=== PATIENT | female | born 1945 | race Caucasian/White ===

== ENCOUNTER 2017-01-07 06:12 | Inpatient (IN) | payer BC, MEDICARE ==
[2017-01-07] MEDS ORDERED: methylPREDNISolone SOD SUCC* 125 MG 2 ML VIAL ONE (06:29)
[2017-01-07] MEDS ORDERED: Levalbuterol 1.25MG/0.5ML NEB ONE (06:31)
[2017-01-07] MEDS ORDERED: methylPREDNISolone SOD SUCC* 125 MG 2 ML VIAL IV ONE ×2 (06:33→18:00)
[2017-01-07] MEDS ORDERED: Adenosine* 3 MG/ML VIAL IV PUSH ONE ×2 (06:33→06:35)
[2017-01-07] MEDS ORDERED: Albuterol/Ipratropium NEB.SOL* Albuterol 2.5 MG/Ipratropium 0.5 MG 3 ML INH ONE (06:33)
[2017-01-07] MEDS ORDERED: Diltiazem IV VIAL* 125 MG in D5W 100 ML BAG* 100 ML IV ONE (06:34)
[2017-01-07] MEDS ORDERED: Diltiazem IV* 5 MG/ML 5 ML VIAL (for loading dose/IV Push) (25 MG) IV SLOW PU ONE (06:34)
[2017-01-07] MEDS ORDERED: Diltiazem IV VIAL* 125 MG/25 ML VIAL ONE (06:36)
--- NOTE | 2017-01-07 06:56 | ED ---
Inessa Whitt Erika, scribed for Salvador Cox MD on 01/07/17 at 0643 . Palpitations / Dysrhythmia - HPI Summary HPI Summary: Patient is a 71-year-old female BIBA with intermittent tachycardia. Patient reports that tachycardia is associated with chest tightness and SOB. She reports that she has been experiencing symptoms intermittently for the past 3-4 days, but symptoms worsened [employer]. Medical records show that patient was previously admitted for COPD exacerbation with SVT, and was given adenosine and diltiazem. Patient is a former smoker. EMS reports that rhythm broke with valsalva maneuver. - History of Current Complaint Chief Complaint: EDRespiratoryDistress Time Seen by Provider: 01/07/17 06:15 Hx Obtained From: Patient, EMS, Medical Records Onset/Duration: Gradual Onset, Lasting Days, Worse Since - this morning Timing: Intermittent Episodes Lasting: - minutes Severity Initially: Severe Character: Fast Associated Signs & Symptoms: Chest Pain - tightness, Shortness of Breath - Allergy/Home Medications Allergies/Adverse Reactions: Allergies Allergy/AdvReac Type Severity Reaction Status Date / Time Adhesive Tape Allergy Severe RASH, Verified 06/02/16 19:23 ITCHING Fluconazole Allergy Severe GI REACTION Verified 06/02/16 19:45 Doxycycline Allergy Itching Verified 06/02/16 19:23 Ipratropium Allergy Difficulty Verified 06/02/16 19:23 Breathing Meperidine [From Demerol HCl] Allergy Palpitation Verified 06/02/16 19:23 s Fluticasone AdvReac Vomiting Verified 06/02/16 19:23 Vilanterol AdvReac Vomiting Verified 06/02/16 19:23 metals Allergy Mild Itching Uncoded 08/19/15 09:44 Yellow Dye Allergy Itching Uncoded 02/18/16 18:42 PMH/Surg Hx/FS Hx/Imm Hx Endocrine/Hematology History: Denies: Hx Diabetes, Hx Thyroid Disease Cardiovascular History: Reports: Hx Hypercholesterolemia, Hx Hypertension Denies: Hx Congestive Heart Failure, Hx Deep Vein Thrombosis, Hx Myocardial Infarction, Hx Pacemaker/ICD Respiratory History: Reports: Hx Chronic Obstructive Pulmonary Disease (COPD) Denies: Hx Asthma, Hx Lung Cancer GI History: Denies: Hx Gall Bladder Disease, Hx Gastrointestinal Bleed, Hx Ulcer, Hx Urosepsis History: Denies: Hx Kidney Stones, Hx Renal Disease Musculoskeletal History: Reports: Hx Arthritis Neurological History: Denies: Hx Dementia, Hx Migraine, Hx Seizures, Hx Transient Ischemic Attacks (TIA) Psychiatric History: Denies: Hx Anxiety, Hx Depression, Hx Schizophrenia, Hx Bipolar Disorder - Surgical History Surgery Procedure, Year, and Place: left knee reconstruction 1977; bilat carpal tunnel; TUBAL LIAGATION 1981 Infectious Disease History: Denies: Hx Hepatitis, Hx Human Immunodeficiency Virus (HIV), History Other Infectious Disease, Traveled Outside the [place] in Last 30 Days - Family History Known Family History: Positive: Cardiac Disease Negative: Hypertension, Diabetes - Social History Alcohol Use: None Hx Substance Use: No Substance Use Type: Reports: None Hx Tobacco Use: Yes Smoking Status (MU): Former Smoker Length of Time of Smoking/Using Tobacco: 50 years Review of Systems Cardiovascular: Other - chest tightness Positive: Palpitations - rapid heart rate Positive: Shortness Of Breath All Other Systems Reviewed And Are Negative: Yes Physical Exam Triage Information Reviewed: Yes Vital Signs On Initial Exam: Temp Pulse Resp BP Pulse Ox 97.8 F 125 25 164/101 99 01/07/17 06:12 01/07/17 06:31 01/07/17 06:31 01/07/17 06:12 01/07/17 06:31 Vital Signs Reviewed: Yes Appearance: Positive: Ill-Appearing, Cachectic - mod resp distress Skin: Positive: Warm Head/Face: Positive: Normal Head/Face Inspection Eyes: Positive: ROD ENT: Positive: Hearing grossly normal Neck: Positive: Supple Respiratory/Lung Sounds: Positive: Decreased Breath Sounds, Wheezes - diffuse bilat with prolonged exp, Unable to speak in full sentences Cardiovascular: Positive: IRR, Tachycardia Abdomen Description: Positive: Nontender, Soft Bowel Sounds: Positive: Present Musculoskeletal: Positive: Strength/ROM Intact Neurological: Positive: Sensory/Motor Intact, Alert, Oriented to Person Place, Time Psychiatric: Positive: Affect/Mood Appropriate Diagnostics - Vital Signs Vital Signs Temp Pulse Resp BP Pulse Ox 01/07/17 06:31 125 25 99 01/07/17 06:12 97.8 F 123 24 164/101 93 - Laboratory Lab Statement: Any lab studies that have been ordered have been reviewed, and results considered in the medical decision making process. - EKG 06:13 Cardiac Rate: Tachycardia - at 124 bpm EKG Rhythm: Sinus Tachycardia Re-Evaluation - Re-Evaluation First Eval Re-Evaluation Time: 06:55 - pt with svt, given adenosine x 2 with transient slowing, given cardizem with conversion Course/Dx - Course Assessment/Plan: A 71 y/o F presents to the ED with a CC of SOB and tachycardia. Patient is given duoneb and solumedrol. Pt's HR increases and she is then given adenosine and diltiazem. Patient has been admitted for similar episodes in the past. Patient admitted to the ICU by Dr. Patel. - Diagnoses Provider Diagnoses: COPD (chronic obstructive pulmonary disease), SVT (supraventricular tachycardia ) - Physician Notifications Discussed Care Of Patient With: Dr. Patel (hospitalist) at 06:44 - agrees to admit to ICU Instructed by Provider To: Admit As Inpatient - Critical Care Time Critical Care Time: 30-74 min Discharge - Discharge Plan Condition: Guarded Disposition: ADMITTED TO [facility] Referrals: Hai Nettles DO [Primary Care Provider] - The documentation as recorded by the Inessa hernández Erika accurately reflects the service I personally performed and the decisions made by Brooke webster David, MD.
[2017-01-07] MEDS ORDERED: NS 0.9% 1000 ML* 1,000 ML IV ONE (07:24)
--- NOTE | 2017-01-07 07:34 | RAD ---
INDICATION: Respiratory distress. COMPARISON: Comparison is made with a prior study from June 02, 2016. TECHNIQUE: A portable view of the chest was obtained. FINDINGS: Cardiac and mediastinal contours appear to be within normal limits. The lungs are markedly hyperinflated. There is mild prominence of interstitial markings which appear unchanged. No focal infiltrate or pleural effusion is seen. IMPRESSION: COPD, NO EVIDENCE FOR ACUTE FINDING.
[2017-01-07 08:08] LABS: Hematocrit 46 % (35-47); Hemoglobin 15.1 g/dl (12.0-16.0); Mean Corpuscular HGB Conc 33 g/dl (31-36); Mean Corpuscular Hemoglobin 31 pg (27-31); Mean Corpuscular Volume 94 fL (80-97); Mean Platelet Volume 7 um3 (7.4-10.4); Red Blood Count 4.91 10^6/ul (4.0-5.4); Red Cell Distribution Width 15 % (10.5-15); White Blood Count 14.9 10^3/ul (3.5-10.8)
[2017-01-07 08:14] LABS: Albumin 3.8 g/dL (3.2-5.2); BUN/Creatinine Ratio 18.9 (8-20); Calcium 8.5 mg/dL (8.6-10.3); EGFR African American 79.6 (>60); EGFR Non-African American 61.9 (>60); Globulin 2.4 g/dL (2-4); Potassium 3.4 mmol/L (3.5-5.0); Total Bilirubin 0.6 mg/dL (0.2-1.0); Total Protein 6.2 g/dL (6.4-8.9)
--- NOTE | 2017-01-07 08:24 | ADMNOTE ---
Subjective Date of Service: 01/07/17 Interval History: ADMISSION HISTORY AND PHYSICAL EXAM: Allergies Allergy/AdvReac Type Severity Reaction Status Date / Time Adhesive Tape Allergy Severe RASH, Verified 01/07/17 07:28 ITCHING Fluconazole Allergy Severe GI REACTION Verified 01/07/17 07:28 Doxycycline Allergy Itching Verified 01/07/17 07:28 Ipratropium Allergy Difficulty Verified 01/07/17 07:28 Breathing Meperidine [From Demerol HCl] Allergy Palpitation Verified 01/07/17 07:28 s Fluticasone AdvReac Vomiting Verified 01/07/17 07:28 Vilanterol AdvReac Vomiting Verified 01/07/17 07:28 metals Allergy Mild Itching Uncoded 01/07/17 07:28 Yellow Dye Allergy Itching Uncoded 01/07/17 07:28 Home Medications Medication Instructions Recorded Confirmed Type Albuterol HFA INHALER* [Ventolin 2 puff INH Q4H PRN 03/13/15 01/07/17 History HFA Inhaler*] Aspirin Low Dose CHEW TAB* 81 mg PO DAILY 03/13/15 01/07/17 History [Aspirin Low Dose TAB*] Atorvastatin* [Lipitor 20 MG*] 40 mg PO DAILY 07/09/15 01/07/17 History Albuterol 2.5MG/3ML (0.083%)* 3 ml INH Q4H PRN 02/18/16 01/07/17 History [Ventolin 2.5 MG/3 ML NEB.KJ*] Diltiazem HCl Coated Beads [Cartia 240 mg PO DAILY 06/02/16 01/07/17 History Xt] Docusate Sodium [Stool Softener] 100 mg PO DAILY 06/02/16 01/07/17 History predniSONE TAB* [Deltasone TAB*] 30 mg PO DAILY 01/07/17 01/07/17 History HPI: The patient had increased cough and SOB for several days. Her PCP prescribed ampicillin about 2 days ago but it didn't help. She hasn't slept for 2 nights. She used her albuterol/ipratropium many times last night, finally called 911. She is never aware of her SVT--no palpitations or chest pain. Family History: Findings - CAD, kidney cancer, leukemia Social History: Findings - Last smoked about a month ago. No recent alcohol abuse. Lives with her who is her SDM. Past Medical History: Findings - COPD, GERD, HTN, IBS, L knee surgery, BL CTR Review of Systems - Review of Systems Constitutional Symptoms: Negative: Weight Gain, Weight Loss, Weakness, Fatigue, Fever, Night Sweats, Unexplained Falls, Other Dermatology: Positive: Normal Eyes: Positive: Normal Thyroid: Positive: Normal Pulmonary: Positive: Cough, Sputum, Shortness of Breath, COPD Cardiology: Positive: Normal Gastroenterology: Positive: Normal Genital - Urinary: Positive: Normal Musculoskeletal: Negative: Joint Pain, Joint Stiffness, Arthritis, Osteoporosis, Low Back Pain , Sciatica, Joint Deformities, Kyphoscoliosis, Other Endocrinology: Positive: Normal Hematologic/Lymphatic: Negative: Anemia, Easy Brusing, Hx Leukemia, Hx Lymphoma, Use of Anticoagulant, Use of Antiplatelet Drugs, Other Neurology: Positive: Normal Psychiatry: Positive: Normal Allergic/Immunologic: Negative: Hx Anaphylaxis, Hx Angioedema, Hx Environmental, Hx Seasonal, Athsma, Hx HIV, Immunocompromise, Swollen Glands LymphNodes, Other Objective Active Medications: Aspirin (Aspirin Low Dose Tab*) 81 mg PO DAILY [facility] Atorvastatin Calcium (Lipitor*) 40 mg PO DAILY [facility] Diltiazem HCl (Cardizem Cd Cap*) 240 mg PO DAILY [facility] Docusate Sodium (Colace Cap*) 100 mg PO DAILY [facility] Enoxaparin Sodium (Lovenox(*)) 40 mg SUBCUT Q24H [facility] Diltiazem HCl 125 mg/ Dextrose 125 mls @ 10 mls/hr IV ED ONCE ONE PRN Reason: 10 MG/HR Stop: 01/07/17 19:03 Last Admin: 01/07/17 06:57 Dose: 10 mls/hr Sodium Chloride (Ns 0.9% 1000 Ml*) 1,000 mls @ 1,000 mls/hr IV ED ONCE ONE Stop: 01/07/17 08:23 Last Admin: 01/07/17 06:39 Dose: 1,000 mls/hr Levofloxacin/Dextrose (Levaquin 500 Mg Ivpremix(*)) 500 mg in 100 mls @ 100 mls /hr IVPB Q24H [facility] Levalbuterol HCl (Xopenex 1.25 Mg/0.5 Ml Neb.Kj*) 1.25 mg INH Q2H PRN PRN Reason: WHEEZING Vital Signs 01/07/17 01/07/17 07:30 08:01 Temperature 98.2 F Pulse Rate 100 100 Respiratory 19 24 Rate Blood Pressure 111/59 111/59 (mmHg) O2 Sat by Pulse 98 Oximetry Oxygen Devices in Use Now: CPAP/BiPAP Appearance: Alert, at 90 degrees on ED stretcher. Tachypneic. Otherwise looks comfortable. Eyes: No Scleral Icterus Neck: NL Appearance and Movements; NL JVP, No Thyroid Enlargement, Masses Respiratory: Symmetrical Chest Expansion and Respiratory Effort, Clear to Percussion, - - mild rhonchi and wheezing BL. Prolonged expiration. Cardiovascular: NL Sounds; No Murmurs; No JVD, RRR, No Edema, - Extremities: No Edema, No Clubbing, Cyanosis, - Skin: No Rash or Ulcers, No Nodules or Sclerosis, - Neurological: Alert and Oriented x 3, NL Sensation Result Diagrams: 01/07/17 07:45 Assess/Plan/Problems-Billing Assessment: - Patient Problems (1) COPD exacerbation Current Visit: Yes Status: Acute Code(s): J44.1 - CHRONIC OBSTRUCTIVE PULMONARY DISEASE W (ACUTE) EXACERBATION SNOMED Code(s): 508923004 Comment: IV levofloxacin. One more dose IV methylprednisolone, then oral prednisone. (2) SVT (supraventricular tachycardia) Current Visit: No Status: Acute Priority: Medium Code(s): I47.1 - SUPRAVENTRICULAR TACHYCARDIA SNOMED Code(s): 6711122 Comment: Likely due to combination of acute illness plus many doses inhaled albuterol. I don't think any change in her diltiazem dose is indicated, rather would substitue levalbuterol for use at home. (3) Tobacco abuse counseling Current Visit: No Status: Acute Priority: Medium Code(s): Z71.6 - TOBACCO ABUSE COUNSELING SNOMED Code(s): 672553457 Comment: Pt advised to quit smoking and avoid second hand smoke, also that a single cigarette would be harmful to her.
[2017-01-07] MEDS: Diltiazem CD CAP* 240 MG PO SCH (09:16)
[2017-01-07] MEDS: Aspirin Low Dose CHEW TAB* 81 MG PO SCH (09:16)
[2017-01-07] MEDS: Enoxaparin(*) 40 MG/0.4 ML SYR SUBCUT SCH (09:16)
[2017-01-07] MEDS: Docusate CAP* 100 MG PO SCH (09:17)
[2017-01-07] MEDS: Levofloxacin 500 MG IVPREMIX(* 500 MG/100 ML BAG IVPB SCH (09:18)
[2017-01-07] MEDS: Atorvastatin* 40 MG TAB PO SCH ×2 (09:20→11:48)
[2017-01-07] MEDS ORDERED: guaiFENesin LIQ* 100 MG/5 ML UDC PO ONE (10:10)
[2017-01-07 10:36] LABS: Troponin I 0.06 ng/mL (<0.04)
[2017-01-07] MEDS: guaiFENesin LIQ* 100 MG/5 ML UDC PO SCH ×3 (11:48→23:30)
[2017-01-07] MEDS: Levalbuterol 1.25MG/0.5ML NEB INH PRN (20:17)
[2017-01-07] MEDS ORDERED: ALPRAZolam TAB* 0.5 MG ONE (20:30)
[2017-01-08] MEDS: Levalbuterol 1.25MG/0.5ML NEB INH PRN ×2 (02:51→05:38)
[2017-01-08] MEDS: ALPRAZolam TAB* 0.5 MG PO PRN (05:23)
[2017-01-08] MEDS: guaiFENesin LIQ* 100 MG/5 ML UDC PO SCH ×4 (05:24→22:52)
--- NOTE | 2017-01-08 07:22 | PN ---
Subjective Date of Service: 01/08/17 Interval History: Patient sedated from alprazolam and/or exhausted and did not wake up during my exam. Family History: Findings - CAD, kidney cancer, leukemia Social History: Findings - Last smoked about a month ago. No recent alcohol abuse. Lives with her who is her SDM. Past Medical History: Findings - COPD, GERD, HTN, IBS, L knee surgery, BL CTR Objective Active Medications: Alprazolam (Xanax Tab*) 0.5 mg PO TID PRN PRN Reason: ANXIETY Last Admin: 01/08/17 05:23 Dose: 0.5 mg Aspirin (Aspirin Low Dose Tab*) 81 mg PO DAILY [facility] Last Admin: 01/07/17 09:16 Dose: 81 mg Atorvastatin Calcium (Lipitor*) 40 mg PO DAILY [facility] Last Admin: 01/07/17 11:48 Dose: 40 mg Diltiazem HCl (Cardizem Cd Cap*) 240 mg PO DAILY [facility] Last Admin: 01/07/17 09:16 Dose: 240 mg Docusate Sodium (Colace Cap*) 100 mg PO DAILY [facility] Last Admin: 01/07/17 09:17 Dose: Not Given Enoxaparin Sodium (Lovenox(*)) 40 mg SUBCUT Q24H [facility] Last Admin: 01/07/17 09:16 Dose: 40 mg Guaifenesin (Robitussin*) 10 ml PO Q6H [facility] Last Admin: 01/08/17 05:24 Dose: 10 ml Levofloxacin/Dextrose (Levaquin 500 Mg Ivpremix(*)) 500 mg in 100 mls @ 100 mls /hr IVPB Q24H [facility] Last Admin: 01/07/17 09:18 Dose: 100 mls/hr Levalbuterol HCl (Xopenex 1.25 Mg/0.5 Ml Neb.Tiesha*) 1.25 mg INH Q2H PRN PRN Reason: WHEEZING Last Admin: 01/08/17 05:38 Dose: 1.25 mg Methylprednisolone Sodium Succinate (Solu-Medrol*) 40 mg IV Q12H [facility] Vital Signs 01/07/17 01/07/17 01/07/17 07:30 08:00 08:01 Temperature 98.2 F Pulse Rate 100 90 100 Respiratory 19 26 24 Rate Blood Pressure 111/59 128/92 111/59 (mmHg) O2 Sat by Pulse 98 98 Oximetry 01/07/17 01/07/17 01/07/17 08:10 08:15 08:30 Temperature 99.2 F 99.2 F Pulse Rate 96 94 Respiratory 22 22 Rate Blood Pressure 138/53 98/54 (mmHg) O2 Sat by Pulse 96 97 Oximetry 01/07/17 01/07/17 01/07/17 09:00 09:25 09:30 Temperature Pulse Rate 81 87 86 Respiratory 22 23 23 Rate Blood Pressure 98/50 108/59 (mmHg) O2 Sat by Pulse 97 95 96 Oximetry 01/07/17 01/07/17 01/07/17 10:00 10:30 11:00 Temperature Pulse Rate 90 91 85 Respiratory 27 21 25 Rate Blood Pressure 109/54 103/52 111/56 (mmHg) O2 Sat by Pulse 97 97 97 Oximetry 01/07/17 01/07/17 01/07/17 11:30 12:00 12:01 Temperature 99.4 F Pulse Rate 83 93 Respiratory 23 28 28 Rate Blood Pressure 97/58 156/66 (mmHg) O2 Sat by Pulse 98 97 Oximetry 01/07/17 01/07/17 01/07/17 12:30 13:00 13:59 Temperature Pulse Rate 83 75 Respiratory 20 24 18 Rate Blood Pressure 81/48 109/56 (mmHg) O2 Sat by Pulse 97 98 Oximetry 01/07/17 01/07/17 01/07/17 14:00 15:00 15:06 Temperature 97.9 F Pulse Rate 74 73 Respiratory 23 20 Rate Blood Pressure 103/46 94/71 (mmHg) O2 Sat by Pulse 97 97 Oximetry 01/07/17 01/07/17 01/07/17 16:00 16:24 17:00 Temperature Pulse Rate 76 78 73 Respiratory 21 25 19 Rate Blood Pressure 121/55 111/55 (mmHg) O2 Sat by Pulse 98 97 97 Oximetry 01/07/17 01/07/17 01/07/17 18:00 19:00 20:00 Temperature 98.8 F Pulse Rate 73 76 74 Respiratory 21 20 19 Rate Blood Pressure 128/56 129/69 131/68 (mmHg) O2 Sat by Pulse 98 97 97 Oximetry 01/07/17 01/07/17 01/07/17 21:00 22:00 22:05 Temperature Pulse Rate 69 70 71 Respiratory 22 21 20 Rate Blood Pressure 104/52 93/44 (mmHg) O2 Sat by Pulse 97 97 97 Oximetry 01/07/17 01/08/17 01/08/17 23:00 00:00 00:01 Temperature 98.4 F Pulse Rate 69 68 68 Respiratory 21 24 24 Rate Blood Pressure 121/56 113/63 (mmHg) O2 Sat by Pulse 97 97 97 Oximetry 01/08/17 01/08/17 01/08/17 01:00 02:00 02:52 Temperature Pulse Rate 71 76 69 Respiratory 23 29 25 Rate Blood Pressure 120/58 135/62 (mmHg) O2 Sat by Pulse 97 96 96 Oximetry 01/08/17 01/08/17 01/08/17 03:00 04:00 05:00 Temperature 97.9 F Pulse Rate 75 65 65 Respiratory 27 25 22 Rate Blood Pressure 111/53 99/82 118/56 (mmHg) O2 Sat by Pulse 96 97 97 Oximetry 01/08/17 01/08/17 01/08/17 05:23 05:40 05:44 Temperature Pulse Rate 73 Respiratory 27 24 30 Rate Blood Pressure (mmHg) O2 Sat by Pulse 96 Oximetry 01/08/17 07:10 Temperature 99.4 F Pulse Rate Respiratory Rate Blood Pressure (mmHg) O2 Sat by Pulse Oximetry Oxygen Devices in Use Now: CPAP/BiPAP Appearance: At 45 degrees in ICU bed. Tachypneic, eyes closed, appears to be sleeping. Respiratory: Symmetrical Chest Expansion and Respiratory Effort, Clear to Percussion - Decreased BS BL Cardiovascular: NL Sounds; No Murmurs; No JVD, RRR, No Edema, - Extremities: No Edema, No Clubbing, Cyanosis, - Skin: No Rash or Ulcers, No Nodules or Sclerosis, - Neurological: Alert and Oriented x 3, NL Sensation Result Diagrams: 01/07/17 07:45 01/07/17 07:45 Microbiology and Other Data: Microbiology 01/07/17 08:17 Nasal Screen MRSA (PCR)(AMINATA) - Final Nasal Mrsa Negative Assess/Plan/Problems-Billing Assessment: - Patient Problems (1) COPD exacerbation Current Visit: Yes Status: Acute Code(s): J44.1 - CHRONIC OBSTRUCTIVE PULMONARY DISEASE W (ACUTE) EXACERBATION SNOMED Code(s): 997690640 Comment: Continue IV levofloxacin, IV methylprednisolone. I will discuss the patient with Dr. Miller. (2) SVT (supraventricular tachycardia) Current Visit: No Status: Acute Priority: Medium Code(s): I47.1 - SUPRAVENTRICULAR TACHYCARDIA SNOMED Code(s): 7954734 Comment: Likely due to combination of acute illness plus many doses inhaled albuterol. I don't think any change in her diltiazem dose is indicated, rather would substitue levalbuterol for use at home. (3) Tobacco abuse counseling Current Visit: No Status: Acute Priority: Medium Code(s): Z71.6 - TOBACCO ABUSE COUNSELING SNOMED Code(s): 700973224 Comment: 01/07: Pt advised to quit smoking and avoid second hand smoke, also that a single cigarette would be harmful to her.
[2017-01-08] MEDS: methylPREDNISolone SOD SUCC* 40 MG/ML VIAL IV SCH ×2 (08:25→20:11)
[2017-01-08] MEDS: Levofloxacin 500 MG IVPREMIX(* 500 MG/100 ML BAG IVPB SCH (08:25)
[2017-01-08] MEDS: Enoxaparin(*) 40 MG/0.4 ML SYR SUBCUT SCH (08:25)
[2017-01-08] MEDS: Atorvastatin* 40 MG TAB PO SCH (08:25)
[2017-01-08] MEDS: Docusate CAP* 100 MG PO SCH (08:26)
[2017-01-08] MEDS: Aspirin Low Dose CHEW TAB* 81 MG PO SCH (08:26)
[2017-01-08] MEDS: Diltiazem CD CAP* 240 MG PO SCH (08:26)
[2017-01-08] MEDS ORDERED: predniSONE TAB* 20 MG PO SCH (09:00)
[2017-01-08] MEDS ORDERED: Albuterol 2.5 MG/3 ML NEB.SOL* (0.083%) INH SCH (10:00)
[2017-01-08] MEDS: Morphine INJ* 2 MG/ML 1 ML SYRINGE IV PRN ×4 (10:02→23:18)
--- NOTE | 2017-01-08 11:33 | PN ---
Progress Note - Progress Note Note: CRITICAL CARE MEDICINE Date: 01/08/17 Time: 1000 SUBJECTIVE: Patient seen and examined. Asked to assume care from hospitalist service. Pt off bipap this am. Still feels sob. Has an understanding of her ailments. PHYSICAL EXAM: thin, frail, greatly expanded lungs Vital Signs: Reviewed. Neurologic: communicating, holds capacitance HEENT: pupils equal. Sclera anicteric. Trachea midline. Cardiovascular: S1 S2 Respiratory: distant, with poor movement and quite expanded with muscle wasting Abdomen: Soft, nt. Extremities: Warm. LABS: Reviewed. IMAGING: Reviewed. hyperinflation. MEDICATIONS: Reviewed. ASSESSMENT: 71 F Acute hypercarbic resp failure Severe copd exac PLAN: Neurologic: utilize morphine and xanax for comfort Cardiovascular: perfusing. vol ok. had afib rvr, now sinus. previous admission with svt with copd exac as well Respiratory: we discussed her intolerances of other copd rx. she will expect albuterol. on iv steroids. try HFO2 today and keep comfortable on such. bipap intermittently. As d/w her, would greatly prefer not to intubate as this will just increase resistance and hyperinflate. She expressed unbderstanding but also need to see if we can support and give her some relief otherwise today. Gastrointestinal: po diet. Renal/Metabolic: stable. hco3 actually not too high. Infectious Disease: on levaquin. may help exacerbation and given her severity. has been chronically on steroids. can have a 5 day course. Hematology: stable. Endocrine: iv steroids. f/u bg Musculoskeletal: rest today Psych/Social: in ok spirits. we will re-discuss dni later. Supportive and preventative care as ordered. SUP: ppi VTE prophylaxis: heparin Disposition: ICU Code Status: DNR Critical Care Time: 30min Fiordaliza Miller DO
[2017-01-08] MEDS: Albuterol 2.5 MG/3 ML NEB.SOL* (0.083%) INH SCH ×3 (14:58→23:20)
[2017-01-09] MEDS: Albuterol 2.5 MG/3 ML NEB.SOL* (0.083%) INH SCH ×6 (02:54→22:53)
[2017-01-09] MEDS: guaiFENesin LIQ* 100 MG/5 ML UDC PO SCH ×4 (04:58→22:05)
[2017-01-09] MEDS: Morphine INJ* 2 MG/ML 1 ML SYRINGE IV PRN ×6 (05:07→22:06)
[2017-01-09 05:11] LABS: Hematocrit 43 % (35-47); Hemoglobin 14.4 g/dl (12.0-16.0); Mean Corpuscular HGB Conc 33 g/dl (31-36); Mean Corpuscular Hemoglobin 31 pg (27-31); Mean Corpuscular Volume 93 fL (80-97); Mean Platelet Volume 7 um3 (7.4-10.4); Red Blood Count 4.64 10^6/ul (4.0-5.4); Red Cell Distribution Width 15 % (10.5-15)
[2017-01-09 05:27] LABS: BUN/Creatinine Ratio 50.6 (8-20); Calcium 9.1 mg/dL (8.6-10.3); EGFR African American 82.8 (>60); EGFR Non-African American 64.4 (>60); Magnesium 2.4 mg/dL (1.9-2.7); Phosphorus 3.2 mg/dL (2.5-5.0); Potassium 4.8 mmol/L (3.5-5.0)
[2017-01-09] MEDS: Enoxaparin(*) 40 MG/0.4 ML SYR SUBCUT SCH (08:26)
[2017-01-09] MEDS: Atorvastatin* 40 MG TAB PO SCH (08:27)
[2017-01-09] MEDS: Diltiazem CD CAP* 240 MG PO SCH (08:27)
[2017-01-09] MEDS: Levofloxacin 500 MG IVPREMIX(* 500 MG/100 ML BAG IVPB SCH (08:27)
[2017-01-09] MEDS: Docusate CAP* 100 MG PO SCH (08:27)
[2017-01-09] MEDS: methylPREDNISolone SOD SUCC* 40 MG/ML VIAL IV SCH (08:27)
[2017-01-09] MEDS: Aspirin Low Dose CHEW TAB* 81 MG PO SCH (08:27)
--- NOTE | 2017-01-09 10:41 | PN ---
Progress Note - Progress Note Note: CRITICAL CARE MEDICINE Date: 01/09/17 Time: 835 SUBJECTIVE: Patient seen and examined. Slept. PHYSICAL EXAM: Vital Signs: Reviewed. Neurologic: communicating, holds capacitance HEENT: pupils equal. Sclera anicteric. Trachea midline. Cardiovascular: S1 S2 Respiratory: distant, with poor movement. HFO2 now post bipap overnight. Abdomen: Soft, nt. Extremities: Warm. LABS: Reviewed. IMAGING: Reviewed. MEDICATIONS: Reviewed. ASSESSMENT: 71 F Acute hypercarbic resp failure Severe copd exac Bronchitis PLAN: Neurologic: utilize morphine and xanax Cardiovascular: perfusing. vol ok. on cardizem, asa. Respiratory: wob still present. slow wean on HFO2. tremendous deadspace still. albuterol. po steroids. bipap tonight and try to avoid daytime rescue. Needs more time. Gastrointestinal: po diet. Renal/Metabolic: stable. Infectious Disease: on levaquin x 5days for bronchitis benefit Hematology: stable. Endocrine: steroids. bg ok Musculoskeletal: oob today Psych/Social: in ok spirits. Supportive and preventative care as ordered. SUP: po VTE prophylaxis: lovenox Disposition: ICU Code Status: DNR Critical Care Time: 25min Fiordaliza Miller DO
[2017-01-09] MEDS: predniSONE TAB* 20 MG PO SCH (11:34)
[2017-01-10] MEDS: Albuterol 2.5 MG/3 ML NEB.SOL* (0.083%) INH SCH ×6 (03:55→23:51)
[2017-01-10] MEDS: Morphine INJ* 2 MG/ML 1 ML SYRINGE IV PRN ×5 (04:07→20:03)
[2017-01-10] MEDS: guaiFENesin LIQ* 100 MG/5 ML UDC PO SCH ×4 (04:07→22:56)
[2017-01-10] MEDS: Levofloxacin 500 MG IVPREMIX(* 500 MG/100 ML BAG IVPB SCH (09:11)
[2017-01-10] MEDS: Aspirin Low Dose CHEW TAB* 81 MG PO SCH (09:22)
[2017-01-10] MEDS: Atorvastatin* 40 MG TAB PO SCH (09:22)
[2017-01-10] MEDS: predniSONE TAB* 20 MG PO SCH (09:22)
[2017-01-10] MEDS: Enoxaparin(*) 40 MG/0.4 ML SYR SUBCUT SCH (09:22)
[2017-01-10] MEDS: Docusate CAP* 100 MG PO SCH (09:22)
[2017-01-10] MEDS: Diltiazem CD CAP* 240 MG PO SCH (09:22)
--- NOTE | 2017-01-10 09:42 | PN ---
Progress Note - Progress Note Note: CRITICAL CARE MEDICINE Date: 01/10/17 Time: 905 SUBJECTIVE: Patient seen and examined. Slept. PHYSICAL EXAM: looks better Vital Signs: Reviewed. Neurologic: communicating, holds capacitance HEENT: pupils equal. Sclera anicteric. Trachea midline. Cardiovascular: S1 S2 Respiratory: distant, with poor movement but little better. HFO2 now and overnight but can transition to salter. Abdomen: thin, soft, nt. Extremities: Warm. LABS: Reviewed. IMAGING: Reviewed. MEDICATIONS: Reviewed. ASSESSMENT: 71 F Acute hypercarbic and hypoxic resp failure Severe copd exac Malnutrition moderate degree Bronchitis PLAN: Neurologic: morphine and xanax prn Cardiovascular: perfusing. vol stable. cardizem, asa, statin. Respiratory: wob much better. feels better. keep po steroids and nebs. off to salter today and can utilize HFO2 tonight as needed. Progress but needs more time. Gastrointestinal: po diet. Renal/Metabolic: stable. Infectious Disease: on levaquin x 5days Hematology: stable. Endocrine: steroids as is. Musculoskeletal: oob today and ambulate. Psych/Social: good spirits. Supportive and preventative care as ordered. SUP: po VTE prophylaxis: lovenox Disposition: ICU today and potential floor tomorrow. Would need to qualify for home O2 and sort out pulm f/u and outpt needs Code Status: DNR Critical Care Time: 25min FPasha Miller DO
[2017-01-11] MEDS: Morphine INJ* 2 MG/ML 1 ML SYRINGE IV PRN ×7 (01:07→23:55)
[2017-01-11] MEDS: Albuterol 2.5 MG/3 ML NEB.SOL* (0.083%) INH SCH ×6 (03:51→23:40)
[2017-01-11] MEDS: guaiFENesin LIQ* 100 MG/5 ML UDC PO SCH ×5 (04:58→23:42)
[2017-01-11 05:38] LABS: BUN/Creatinine Ratio 44.4 (8-20); Calcium 9.1 mg/dL (8.6-10.3); EGFR Non-African American 80.1 (>60); Magnesium 2.3 mg/dL (1.9-2.7); Phosphorus 1.7 mg/dL (2.5-5.0); Potassium 3.9 mmol/L (3.5-5.0)
[2017-01-11] MEDS: Levofloxacin 500 MG IVPREMIX(* 500 MG/100 ML BAG IVPB SCH (07:35)
[2017-01-11] MEDS: Enoxaparin(*) 40 MG/0.4 ML SYR SUBCUT SCH (08:51)
[2017-01-11] MEDS: predniSONE TAB* 20 MG PO SCH (08:52)
[2017-01-11] MEDS: Docusate CAP* 100 MG PO SCH (08:52)
[2017-01-11] MEDS: Atorvastatin* 40 MG TAB PO SCH (08:52)
[2017-01-11] MEDS: Diltiazem CD CAP* 240 MG PO SCH (08:52)
[2017-01-11] MEDS: Aspirin Low Dose CHEW TAB* 81 MG PO SCH (08:52)
--- NOTE | 2017-01-11 09:40 | PN ---
Progress Note - Progress Note Note: CRITICAL CARE MEDICINE Date: 01/11/17 Time: 810 SUBJECTIVE: Patient seen and examined. Slept but episode of coughing in night with rapid hr. PHYSICAL EXAM: improved Vital Signs: Reviewed. 6L O2 Neurologic: communicating, holds capacitance HEENT: pupils equal. Sclera anicteric. Trachea midline. Cardiovascular: S1 S2 Respiratory: distant, stable. no wheeze Abdomen: thin, soft, nt. Extremities: Warm. LABS: Reviewed. IMAGING: Reviewed. MEDICATIONS: Reviewed. ASSESSMENT: 71 F Acute hypercarbic and hypoxic resp failure Severe copd exac Malnutrition moderate degree Bronchitis PLAN: Neurologic: morphine and xanax prn Cardiovascular: perfusing. vol stable. cardizem, asa, statin. Respiratory: wob much better. feels better. keep po steroids and nebs. off to salter today and can utilize HFO2 tonight if needed. Gastrointestinal: po diet. Renal/Metabolic: stable. Infectious Disease: levaquin completed Hematology: stable. Endocrine: steroids as is today and drop to 20mg tomorrow and maintain Musculoskeletal: oob today and ambulate. Psych/Social: good spirits. we discussed hospice oupt potentials and she is receptive. Supportive and preventative care as ordered. SUP: po VTE prophylaxis: lovenox Disposition: ICU today and HFO2 tonight and then floor tomorrow. O2 determination this weekend and potential dispo early next week with outpt hospice eval and pulm eval Code Status: DNR Critical Care Time: 25min Fiordaliza Miller DO
[2017-01-11] MEDS: Potassium & Sodium Phos 250MG* = 1 PACKET PO SCH ×3 (10:27→21:38)
[2017-01-11] MEDS: Famotidine TAB* 20 MG PO SCH (21:37)
[2017-01-12] MEDS: Albuterol 2.5 MG/3 ML NEB.SOL* (0.083%) INH SCH ×6 (04:00→23:32)
[2017-01-12] MEDS: Morphine INJ* 2 MG/ML 1 ML SYRINGE IV PRN ×8 (04:29→23:50)
[2017-01-12] MEDS: guaiFENesin LIQ* 100 MG/5 ML UDC PO SCH ×4 (04:54→22:47)
[2017-01-12] MEDS ORDERED: Saline NASAL SPRAY 0.65%* BTL BOTH NARES PRN (04:59)
[2017-01-12] MEDS: Aspirin Low Dose CHEW TAB* 81 MG PO SCH (07:49)
[2017-01-12] MEDS: Atorvastatin* 40 MG TAB PO SCH (07:49)
[2017-01-12] MEDS: Diltiazem CD CAP* 240 MG PO SCH (07:49)
[2017-01-12] MEDS: Enoxaparin(*) 40 MG/0.4 ML SYR SUBCUT SCH (07:49)
[2017-01-12] MEDS: Potassium & Sodium Phos 250MG* = 1 PACKET PO SCH ×3 (07:49→20:52)
[2017-01-12] MEDS: predniSONE TAB* 20 MG PO SCH ×2 (07:49→09:51)
[2017-01-12] MEDS: Docusate CAP* 100 MG PO SCH (07:49)
[2017-01-12] MEDS ORDERED: Senna TAB PO PRN (09:49)
--- NOTE | 2017-01-12 10:35 | PN ---
Progress Note - Progress Note Note: CRITICAL CARE MEDICINE Date: 01/12/17 Time: 805 SUBJECTIVE: Patient seen and examined. Slept ok but episode of coughing in night and using mask for recovery. PHYSICAL EXAM: improved Vital Signs: Reviewed. 6L O2 NC vs less with mask. Neurologic: communicating, holds capacitance HEENT: pupils equal. Sclera anicteric. Trachea midline. Cardiovascular: S1 S2 Respiratory: distant, stable. no wheeze Abdomen: thin, soft, nt. Extremities: Warm. LABS: Reviewed. IMAGING: Reviewed. MEDICATIONS: Reviewed. ASSESSMENT: 71 F Acute hypercarbic and hypoxic resp failure Afib rvr on admission, resolved with resp recovery. Severe copd exac Malnutrition moderate degree Bronchitis - completed levaquin tx PLAN: Neurologic: morphine and xanax prn Cardiovascular: perfusing. vol stable. cardizem, asa, statin. Respiratory: stable. no HFO2 needs. NC. test for home O2 soon. steroids long slow taper. nebs. declines other rx Gastrointestinal: po diet. Renal/Metabolic: stable. Infectious Disease: levaquin completed Hematology: stable. Endocrine: steroids 20mg daily Musculoskeletal: oob, ambulate. Psych/Social: good spirits. palliative healthcare or medical consult Supportive and preventative care as ordered. SUP: po VTE prophylaxis: lovenox Disposition: floor today Code Status: DNR Critical Care Time: 25min FPasha Miller DO
[2017-01-12] MEDS: Famotidine TAB* 20 MG PO SCH (20:52)
[2017-01-13] MEDS: Albuterol 2.5 MG/3 ML NEB.SOL* (0.083%) INH SCH ×2 (03:29→08:13)
[2017-01-13] MEDS: Morphine INJ* 2 MG/ML 1 ML SYRINGE IV PRN ×3 (04:20→15:07)
[2017-01-13] MEDS: guaiFENesin LIQ* 100 MG/5 ML UDC PO SCH ×4 (04:21→23:12)
[2017-01-13 06:19] LABS: Hematocrit 45 % (35-47); Hemoglobin 14.7 g/dl (12.0-16.0); Mean Corpuscular HGB Conc 33 g/dl (31-36); Mean Corpuscular Hemoglobin 31 pg (27-31); Mean Corpuscular Volume 94 fL (80-97); Mean Platelet Volume 7 um3 (7.4-10.4); Red Blood Count 4.76 10^6/ul (4.0-5.4); Red Cell Distribution Width 15 % (10.5-15); White Blood Count 10.1 10^3/ul (3.5-10.8)
[2017-01-13 06:34] LABS: Calcium 9.3 mg/dL (8.6-10.3); EGFR African American 104.7 (>60); EGFR Non-African American 81.4 (>60); Potassium 3.6 mmol/L (3.5-5.0)
[2017-01-13] MEDS ORDERED: Spiriva Inhaler DEVICE* 1 EACH DEVICE INH ONE (08:00)
[2017-01-13] MEDS: predniSONE TAB* 20 MG PO SCH ×2 (08:41→08:43)
[2017-01-13] MEDS: Docusate CAP* 100 MG PO SCH ×2 (08:41→08:43)
[2017-01-13] MEDS: Atorvastatin* 40 MG TAB PO SCH (08:42)
[2017-01-13] MEDS: Enoxaparin(*) 40 MG/0.4 ML SYR SUBCUT SCH (08:42)
[2017-01-13] MEDS: Aspirin Low Dose CHEW TAB* 81 MG PO SCH (08:42)
[2017-01-13] MEDS: Diltiazem CD CAP* 240 MG PO SCH (08:42)
[2017-01-13] MEDS: Albuterol 2.5 MG/3 ML NEB.SOL* (0.083%) INH PRN ×2 (08:51→15:32)
[2017-01-13] MEDS ORDERED: Albuterol HFA INHALER* 8 gm MDI INH PRN (08:56)
[2017-01-13] MEDS ORDERED: Mometasone/Formoter 200/5 MDI INH SCH (09:00)
[2017-01-13] MEDS ORDERED: Tiotropium CAP.INH* CAP.INH/18 MCG INH SCH (09:00)
--- NOTE | 2017-01-13 13:41 | PN ---
Subjective Date of Service: 01/13/17 Interval History: HOSPITALIST PROGRESS NOTE Patient seen and examined at bedside. She feels well today. States her breathing is improved, but gets visibly dyspneic with conversation. Sporadic cough with huerta sputum. Tolerating diet well, denies N/V. Family History: Unchanged from Admission Social History: Unchanged from Admission Past Medical History: Unchanged from Admission Objective Active Medications: Albuterol (Ventolin 2.5 Mg/3 Ml Neb.Tiesha*) 2.5 mg INH Q4H PRN PRN Reason: SOB/WHEEZING Last Admin: 01/13/17 08:51 Dose: 2.5 mg Albuterol (Ventolin Hfa Inhaler*) 1 puff INH Q4H PRN PRN Reason: SOB/WHEEZING Alprazolam (Xanax Tab*) 0.5 mg PO TID PRN PRN Reason: ANXIETY Last Admin: 01/08/17 05:23 Dose: 0.5 mg Aspirin (Aspirin Low Dose Tab*) 81 mg PO DAILY [facility] Last Admin: 01/13/17 08:42 Dose: 81 mg Atorvastatin Calcium (Lipitor*) 40 mg PO DAILY [facility] Last Admin: 01/13/17 08:42 Dose: 40 mg Diltiazem HCl (Cardizem Cd Cap*) 240 mg PO DAILY [facility] Last Admin: 01/13/17 08:42 Dose: 240 mg Docusate Sodium (Colace Cap*) 100 mg PO DAILY [facility] Last Admin: 01/13/17 08:43 Dose: Not Given Enoxaparin Sodium (Lovenox(*)) 40 mg SUBCUT Q24H [facility] Last Admin: 01/13/17 08:42 Dose: 40 mg Famotidine (Pepcid Tab*) 20 mg PO BEDTIME [facility] Last Admin: 01/12/17 20:52 Dose: 20 mg Guaifenesin (Robitussin*) 10 ml PO Q6H [facility] Last Admin: 01/13/17 12:27 Dose: 10 ml Morphine Sulfate (Morphine Inj (Syringe)*) 2 mg IV Q2H PRN PRN Reason: SOB/WHEEZING Last Admin: 01/13/17 09:43 Dose: 2 mg Prednisone (Deltasone Tab*) 20 mg PO DAILY [facility] Last Admin: 01/13/17 08:43 Dose: 20 mg Senna (Senokot Tab*) 1 tab PO DAILY PRN PRN Reason: CONSTIPATION Sodium Chloride (Sodium Chloride 0.65% Nasal [place]*) 2 spray BOTH NARES Q1H PRN PRN Reason: CONGESTION Vital Signs 01/13/17 01/13/17 01/13/17 00:50 03:30 04:07 Temperature 97.3 F Pulse Rate 59 66 Respiratory 17 18 18 Rate Blood Pressure 155/75 (mmHg) O2 Sat by Pulse 99 97 Oximetry Oxygen Devices in Use Now: Simple Face Mask Appearance: Elderly lady, appears older than stated age, sitting up in bed in NAD, but becomes dyspneic during conversation. Eyes: No Scleral Icterus Ears/Nose/Mouth/Throat: Mucous Membranes Moist Neck: Trachea Midline Respiratory: Symmetrical Chest Expansion and Respiratory Effort, - - BS+ bilaterally decreased with no added sounds Cardiovascular: RRR - Normal S1 and S2, distant sounds Abdominal: NL Sounds; No Tenderness; No Distention Extremities: No Edema Neurological: Alert and Oriented x 3, NL Muscle Strength and Tone Lines/Tubes/Other Access: Clean, Dry and Intact Peripheral IV Nutrition: Taking PO's Result Diagrams: 01/13/17 05:53 01/13/17 05:53 Assess/Plan/Problems-Billing Assessment: Mrs. Willard is a 71yo F with PMH of COPD, GERD, HTN, IBS, tobacco abuse, who presented to ED with c/o dyspnea, found to have COPD exacerbation secondary to bronchitis. - Patient Problems (1) COPD exacerbation Comment: - Secondary to bronchitis. - Completed Levofloxacin course. - Continue prednisone, Spiriva, and Albuterol. (2) Acute and chronic respiratory failure Comment: - Will probably require home O2. (3) Paroxysmal a-fib Comment: - In the acute setting of disease, now back to sinus. - Continue Aspirin and Cardizem. - [id number] score is 3 (age, sex, HTN) - patient not interested in AC for now, wants to continue Aspirin. (4) Moderate protein-calorie malnutrition Comment: - Follow RD recommendations. (5) DVT prophylaxis Comment: - Lovenox. (6) DNR (do not resuscitate) Status and Disposition: Inpatient.
[2017-01-13] MEDS: ALPRAZolam TAB* 0.5 MG PO PRN (15:30)
[2017-01-13] MEDS: Famotidine TAB* 20 MG PO SCH (20:46)
[2017-01-14] MEDS: guaiFENesin LIQ* 100 MG/5 ML UDC PO SCH ×3 (05:03→17:08)
[2017-01-14] MEDS: Docusate CAP* 100 MG PO SCH (08:03)
[2017-01-14] MEDS: Aspirin Low Dose CHEW TAB* 81 MG PO SCH (08:04)
[2017-01-14] MEDS: Atorvastatin* 40 MG TAB PO SCH (08:04)
[2017-01-14] MEDS: predniSONE TAB* 20 MG PO SCH (08:05)
[2017-01-14] MEDS: Enoxaparin(*) 40 MG/0.4 ML SYR SUBCUT SCH (08:05)
[2017-01-14] MEDS: Diltiazem CD CAP* 240 MG PO SCH (08:05)
[2017-01-14] MEDS: Albuterol 2.5 MG/3 ML NEB.SOL* (0.083%) INH PRN (08:53)
[2017-01-14] MEDS: Morphine INJ* 2 MG/ML 1 ML SYRINGE IV PRN ×2 (10:01→12:04)
--- NOTE | 2017-01-14 10:04 | PN ---
Subjective Date of Service: 01/14/17 Interval History: HOSPITALIST PROGRESS NOTE Patient seen and examined at bedside. In very good spirits, states she had a good night. Family History: Unchanged from Admission Social History: Unchanged from Admission Past Medical History: Unchanged from Admission Objective Active Medications: Albuterol (Ventolin 2.5 Mg/3 Ml Neb.Tiesha*) 2.5 mg INH Q4H PRN PRN Reason: SOB/WHEEZING Last Admin: 01/14/17 08:53 Dose: 2.5 mg Albuterol (Ventolin Hfa Inhaler*) 1 puff INH Q4H PRN PRN Reason: SOB/WHEEZING Alprazolam (Xanax Tab*) 0.5 mg PO TID PRN PRN Reason: ANXIETY Last Admin: 01/13/17 15:30 Dose: 0.5 mg Aspirin (Aspirin Low Dose Tab*) 81 mg PO DAILY [facility] Last Admin: 01/14/17 08:04 Dose: 81 mg Atorvastatin Calcium (Lipitor*) 40 mg PO DAILY [facility] Last Admin: 01/14/17 08:04 Dose: 40 mg Diltiazem HCl (Cardizem Cd Cap*) 240 mg PO DAILY [facility] Last Admin: 01/14/17 08:05 Dose: 240 mg Docusate Sodium (Colace Cap*) 100 mg PO DAILY [facility] Last Admin: 01/14/17 08:03 Dose: Not Given Enoxaparin Sodium (Lovenox(*)) 40 mg SUBCUT Q24H [facility] Last Admin: 01/14/17 08:05 Dose: 40 mg Famotidine (Pepcid Tab*) 20 mg PO BEDTIME [facility] Last Admin: 01/13/17 20:46 Dose: 20 mg Guaifenesin (Robitussin*) 10 ml PO Q6H [facility] Last Admin: 01/14/17 05:03 Dose: 10 ml Morphine Sulfate (Morphine Inj (Syringe)*) 2 mg IV Q2H PRN PRN Reason: SOB/WHEEZING Last Admin: 01/13/17 15:07 Dose: 2 mg Prednisone (Deltasone Tab*) 20 mg PO DAILY [facility] Last Admin: 01/14/17 08:05 Dose: 20 mg Senna (Senokot Tab*) 1 tab PO DAILY PRN PRN Reason: CONSTIPATION Sodium Chloride (Sodium Chloride 0.65% Nasal [place]*) 2 spray BOTH NARES Q1H PRN PRN Reason: CONGESTION Vital Signs 01/14/17 01/14/17 01/14/17 00:00 07:21 07:43 Temperature 98.4 F Pulse Rate 58 88 Respiratory 20 14 Rate Blood Pressure 140/60 (mmHg) O2 Sat by Pulse 96 100 94 Oximetry Oxygen Devices in Use Now: Simple Face Mask Appearance: Elderly cachectic lady sitting up in bed in NAD. Eyes: No Scleral Icterus Ears/Nose/Mouth/Throat: Mucous Membranes Moist Neck: Trachea Midline Respiratory: Symmetrical Chest Expansion and Respiratory Effort, - - BS+ bilaterally with scattered wheeze Cardiovascular: RRR - Normal S1 and S2 Abdominal: NL Sounds; No Tenderness; No Distention Extremities: No Edema Neurological: Alert and Oriented x 3, NL Muscle Strength and Tone Lines/Tubes/Other Access: Clean, Dry and Intact Peripheral IV Nutrition: Taking PO's Result Diagrams: 01/13/17 05:53 01/13/17 05:53 Assess/Plan/Problems-Billing Assessment: Mrs. Willard is a 71yo F with PMH of COPD, GERD, HTN, IBS, tobacco abuse, who presented to ED with c/o dyspnea, found to have COPD exacerbation secondary to bronchitis. - Patient Problems (1) COPD exacerbation Comment: - Secondary to bronchitis. - Completed Levofloxacin course. - Continue prednisone, Spiriva, and Albuterol. (2) Acute and chronic respiratory failure Comment: - Will require home O2. (3) Paroxysmal a-fib Comment: - In the acute setting of disease, now back to sinus. - Continue Aspirin and Cardizem. - [id number] score is 3 (age, sex, HTN) - patient not interested in AC for now, wants to continue Aspirin. (4) Moderate protein-calorie malnutrition Comment: - Follow RD recommendations. (5) Physical deconditioning Comment: - Patient was very shaky when ambulating yesterday and respiratory capacity is minimal. - Will request PT/OT evaluation to assist with deconditioning and also to teach her energy conserving strategies. (6) DVT prophylaxis Comment: - Lovenox. (7) DNR (do not resuscitate) Status and Disposition: Inpatient.
[2017-01-14] MEDS: ALPRAZolam TAB* 0.5 MG PO PRN (11:45)
[2017-01-14] MEDS: Famotidine TAB* 20 MG PO SCH (20:45)
[2017-01-15] MEDS: guaiFENesin LIQ* 100 MG/5 ML UDC PO SCH ×2 (00:04→06:15)
[2017-01-15] MEDS: ALPRAZolam TAB* 0.5 MG PO PRN (06:21)
[2017-01-15] MEDS: Morphine INJ* 2 MG/ML 1 ML SYRINGE IV PRN (06:22)
[2017-01-15 07:58] VITALS: BP 119/56
[2017-01-15] MEDS: Albuterol 2.5 MG/3 ML NEB.SOL* (0.083%) INH PRN (08:19)
[2017-01-15] MEDS: Atorvastatin* 40 MG TAB PO SCH (08:44)
[2017-01-15] MEDS: predniSONE TAB* 20 MG PO SCH (08:44)
[2017-01-15] MEDS: Docusate CAP* 100 MG PO SCH (08:44)
[2017-01-15] MEDS: Diltiazem CD CAP* 240 MG PO SCH (08:44)
[2017-01-15] MEDS: Aspirin Low Dose CHEW TAB* 81 MG PO SCH (08:45)
[2017-01-15] MEDS: Enoxaparin(*) 40 MG/0.4 ML SYR SUBCUT SCH (08:45)
--- NOTE | 2017-01-15 22:20 | CONS ---
PALLIATIVE CARE CONSULTATION: DATE OF CONSULTATION: 01/15/17 PRIMARY CARE PHYSICIAN: Farhan Walsh MD REQUESTING PHYSICIAN FOR CONSULTATION: Cheng Miller DO HOSPITAL COURSE: This is a 71-year-old female with a past medical history of COPD and significant tobacco use who presented to the emergency room on with shortness of breath, respiratory distress, was admitted for COPD exacerbation. She was also noted to be in SVT which was thought secondary to her COPD. On 01/08/17, the patient became more critically ill with respiratory failure and was transferred to the ICU and the president & ceo took over care with Dr. Miller. The patient was placed on BiPAP at that time and also switched over to high flow due to her intolerance to the BiPAP. The patient was transferred out of the ICU on 01/13/17 to the floor with improvement of her respiratory symptoms. On my encounter, the patient states that her breathing is nearly close to her baseline. She states she has a significant amount of dyspnea with exertion and she was not on oxygen prior to admission, but is now going home with oxygen. She understands that she has significant pulmonary disease. I talked with her about her goals of care and she does not want to be intubated if that were to come. She realizes that she is going to need more assistance and is looking into moving to have it more handicapped accessible as her also is declining in his health as well. The patient as mentioned does not have any anxiety. She feels that her breathing is at his baseline. No other symptoms reported. Otherwise, remaining of review of systems is negative. PAST MEDICAL HISTORY: 1. COPD. 2. GERD. 3. Hypertension. 4. IBS. 5. History of a left knee surgery. 6. History of SVT. INPATIENT MEDICATIONS: 1. Alprazolam 0.5 mg p.o. t.i.d. as needed. 2. Albuterol neb q.4 hours as needed. 3. Albuterol inhaler every 4 hours as needed. 4. Aspirin 81 mg daily. 5. Atorvastatin 40 mg daily. 6. Diltiazem 240 mg daily. 7. Colace 100 mg daily. 8. Lovenox 40 mg subcu daily. 9. Famotidine 20 mg daily. 10. Morphine 2 every 2 hours as needed. 11. Nasal spray both nares daily. 12. Senna 1 tab daily as needed. 13. Guaifenesin 10 mL every 6 hours. 14. Prednisone 20 mg daily. ALLERGIES: ADHESIVE TAPE, FLUCONAZOLE, DOXYCYCLINE, IPRATROPIUM, MEPERIDINE, YELLOW DYE, FLUTICASONE, VILANTEROL, METALS. FAMILY HISTORY: Reviewed and noncontributory. SOCIAL HISTORY: As mentioned, the patient resides at home with her , Medardo, who is her healthcare proxy. She was a significant heavy smoker for 50 years, 2 packs per day. She states over the past year, she smoked few cigarettes on and off, could be as often as 1 time per month. She states this last time that it triggered her admission was she did smoke a cigarette and had significant amount of respiratory distress following that episode. Currently, her MOLST is a DNR trial intubation. We discussed this more at length and she does not want to be trial intubation. She wants to be a DNI. She lives in apartment. She is ambulating independently, but is looking to move to a more [facility] facility that is more handicapped accessible as she agrees that her and her 's health are both declining. She has 3 grown children as well. REVIEW OF SYSTEMS: As mentioned in the HPI. PHYSICAL EXAM: Vitals: Temp 97.5, pulse rate 79, respiratory rate 18, oxygen saturation 92% on room air, blood pressure 119/56. General: Frail elderly female, initially after she just ambulated she was more tachypneic although after sitting with her for a while, her respiratory rate was no longer as rapid. HEENT: Neck supple. No lymphadenopathy. Oropharynx: Mucous membranes moist. Pupils are equal and reactive. Anicteric. Head is normocephalic. Cardiac: Regular rate and rhythm. No murmurs, rubs, or gallops. Respiratory: Prolonged expiratory phase. Coarse rhonchorous breath sounds and fine expiratory wheezing bilaterally. Abdomen: Soft, nontender, nondistended. Extremities: No clubbing, cyanosis, or edema. +1 DPs. Neurologic: Alert and oriented x3. No focal neurological deficits. RADIOGRAPHIC DATA ON ADMISSION: On 01/07/17, her chest x-ray showed COPD, no acute findings. ASSESSMENT: This is a 71-year-old female with a past medical history of chronic obstructive pulmonary disease with a significant tobacco history who was admitted for chronic obstructive pulmonary disease exacerbation, is being discharged to home on oxygen. At this time, the patient is not an eligible candidate for hospice. She does have chronic obstructive pulmonary disease that has progressed and is now going home with oxygen. We discussed her MOLST form again and she wants to be a do not resuscitate and a do not intubate and I will modify her MOLST to express this. She is a good candidate for the PATH referral program and is interested in this and should be followed closely as she agrees that her health had been declining. She states that she is going to go home with morphine which we discussed will be helpful for her for air hunger and shortness of breath if her inhalers are not working and that she should follow up with a PATH referral program. Thank you for this consultation. PATIENT TIME: Greater than 90 minutes spent during the consultation; more than half of the time spent in direct patient contact. CC: Farhan Walsh MD* [id number]/CPS #: [id number]
--- NOTE | 2017-01-16 11:20 | DS ---
DISCHARGE SUMMARY: DATE OF ADMISSION: 01/07/17 DATE OF DISCHARGE AGAINST MEDICAL ADVICE: 01/15/17 DISCHARGE DIAGNOSES: 1. [id number] hypercapnic hypoxemic respiratory failure. 2. Acute chronic obstructive pulmonary disease exacerbation. 3. Bronchitis. 4. Paroxysmal atrial fibrillation. 5. Moderate protein-calorie malnutrition. 6. Physical deconditioning. SECONDARY DIAGNOSES: 1. Chronic obstructive pulmonary disease. 2. Gastroesophageal reflux disease. 3. Hypertension. 4. Irritable bowel syndrome. 5. Tobacco abuse. MEDICATION LIST: 1. Albuterol HFA 2 puffs inhaled q.4 hours p.r.n. shortness of breath. 2. Albuterol nebulized 3 mL inhaled q.4 hours p.r.n. shortness of breath. 3. Colace 100 mg p.o. daily. 4. Cardizem XT 240 mg p.o. daily. 5. Atorvastatin 40 mg p.o. daily. 6. Aspirin 81 mg p.o. daily. 7. Prednisone 20 mg p.o. daily to be tapered slowly as outpatient when she sees her primary care provider. 8. Robitussin 10 mL p.o. q.6 hours p.r.n. cough. 9. Famotidine 20 mg p.o. at bedtime. HOSPITAL COURSE: Ms. Willard is a 71-year-old lady with a past medical history as stated above that presented to the emergency room with complaints of increased cough and shortness of breath for several days. She was found to have COPD exacerbation and she was also found to be in SVT. For more details about her presentation, I refer you to her history and physical. The patient had further deterioration of her respiratory status and needed to be transferred to the intensive care unit. Although she did not require intubation, she did require high-flow oxygen and BiPAP. She was treated with bronchodilators, steroids, and levofloxacin with progressive improvement of her symptoms. She was found to be in atrial fibrillation, but as her respiratory status improved, she converted to normal sinus rhythm. Blood cultures were negative. Influenza test was negative. Dr. Miller did refer her to outpatient hospice as the patient is willing to be evaluated as outpatient. On January 12, she was transferred to the medical floor and although she has had significant improvement when compared to her symptoms in ICU, she is still very frail. When ambulating from her bed to the door of her room, she became very tachypneic, was tremulous, and needed assistance returning to her bed. She had also qualified for supplemental oxygen, 3 L at rest, 4 L with exertion. Although the patient has made significant improvement in her symptoms, I believe she is still not ready for discharge due to her significant dyspnea with exertion and the fact that she would not have any help at home since her has his own medical issues. She refused to work with physical therapy yesterday and yesterday, she was able to ambulate only 5 feet with physical therapy. I discussed all these facts with the patient that I am concerned with her safety at home especially because I do not think she is well enough to be discharged at this time. She verbalized understanding, but she is adamant that she will go home today as she will not spend another night in the hospital. We discussed the risks including but not limited to progression of disease, another episode of respiratory failure, and . The patient acknowledges all those risks, but states that she will be going home today anyway. It is my understanding that the patient has the mental capacity to make this decision, although I do not agree with her, so she will be discharged home today against medical advice. We also talked about her atrial fibrillation. She is back in sinus rhythm, but she does have a CHADS score of 3 (age, sex, hypertension). We discussed the risks and benefits of anticoagulation and the patient is not interested at this time. She elects to continue only aspirin. This can be further explored as outpatient. The patient will be discharged against medical advice today. PHYSICAL EXAMINATION: Vital Signs: Temperature 97.5, heart rate is 79, respiratory rate is 18, oxygen saturation is 92% on room air at rest, blood pressure 119/56. General: The patient is an elderly cachectic lady, sitting up in bed, in no acute distress. CVS: Normal S1 and S2. Regular rate and rhythm. Chest: Breath sounds bilaterally decreased with scattered rhonchi. Abdomen: Soft. Bowel sounds are present. Extremities: No edema. Neuro: Alert and oriented x3. Able to move all 4 extremities. DIET: Regular diet. ACTIVITIES: As tolerated. DISPOSITION: To home. STATUS IN THE HOSPITAL: Inpatient. Please keep in mind, this is a summarized version of this patient's hospital stay. If you need more information, please feel free to call me at [phone] or please obtain the full medical records. TIME SPENT: Approximately 45 minutes was spent to complete this discharge. [id number]/CPS #: [id number] LM
== END 2017-01-15 14:00 | disposition left against medical advice (07) | DRG 133 ==
LOC: ED 06:12 → ICU 07:27 → MED 01-12 11:18
PROVIDERS: ADMIT Internal Medicine; ATTEND Internal Medicine
PROC: 5A09357 Assistance with Respiratory Ventilation, Less than 24 Consecutive Hours, Continuous Positive Airway Pressure (ICD-10-PCS; principal; 2017-01-07)
DX: J96.22 Acute and chronic respiratory failure with hypercapnia (principal); E44.0 Moderate protein-calorie malnutrition; J44.1 Chronic obstructive pulmonary disease with (acute) exacerbation; I48.0 Paroxysmal atrial fibrillation; Z99.81 Dependence on supplemental oxygen; I47.1 Supraventricular tachycardia; I10 Essential (primary) hypertension; Z68.1 Body mass index [BMI] 19.9 or less, adult; F17.210 Nicotine dependence, cigarettes, uncomplicated; J96.21 Acute and chronic respiratory failure with hypoxia; J40 Bronchitis, not specified as acute or chronic; K21.9 Gastro-esophageal reflux disease without esophagitis; K58.9 Irritable bowel syndrome, unspecified; Z79.82 Long term (current) use of aspirin; Z79.52 Long term (current) use of systemic steroids; Z88.8 Allergy status to other drugs, medicaments and biological substances; Z88.1 Allergy status to other antibiotic agents; E78.00 Pure hypercholesterolemia, unspecified; M19.90 Unspecified osteoarthritis, unspecified site; Z82.49 Family history of ischemic heart disease and other diseases of the circulatory system; Z66 Do not resuscitate
CPT/HCPCS: 36415; 71010; 80048; 80053; 83605; 83735; 83880; 84100; 84484; 85025; 85027; 86140; 87040; 87502; 87641; 93005; 94640; 94660; 94760; A9270-GY; J1650; J1956; J2270; J2920; J2930; J7512

== ENCOUNTER 2017-02-06 18:34 | Emergency (ER) | payer BC, MEDICARE ==
--- NOTE | 2017-02-06 19:59 | UC ---
Dizzy HPI HPI Summary: The patient comes in today for: 1. Dizziness: Onset: 10 hours ago (9:30 AM). She got up from a chair and went into the kitchen for something to eat. After 4-5 steps she started to have a racing heart. She felt like she was going to faint. This lasted 30-45 minutes. She went back to her chair and sat there. No chest pain, and shortness of breath, but not any different from her usual COPD shortness of breath. While she was sitting in the chair, she measured her heart beat and it was "up to 130 beats/ minute." About 1-2 hours later, the pulse was 100-110. Palliative/provocative: Exertion Quality: Palpitations. Region: Chest-heart. Severity: No pain at this time. Time: Comes and goes. Associated symptoms: She is not having any symptoms at this time. She has COPD. She has had this sort of thing before--5 weeks ago, her heart rate was "over 200." She was taken by ambulance to [facility]. She went to the ICU for several days. She did not see a textile dyer at that time. She has her last heart studies a year ago. She had "an echocardiogram and all that jazz and said that my heart was fine." * - History Of Current Complaint Chief Complaint: UCGeneralIllness Stated Complaint: SOB HEART BEATING FAST COPD Time Seen by Provider: 02/06/17 19:49 Hx Obtained From: Patient Hx Last Menstrual Period: Years ago. ?: No - Allergies/Home Medications Allergies/Adverse Reactions: Allergies Allergy/AdvReac Type Severity Reaction Status Date / Time Adhesive Tape Allergy Severe RASH, Verified 02/06/17 18:41 ITCHING Fluconazole Allergy Severe GI REACTION Verified 02/06/17 18:41 Doxycycline Allergy Itching Verified 02/06/17 18:41 Ipratropium Allergy Difficulty Verified 02/06/17 18:41 Breathing Meperidine [From Demerol HCl] Allergy Palpitation Verified 02/06/17 18:41 s Yellow Dye Allergy See Comment Verified 02/06/17 18:41 Yellow Dyes (Non-tartrazine) Allergy See Comment Verified 02/06/17 18:41 Fluticasone AdvReac Vomiting Verified 02/06/17 18:41 Vilanterol AdvReac Vomiting Verified 02/06/17 18:41 metals Allergy Mild Itching Uncoded 02/06/17 18:41 Home Medications: Home Medications Albuterol HFA INHALER* [Ventolin HFA Inhaler*] 2 puff INH Q4H 02/06/17 [History Confirmed 02/06/17] Benzonatate CAP* [Tessalon 100 MG CAP*] 100 mg PO TID 02/06/17 [History Confirmed 02/06/17] Ipratropium HFA INHALER(NF) [Atrovent Hfa Inhaler(NF)] 2 puff INH Q6H 02/06/17 [ History Confirmed 02/06/17] PMH/Surg Hx/FS Hx/Imm Hx Previously Healthy: No Endocrine History Of: Reports: Dyslipidemia Denies: Diabetes, Thyroid Disease, Hyperthyroidism, Hypothyroidism Cardiovascular History Of: Reports: Cardiac Disorders - She states that she has had "palpitations all my life.", Hypertension Denies: Pacemaker/ICD, Myocardial Infarction, Congestive Heart Failure, Atrial Fibrillation, Deep Vein Thrombosis, Bleeding Disorders Respiratory History Of: Reports: COPD Denies: Asthma, Pneumonia, Pulmonary Embolism GI/ History Of: Reports: Gastroesophageal Reflux Denies: Ulcer, Gastrointestinal Bleed, Gall Bladder Disease, Kidney Stones, Diverticulitis, Renal Disease, Urosepsis Neurological History Of: Denies: TIA, CVA, Dementia, Seizures, Migraine Psychological History Of: Denies: Anxiety, Depression, Bipolar Disorder, Schizophrenia, Post Traumatic Stress Disorder Cancer History Of: Denies: Lung Cancer, Colorectal Cancer, Breast Cancer, Prostate Cancer, Cervical Cancer Other History Of: Negative For: HIV, Hepatitis B, Hepatitis C - Surgical History Surgical History: Yes Surgery Procedure, Year, and Place: left knee reconstruction 1977; bilat carpal tunnel; TUBAL LIAGATION 1981 - Family History Known Family History: Positive: Cardiac Disease Negative: Hypertension, Diabetes - Social History Occupation: Retired Alcohol Use: None Substance Use Type: None Smoking Status (MU): Former Smoker Type: Cigarettes Amount Used/How Often: 2-5 CIG/DAY Length of Time of Smoking/Using Tobacco: 50 years Have You Smoked in the Last Year: Yes When Did the Patient Quit Smoking/Using Tobacco: 2 weeks ago Household Exposure Type: Cigarettes - Immunization History Most Recent Influenza Vaccination: 2014 Most Recent Tetanus Shot: unk Most Recent Pneumonia Vaccination: 2014 Review of Systems Constitutional: Negative Skin: Negative Eyes: Negative ENT: Negative Respiratory: Negative Cardiovascular: Palpitations Gastrointestinal: Negative All Other Systems Reviewed And Are Negative: Yes Physical Exam Triage Information Reviewed: Yes Appearance: Well-Appearing, No Pain Distress, Thin Vital Signs: Initial Vital Signs Temp 98.6 F 02/06/17 18:52 Pulse 99 02/06/17 18:52 Resp 24 02/06/17 18:52 BP 129/68 02/06/17 18:52 Pulse Ox 98 02/06/17 18:52 Vital Signs Reviewed: Yes Eyes: Positive: Conjunctiva Clear. Negative: Discharge ENT: Positive: Hearing grossly normal, Other: - Ear canals: no erythema or edema. Cerumen impactions bilaterally.. Negative: Pharyngeal erythema, Nasal congestion, Nasal drainage Dental: Negative: Gross Decay/Caries @, Dental Fracture @ Neck: Positive: Supple, Nontender, No Lymphadenopathy. Negative: Nuchal Rigidity Respiratory: Positive: Lungs clear, No respiratory distress, No accessory muscle use, Other: - Slight intercostal retractions, but patient states that this is normal. Cardiovascular: Positive: RRR, No Murmur Abdomen Description: Positive: Nontender, No Organomegaly, Soft. Negative: Distended, Guarding Musculoskeletal: Positive: Strength Intact, ROM Intact, No Edema Neurological: Positive: Alert, Muscle Tone Normal Psychological: Positive: Age Appropriate Behavior, Consolable Skin: Negative: rashes, breakdown Diagnostics - Laboratory Diagnostic Studies Completed/Ordered: EKG: Rate: 94. Rhythm: Sinus. Ectopy: None. Acute changes: None. Dizzy Course/Dx - Course Course Of Treatment: Patient was told that she has a history of palpitations and a near-syncopal episode. Based on this, I am recommending that she go to the ER via ambulance, but she declined. - Differential Dx/Diagnosis Provider Diagnoses: Palpitations. Tachycardia. Near syncope Discharge - Discharge Plan Condition: Stable Disposition: HOME Additional Instructions: Patient declined going to the ER.
[2017-02-06 23:06] VITALS: BP 114/64
== END 2017-02-06 21:21 | disposition left against medical advice (07) ==
LOC: UCEAST 18:34
DX: R00.2 Palpitations (principal); R00.0 Tachycardia, unspecified; R55 Syncope and collapse; E78.5 Hyperlipidemia, unspecified; J44.9 Chronic obstructive pulmonary disease, unspecified; K21.9 Gastro-esophageal reflux disease without esophagitis; Z88.1 Allergy status to other antibiotic agents; Z88.5 Allergy status to narcotic agent; Z87.891 Personal history of nicotine dependence
CPT/HCPCS: 93005; 99212; G0463

== ENCOUNTER 2018-04-23 15:26 | Emergency (ER) | payer BC, MEDICARE ==
--- NOTE | 2018-04-23 15:42 | ED ---
Shortness of Breath - HPI Summary HPI Summary: 72 y/o female presents to the ED c/o worsening SOB for the past two days. Dyspnea at rest, aggravated with exertion. Pt states she feels like "something in her stomach is pushed up against her ribcage" and states the SOB has started since then. PMHx hiatal hernia. Pt has been taking 2 10mg tablets of prednisone. Not on O2 at home. This is scribe Yuval Murcia documenting for attending physician Cisco Hinojosa M.D. - History of Current Complaint Chief Complaint: EDShortnessOfBreath Time Seen by Provider: 04/23/18 15:35 Hx Obtained From: Patient Onset/Duration: Lasting Days Dyspnea At: Rest Aggrevating Factors: Movement - Allergy/Home Medications Allergies/Adverse Reactions: Allergies Allergy/AdvReac Type Severity Reaction Status Date / Time Adhesive Tape Allergy Severe RASH, Verified 02/06/17 18:41 ITCHING fluconazole Allergy Severe GI Upset Verified 04/23/18 15:49 doxycycline Allergy Itching Verified 04/23/18 15:49 ipratropium Allergy Difficulty Verified 04/23/18 15:49 Breathing meperidine Allergy Palpitation Verified 04/23/18 15:49 s yellow dye Allergy Hives Verified 04/23/18 15:49 vilanterol AdvReac Vomiting Verified 04/23/18 15:49 metals Allergy Mild Itching Uncoded 02/06/17 18:41 Home Medications: Home Medications Albuterol 2.5MG/3ML (0.083%)* [Ventolin 2.5 MG/3 ML NEB.KJ*] 2.5 mg INH Q4H PRN 04/23/18 [History Confirmed 04/23/18] Albuterol HFA INHALER* [Ventolin HFA Inhaler*] 2 puff INH Q4H PRN 04/23/18 [ History Confirmed 04/23/18] Aspirin EC TAB* [Ecotrin EC Low Dose 81 MG*] 81 mg PO DAILY 04/23/18 [History Confirmed 04/23/18] Calcium Carbonate CHEW TAB* [Tums*] 1,000 mg PO BID PRN 04/23/18 [History Confirmed 04/23/18] Cholecalciferol TAB* [Vitamin D TAB*] 1,000 unit PO DAILY 04/23/18 [History Confirmed 04/23/18] Docusate Sodium [Stool Softener] 100 mg PO .BID-QID PRN 04/23/18 [History Confirmed 04/23/18] Ipratropium 0.5MG/2.5ML NEB* [Atrovent 0.5 MG NEB.KJ*] 2 puff INH Q6H PRN 04/23 [History Confirmed 04/23/18] Ipratropium HFA INHALER(NF) [Atrovent Hfa Inhaler(NF)] 2 puff INH Q6H PRN [History Confirmed 04/23/18] dilTIAZem HCl [Cartia Xt] 240 mg PO DAILY 04/23/18 [History Confirmed 04/23/18] predniSONE TAB* [Deltasone 10 MG TAB*] 10 mg PO DAILY 04/23/18 [History Confirmed 04/23/18] PMH/Surg Hx/FS Hx/Imm Hx Previously Healthy: No Endocrine/Hematology History: Denies: Hx Diabetes, Hx Thyroid Disease, Hx Anemia, Hx Unexplained Bleeding Cardiovascular History: Reports: Hx Hypercholesterolemia, Hx Hypertension, Other Cardiovascular Problems/Disorders - SVT THIS AM Denies: Hx Aneurysm, Hx Angina, Hx Angioplasty, Hx Auto Implanted Cardiovert Defib, Hx Cardiac Arrest, Hx Cardiomegaly, Hx Congenital Heart Disease, Hx Congestive Heart Failure, Hx Coronary Artery Disease, Hx Deep Vein Thrombosis, Hx Embolism, Hx Hypotension, Hx Myocardial Infarction, Hx Pacemaker/ICD, Hx Peripheral Vascular Disease, Hx Rheumatic Fever, Hx Syncope, Hx Valvular Heart Disease Respiratory History: Reports: Hx Chronic Obstructive Pulmonary Disease (COPD) Denies: Hx Asthma, Hx Chronic Bronchitis, Hx Cystic Fibrosis, Hx Lung Cancer , Hx Pleural Effusion, Hx Pneumonia, Hx Pulmonary Edema, Hx Pulmonary Embolism, Hx Seasonal Allergies, Hx Sleep Apnea, Other Respiratory Problems/Disorders GI History: Reports: Hx Gastroesophageal Reflux Disease, Hx Irritable Bowel Denies: Hx Cirrhosis, Hx Crohn's Disease, Hx Diverticulosis, Hx Gall Bladder Disease, Hx Gastrointestinal Bleed, Hx Hiatal Hernia, Hx Jaundice, Hx Obstructive Bowel, Hx Ileostomy, Hx Pyloric Stenosis, Hx Ulcer, Hx Urosepsis, Other GI Disorders History: Denies: Hx Kidney Stones, Hx Renal Disease Musculoskeletal History: Denies: Hx Arthritis, Hx Osteoporosis Sensory History: Denies: Hx Contacts or Glasses, Hx Hearing Aid Opthamlomology History: Denies: Hx Contacts or Glasses Neurological History: Denies: Hx Dementia, Hx Migraine, Hx Seizures, Hx Transient Ischemic Attacks (TIA) Psychiatric History: Denies: Hx Anxiety, Hx Depression, Hx Schizophrenia, Hx Bipolar Disorder - Surgical History Surgery Procedure, Year, and Place: left knee reconstruction 1977; bilat carpal tunnel; TUBAL LIAGATION 1981 Infectious Disease History: No Infectious Disease History: Denies: Hx Hepatitis, Hx Human Immunodeficiency Virus (HIV), Hx Tuberculosis , History Other Infectious Disease, Traveled Outside the [place] in Last 30 Days - Family History Known Family History: Positive: None - Sh, Unknown, Cardiac Disease Negative: Hypertension, Diabetes - Social History Alcohol Use: None Hx Substance Use: No Substance Use Type: Reports: None Hx Tobacco Use: Yes Smoking Status (MU): Former Smoker Type: Cigarettes Amount Used/How Often: 2-5 CIG/DAY Length of Time of Smoking/Using Tobacco: 50 years Have You Smoked in the Last Year: Yes Review of Systems Constitutional: Negative Eyes: Negative ENT: Negative Cardiovascular: Negative Positive: Shortness Of Breath, Other - "feels like something pushed up against her ribcage" Gastrointestinal: Negative Genitourinary: Negative Musculoskeletal: Negative Skin: Negative Neurological: Negative Psychological: Normal All Other Systems Reviewed And Are Negative: Yes Physical Exam - Summary Physical Exam Summary: Appearance: The patient is well-nourished in no acute distress and in no acute pain. Skin: The skin is warm and dry and skin color reflects adequate perfusion. HEENT: The head is normocephalic and atraumatic. The pupils are equal and reactive. The conjunctivae are clear and without drainage. Nares are patent and without drainage. Mouth reveals moist mucous membranes and the throat is without erythema and exudate. The external ears are intact. The ear canals are patent and without drainage. The tympanic membranes are intact. Neck: The neck is supple with full range of motion and non-tender. There are no carotid bruits. There is no neck vein distension. Increased E/I. Respiratory: Chest is non-tender. Decreased breath sounds. The patient is tachypnic. Cardiovascular: Heart is regular rate and rhythm. There is no murmur or rub auscultated. There is no peripheral edema and pulses are symmetrical and equal. Abdomen: The abdomen is soft and non-tender. There are normal bowel sounds heard in all four quadrants and there is no organomegaly palpated. Musculoskeletal: There is no back tenderness noted. Extremities are non-tender with full range of motion. There is good capillary refill. There is no peripheral edema or calf tenderness elicited. The patient has an increased AP diameter. Neurological: Patient is alert and oriented to person, place and time. The patient has symmetrical motor strength in all four extremities. Cranial nerves are grossly intact. Deep tendon reflexes are symmetrical and equal in all four extremities. Psychiatric: The patient has an appropriate affect and does not exhibit any anxiety or depression. Triage Information Reviewed: Yes Vital Signs On Initial Exam: Initial Vitals Temp Pulse Resp BP Pulse Ox 96.7 F 85 20 137/99 95 04/23/18 15:29 04/23/18 15:29 04/23/18 15:29 04/23/18 15:29 04/23/18 15:29 Vital Signs Reviewed: Yes Diagnostics - Vital Signs Vital Signs Temp Pulse Resp BP Pulse Ox 04/23/18 15:29 96.7 F 85 20 137/99 95 - Laboratory Result Diagrams: 04/23/18 15:55 04/23/18 15:55 Lab Statement: Any lab studies that have been ordered have been reviewed, and results considered in the medical decision making process. - Radiology CXR Xray Interpretation: Positive (See Comments) - SUGGESTION OF A NODULAR DENSITY IN THE RIGHT BASE. HYPERINFLATED LUNG CARBAJAL. Radiology Interpretation Completed By: Radiologist - EKG 1 EKG Interpretation: 15:50 - NSR @ 76 BPM. LAD. EKG Comparison: No Significant Change - 02/06/17 Re-Evaluation - Re-Evaluation 1 Re-Evaluation Time: 18:36 Comment: Discussed test results and findings, plan of care Course/Dx - Course Course Of Treatment: Ms. Willard presented to the emergency department with an exacerbation of COPD. It has been coming on gradually for several days, she has been using her nebulizer at home and taking extra doses of prednisone. She was in respiratory distress when she arrived. She improved significantly with Xopenex and Solu-Medrol. X-ray showed only COPD. She was ambulated about the department didn't drop her pulse ox and I will treat her with Biaxin as well has her prednisone and rescue nebs. - Diagnoses Provider Diagnoses: COPD exacerbation Discharge - Sign-Out/Discharge Documenting (check all that apply): Patient Departure - Discharge Plan Condition: Stable Disposition: HOME Prescriptions: Clarithromycin TAB* [Biaxin TAB*] 500 mg PO BID #20 tab Patient Education Materials: COPD (Chronic Obstructive Pulmonary Disease) (ED) Referrals: Farhan Walsh MD [Primary Care Provider] - 4 Days (PLEASE F/U IN 3-5 DAYS) Additional Instructions: RETURN TO THE ED FOR RETURNING/WORSENING SYMPTOMS - Billing Disposition and Condition Condition: STABLE Disposition: Home
[2018-04-23 16:10] LABS: ABS Basophils 0 10^3/ul (0-0.2); ABS Eosinophils 0 10^3/ul (0-0.6); ABS Lymphocytes 0.4 10^3/ul (1.0-4.8); ABS Monocytes 0.4 10^3/ul (0-0.8); ABS Neutrophils 8.5 10^3/ul (1.5-7.7); ABS Nucleated RBC 0 10^3/ul; Eosinophil % 0.1 % (0-6); Hematocrit 46 % (35-47); Hemoglobin 15.8 g/dl (12.0-16.0); Mean Corpuscular HGB Conc 34 g/dl (31-36); Mean Corpuscular Hemoglobin 32 pg (27-31); Mean Corpuscular Volume 94 fL (80-97); Mean Platelet Volume 6.1 um3 (7.4-10.4); Nucleated Red Blood Cells % 0; Platelet Count 257 10^3/ul (150-450); Red Blood Count 4.94 10^6/ul (4.00-5.40); Red Cell Distribution Width 15 % (10.5-15); White Blood Count 9.3 10^3/ul (3.5-10.8)
[2018-04-23 16:27] LABS: EGFR Non-African American 53.4 (>60)
[2018-04-23] MEDS ORDERED: methylPREDNISolone 125 MG* 2 ML VIAL IV ONE (16:38)
[2018-04-23] MEDS ORDERED: Levalbuterol 1.25MG/0.5ML NEB INH ONE (16:39)
--- NOTE | 2018-04-23 16:56 | RAD ---
Indication: Shortness of breath. Single frontal view of the chest performed at 1620 hours was reviewed. Comparison is made with previous exam dated January 07, 2017. No mediastinal shift is noted. Heart is of normal size and configuration. Lung carbajal appear clear. Lung carbajal appear hyperinflated. There is suggestion of a nodular density in the right base. PA and lateral view of the chest should BE performed when able to do so. IMPRESSION: SUGGESTION OF A NODULAR DENSITY IN THE RIGHT BASE. HYPERINFLATED LUNG CARBAJAL.
[2018-04-23] MEDS ORDERED: Clarithromycin TAB* 500 MG PO ONE (20:12)
[2018-04-23 20:31] VITALS: BP 128/81
== END 2018-04-23 20:30 | disposition home or self-care (01) ==
LOC: ED 15:26
DX: J44.1 Chronic obstructive pulmonary disease with (acute) exacerbation (principal); Z87.891 Personal history of nicotine dependence; Z88.3 Allergy status to other anti-infective agents; Z88.8 Allergy status to other drugs, medicaments and biological substances
CPT/HCPCS: 36415; 71045; 80053; 83605; 83880; 84484; 85025; 86140; 87040; 93005; 96374; 99284; A9270-GY; J2930

== ENCOUNTER 2018-05-08 11:38 | Observation (INO) | payer BC, MEDICARE ==
[2018-05-08] MEDS ORDERED: methylPREDNISolone 125 MG* 2 ML VIAL IV ONE (11:52)
[2018-05-08] MEDS ORDERED: Albuterol/Ipratropium NEB.SOL* Albuterol 2.5 MG/Ipratropium 0.5 MG 3 ML ONE (11:57)
[2018-05-08] MEDS: Albuterol/Ipratropium NEB.SOL* Albuterol 2.5 MG/Ipratropium 0.5 MG 3 ML INH SCH ×7 (11:59→17:34)
[2018-05-08] MEDS ORDERED: Azithromycin IV(*) 500 MG in NS 0.9% 250 ML* 250 ML IVPB SCH (12:00)
[2018-05-08] MEDS ORDERED: Magnesium Sulfate IV* 2 GM in NS 0.9% 100 ML* 100 ML IV ONE (12:07)
--- NOTE | 2018-05-08 12:15 | ED ---
Respiratory - HPI Summary HPI Summary: This is [facility] documenting for attending Bartolo Collier MD. Pt is a 72 y/o F c/o CP and SOB onset earlier this AM. Assoc. Sx: SOB, abd pain/ bloating, fever, diaphoresis, CP, cough, abd pain, bloated. Denies: N/V/D, Hx of blood clots. She states that she was awoken out of her sleep ~0400 this AM with CP located in the mid-sternal area and SOB. She says episode feels similar to COPD but it does not because stomach feels like it is lodged up under rib cage. This abdominal pain onset ~6 weeks ago and is described as feeling like bloating and is very painful. - History of Current Complaint Chief Complaint: EDShortnessOfBreath Stated Complaint: SOB Time Seen by Provider: 05/08/18 11:42 Hx Obtained From: Patient Onset/Duration: Sudden Onset Timing: Constant Pain Intensity: 0 Character: Dyspnea at Rest Sputum Amount: None Alleviating Factor(s): Oxygen Associated Signs and Symptoms: Fever, SOB, Chest Pain, Chest Pain Unrelated to Cough, Diaphoresis, Dyspnea - Allergy/Home Medications Allergies/Adverse Reactions: Allergies Allergy/AdvReac Type Severity Reaction Status Date / Time Adhesive Tape Allergy Severe RASH, Verified 05/08/18 11:48 ITCHING fluconazole Allergy Severe GI Upset Verified 05/08/18 11:48 doxycycline Allergy Itching Verified 05/08/18 11:48 meperidine Allergy Palpitation Verified 05/08/18 11:48 s yellow dye Allergy Hives Verified 05/08/18 11:48 vilanterol AdvReac Vomiting Verified 05/08/18 11:48 metals Allergy Mild Itching Uncoded 05/08/18 11:48 PMH/Surg Hx/FS Hx/Imm Hx Endocrine/Hematology History: Denies: Hx Diabetes, Hx Thyroid Disease, Hx Anemia, Hx Unexplained Bleeding Cardiovascular History: Reports: Hx Hypercholesterolemia, Hx Hypertension, Other Cardiovascular Problems/Disorders - SVT THIS AM Denies: Hx Aneurysm, Hx Angina, Hx Angioplasty, Hx Auto Implanted Cardiovert Defib, Hx Cardiac Arrest, Hx Cardiomegaly, Hx Congenital Heart Disease, Hx Congestive Heart Failure, Hx Coronary Artery Disease, Hx Deep Vein Thrombosis, Hx Embolism, Hx Hypotension, Hx Myocardial Infarction, Hx Pacemaker/ICD, Hx Peripheral Vascular Disease, Hx Rheumatic Fever, Hx Syncope, Hx Valvular Heart Disease Respiratory History: Reports: Hx Chronic Obstructive Pulmonary Disease (COPD) Denies: Hx Asthma, Hx Chronic Bronchitis, Hx Cystic Fibrosis, Hx Lung Cancer , Hx Pleural Effusion, Hx Pneumonia, Hx Pulmonary Edema, Hx Pulmonary Embolism, Hx Seasonal Allergies, Hx Sleep Apnea, Other Respiratory Problems/Disorders GI History: Reports: Hx Gastroesophageal Reflux Disease, Hx Irritable Bowel Denies: Hx Cirrhosis, Hx Crohn's Disease, Hx Diverticulosis, Hx Gall Bladder Disease, Hx Gastrointestinal Bleed, Hx Hiatal Hernia, Hx Jaundice, Hx Obstructive Bowel, Hx Ileostomy, Hx Pyloric Stenosis, Hx Ulcer, Hx Urosepsis, Other GI Disorders History: Denies: Hx Kidney Stones, Hx Renal Disease Musculoskeletal History: Denies: Hx Arthritis, Hx Osteoporosis Sensory History: Denies: Hx Contacts or Glasses, Hx Hearing Aid Opthamlomology History: Denies: Hx Contacts or Glasses Neurological History: Denies: Hx Dementia, Hx Migraine, Hx Seizures, Hx Transient Ischemic Attacks (TIA) Psychiatric History: Denies: Hx Anxiety, Hx Depression, Hx Schizophrenia, Hx Bipolar Disorder - Surgical History Surgery Procedure, Year, and Place: left knee reconstruction 1977; bilat carpal tunnel; TUBAL LIAGATION 1981 - Immunization History Immunizations Up to Date: Yes Infectious Disease History: Denies: Hx Hepatitis, Hx Human Immunodeficiency Virus (HIV), Hx Tuberculosis , History Other Infectious Disease - Family History Known Family History: Positive: None - Sh, Unknown, Cardiac Disease Negative: Hypertension, Diabetes - Social History Occupation: Employed Full-time Lives: With Family Alcohol Use: None Hx Substance Use: No Substance Use Type: Reports: None Hx Tobacco Use: Yes Smoking Status (MU): Light Every Day Tobacco Smoker Type: Cigarettes Amount Used/How Often: 2-5 CIG/DAY Length of Time of Smoking/Using Tobacco: 50 years Have You Smoked in the Last Year: Yes Review of Systems Positive: Fever Positive: Chest Pain Positive: Shortness Of Breath, Cough Positive: Abdominal Pain. Negative: Vomiting, Diarrhea, Nausea All Other Systems Reviewed And Are Negative: Yes Physical Exam - Summary Physical Exam Summary: GENERAL: Patient is a well developed and nourished __(M/F)__ who is lying comfortable in the stretcher. Patient is not in any acute respiratory distress. HEAD AND FACE: Normocephalic EYES: PERRLA, EOMI x 2. EARS: Hearing grossly intact. MOUTH: Oropharynx within normal limits. NECK: Supple, trachea is midline, no adenopathy, no JVD, no carotid bruit. CHEST: Symmetric, no tenderness at palpation LUNGS: Clear to auscultation bilaterally. No wheezing or crackles. CVS: Regular rate and rhythm, S1 and S2 present, no murmurs or gallops appreciated. ABDOMEN: TTP epigastric RLQ area. Bowel sounds are normal. No abdominal abnormal pulsations. EXTREMITIES: Full ROM in all major joints, no edema, no cyanosis or clubbing. NEURO: Alert and oriented x 3. No acute neurological deficits. Speech is normal and follows commands. SKIN: Dry and warm Resp: Not moving any air whatsoever; Struggling to breath, tachycardic, poor air entry bilat Triage Information Reviewed: Yes Vital Signs On Initial Exam: Initial Vitals Temp Pulse Resp BP Pulse Ox 98.5 F 116 36 169/97 97 05/08/18 11:39 05/08/18 11:39 05/08/18 11:39 05/08/18 11:39 05/08/18 11:39 Vital Signs Reviewed: Yes Diagnostics - Vital Signs Vital Signs Temp Pulse Resp BP Pulse Ox 05/08/18 12:01 106 24 95 05/08/18 11:39 98.5 F 116 36 169/97 97 - Laboratory Result Diagrams: 05/08/18 12:16 05/08/18 12:16 Lab Statement: Any lab studies that have been ordered have been reviewed, and results considered in the medical decision making process. - Radiology CXR Xray Interpretation: Positive (See Comments) - IMPRESSION: Question of early right basilar pneumonia. Radiology Interpretation Completed By: Radiologist - Report has been reviewed by provider. - CT C/A/P CTA CT Interpretation: Positive (See Comments) - IMPRESSION: 1. No centrilobular filling defect to indicate an acute pulmonary embolism. 2. In the left hemiabdomen there are dilated air-filled loops of small bowel measuring up to 3.2 cm in diameter. Correlate to clinical signs or symptoms of partial small bowel obstruction. 3. There is advanced calcified atherosclerosis of the aorta and iliac arteries including the origins of the mesenteric arteries. If the patient is specifically experiencing postprandial pain mesenteric arterial insufficiency could be considered as an etiology of her pain. 4. Coarse calcification extends into the right worse than left common iliac arteries. Please correlate to clinical signs or symptoms of pelvic or lower extremity arterial deficiency. 5. Diverticulosis without focal inflammatory change characteristic of diverticulitis. 6. The IVC appears decompressed. Please correlate to the clinical signs of dehydration. CT Interpretation Completed By: Radiologist - report has been reviewed by provider. - EKG 1147 Cardiac Rate: Tachycardia - 109 bpm EKG Rhythm: SVT - premature EKG Interpretation: L ant Fasicular block Re-Evaluation - Re-Evaluation First Eval Re-Evaluation Time: 14:46 Change: Improved Comment: Pt is feeling much better, upon re-eval. Provider discussed findings with pt. Disposition - Course Course Of Treatment: 72-year-old female with a history of COPD who presents to the emergency room with difficulty breathing and upper abdominal pain. Patient was given breathing treatments, steroids, IV antibiotics, magnesium sulfate for COPD exacerbation. Her workup is remarkable for a white count of 13 and chest x -ray is concerning for possible pneumonia on the right, CT scan of the abdomen and pelvis shows findings concerning for possibly early partial bowel obstruction as well as mesenteric artery insufficiency. I did discussed the possibiliy of partial bowel obstruction with Dr. St of general surgery. Patient was subsequently admitted to the hospitalist with instruction to call Dr. St if needed. Patient stable upon admission - Diagnoses Provider Diagnoses: Abdominal pain - Physician Notifications Discussed Care Of Patient With: Negrito St Time Discussed With Above Provider: 12:42 Instructed by Provider To: Other - Hospitalist to call with concerns Discharge - Sign-Out/Discharge Documenting (check all that apply): Patient Departure - Discharge Plan Condition: Stable Disposition: ADMITTED TO [facility] Referrals: Farhan Walsh MD [Primary Care Provider] - 3 Days - Billing Disposition and Condition Condition: STABLE Disposition: Admitted to [facility]
[2018-05-08 12:29] LABS: ABS Basophils 0 10^3/ul (0-0.2); ABS Eosinophils 0.1 10^3/ul (0-0.6); ABS Monocytes 1.3 10^3/ul (0-0.8); ABS Neutrophils 9.6 10^3/ul (1.5-7.7); ABS Nucleated RBC 0 10^3/ul; Eosinophil % 0.7 % (0-6); Hematocrit 47 % (35-47); Hemoglobin 16.1 g/dl (12.0-16.0); Lymphocyte % 15.7 % (25-47); Mean Corpuscular HGB Conc 34 g/dl (31-36); Mean Corpuscular Hemoglobin 32 pg (27-31); Mean Corpuscular Volume 94 fL (80-97); Mean Platelet Volume 5.9 um3 (7.4-10.4); Nucleated Red Blood Cells % 0.1; Platelet Count 282 10^3/ul (150-450); Red Blood Count 5.04 10^6/ul (4.00-5.40); Red Cell Distribution Width 15 % (10.5-15); White Blood Count 13.1 10^3/ul (3.5-10.8)
[2018-05-08 12:47] LABS: EGFR Non-African American 60.2 (>60)
--- NOTE | 2018-05-08 13:10 | RAD ---
Indication: Shortness of breath. Comparison is made with previous exam dated April 23, 2018. 2 views of the chest appears hyperinflated lung crane. No alveolar consolidation is noted. There is suggestion of right basilar airspace disease. This may represent right basilar pneumonia. IMPRESSION: Question of early right basilar pneumonia.
[2018-05-08] MEDS ORDERED: cefTRIAXone(*) 1 GM in NS 0.9% 50 ML* 50 ML IVPB ONE (13:31)
[2018-05-08] MEDS ORDERED: Iohexol 350* (CONTRAST) 500 ML MDV IV ONE (13:39)
--- NOTE | 2018-05-08 14:32 | RAD ---
INDICATION: Shortness of breath and epigastric pain. COMPARISON: CTA of the chest dated February 19, 2016 TECHNIQUE: Multidetector CT angiography images of the chest, abdomen and pelvis were obtained from the lung apices to the ischial tuberosities following the injection of 60 mL of Omnipaque 350 intravenous contrast. . ANGIOGRAPHIC FINDINGS: There are no filling defects of the centrilobular pulmonary arteries to indicate acute pulmonary embolism. There is calcified atherosclerosis at the aortic ring and arch of the aorta.. The abdomen and pelvis was not imaged during arterial phase limiting evaluation of the arteries. There is coarse calcification of the abdominal aorta with coarse calcification at the origins of the celiac trunk and superior mesenteric artery. The coarse calcification extends into the bilateral common iliac arteries, more severely affecting the right than the left. The IVC appears decompressed which could be seen in the setting of dehydration. NON-ANGIOGRAPHIC FINDINGS: CHEST: The lungs exhibit diffuse centrilobular emphysematous changes and appearance of hyper aeration. There are no suspicious focal masses. There is no mediastinal or hilar lymphadenopathy. The heart and major vascular structures are grossly normal in appearance. ABDOMEN & PELVIS: The liver, spleen, pancreas and adrenal glands are grossly normal in appearance. The gallbladder is normal. There are large fluid attenuation cyst in the bilateral kidneys. Subcentimeter hypoattenuating foci are too small to characterize further with Hounsfield unit measurements. Otherwise the kidneys are normal in appearance without focal mass, calcification or signs of hydronephrosis. The urinary bladder measures 10.2 x 10.3 x 6.9 cm yielding an approximate volume of 587 mL. Evaluation of the gastrointestinal tract is limited in the absence of oral contrast. Air-filled loops of small bowel measure up to 3.3 cm in diameter (coronal image 22). There is a mostly gas-filled normal-appearing appendix identified the right abdomen. There is no definite pathologic bowel wall thickening or luminal gas. There are numerable rectosigmoid diverticula but none exhibit focal inflammatory change. There is no gross retroperitoneal or mesenteric lymphadenopathy. The pelvic viscera is normal in appearance. Multilevel degenerative changes of the thoracic and lumbar spine includes loss of intervertebral disc height and marginal osteophyte formation. There is vacuum disc phenomenon at L4/L5 and L5/S1.. There are no sinister bone lesions. IMPRESSION: 1. No centrilobular filling defect to indicate an acute pulmonary embolism. 2. In the left hemiabdomen there are dilated air-filled loops of small bowel measuring up to 3.2 cm in diameter. Correlate to clinical signs or symptoms of partial small bowel obstruction. 3. There is advanced calcified atherosclerosis of the aorta and iliac arteries including the origins of the mesenteric arteries. If the patient is specifically experiencing postprandial pain mesenteric arterial insufficiency could be considered as an etiology of her pain. 4. Coarse calcification extends into the right worse than left common iliac arteries. Please correlate to clinical signs or symptoms of pelvic or lower extremity arterial deficiency. 5. Diverticulosis without focal inflammatory change characteristic of diverticulitis. 6. The IVC appears decompressed. Please correlate to the clinical signs of dehydration.
[2018-05-08] MEDS ORDERED: Docusate CAP* 100 MG PO PRN (16:48)
[2018-05-08] MEDS ORDERED: NS 0.9% 1000 ML* 1,000 ML IV SCH (18:00)
[2018-05-08] MEDS: Ipratropium 0.5MG/2.5ML NEB* 0.5 MG/2.5 ML NEB.SOLN INH SCH (20:01)
[2018-05-08] MEDS: Omeprazole CAP* 20 MG PO SCH (20:43)
[2018-05-08] MEDS: Heparin VIAL(*) 5000 UNITS/ML VIAL (FIVE THOUSAND) SUBCUT SCH (20:43)
--- NOTE | 2018-05-08 22:45 | HP ---
CC: Dr. Farhan Walsh * HISTORY AND PHYSICAL: DATE OF ADMISSION: 05/08/18 PRIMARY CARE PROVIDER: Dr. Farhan Walsh. ATTENDING PHYSICIAN: Dr. Aga Ribeiro * (dictated by Beth Sharp NP). CHIEF COMPLAINT: Shortness of breath. HISTORY OF PRESENT ILLNESS: Ms. Willard is a 72-year-old female with past medical history significant for COPD, vitamin D deficiency, hypertension, GERD, hyperlipidemia, and IBS, who initially presented to the emergency room approximately 2 weeks ago with complaints of increased shortness of breath. While in the emergency room, her breathing had improved and she was discharged home with antibiotics. The patient states that upon ambulating to her car, her shortness of breath was worse, but she did not come back. She states that over the last 2 weeks, her shortness of breath has continued to be worse than her baseline. She does not feel as though she has had any improvement. She took the antibiotics that she was prescribed. The patient states that her shortness of breath is worse with ambulation. She noticed over the years that in general her shortness of breath is worse with exertion, but she has found if she slows down, this helps with the shortness of breath. She reports an occasional cough with some phlegm production. She denies fevers, chills. The patient reports some "sweats" this morning. She also reports feeling palpitations this morning and noting that her heart rate was in the 140s. She denies any urinary symptoms , but does report a yeast infection after being on antibiotics 2 weeks ago. She states that she took Monistat at home. She reports a known hiatal hernia and increase in reflux over the last few months. She states that she also did start out with what feels like some reflux and then has more food that comes up. She denies any constipation. She reports passing flatus. She states at her baseline, she moves her bowels every few days, but not daily. She states this has improved over the years when she used to go as long as 10 days between bowel movements; this is controlled with Colace at home two to four times daily . The patient reports feeling abdominal bloating over the past few months, sometimes this is improved with belching. She also takes gas relief over-the- counter medication once daily. The patient reports taking prednisone 10 mg oral daily for approximately the last 2 years with the exception of when she has had COPD exacerbations then she has been given increased dosing. The patient states that she has a known left inguinal hernia that she has had for approximately 6 to 8 years. The patient states that her stomach pain does not change with eating. She denies any chronic use of Aleve or ibuprofen. She does take a baby aspirin daily and as previously mentioned takes prednisone daily. Due to her symptoms of increased shortness of breath, she presented to the emergency room for further evaluation. While in the emergency room, the patient was given azithromycin, magnesium, IV Solu- Medrol, and DuoNeb and ceftriaxone. The patient was noted to have an episode of SVT in the emergency room and this corrected itself. She had an EKG showing a sinus tachycardia. Chest x-ray showing a possible right early basilar pneumonia. She had a chest, abdomen, and pelvis CTA showing no PE, a dilated air filled loop of small bowel, diverticulosis without signs of diverticulitis. Due to the patient's persistent shortness of breath, the hospitalists were asked to evaluate the patient for admission. PAST MEDICAL HISTORY: 1. COPD. 2. Vitamin D deficiency. 3. Hypertension. 4. GERD. 5. Hyperlipidemia. 6. Irritable bowel syndrome. 7. Hiatal hernia. 8. Left inguinal hernia. PAST SURGICAL HISTORY: 1. Status post left knee reconstruction. 2. Status post bilateral carpal tunnel repair. HOME MEDICATIONS: Include: 1. Prednisone 10 mg oral daily. 2. Diltiazem 240 mg oral daily. 3. Atrovent 2 puffs inhalation every 6 hours as needed for shortness of breath. 4. Atrovent 0.5 mg nebulizer every 6 hours as needed for shortness of breath. 5. Colace 100 mg oral 2 to 4 times daily as needed for constipation. 6. Vitamin D 1000 units oral daily. 7. Tums 1000 mg oral twice daily as needed for indigestion. 8. Aspirin 81 mg oral daily. 9. Albuterol inhaler 2 puffs inhalation every 4 hours as needed for shortness of breath or wheeze. 10. Albuterol nebulizer 2.5 mg inhalation every 4 hours as needed for shortness of breath or wheeze. ALLERGIES: ADHESIVE TAPE, FLUCONAZOLE, DOXYCYCLINE, MEPERIDINE, YELLOW DYE, VILANTEROL, METALS. FAMILY HISTORY: The patient denies any family history of coronary artery disease or diabetes mellitus. The patient's brother had a history of kidney and possible stomach cancer, brother with a history of leukemia; both brothers passed in their 60s or 70s. The patient's mother had a history of angina and passed in her 80s. SOCIAL HISTORY: The patient is a current smoker, smoking no cigarettes to 1 cigarette daily. She has smoked since age 16 with over a [id number] history. She denies alcohol use. She has been sober since 2004. She denies recreational drug use. She is retired and lives with her . Her , Medardo Willard, will be her surrogate decision maker in the event she is unable to make decisions for herself. REVIEW OF SYSTEMS: I performed an 11-point review of systems. All the pertinent positives and negatives are mentioned in the history of present illness. The remaining review of systems is negative. PHYSICAL EXAMINATION GENERAL APPEARANCE: The patient is alert, pleasant, and appears to be in no acute distress. VITAL SIGNS: Temperature 98.3, heart rate 98, respiratory rate 17, O2 sat 96% on 2 L, blood pressure 169/97. HEENT: Normocephalic, atraumatic. Pupils are equal and reactive to light. Extraocular movements are intact. RESPIRATORY: There is no accessory muscle use. The lungs are clear to auscultation bilateral, but diminished. CARDIOVASCULAR: Regular rate and rhythm. S1, S2 present. There are no murmurs , rubs, or gallops heard. ABDOMEN: Soft, nondistended. She has tenderness in her left upper quadrant. There are present bowel sounds. EXTREMITIES: There is no lower extremity edema. DP and PT pulses are 2+ and symmetric. MUSCULOSKELETAL: There is no clubbing or cyanosis noted. The patient exhibits good strength in all extremities. NEUROLOGICAL: The patient is alert and oriented x4. Cranial nerves II through XII are grossly intact. PSYCHOLOGICAL: The patient is calm and cooperative. SKIN: There are no rashes or abnormalities seen. DIAGNOSTIC STUDIES/LAB DATA: Sodium 136, potassium 3.9, chloride 101, CO2 28, BUN 16, creatinine 0.92, glucose 103. D-dimer 393. Troponin 0.03. Lactic acid 0.8. White blood cell count 13.1, hemoglobin 16.1, hematocrit 47, and platelet count 283. Venous blood gas reveals a pH of 7.38, PCO2 59, PO2 32, HCO3 29.3, O2 saturation 64.5, base excess 7.2. EKG shows a sinus tachycardia, rate of 109. This EKG is similar to previous EKG from 04/23/18. Chest x-ray from today. Radiologist's impression: Possible early right basilar pneumonia. Chest, abdomen, and pelvis CTA from today. Radiologist's impression: No centrilobular filling defect to indicate an acute pulmonary embolus. In the left ayo abdomen, there are dilated air-filled loops of small bowel measuring up to 3.2 cm in diameter. Correlate to clinical signs or symptoms of partial small bowel obstruction. There is advanced calcified atherosclerosis of the aorta and iliac arteries including the origins of the mesenteric arteries. If the patient is specifically experiencing postprandial pain, mesenteric artery insufficiency could be considered as an etiology of her pain. Coarse calcification extends into the right worse than left common iliac arteries. Please correlate to clinical signs and symptoms of pelvic or lower extremity arterial deficiency. Diverticulosis without focal inflammatory change characteristic of diverticulitis. The IVC appears decompressed. Please correlate with clinical signs of dehydration. IMPRESSION: Ms. Willard is a 72-year-old female with past medical history significant for chronic obstructive pulmonary disease, vitamin D deficiency, hypertension, gastroesophageal reflux disease, hyperlipidemia, irritable bowel syndrome, and a known hiatal hernia, who presents to the emergency room with complaints of shortness of breath and abdominal discomfort. She will be admitted as an observation for chronic obstructive pulmonary disease exacerbation. ASSESSMENT/PLAN: 1. Chronic obstructive pulmonary disease exacerbation. The patient will be continued on Solu-Medrol IV tomorrow. She will likely be able to be switched to prednisone taper after that to her baseline prednisone of 10 mg daily. She will be continued on Atrovent nebs. I am going to avoid albuterol nebs in the setting of tachycardia. We could consider Xopenex if needed. We will continue the patient on azithromycin for now. I am going to hold off on ceftriaxone. The chest x-ray shows possible early pneumonia, but she has no fever or other symptoms of pneumonia. 2. Left upper abdominal pain. The patient reports indigestion, some vomiting, abdominal bloating, and feeling distended in addition to discomfort in her left upper abdomen for the last 4 to 6 weeks. This could represent gastric ulcers in the setting of a patient on aspirin and prednisone manager terminal. We will start the patient on omeprazole twice daily and see if this helps. Her discomfort could also be secondary to constipation and IBS. If she continues to have discomfort, she will be referred to GI for possible EGD outpatient. She has no signs of bleeding to suggest an upper gastrointestinal bleed. 3. Hypertension. The patient will be continued on her home diltiazem. 4. Paroxysmal supraventricular tachycardia. At this time, I do not feel the patient needs her diltiazem adjusted. We will monitor her on telemetry and continue her current diltiazem dosing. 5. Irritable bowel syndrome with constipation. The patient will be continued on her home as-needed Colace. 6. Fluids, electrolytes, and nutrition. The patient will be on a regular diet. We will give her some gentle hydration overnight. 7. Code status. Do not resuscitate. The patient has a MOLST on file. 8. DVT prophylaxis. She is a highest risk and will have subcu heparin. 9. Disposition. Observation. TIME SPENT: Time for this admission was approximately 60 minutes, greater than half of that was spent with the patient discussing medications, past medical history, the events leading to her arrival today, and performing a physical examination. The case has been reviewed with the attending, Dr. Ribeiro, who agrees with the plan of care. Reviewed by KAMLA CALLEJAS 05/10/18 1606 [id number]/[facility] #: [id number] LM
[2018-05-09] MEDS: Calcium Carbonate CHEW TAB* 500 MG (TUMS) PO PRN ×2 (00:13→11:49)
[2018-05-09] MEDS: Ipratropium 0.5MG/2.5ML NEB* 0.5 MG/2.5 ML NEB.SOLN INH SCH ×2 (00:56→07:33)
[2018-05-09] MEDS: Heparin VIAL(*) 5000 UNITS/ML VIAL (FIVE THOUSAND) SUBCUT SCH (06:18)
[2018-05-09 07:31] LABS: ABS Basophils 0 10^3/ul (0-0.2); ABS Eosinophils 0 10^3/ul (0-0.6); ABS Lymphocytes 0.6 10^3/ul (1.0-4.8); ABS Monocytes 0.3 10^3/ul (0-0.8); ABS Neutrophils 7.8 10^3/ul (1.5-7.7); ABS Nucleated RBC 0 10^3/ul; Eosinophil % 0 % (0-6); Hematocrit 42 % (35-47); Hemoglobin 14.4 g/dl (12.0-16.0); Lymphocyte % 6.8 % (25-47); Mean Corpuscular HGB Conc 35 g/dl (31-36); Mean Corpuscular Hemoglobin 32 pg (27-31); Mean Corpuscular Volume 94 fL (80-97); Mean Platelet Volume 6.2 um3 (7.4-10.4); Nucleated Red Blood Cells % 0; Platelet Count 234 10^3/ul (150-450); Red Blood Count 4.47 10^6/ul (4.00-5.40); Red Cell Distribution Width 15 % (10.5-15); White Blood Count 8.7 10^3/ul (3.5-10.8)
[2018-05-09] MEDS ORDERED: methylPREDNISolone SOD 40 MG* 1 ML VIAL IV SCH (09:00)
[2018-05-09] MEDS ORDERED: Aspirin EC TAB* 81 MG TAB.EC PO SCH (09:00)
[2018-05-09] MEDS ORDERED: Cholecalciferol TAB* 1000 UNITS PO SCH (09:00)
[2018-05-09] MEDS ORDERED: Diltiazem CD CAP* 240 MG PO SCH (09:00)
[2018-05-09] MEDS: Omeprazole CAP* 20 MG PO SCH (09:11)
[2018-05-09 11:36] VITALS: BP 147/91
--- NOTE | 2018-05-09 12:55 | PN ---
Subjective Date of Service: 05/09/18 Interval History: Ms. Willard reports that she is feeling much better. Her shortness of breath is greatly improved and she is no longer requiring oxygen. She also reports that her abdominal pain resolved after having a large bowel movement today. She is tolerating oral intake well. Objective Active Medications: Aspirin (Aspirin Ec Tab*) 81 mg PO DAILY RHEA Atorvastatin Calcium (Lipitor*) 40 mg PO QPM RHEA Calcium Carbonate (Tums*) 1,000 mg PO BID PRN Cholecalciferol (Vitamin D Tab*) 1,000 units PO DAILY RHEA Clotrimazole (Mycelex Allyson*) 10 mg PO TID RHEA Diltiazem HCl (Cardizem Cd Cap*) 240 mg PO DAILY RHEA Docusate Sodium (Colace Cap*) 100 mg PO QID PRN Heparin Sodium (Porcine) (Heparin Vial(*)) 5,000 units SUBCUT Q8HR RHEA Azithromycin 500 mg/ Sodium (Chloride) 250 mls @ 250 mls/hr IVPB Q24H [facility] Sodium Chloride (Ns 0.9% 1000 Ml*) 1,000 mls @ 75 mls/hr IV PER RATE RHEA Ipratropium [place] (Atrovent 0.5 Mg Neb.Tiesha*) 0.5 mg INH [id number] AWAKE RHEA Methylprednisolone Sodium Succinate (Solu-Medrol 40 Mg) 40 mg IV Q12H RHEA Omeprazole (Prilosec Cap*) 20 mg PO BID [facility] Vital Signs: Temp Pulse Resp BP Pulse Ox 97.5 F 89 18 147/91 96 05/09/18 10:59 05/09/18 10:59 05/09/18 10:59 05/09/18 10:59 05/09/18 10:59 Oxygen Devices in Use Now: None Appearance: Female sitting up in bed in NAD Eyes: No Scleral Icterus Ears/Nose/Mouth/Throat: Mucous Membranes Moist Neck: Trachea Midline Respiratory: Symmetrical Chest Expansion and Respiratory Effort, Clear to Auscultation Cardiovascular: NL Sounds; No Murmurs; No JVD, No Edema Abdominal: NL Sounds; No Tenderness; No Distention Lymphatic: No Cervical Adenopathy Extremities: No Edema Skin: No Rash or Ulcers Neurological: Alert and Oriented x 3, NL Muscle Strength and Tone Nutrition: Taking PO's Result Diagrams: 05/09/18 07:17 05/08/18 12:16 Assess/Plan/Problems-Billing Assessment: Ms. Willard is a 72 yo F with a PMH of COPD and IBS who was admitted on 05/08/18 with COPD exacerbation and left upper quadrant pain with concern for possible partial SBO. - Patient Problems (1) COPD exacerbation Comment: - Resolving. - Continue prednisone taper, azithromycin with albuterol prn. (2) Abdominal pain Comment: - Resolved. Has had BM and is tolerating oral intake well. - Suspect reflective of patient's chronic constipation and IBS. (3) Oropharyngeal candidiasis Comment: - Minimal signs of exam but patient reports similiar symptoms in the past with thrush and is on increased dose prednisone. - Plan for clotrimazole troches, follow up PCP. (4) Paroxysmal a-fib Comment: - In NSR. - Continue Aspirin and Cardizem. - [id number] score is 3 (age, sex, HTN) - patient not interested in AC for now, wants to continue Aspirin. (5) Tobacco abuse counseling Comment: - Continued smoking cessation encouraged. (6) DVT prophylaxis Comment: - Lovenox. (7) DNR (do not resuscitate) Comment: Status and Disposition: OBV. Discharge to home.
[2018-05-09] MEDS ORDERED: Clotrimazole TROCHE* 10 MG TROCHE PO SCH (14:00)
[2018-05-09] MEDS ORDERED: Azithromycin IV(*) 500 MG in NS 0.9% 250 ML* 250 ML IVPB SCH (15:00)
[2018-05-09] MEDS ORDERED: Atorvastatin* 40 MG TAB PO SCH (18:00)
--- NOTE | 2018-05-10 01:05 | DS ---
CC: Dr. Walsh * [facility] MEDICINE DISCHARGE SUMMARY: DATE OF ADMISSION: 05/08/18 DATE OF DISCHARGE: 05/09/18 PRIMARY CARE PHYSICIAN: Dr. Walsh. ATTENDING PHYSICIAN: Dr. Cuong Patel * (dictation provided by Lore Mascorro NP). PRIMARY DIAGNOSES: 1. Chronic obstructive pulmonary disease exacerbation. 2. Left upper quadrant pain secondary to constipation and irritable bowel syndrome. SECONDARY DIAGNOSES: 1. Irritable bowel syndrome. 2. Chronic obstructive pulmonary disease. 3. Vitamin D deficiency. 4. Hypertension. 5. Gastroesophageal reflux disease. 6. Hyperlipidemia. 7. Hiatal hernia. 8. Left inguinal hernia. PAST SURGICAL HISTORY: 1. Status post left knee reconstruction. 2. Status post bilateral carpal tunnel repair. MEDICATIONS AT THE TIME OF DISCHARGE: 1. Vitamin D 1000 units p.o. daily. 2. Ibuprofen 600 mg p.o. q.6 hours p.r.n. 3. Atorvastatin 40 mg p.o. q.p.m. 4. Ipratropium inhaler 2 puffs inhaled q.6 hours p.r.n. 5. Ipratropium via nebulizer 2 puffs inhaled q.6 hours p.r.n. 6. Docusate 100 mg p.o. b.i.d. to q.i.d. p.r.n. 7. Cholecalciferol 1000 units p.o. daily. 8. Calcium carbonate 1000 mg p.o. b.i.d. p.r.n. 9. Aspirin 81 mg p.o. daily. 10. Albuterol inhaler 2 puffs inhaled q.4 hours p.r.n. 11. Albuterol via nebulizer 2.5 mg inhaled q.4 hours p.r.n. 12. Diltiazem XR 240 mg p.o. daily. 13. Prednisone 40 mg via taper down to her home 10 mg dose. 14. Clotrimazole xuan 10 mg p.o. t.i.d. 15. Azithromycin 250 mg p.o. daily x4 days. HOSPITAL COURSE: Ms. Willard is a 72-year-old female with past medical history of COPD and irritable bowel syndrome, who presented to the hospital on 05/08/18 with concern for shortness of breath. Please see the dictated H and P from Beth Granados for complete details. In brief, the patient stated that she had been in the emergency room about 2 weeks prior to this admission with the shortness of breath. She was discharged at that time after her breathing improved. She completed a course of antibiotics as prescribed. However, despite this she noted that the shortness of breath became quite significant with ambulation and therefore came to the hospital for evaluation. She also noted that she was having some left upper quadrant pain with bloating and abdominal distention. She has a chronic history of irritable bowel syndrome , that was primarily constipation, but she can sometimes go as long as 10 days between bowel movements. She reports taking Colace multiple times a day to facilitate GI motility. In the emergency room, Ms. Willard had labs, which showed a mild leukocytosis with a white blood cell count of 13.1. Her D-dimer was 393. Her venous blood gas showed a pH of 7.38, pCO2 of 59, pO2 of 32, bicarbonate 29.3. Her basic metabolic panel was unremarkable. She had a chest x-ray, which showed " question of early right basilar pneumonia." She had a chest, abdomen and pelvis CTA, which showed the following: "No central lobular filling defect to indicate an acute pulmonary embolism. In the left ayo-abdomen, there are dilated air-filled loops of small bowel measuring up to 3.2 cm in diameter, correlate to clinical signs or symptoms of partial small bowel obstruction. There is advanced calcified atherosclerosis of the aorta and iliac arteries including the origins of the mesenteric arteries, coarse calcification extends into the right worse than left common iliac arteries, diverticulosis without inflammatory change characteristic of diverticulitis. Ms. Willard was admitted to the hospital. She was treated for what was suspected to be a COPD exacerbation with azithromycin, Solu-Medrol, oxygen and nebulizers as needed. Today, she is feeling much better. She is off oxygen. She is ambulating short distances in the hallway without significant dyspnea. In terms of her left upper quadrant pain, the patient states that after she had a large bowel movement this pain has resolved. She is tolerating oral intake well. Her abdominal exam is benign. I think that the air-filled loops of bowel on the CT scan were likely reflective of her chronic IBS, which is constipation predominant and she is certainly asymptomatic at this point. Ms. Willard is medically stable for discharge to home after complete treatment of COPD exacerbation. I have also recommended that she consider followup with [facility] for continued help with management of her IBS. DISPOSITION: Home. DIET: Regular. ACTIVITY: As tolerated. FOLLOWUP PLANS: 1. Please follow up with Dr. Walsh regarding this observation stay in the hospital. 2. Please follow up with [facility] as needed regarding ongoing problems with IBS. TIME SPENT: Approximately 60 minutes were spent on the discharge of this patient, more than half the time was spent with the patient at the bedside reviewing the events leading up to and during this hospitalization, performing the physical examination, and reviewing my plan of care. LORE MASCORRO, ALAYNA [id number]/CPS #: [id number] LM
== END 2018-05-09 13:50 | disposition home or self-care (01) ==
LOC: ED 11:38 → MED 17:00
PROVIDERS: ADMIT Hospitalist; ATTEND Internal Medicine
DX: J44.1 Chronic obstructive pulmonary disease with (acute) exacerbation (principal); R10.12 Left upper quadrant pain; K58.9 Irritable bowel syndrome, unspecified; E55.9 Vitamin D deficiency, unspecified; I10 Essential (primary) hypertension; K21.9 Gastro-esophageal reflux disease without esophagitis; E78.5 Hyperlipidemia, unspecified; K44.9 Diaphragmatic hernia without obstruction or gangrene; K40.90 Unilateral inguinal hernia, without obstruction or gangrene, not specified as recurrent; Z79.82 Long term (current) use of aspirin; F17.210 Nicotine dependence, cigarettes, uncomplicated
CPT/HCPCS: 36415; 71046; 71275; 74177; 80053; 82803; 83605; 83880; 84484; 85025; 85379; 87040; 93005; 94640; 99284; A9270-GY; G0378; J0456; J0696; J1644; J2920; J2930; J3475; Q9967

== ENCOUNTER 2018-06-20 10:10 | Emergency (ER) | payer MEDICARE ==
--- NOTE | 2018-06-20 10:16 | ED ---
Palpitations / Dysrhythmia - HPI Summary HPI Summary: A 72 y/o F BIBA, with pert PMHx: SVT, HTN, COPD, presents to ED with accelerated HR onset [employer]. Sx began while pt was seated at rest. Per EMS, this episode was more sustained than previously, so pt called the ambulance. They performed a Valsalva maneuver, but EMS felt resolution was spontaneous and coincidental to the treatment. EMS saw a HR of 205 bpm, and pt reports seeing a HR of 230 bpm while at home. Associated sx: SOB, dizziness onset three days ago , which she believes are due to her medications. Denies CP. She is feeling well at bedside (0/10 pain) and denies any recent respiratory illness. Pt was last seen at [facility] in May for COPD exacerbation. Pt does not use home O2, and denies taking blood thinner medications. She takes Prednisone 10mg daily. Dr. Walsh is her PCP, and also sees Leeann Roquehrie tmh teacher. Pt is a smoker. Reviewed MOLST form at bedside: DNR, no helicopters, no ventilator, keep her out of pain. Vital signs while in room: HR 109 bpm and BP 145/100 and O2 sat at 97%. Home Medications Medication Instructions Recorded Confirmed Type Albuterol 2.5MG/3ML (0.083%)* 2.5 mg INH Q4H PRN 04/23/18 06/20/18 History [Ventolin 2.5 MG/3 ML NEB.KJ*] Albuterol HFA INHALER* [Ventolin 2 puff INH Q4H PRN 04/23/18 06/20/18 History HFA Inhaler*] Aspirin EC TAB* [Ecotrin EC Low 81 mg PO DAILY 04/23/18 06/20/18 History Dose 81 MG*] Calcium Carbonate CHEW TAB* [Tums*] 1,000 mg PO BID PRN 04/23/18 06/20/18 History Ipratropium 0.5MG/2.5ML NEB* 2 puff INH Q6H PRN 04/23/18 06/20/18 History [Atrovent 0.5 MG NEB.KJ*] Ipratropium HFA INHALER(NF) 2 puff INH Q6H PRN 04/23/18 06/20/18 History [Atrovent Hfa Inhaler(NF)] Atorvastatin* [Lipitor 40 MG*] 40 mg PO QPM 05/08/18 06/20/18 History Cholecalciferol TAB* [Vitamin D 1,000 unit PO DAILY #0 05/08/18 06/20/18 History TAB*] predniSONE TAB* [Deltasone 10 MG 10 mg PO DAILY #30 tab 05/09/18 06/20/18 Rx TAB*] Docusate CAP* [Colace Cap*] 100 mg PO DAILY 06/20/18 06/20/18 History Ibuprofen TAB* [Motrin TAB* 600 MG] 600 mg PO Q6H PRN 06/20/18 06/20/18 History dilTIAZem HCl [Cartia Xt] 240 mg PO DAILY 06/20/18 06/20/18 History predniSONE TAB* [Deltasone 10 MG 10 mg PO DAILY #30 tab 06/20/18 Rx TAB*] - History of Current Complaint Time Seen by Provider: 06/20/18 10:12 Hx Obtained From: Patient, EMS Onset/Duration: Sudden Onset, Lasting Minutes, Resolved Timing: Constant Severity Initially: Severe Severity Currently: Mild Character: Fast Aggravating: Nothing Alleviating: Other - Valsalva maneuver, possibly, see HPI Associated Signs & Symptoms: Dizzy, Shortness of Breath Related History: Similar Episode/Dx as - SVT - Allergy/Home Medications Allergies/Adverse Reactions: Allergies Allergy/AdvReac Type Severity Reaction Status Date / Time Adhesive Tape Allergy Severe RASH, Verified 05/08/18 11:48 ITCHING fluconazole Allergy Severe GI Upset Verified 05/08/18 11:48 doxycycline Allergy Itching Verified 05/08/18 11:48 meperidine Allergy Palpitation Verified 05/08/18 11:48 s yellow dye Allergy Hives Verified 05/08/18 11:48 vilanterol AdvReac Vomiting Verified 05/08/18 11:48 metals Allergy Mild Itching Uncoded 05/08/18 11:48 Home Medications: Home Medications Docusate CAP* [Colace Cap*] 100 mg PO DAILY 06/20/18 [History Confirmed 06/20/18 ] Ibuprofen TAB* [Motrin TAB* 600 MG] 600 mg PO Q6H PRN 06/20/18 [History Confirmed 06/20/18] dilTIAZem HCl [Cartia Xt] 240 mg PO DAILY 06/20/18 [History Confirmed 06/20/18] PMH/Surg Hx/FS Hx/Imm Hx Previously Healthy: No Endocrine/Hematology History: Denies: Hx Diabetes, Hx Thyroid Disease, Hx Anemia, Hx Unexplained Bleeding Cardiovascular History: Reports: Hx Hypercholesterolemia, Hx Hypotension, Hx Hypertension, Hx Supraventricular Ventricular Tachycardia - 05/08/18 in [facility] Denies: Hx Aneurysm, Hx Angina, Hx Angioplasty, Hx Auto Implanted Cardiovert Defib, Hx Cardiac Arrest, Hx Cardiomegaly, Hx Congenital Heart Disease, Hx Congestive Heart Failure, Hx Coronary Artery Disease, Hx Deep Vein Thrombosis, Hx Embolism, Hx Myocardial Infarction, Hx Pacemaker/ICD, Hx Peripheral Vascular Disease, Hx Rheumatic Fever, Hx Syncope, Hx Valvular Heart Disease Respiratory History: Reports: Hx Chronic Obstructive Pulmonary Disease (COPD), Hx Pneumonia - 05/08/18 Denies: Hx Asthma, Hx Chronic Bronchitis, Hx Cystic Fibrosis, Hx Lung Cancer , Hx Pleural Effusion, Hx Pulmonary Edema, Hx Pulmonary Embolism, Hx Seasonal Allergies, Hx Sleep Apnea, Other Respiratory Problems/Disorders GI History: Reports: Hx Diverticulosis - 05/08/18, Hx Gastroesophageal Reflux Disease, Hx Hiatal Hernia, Hx Irritable Bowel, Other GI Disorders - Inguinal Hernia Denies: Hx Cirrhosis, Hx Crohn's Disease, Hx Gall Bladder Disease, Hx Gastrointestinal Bleed, Hx Jaundice, Hx Obstructive Bowel, Hx Ileostomy, Hx Pyloric Stenosis, Hx Ulcer, Hx Urosepsis History: Denies: Hx Kidney Stones, Hx Renal Disease Musculoskeletal History: Reports: Hx Arthritis - Left knee replacement, Other Musculoskeletal History - Carpal tunnel, Vitamin D deficiency Denies: Hx Osteoporosis Sensory History: Reports: Hx Contacts or Glasses Denies: Hx Deafness, Hx Hearing Aid, Other Sensory Impairments Opthamlomology History: Reports: Hx Contacts or Glasses Denies: Other Sensory Impairments Neurological History: Denies: Hx Dementia, Hx Migraine, Hx Seizures, Hx Transient Ischemic Attacks (TIA) Psychiatric History: Reports: Hx Anxiety Denies: Hx Depression, Hx Schizophrenia, Hx Bipolar Disorder - Surgical History Surgery Procedure, Year, and Place: left knee reconstruction 1977; bilat carpal tunnel; TUBAL LIGATION 1981 Hx Anesthesia Reactions: No Infectious Disease History: No Infectious Disease History: Denies: Hx Hepatitis, Hx Human Immunodeficiency Virus (HIV), Hx of Known/ Suspected MRSA - Negative nasal swab 01/17/17, Hx Tuberculosis, History Other Infectious Disease - Family History Known Family History: Positive: Cardiac Disease - mother Negative: Hypertension, Diabetes - Social History 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 Negative: Chest Pain Positive: Shortness Of Breath Gastrointestinal: Negative Skin: Negative Neurological: Other - pos: dizziness Psychological: Normal All Other Systems Reviewed And Are Negative: Yes Physical Exam - Summary Physical Exam Summary: Appearance: chronically ill-appearing, moderate resp distress, thin Skin: Warm, color reflects adequate perfusion, dry, multiple ecchymoses of different ages Head: Normal Head/Face inspection, atraumatic Eyes: Conjunctiva clear ENT: Normal inspection Neck: Supple, no nodes, no JVD; using accessory muscles of respiration Respiratory: diminished breast sounds, COPD habitus Cardio: tachy, No murmur, pulses normal, brisk capillary refill Abdomen: Soft, nontender Bowel sounds: Present Musculoskeletal: Strength Intact/ROM intact, no calf tenderness, no edema. Psychological: Normal Neuro: Alert, muscle tone normal, no focal deficit Triage Information Reviewed: Yes Vital Signs Reviewed: Yes Diagnostics - Laboratory Result Diagrams: 06/20/18 10:57 06/20/18 10:57 Lab Statement: Any lab studies that have been ordered have been reviewed, and results considered in the medical decision making process. - Radiology CXR Xray Interpretation: Positive (See Comments) - IMPRESSION: COPD. No active cardiopulmonary dz. ED provider has reviewed this report. Radiology Interpretation Completed By: Radiologist - CT Chest/Thorax CTA CT Interpretation: Positive (See Comments) - IMPRESSION: 1. NO EVIDENCE FOR PULMONARY EMBOLISM. 2. MODERATE TO SEVERE CENTRILOBULAR EMPHYSEMATOUS CHANGE. ED provider has reviewed this report. CT Interpretation Completed By: Radiologist - EKG 1015 Cardiac Rate: Tachycardia - 110 bpm EKG Rhythm: Sinus Tachycardia ST Segment: Non-Specific Ectopy: PACs EKG Interpretation: Left axis -78 EKG Comparison: No Significant Change - from 05/08/18 Re-Evaluation - Re-Evaluation 1 Re-Evaluation Time: 11:02 Change: Improved Comment: HR is 102 bpm. O2 is discontinued, 97% room air. BP: 126/71. 2 Re-Evaluation Time: 11:48 Change: Unchanged Comment: Patient feels well. is at her side. Heart rate is 95. O2 sat is 94% on room air. Blood pressure is 117/71. states patient is short of breath as she always is. D-dimer is minimally elevated, but with shortness of breath and SVT will do CTA chest to eval for possible pulmonary embolus. Patient is agreeable. Third Eval Re-Evaluation Time: 12:40 Change: Worse Comment: Pt got up to use the commode and became very dyspneic. VANNESSA Franco notified me and I came to pt's room immediately. Pt has no chest pain. Can speak full sentences, but is SOB and using all accessory muscles, and tripoding. Ordered duoneb. Pt's HR remains 92, O2 sat prior to duoneb was 95% RA and with duoneb is 99%. BP 150/88. Respiratory present. Lungs with diminished BS, no wheezes. 4 Re-Evaluation Time: 14:47 Change: Improved Comment: BP: 125/68. HR: 102 bpm. No SOB, and is aggreable to discharge. Course/Dx - Course Course Of Treatment: Pt is a 72 y/o F with PMHx: SVT and COPD was BIBA with accelerated HR of 205 bpm, SOB, and dizziness. Ordering CTA to rule out PE due to pts elevated Ddimer (233) and PMHx: SVT, COPD exacerbation. CTA shows no evidence for PE. EKG taken at 10:15 shows sinus tachy at 110 bpm, non-specific ST changes, PACs, Left axis -78. There was no significant change from the EKG on 05/08/18. troponin x 2 within normal limits. Allergies noted and pt medications reviewed this visit. High blood pressure noted. Will discharge pt home with 12-day taper of Prednisone and directions to follow up with Dr. Walsh , PCP for SVT and with Dr. Terrazas, pulmonology, for the COPD. - Diagnoses Differential Diagnosis/HQI/PQRI: Positive: Chronic Obstructive Pulmonary Disease , Congestive Heart Failure, Coronary Artery Disease, Hypokalemia, Paroxymal SVT , Pulmonary Embolism Provider Diagnoses: Tobacco abuse disorder, Poorly-controlled hypertension, SVT (supraventricular tachycardia), COPD exacerbation Discharge - Sign-Out/Discharge Documenting (check all that apply): Patient Departure - DC - Discharge Plan Condition: Stable Disposition: HOME Prescriptions: predniSONE TAB* [Deltasone 10 MG TAB*] 10 mg PO DAILY #30 tab Patient Education Materials: Supraventricular Tachycardia (ED), COPD (Chronic Obstructive Pulmonary Disease) (ED) Referrals: Dania Terrazas MD [Medical Doctor] - As Soon As Possible Farhan Walsh MD [Primary Care Provider] - 2 Days Additional Instructions: You had two duonebs and IV steroids solumedrol 125mg while you were in the ER. We did not see any SVT or rapid heart rhythms in the ER. RETURN TO THE EMERGENCY DEPARTMENT FOR CHANGING OR WORSENING SYMPTOMS. Follow-up with Dr. Walsh in 2 days. Your blood pressure reading today was 145/100, which is HYPERTENSIVE. Follow-up with your primary care provider within 4 weeks for blood pressure readings and further evaluation. - Billing Disposition and Condition Condition: STABLE Disposition: Home - Attestation Statements Document Initiated by Cristianaibmao: Yes Documenting Scribe: Lucina Granda Provider For Whom Gustabo is Documenting (Include Credential): Dr. Dolores Carbajal MD Scribe Attestation: Lucina Whitt, scribed for Dr. Dolores Carbajal MD on 06/21/18 at 0252. Scribe Documentation Reviewed: Yes Provider Attestation: The documentation as recorded by the Lucina hernández accurately reflects the service I personally performed and the decisions made by me, Dr. Dolores Carbajal MD
[2018-06-20] MEDS ORDERED: predniSONE TAB* 10 MG PO ONE (10:21)
--- NOTE | 2018-06-20 11:13 | RAD ---
HISTORY: SOB, SVT COMPARISONS: May 08, 2018 VIEWS: 1: frontal portable view of the chest at 11:05 AM FINDINGS: LINES AND TUBES: None. CARDIOMEDIASTINAL SILHOUETTE: The cardiomediastinal silhouette is normal for portable technique. PLEURA: The costophrenic angles are sharp. No pleural abnormalities are noted. LUNG PARENCHYMA: There is hyperinflation. ABDOMEN: The upper abdomen is clear. There is no subphrenic gas. BONES AND SOFT TISSUES: No bone or soft tissue abnormalities are noted. IMPRESSION: COPD. NO ACTIVE CARDIOPULMONARY DISEASE.
[2018-06-20 11:18] LABS: ABS Basophils 0.1 10^3/ul (0-0.2); ABS Eosinophils 0.1 10^3/ul (0-0.6); ABS Lymphocytes 1.8 10^3/ul (1.0-4.8); ABS Nucleated RBC 0 10^3/ul; Eosinophil % 1.1 % (0-6); Hematocrit 43 % (35-47); Hemoglobin 14.5 g/dl (12.0-16.0); Lymphocyte % 20.5 % (25-47); Mean Corpuscular HGB Conc 34 g/dl (31-36); Mean Corpuscular Hemoglobin 32 pg (27-31); Mean Corpuscular Volume 94 fL (80-97); Mean Platelet Volume 6.4 um3 (7.4-10.4); Nucleated Red Blood Cells % 0.1; Platelet Count 294 10^3/ul (150-450); Red Blood Count 4.57 10^6/ul (4.00-5.40); Red Cell Distribution Width 15 % (10.5-15)
[2018-06-20 11:31] LABS: INR 0.86 (0.77-1.02)
[2018-06-20 11:35] LABS: EGFR Non-African American 58.7 (>60)
[2018-06-20] MEDS ORDERED: Iodixanol* (CONTRAST) 320 MG/ML 100 ML SDV IV ONE (11:57)
[2018-06-20] MEDS ORDERED: Albuterol/Ipratropium NEB.SOL* Albuterol 2.5 MG/Ipratropium 0.5 MG 3 ML INH ONE ×2 (12:45→12:54)
[2018-06-20] MEDS ORDERED: Albuterol/Ipratropium NEB.SOL* Albuterol 2.5 MG/Ipratropium 0.5 MG 3 ML ONE ×2 (12:45→12:48)
--- NOTE | 2018-06-20 12:46 | RAD ---
INDICATION: Shortness of breath, elevated d-dimer. COMPARISON: Comparison is made with a prior CT angiogram of the chest from May 08, 2018. TECHNIQUE: A CT angiogram of the chest was performed with intravenous following intravenous injection of 61 ml of Visipaque 320 nonionic contrast. Contiguous axial sections were obtained from the lung apices through the lung bases. Images were reconstructed in the coronal and sagittal planes. FINDINGS: PULMONARY ARTERIES: There is relatively homogeneous opacification of the pulmonary arteries. No intraluminal filling defect or pulmonary embolism is seen. LUNGS: There is moderate to severe centrilobular emphysematous change. No significant infiltrate is seen. No pleural effusion is present. MEDIASTINUM: No significant enlarged mediastinal or hilar lymph nodes are seen. HEART: The heart is within normal limits in size. No pericardial effusion is present. There are coronary calcifications present. THORACIC AORTA: The thoracic aorta is normal in caliber. There is mild calcific plaque present. ABDOMEN: No acute findings are seen on the visualized portion of the upper abdomen. BONES: No significant focal osseous abnormality is seen. IMPRESSION: 1. NO EVIDENCE FOR PULMONARY EMBOLISM. 2. MODERATE TO SEVERE CENTRILOBULAR EMPHYSEMATOUS CHANGE.
[2018-06-20] MEDS ORDERED: methylPREDNISolone 125 MG* 2 ML VIAL IV ONE (12:53)
[2018-06-20 15:06] VITALS: BP 125/68
== END 2018-06-20 15:15 | disposition home or self-care (01) ==
LOC: ED 10:10
DX: F17.210 Nicotine dependence, cigarettes, uncomplicated (principal); I10 Essential (primary) hypertension; J44.9 Chronic obstructive pulmonary disease, unspecified; R00.2 Palpitations; R42 Dizziness and giddiness; I47.1 Supraventricular tachycardia; R06.02 Shortness of breath
CPT/HCPCS: 36415; 71045; 71275; 80053; 82550; 82553; 83605; 83735; 83880; 84436; 84443; 84484; 85025; 85379; 85610; 85730; 93005; 96374; 99283; A9270-GY; J2930; J7512; Q9967

== ENCOUNTER 2018-08-09 15:05 | Inpatient (IN) | payer MEDICARE ==
[2018-08-09] MEDS ORDERED: Adenosine* 3 MG/ML VIAL ONE (15:34)
[2018-08-09] MEDS ORDERED: methylPREDNISolone 125 MG* 2 ML VIAL IV ONE (15:36)
[2018-08-09] MEDS ORDERED: Magnesium Sulfate 2 GM IV* 2 GM/50 ML BAG IVPB ONE (15:37)
[2018-08-09] MEDS ORDERED: Albuterol/Ipratropium NEB.SOL* Albuterol 2.5 MG/Ipratropium 0.5 MG 3 ML INH ONE ×2 (15:38→15:56)
[2018-08-09] MEDS ORDERED: KETAMINE HCL* 50 MG/ML 10 ML VIAL IV ONE (15:42)
[2018-08-09 15:46] LABS: ABS Basophils 0.1 10^3/ul (0-0.2); ABS Eosinophils 0.3 10^3/ul (0-0.6); ABS Lymphocytes 1.6 10^3/ul (1.0-4.8); ABS Monocytes 1.1 10^3/ul (0-0.8); ABS Neutrophils 5.5 10^3/ul (1.5-7.7); ABS Nucleated RBC 0 10^3/ul; Eosinophil % 2.9 % (0-6); Hematocrit 46 % (35-47); Hemoglobin 15.2 g/dl (12.0-16.0); Lymphocyte % 18.5 % (25-47); Mean Corpuscular HGB Conc 34 g/dl (31-36); Mean Corpuscular Hemoglobin 31 pg (27-31); Mean Corpuscular Volume 91 fL (80-97); Mean Platelet Volume 6.8 fL (7.4-10.4); Nucleated Red Blood Cells % 0; Platelet Count 281 10^3/ul (150-450); Red Blood Count 4.98 10^6/ul (4.00-5.40); Red Cell Distribution Width 16 % (10.5-15); White Blood Count 8.5 10^3/ul (3.5-10.8)
[2018-08-09] MEDS ORDERED: Adenosine* 3 MG/ML VIAL IV PUSH ONE ×2 (15:50→16:14)
[2018-08-09 16:00] LABS: EGFR Non-African American 61.5 (>60)
[2018-08-09] MEDS ORDERED: Diltiazem IV* 5 MG/ML 5 ML VIAL (for loading dose/IV Push) (25 MG) ONE (16:01)
[2018-08-09] MEDS ORDERED: Amiodarone 360 MG IVPREMIX* 360 MG/200 ML BAG IV ONE (16:15)
[2018-08-09] MEDS ORDERED: Amiodarone 150 MG IVPREMIX* 150 MG/100 ML BAG IV ONE (16:15)
[2018-08-09] MEDS ORDERED: Diltiazem IV* 5 MG/ML 5 ML VIAL (for loading dose/IV Push) (25 MG) IV SLOW PU ONE (16:43)
[2018-08-09] MEDS ORDERED: Piperacillin/Tazobac ADVAN(*) 3.375 GM in NS 0.9% 100 ML* 100 ML IVPB ONE (16:56)
--- NOTE | 2018-08-09 17:15 | RAD ---
Indication: Dyspnea. COPD. Cough. Chest pain. Comparison: June 20, 2018 CT. May 08, 2018 chest radiograph. Technique: Upright AP 1652 hours Report: Elevated lung volumes and both diffuse mild prominence of the interstitial markings and patchy rarefaction of the mid to upper lung zone interstitial markings. Accounting for superimposed breast tissue with asymmetric appearance the lungs are clear without evidence for a pulmonary inflammatory infiltrate. Negative for pleural effusion or pneumothorax. The heart, pulmonary vasculature, and mediastinal contours are unremarkable. IMPRESSION: #. Stigmata of obstructive lung disease. No acute pulmonary or cardiac process evident.
[2018-08-09] MEDS ORDERED: Albuterol/Ipratropium NEB.SOL* Albuterol 2.5 MG/Ipratropium 0.5 MG 3 ML INH PRN (17:43)
[2018-08-09] MEDS ORDERED: Metoprolol Tartrate IV* 1 MG/ML 5 ML VIAL IV PRN (17:48)
--- NOTE | 2018-08-09 18:08 | HP ---
H&P (Free Text) History and Physical: History and Physical -- Critical Care Limitations in history/physical: none HPI: 73y F w/pmhx of HLD, HTN, SVT, COPD on chronic prednisone, GERD; patient comes from home for increasing shortness of breath x2 weeks. SOB has been getting worse for months now, no associated CP. For 2 weeks, she had rhinorrhea , cough+, mild sputum+. For 2 weeks SOB has worsened more, even with minimal exertion in past 4-5 days. No fever/chills/sick contacts. Dec PO intake for a few days, loss of appetite+. Mild diarrhea+. No abd pain. No chest pain. Muscle aches+ for a few days now. Intermittent leg swellings for months, fluctuating. She missed her home Cardizem dosing for 2-3 days now. In ER, she was found to be tachycardic 208, appeared to be SVT, BP 120s. given adenosine x3 without improvement, then Cardizem IV push which caused BP to drop , given IVF bolus. Then started on IV amiodarone and HR improved. Currently in NSR. Started on NIV for respiratory support. Received IV steroids, nebulizers. at bedside who confirms history. ROS: negative except for pertinent positives mentioned above. 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 Allergies: Allergies Allergy/AdvReac Type Severity Reaction Status Date / Time Adhesive Tape Allergy Severe RASH, Verified 05/08/18 11:48 ITCHING fluconazole Allergy Severe GI Upset Verified 05/08/18 11:48 doxycycline Allergy Itching Verified 05/08/18 11:48 meperidine Allergy Palpitation Verified 05/08/18 11:48 s yellow dye Allergy Hives Verified 05/08/18 11:48 vilanterol AdvReac Vomiting Verified 05/08/18 11:48 metals Allergy Mild Itching Uncoded 05/08/18 11:48 Home Medications: Albuterol 2.5MG/3ML (0.083%)* [Ventolin 2.5 MG/3 ML NEB.KJ*] 2.5 mg INH Q4H PRN 04/23/18 [History Confirmed 08/09/18] Aspirin EC TAB* [Ecotrin EC Low Dose 81 MG*] 81 mg PO DAILY 04/23/18 [History Confirmed 08/09/18] Ipratropium HFA INHALER(NF) [Atrovent Hfa Inhaler(NF)] 2 puff INH Q6H PRN [History Confirmed 08/09/18] Cholecalciferol TAB* [Vitamin D TAB*] 1,000 unit PO DAILY #0 05/08/18 [History Confirmed 08/09/18] Docusate CAP* [Colace Cap*] 100 mg PO DAILY 06/20/18 [History Confirmed 08/09/18 ] Ibuprofen TAB* [Motrin TAB* 600 MG] 600 mg PO Q6H PRN 06/20/18 [History Confirmed 08/09/18] dilTIAZem HCl [Cartia Xt] 240 mg PO DAILY 06/20/18 [History Confirmed 08/09/18] predniSONE TAB* [Deltasone 10 MG TAB*] 10 mg PO DAILY #30 tab 06/20/18 [Rx Confirmed 08/09/18] Albuterol HFA INHALER* [Ventolin HFA Inhaler*] 2 puff INH Q4H PRN 08/09/18 [ History Confirmed 08/09/18] Atorvastatin* [Lipitor*] 40 mg PO DAILY 08/09/18 [History Confirmed 08/09/18] Ipratropium 0.5MG/2.5ML NEB* [Atrovent 0.5 MG NEB.KJ*] 0.5 mg INH Q4H PRN 08/09 [History Confirmed 08/09/18] Ranitidine TAB (NF) [Zantac TAB (NF)] 150 mg PO BID 08/09/18 [History Confirmed 08/09/18] Tele: sinus tachycardia; previous SVT Vitals: Vital Signs Temp 98.8 F 08/09/18 15:08 Pulse 101 08/09/18 17:30 Resp 31 08/09/18 17:30 BP 127/80 08/09/18 17:30 Pulse Ox 99 08/09/18 17:30 Intake & Output 08/08/18 08/09/18 08/09/18 18:59 06:59 18:59 Intake Total 150 Balance 150 Weight 49.895 kg Intake: IV Fluids 150 O2/Vent: NIV 50%; tv 300-400, RR 20s Infusions: amiodarone 1mg/min Current Medications: Albuterol/Ipratropium (Duoneb (Albuterol 2.5 Mg/Ipratropium 0.5 Mg)) 1 neb INH Q4H PRN PRN Reason: SOB/WHEEZING Aspirin (Aspirin Ec Tab*) 81 mg PO DAILY [facility] Atorvastatin Calcium (Lipitor*) 40 mg PO DAILY [facility] Diltiazem HCl (Cardizem Cd Cap*) 240 mg PO DAILY [facility] Enoxaparin Sodium (Lovenox(*)) 30 mg SUBCUT Q24H [facility] Famotidine (Pepcid Tab*) 20 mg PO DAILY [facility] Amiodarone HCl (Nexterone 360 Mg/200 Ml Ivpremix*) 360 mg in 200 mls @ 33.333 mls/hr IV ED ONCE ONE Stop: 08/09/18 22:14 Last Admin: 08/09/18 16:50 Dose: 33.333 mls/hr Amiodarone HCl (Nexterone 360 Mg/200 Ml Ivpremix*) 360 mg in 200 mls @ 16.667 mls/hr IV PER RATE RHEA Stop: 08/10/18 17:00 Lactated Ringer's (Lactated Ringers 1000 Ml Bag*) 1,000 mls @ 50 mls/hr IV PER RATE RHEA Methylprednisolone Sodium Succinate (Solu-Medrol 40 Mg) 40 mg IV Q8H R[facility] Metoprolol Tartrate (Lopressor Iv*) 5 mg IV Q6H PRN PRN Reason: for HR >150 Physical Exam: General: awake, alert, mild tachypnea, no diaphoresis Head: normocephalic, atraumatic HEENT: no pallor, no icterus, moist mucous membranes Neck: soft, supple, no jvd, no stridor CVS: tachy, regular, no murmur Resp: distant breath sounds, good exp air movement, no rhales, no wheeze, no rhonchi, no acc muscle use Abdomen: soft, nontender, nondistended, bowel sounds present Ext: pulses+, warm, no edema Skin: intact Neuro: awake, alert, orientedx3, moving all extremities, no gross focal deficit Labs: Laboratory Results - last 24 hr 08/09/18 08/09/18 08/09/18 15:25 15:25 15:25 WBC 8.5 RBC 4.98 Hgb 15.2 Hct 46 MCV 91 MCH 31 MCHC 34 RDW 16 H Plt Count 281 MPV 6.8 L Neut % (Auto) 64.8 Lymph % (Auto) 18.5 L [place] % (Auto) 12.8 H Eos % (Auto) 2.9 Baso % (Auto) 1.0 Absolute Neuts (auto) 5.5 Absolute Lymphs (auto) 1.6 Absolute Monos (auto) 1.1 H Absolute Eos (auto) 0.3 Absolute Basos (auto) 0.1 Absolute Nucleated RBC 0 Nucleated RBC % 0 Patient Temperature ABG pH ABG pCO2 ABG pO2 ABG HCO3 ABG O2 Saturation ABG Base Excess Respiration Rate O2 Delivery Device Ventilator Type Vent Mode FiO2 Inspiratory Time PEEP Pressure Support Pressure Control EPAP IPAP BiPAP Sodium 137 Potassium 4.2 Chloride 102 Carbon Dioxide 27 Anion Gap 8 BUN 8 Creatinine 0.90 Est GFR ( Amer) 74.5 Est GFR (Non-Af Amer) 61.5 BUN/Creatinine Ratio 8.9 Glucose 176 H Lactic Acid Calcium 10.0 Magnesium 1.7 L Total Bilirubin 0.60 AST 17 ALT 9 Alkaline Phosphatase 83 Troponin I 0.04 H* B-Natriuretic Peptide 43 Total Protein 5.8 L Albumin 3.4 Globulin 2.4 Albumin/Globulin Ratio 1.4 TSH 2.55 08/09/18 08/09/18 15:48 16:46 WBC RBC Hgb Hct MCV MCH MCHC RDW Plt Count MPV Neut % (Auto) Lymph % (Auto) [place] % (Auto) Eos % (Auto) Baso % (Auto) Absolute Neuts (auto) Absolute Lymphs (auto) Absolute Monos (auto) Absolute Eos (auto) Absolute Basos (auto) Absolute Nucleated RBC Nucleated RBC % Patient Temperature Not Reportable ABG pH 7.36 ABG pCO2 42 ABG pO2 420 H ABG HCO3 23.5 ABG O2 Saturation 100.0 H ABG Base Excess -1.8 Respiration Rate Not Reportable O2 Delivery Device bipap Ventilator Type Not Reportable Vent Mode Not Reportable FiO2 100 Inspiratory Time Not Reportable PEEP Not Reportable Pressure Support Not Reportable Pressure Control Not Reportable EPAP 6 IPAP 12 BiPAP Not Reportable Sodium Potassium Chloride Carbon Dioxide Anion Gap BUN Creatinine Est GFR ( Amer) Est GFR (Non-Af Amer) BUN/Creatinine Ratio Glucose Lactic Acid 1.6 Calcium Magnesium Total Bilirubin AST ALT Alkaline Phosphatase Troponin I B-Natriuretic Peptide Total Protein Albumin Globulin Albumin/Globulin Ratio TSH Imaging: cxr 08/09 - hyperinflated lungs, no ptx/infiltrate/congestion Assessment: 73y F w/pmhx of HLD, HTN, SVT, COPD on chronic prednisone, GERD; patient comes from home for increasing shortness of breath x2 weeks. SOB has been getting worse for months now, no associated CP. For 2 weeks, she had rhinorrhea, cough+, mild sputum+. Dec PO intake, mild diarrhea on/off, muscle aches+. In ER, SVT to 220s, improved with amiodarone, started on NIV for resp distress. Missed doses of Cardizem at home. 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 Delirium prec. CVS- SVT on admission; appears AVNRT type as prior, but required antiarrythmic to improve now. Likely ppted due to worsening resp distress from COPD as well as missing home doses of CCB. Agree to cont amio infusion for 24 hours. Restart Cardizem XT 240mg daily. Will obtain TTE results she had outpatient 2 weeks prior at [facility] (her outpatient followup). Trend troponin q6h. cont asa/ statin. Resp- was in resp distress, now on NIV. Distant breath sounds but audible exp air movement, no wheezing. Chronic prednisone 10mg daily, will have to continue after pulse dose tapered. Start solumedrol 40mg IV q8h. Duoneb q4h prn. Send influenza swab. CXR without new infiltrate/congestion. Sputum culture. Wean NIV as tolerated overnight. ?viral process that started before. ID- afebrile, wbc normal. CXR without infiltrate. ?viral process 2 weeks back. Nontoxic appearing. Will hold off iv abx, no clear process occurring. Check sputum culture. Send influenza swab. GI- NPO on NIV. Cont H2b for GERD. Renal- Cr stable. K okay, no acidosis. 1 Liter NS given. Start LR 50cc/hr for now. No edema noted. No wright for now. Heme- hg stable. Plt stable. Cont asa. DVT proph with enoxaparin/SCDs. Endo- check hba1c Musculsk- pressure ulcer prophylaxis. Bedrest. Wounds- none Nutrition- NPO on NIV; otherwise if weaned can start cardiac diet. DVT prophylaxis: enoxaparin/SCD GI prophylaxis: h2b Central Line: no Arterial Line: no Wright Cathetor: no Disposition: admit to ICU, expected LOS >2 midnights Code Status: DNR; with trial of intubation; patient will decide intubation status at the time of possibly needing it. Total Critical Care time is 35 minutes, excluding procedures/teaching Braden Cross MD Senior Publications Specialist (Electronically Signed)
--- NOTE | 2018-08-09 18:47 | ED ---
Shortness of Breath - HPI Summary HPI Summary: Pt arrived 08/09/2018 in severe respiratory distress. She was unable to give Hx and a limited Hx was obtained from her . Her says she became acutely ill today. She is a DNR and a DNI. She was brought in for evaluation. Pt is a level 5 caveat due to the circumstance. - History of Current Complaint Chief Complaint: EDShortnessOfBreath Hx Obtained From: Patient Onset/Duration: Sudden Onset Current Severity: Severe - Allergy/Home Medications Allergies/Adverse Reactions: Allergies Allergy/AdvReac Type Severity Reaction Status Date / Time Adhesive Tape Allergy Severe RASH, Verified 05/08/18 11:48 ITCHING fluconazole Allergy Severe GI Upset Verified 05/08/18 11:48 doxycycline Allergy Itching Verified 05/08/18 11:48 meperidine Allergy Palpitation Verified 05/08/18 11:48 s yellow dye Allergy Hives Verified 05/08/18 11:48 vilanterol AdvReac Vomiting Verified 05/08/18 11:48 metals Allergy Mild Itching Uncoded 05/08/18 11:48 Home Medications: Home Medications Albuterol HFA INHALER* [Ventolin HFA Inhaler*] 2 puff INH Q4H PRN 08/09/18 [ History Confirmed 08/09/18] Atorvastatin* [Lipitor*] 40 mg PO DAILY 08/09/18 [History Confirmed 08/09/18] Ipratropium 0.5MG/2.5ML NEB* [Atrovent 0.5 MG NEB.KJ*] 0.5 mg INH Q4H PRN 08/09 [History Confirmed 08/09/18] Ranitidine TAB (NF) [Zantac TAB (NF)] 150 mg PO BID 08/09/18 [History Confirmed 08/09/18] PMH/Surg Hx/FS Hx/Imm Hx Endocrine/Hematology History: Denies: Hx Diabetes, Hx Thyroid Disease, Hx Anemia, Hx Unexplained Bleeding Cardiovascular History: Reports: Hx Hypercholesterolemia, Hx Hypotension, Hx Hypertension, Other Cardiovascular Problems/Disorders - SVT in ED 05/08/18 Denies: Hx Aneurysm, Hx Angina, Hx Angioplasty, Hx Auto Implanted Cardiovert Defib, Hx Cardiac Arrest, Hx Cardiomegaly, Hx Congenital Heart Disease, Hx Congestive Heart Failure, Hx Coronary Artery Disease, Hx Deep Vein Thrombosis, Hx Embolism, Hx Myocardial Infarction, Hx Pacemaker/ICD, Hx Peripheral Vascular Disease, Hx Rheumatic Fever, Hx Syncope, Hx Valvular Heart Disease Respiratory History: Reports: Hx Chronic Obstructive Pulmonary Disease (COPD), Hx Pneumonia - 05/08/18 Denies: Hx Asthma, Hx Chronic Bronchitis, Hx Cystic Fibrosis, Hx Lung Cancer , Hx Pleural Effusion, Hx Pulmonary Edema, Hx Pulmonary Embolism, Hx Seasonal Allergies, Hx Sleep Apnea, Other Respiratory Problems/Disorders GI History: Reports: Hx Diverticulosis - 05/08/18, Hx Gastroesophageal Reflux Disease, Hx Hiatal Hernia, Hx Irritable Bowel, Other GI Disorders - Inguinal Hernia Denies: Hx Cirrhosis, Hx Crohn's Disease, Hx Gall Bladder Disease, Hx Gastrointestinal Bleed, Hx Jaundice, Hx Obstructive Bowel, Hx Ileostomy, Hx Pyloric Stenosis, Hx Ulcer, Hx Urosepsis History: Denies: Hx Kidney Stones, Hx Renal Disease Musculoskeletal History: Reports: Hx Arthritis - Left knee replacement, Other Musculoskeletal History - Carpal tunnel, Vitamin D deficiency Denies: Hx Osteoporosis Sensory History: Reports: Hx Contacts or Glasses Denies: Hx Deafness, Hx Hearing Aid, Other Sensory Impairments Opthamlomology History: Reports: Hx Contacts or Glasses Denies: Other Sensory Impairments Neurological History: Denies: Hx Dementia, Hx Migraine, Hx Seizures, Hx Transient Ischemic Attacks (TIA) Psychiatric History: Reports: Hx Anxiety Denies: Hx Depression, Hx Schizophrenia, Hx Bipolar Disorder - Surgical History Surgery Procedure, Year, and Place: left knee reconstruction 1977; bilat carpal tunnel; TUBAL LIGATION 1981 Hx Anesthesia Reactions: No - Immunization History Immunizations Up to Date: Yes Infectious Disease History: No Infectious Disease History: Denies: Hx Hepatitis, Hx Human Immunodeficiency Virus (HIV), Hx of Known/ Suspected MRSA - Negative nasal swab 01/17/17, Hx Tuberculosis, History Other Infectious Disease, Traveled Outside the [place] in Last 30 Days - Family History Known Family History: Positive: Cardiac Disease - mother Negative: Hypertension, Diabetes - Social History Alcohol Use: None Hx Substance Use: No Substance Use Type: Reports: None Hx Tobacco Use: Yes Smoking Status (MU): Light Every Day Tobacco Smoker Type: Cigarettes Amount Used/How Often: 2-5 CIG/DAY Length of Time of Smoking/Using Tobacco: 50 years Have You Smoked in the Last Year: Yes Review of Systems - ROS Summary Review of Systems Summary: Level 5 caveat. All Other Systems Reviewed And Are Negative: No Physical Exam - Summary Physical Exam Summary: Severe respiratory distress thin tachypnic unable to speak in phrases accessory muscle use to breath supraclavicular retraction. Vital Signs On Initial Exam: Initial Vitals Temp Pulse Resp BP Pulse Ox 98.8 F 144 36 111/86 93 08/09/18 15:08 08/09/18 15:08 08/09/18 15:08 08/09/18 15:08 08/09/18 15:08 Diagnostics - Vital Signs Vital Signs Temp Pulse Resp BP Pulse Ox 08/09/18 17:35 105 26 135/81 100 08/09/18 17:30 101 31 127/80 99 08/09/18 17:25 100 19 113/64 100 08/09/18 17:20 104 25 112/66 100 08/09/18 17:15 105 27 113/66 100 08/09/18 17:10 104 29 99/68 100 08/09/18 17:04 107 23 112/68 100 08/09/18 17:01 106 21 100 08/09/18 17:00 106 24 106/67 100 08/09/18 16:55 109 16 114/73 100 08/09/18 16:50 108 19 105/63 100 08/09/18 16:44 106 19 108/66 100 08/09/18 16:40 110 20 100 08/09/18 16:39 104 30 113/79 100 08/09/18 16:35 108 17 103/67 100 08/09/18 16:29 113 30 107/74 100 08/09/18 16:24 117 19 115/67 100 08/09/18 16:22 127 25 114/60 100 08/09/18 16:20 183 23 80/62 100 08/09/18 16:15 189 13 93/62 100 08/09/18 16:09 182 30 95/56 99 08/09/18 16:06 184 21 83/53 99 08/09/18 16:02 198 23 98/45 99 08/09/18 16:01 196 22 99 08/09/18 16:00 197 22 69/55 98 08/09/18 15:54 124 16 124/89 100 08/09/18 15:53 121 27 99 08/09/18 15:41 134 35 119/66 100 08/09/18 15:33 211 36 89 08/09/18 15:30 209 33 152/92 99 08/09/18 15:08 98.8 F 144 36 111/86 93 - Laboratory Lab Results: Lab Results 08/09/18 08/09/18 08/09/18 Range/Units 15:25 15:25 15:25 WBC 8.5 (3.5-10.8) 10^3/ul RBC 4.98 (4.00-5.40) 10^6/ul Hgb 15.2 (12.0-16.0) g/dl Hct 46 (35-47) % MCV 91 (80-97) fL MCH 31 (27-31) pg MCHC 34 (31-36) g/dl RDW 16 H (10.5-15) % Plt Count 281 (150-450) 10^3/ul MPV 6.8 L (7.4-10.4) fL Neut % (Auto) 64.8 (38-83) % Lymph % (Auto) 18.5 L (25-47) % [place] % (Auto) 12.8 H (0-7) % Eos % (Auto) 2.9 (0-6) % Baso % (Auto) 1.0 (0-2) % Absolute Neuts (auto) 5.5 (1.5-7.7) 10^3/ul Absolute Lymphs (auto) 1.6 (1.0-4.8) 10^3/ul Absolute Monos (auto) 1.1 H (0-0.8) 10^3/ul Absolute Eos (auto) 0.3 (0-0.6) 10^3/ul Absolute Basos (auto) 0.1 (0-0.2) 10^3/ul Absolute Nucleated RBC 0 10^3/ul Nucleated RBC % 0 Patient Temperature ABG pH (7.35-7.45) ABG pCO2 (35-45) mmHg ABG pO2 (80-100) mmHg ABG HCO3 (19-31) mmol/L ABG O2 Saturation (95-98) % ABG Base Excess (-2.0-2.0) Respiration Rate O2 Delivery Device Ventilator Type Vent Mode FiO2 Inspiratory Time PEEP Pressure Support Pressure Control EPAP IPAP BiPAP Sodium 137 (135-145) mmol/L Potassium 4.2 (3.5-5.0) mmol/L Chloride 102 (101-111) mmol/L Carbon Dioxide 27 (22-32) mmol/L Anion Gap 8 (2-11) mmol/L BUN 8 (6-24) mg/dL Creatinine 0.90 (0.51-0.95) mg/dL Est GFR ( Amer) 74.5 (>60) Est GFR (Non-Af Amer) 61.5 (>60) BUN/Creatinine Ratio 8.9 (8-20) Glucose 176 H (70-100) mg/dL Lactic Acid (0.5-2.0) mmol/L Calcium 10.0 (8.6-10.3) mg/dL Magnesium 1.7 L (1.9-2.7) mg/dL Total Bilirubin 0.60 (0.2-1.0) mg/dL AST 17 (13-39) U/L ALT 9 (7-52) U/L Alkaline Phosphatase 83 (34-104) U/L Troponin I 0.04 H* (<0.04) ng/mL B-Natriuretic Peptide 43 (<=100) pg/mL Total Protein 5.8 L (6.4-8.9) g/dL Albumin 3.4 (3.2-5.2) g/dL Globulin 2.4 (2-4) g/dL Albumin/Globulin Ratio 1.4 (1-3) TSH 2.55 (0.34-5.60) mcIU/mL 08/09/18 08/09/18 Range/Units 15:48 16:46 WBC (3.5-10.8) 10^3/ul RBC (4.00-5.40) 10^6/ul Hgb (12.0-16.0) g/dl Hct (35-47) % MCV (80-97) fL MCH (27-31) pg MCHC (31-36) g/dl RDW (10.5-15) % Plt Count (150-450) 10^3/ul MPV (7.4-10.4) fL Neut % (Auto) (38-83) % Lymph % (Auto) (25-47) % O'Brien % (Auto) (0-7) % Eos % (Auto) (0-6) % Baso % (Auto) (0-2) % Absolute Neuts (auto) (1.5-7.7) 10^3/ul Absolute Lymphs (auto) (1.0-4.8) 10^3/ul Absolute Monos (auto) (0-0.8) 10^3/ul Absolute Eos (auto) (0-0.6) 10^3/ul Absolute Basos (auto) (0-0.2) 10^3/ul Absolute Nucleated RBC 10^3/ul Nucleated RBC % Patient Temperature Not Reportable ABG pH 7.36 (7.35-7.45) ABG pCO2 42 (35-45) mmHg ABG pO2 420 H (80-100) mmHg ABG HCO3 23.5 (19-31) mmol/L ABG O2 Saturation 100.0 H (95-98) % ABG Base Excess -1.8 (-2.0-2.0) Respiration Rate Not Reportable O2 Delivery Device bipap Ventilator Type Not Reportable Vent Mode Not Reportable FiO2 100 Inspiratory Time Not Reportable PEEP Not Reportable Pressure Support Not Reportable Pressure Control Not Reportable EPAP 6 IPAP 12 BiPAP Not Reportable Sodium (135-145) mmol/L Potassium (3.5-5.0) mmol/L Chloride (101-111) mmol/L Carbon Dioxide (22-32) mmol/L Anion Gap (2-11) mmol/L BUN (6-24) mg/dL Creatinine (0.51-0.95) mg/dL Est GFR ( Amer) (>60) Est GFR (Non-Af Amer) (>60) BUN/Creatinine Ratio (8-20) Glucose (70-100) mg/dL Lactic Acid 1.6 (0.5-2.0) mmol/L Calcium (8.6-10.3) mg/dL Magnesium (1.9-2.7) mg/dL Total Bilirubin (0.2-1.0) mg/dL AST (13-39) U/L ALT (7-52) U/L Alkaline Phosphatase (34-104) U/L Troponin I (<0.04) ng/mL B-Natriuretic Peptide (<=100) pg/mL Total Protein (6.4-8.9) g/dL Albumin (3.2-5.2) g/dL Globulin (2-4) g/dL Albumin/Globulin Ratio (1-3) TSH (0.34-5.60) mcIU/mL Result Diagrams: 08/09/18 15:25 08/09/18 15:25 Lab Statement: Any lab studies that have been ordered have been reviewed, and results considered in the medical decision making process. - Radiology CXR Radiology Interpretation Completed By: Radiologist - Stigmata of obstructive lung disease. No active cardiopulmonary disease. - EKG 15:13 Cardiac Rate: Tachycardia - 137 bpm EKG Rhythm: Sinus Tachycardia Summary of EKG Findings: no STEMI, normal QRS, normal QTc, LAFB 15:40 Cardiac Rate: Tachycardia - 135 bpm EKG Rhythm: Sinus Tachycardia Summary of EKG Findings: normal QRS, normal QTc, left axis deviation 15:32 Cardiac Rate: Tachycardia - 206 bpm EKG Rhythm: SVT Summary of EKG Findings: nml QRS and QTc, ST depressionin II, III, aVF, V4, V5, V6 Course/Dx - Course Course Of Treatment: A rhythm strip from 15:34- 15:36 showed SVT convert to sinus tachycardia when given adenosine. Pt was in severe respiratory distress. Placed on BIPAP and given 20mg of Ketamine for sedation without further respiratory depression. She went into SVT. She was given adenosine. Pt briefly went into sinus tachycardia. She was given a bolus of fluids. She was also given Cartizem 5m IV. Pt became hypotensive. She became extremely tachycardic in the 180s again. She was given amnioterone in bolus followed by a drip. Pt converted into sinus tachycardia. Ketamine wore off. Pt markedly improved. BP improved. She was laughing, making jokes, empirically treted with abx for a presumed lung infection. Dx: COPD exacerbation. I spoke to the bag making machine operator, Dr. Cross, he will admit for further care - Diagnoses Provider Diagnoses: COPD exacerbation - Critical Care Time Critical Care Time: 75-104 min - 75 mins Discharge - Sign-Out/Discharge Documenting (check all that apply): Patient Departure - Admit - Discharge Plan Condition: Fair Disposition: ADMITTED TO [facility] - Billing Disposition and Condition Condition: FAIR Disposition: Admitted to [facility] - Attestation Statements Document Initiated by Scribe: Yes Documenting Scribe: Rafiq Molina Provider For Whom Scribe is Documenting (Include Credential): Rosita Arnold MD Scribe Attestation: I, Rafiq Molina, scribed for Rosita Arnold MD on 08/09/18 at 2137. Scribe Documentation Reviewed: Yes Provider Attestation: The documentation as recorded by the [email or web address] accurately reflects the service I personally performed and the decisions made by me, Rosita Arnold MD
[2018-08-09] MEDS: Diltiazem CD CAP* 240 MG PO SCH (19:50)
[2018-08-09] MEDS: Famotidine TAB* 20 MG PO SCH (19:50)
[2018-08-09] MEDS: methylPREDNISolone SOD 40 MG* 1 ML VIAL IV SCH (22:01)
[2018-08-09] MEDS ORDERED: Amiodarone 360 MG IVPREMIX* 360 MG/200 ML BAG IV SCH (23:00)
[2018-08-10] MEDS ORDERED: Codeine TAB* 15 MG PO ONE (01:56)
[2018-08-10] MEDS ORDERED: Codeine TAB* 15 MG ONE (02:18)
[2018-08-10] MEDS: Benzocaine/Menthol LOZ* 1 LOZENGE MT PRN (02:54)
[2018-08-10] MEDS: methylPREDNISolone SOD 40 MG* 1 ML VIAL IV SCH ×3 (05:28→22:27)
[2018-08-10 06:08] LABS: Hematocrit 39 % (35-47); Hemoglobin 12.8 g/dl (12.0-16.0); Mean Corpuscular HGB Conc 33 g/dl (31-36); Mean Corpuscular Hemoglobin 30 pg (27-31); Mean Corpuscular Volume 91 fL (80-97); Mean Platelet Volume 6.8 fL (7.4-10.4); Platelet Count 243 10^3/ul (150-450); Red Blood Count 4.25 10^6/ul (4.00-5.40); Red Cell Distribution Width 16 % (10.5-15); White Blood Count 3.6 10^3/ul (3.5-10.8)
[2018-08-10 06:22] LABS: EGFR Non-African American 86.5 (>60)
[2018-08-10] MEDS: Aspirin EC TAB* 81 MG TAB.EC PO SCH (09:38)
[2018-08-10] MEDS: Enoxaparin(*) 30 MG/0.3 ML SYR SUBCUT SCH (09:38)
[2018-08-10] MEDS: Atorvastatin* 40 MG TAB PO SCH (09:38)
[2018-08-10] MEDS: Diltiazem CD CAP* 240 MG PO SCH (09:38)
[2018-08-10] MEDS: Famotidine TAB* 20 MG PO SCH (09:38)
--- NOTE | 2018-08-10 09:55 | PN ---
Progress Note - Progress Note Date of Service: 08/10/18 Note: Progress Note -- Critical Care 24 hour events: -admitted yesterday; overnight on NIV, taken off sometime during the night -on oximask now; very mild tachypnea; sats upper 90s, RR 20s -no acc muscle use -speaks clearly; states she feels better, no cp/sob/n/v/fever/chills; cough+, mild/no sputum -afebrile Tele: NSR, no further SVT episodes noted Vitals: Vital Signs Temp 98.0 F 08/10/18 08:00 Pulse 68 08/10/18 08:01 Resp 29 08/10/18 08:01 BP 119/62 08/10/18 08:00 Pulse Ox 97 08/10/18 08:01 Intake & Output 08/09/18 08/10/18 08/10/18 18:59 06:59 18:59 Intake Total 307 1132 Output Total 1175 0 Balance 307 -43 0 Weight 49.895 kg 49.7 kg Intake: IV Fluids 250 200 IVPB 240 LR 240 Medicated IV 57 492 CC - Amiodarone 57 492 Oral 200 Output: Urine 1175 0 Other: Estimated Void Medium O2/Vent: oximask 2-3L Infusions: amiodarone 0.5 mg/min, LR 50cc/hr Current Medications: Albuterol/Ipratropium (Duoneb (Albuterol 2.5 Mg/Ipratropium 0.5 Mg)) 1 neb INH Q4H PRN PRN Reason: SOB/WHEEZING Aspirin (Aspirin Ec Tab*) 81 mg PO DAILY [facility] Last Admin: 08/10/18 09:38 Dose: 81 mg Atorvastatin Calcium (Lipitor*) 40 mg PO DAILY [facility] Last Admin: 08/10/18 09:38 Dose: 40 mg Diltiazem HCl (Cardizem Cd Cap*) 240 mg PO DAILY [facility] Last Admin: 08/10/18 09:38 Dose: 240 mg Enoxaparin Sodium (Lovenox(*)) 30 mg SUBCUT Q24H [facility] Last Admin: 08/10/18 09:38 Dose: 30 mg Famotidine (Pepcid Tab*) 20 mg PO DAILY [facility] Last Admin: 08/10/18 09:38 Dose: 20 mg Amiodarone HCl (Nexterone 360 Mg/200 Ml Ivpremix*) 360 mg in 200 mls @ 16.667 mls/hr IV PER RATE [facility] Stop: 08/10/18 17:00 Last Admin: 08/09/18 22:01 Dose: 16.667 mls/hr Lactated Ringer's (Lactated Ringers 1000 Ml Bag*) 1,000 mls @ 50 mls/hr IV PER RATE [facility] Last Admin: 08/09/18 19:50 Dose: 50 mls/hr Methylprednisolone Sodium Succinate (Solu-Medrol 40 Mg) 40 mg IV Q8H [facility] Last Admin: 08/10/18 05:28 Dose: 40 mg Metoprolol Tartrate (Lopressor Iv*) 5 mg IV Q6H PRN PRN Reason: for HR >150 Throat Lozenges (Chloraseptic July*) 1 july MT Q6H PRN PRN Reason: SORE THROAT Last Admin: 08/10/18 02:54 Dose: 1 july Physical Exam: General: awake, alert, mild tachypnea, no diaphoresis Head: normocephalic, atraumatic HEENT: no pallor, no icterus, moist mucous membranes Neck: soft, supple, no jvd, no stridor CVS: normal rate, regular, no murmur Resp: distant breath sounds, expiratory air movement heard, no rhales, no wheeze , no rhonchi, no acc muscle use Abdomen: soft, nontender, nondistended, bowel sounds present Ext: pulses+, warm, no edema Skin: intact Neuro: awake, alert, orientedx3, moving all extremities, no gross focal deficit Labs: Laboratory Results - last 24 hr 08/09/18 08/09/18 08/09/18 15:25 15:25 15:25 WBC 8.5 RBC 4.98 Hgb 15.2 Hct 46 MCV 91 MCH 31 MCHC 34 RDW 16 H Plt Count 281 MPV 6.8 L Neut % (Auto) 64.8 Lymph % (Auto) 18.5 L [place] % (Auto) 12.8 H Eos % (Auto) 2.9 Baso % (Auto) 1.0 Absolute Neuts (auto) 5.5 Absolute Lymphs (auto) 1.6 Absolute Monos (auto) 1.1 H Absolute Eos (auto) 0.3 Absolute Basos (auto) 0.1 Absolute Nucleated RBC 0 Nucleated RBC % 0 Patient Temperature ABG pH ABG pCO2 ABG pO2 ABG HCO3 ABG O2 Saturation ABG Base Excess Respiration Rate O2 Delivery Device Ventilator Type Vent Mode FiO2 Inspiratory Time PEEP Pressure Support Pressure Control EPAP IPAP BiPAP Sodium 137 Potassium 4.2 Chloride 102 Carbon Dioxide 27 Anion Gap 8 BUN 8 Creatinine 0.90 Est GFR ( Amer) 74.5 Est GFR (Non-Af Amer) 61.5 BUN/Creatinine Ratio 8.9 Glucose 176 H Hemoglobin A1c Lactic Acid Calcium 10.0 Magnesium 1.7 L Total Bilirubin 0.60 AST 17 ALT 9 Alkaline Phosphatase 83 Total Creatine Kinase CK-MB (CK-2) Troponin I 0.04 H* B-Natriuretic Peptide 43 Total Protein 5.8 L Albumin 3.4 Globulin 2.4 Albumin/Globulin Ratio 1.4 TSH 2.55 Influenza A (Rapid) Influenza B (Rapid) 08/09/18 08/09/18 08/09/18 15:48 16:46 18:11 WBC RBC Hgb Hct MCV MCH MCHC RDW Plt Count MPV Neut % (Auto) Lymph % (Auto) [place] % (Auto) Eos % (Auto) Baso % (Auto) Absolute Neuts (auto) Absolute Lymphs (auto) Absolute Monos (auto) Absolute Eos (auto) Absolute Basos (auto) Absolute Nucleated RBC Nucleated RBC % Patient Temperature Not Reportable ABG pH 7.36 ABG pCO2 42 ABG pO2 420 H ABG HCO3 23.5 ABG O2 Saturation 100.0 H ABG Base Excess -1.8 Respiration Rate Not Reportable O2 Delivery Device bipap Ventilator Type Not Reportable Vent Mode Not Reportable FiO2 100 Inspiratory Time Not Reportable PEEP Not Reportable Pressure Support Not Reportable Pressure Control Not Reportable EPAP 6 IPAP 12 BiPAP Not Reportable Sodium Potassium Chloride Carbon Dioxide Anion Gap BUN Creatinine Est GFR ( Amer) Est GFR (Non-Af Amer) BUN/Creatinine Ratio Glucose Hemoglobin A1c Lactic Acid 1.6 Calcium Magnesium Total Bilirubin AST ALT Alkaline Phosphatase Total Creatine Kinase CK-MB (CK-2) Troponin I B-Natriuretic Peptide Total Protein Albumin Globulin Albumin/Globulin Ratio TSH Influenza A (Rapid) Negative Influenza B (Rapid) Negative 08/09/18 08/10/18 08/10/18 21:00 05:30 05:30 WBC RBC Hgb Hct MCV MCH MCHC RDW Plt Count MPV Neut % (Auto) Lymph % (Auto) [place] % (Auto) Eos % (Auto) Baso % (Auto) Absolute Neuts (auto) Absolute Lymphs (auto) Absolute Monos (auto) Absolute Eos (auto) Absolute Basos (auto) Absolute Nucleated RBC Nucleated RBC % Patient Temperature ABG pH ABG pCO2 ABG pO2 ABG HCO3 ABG O2 Saturation ABG Base Excess Respiration Rate O2 Delivery Device Ventilator Type Vent Mode FiO2 Inspiratory Time PEEP Pressure Support Pressure Control EPAP IPAP BiPAP Sodium 137 Potassium 4.5 Chloride 106 Carbon Dioxide 26 Anion Gap 5 BUN 7 Creatinine 0.67 Est GFR ( Amer) 104.7 Est GFR (Non-Af Amer) 86.5 BUN/Creatinine Ratio 10.4 Glucose 167 H Hemoglobin A1c 6.0 H Lactic Acid Calcium 9.0 Magnesium 2.0 Total Bilirubin AST ALT Alkaline Phosphatase Total Creatine Kinase 33 35 CK-MB (CK-2) 4.2 4.9 Troponin I 0.19 H* 0.09 H* B-Natriuretic Peptide Total Protein Albumin Globulin Albumin/Globulin Ratio TSH Influenza A (Rapid) Influenza B (Rapid) 08/10/18 05:30 WBC 3.6 RBC 4.25 Hgb 12.8 Hct 39 MCV 91 MCH 30 MCHC 33 RDW 16 H Plt Count 243 MPV 6.8 L Neut % (Auto) Lymph % (Auto) [place] % (Auto) Eos % (Auto) Baso % (Auto) Absolute Neuts (auto) Absolute Lymphs (auto) Absolute Monos (auto) Absolute Eos (auto) Absolute Basos (auto) Absolute Nucleated RBC Nucleated RBC % Patient Temperature ABG pH ABG pCO2 ABG pO2 ABG HCO3 ABG O2 Saturation ABG Base Excess Respiration Rate O2 Delivery Device Ventilator Type Vent Mode FiO2 Inspiratory Time PEEP Pressure Support Pressure Control EPAP IPAP BiPAP Sodium Potassium Chloride Carbon Dioxide Anion Gap BUN Creatinine Est GFR ( Amer) Est GFR (Non-Af Amer) BUN/Creatinine Ratio Glucose Hemoglobin A1c Lactic Acid Calcium Magnesium Total Bilirubin AST ALT Alkaline Phosphatase Total Creatine Kinase CK-MB (CK-2) Troponin I B-Natriuretic Peptide Total Protein Albumin Globulin Albumin/Globulin Ratio TSH Influenza A (Rapid) Influenza B (Rapid) Imaging: cxr 08/09 - hyperinflated lungs, no ptx/infiltrate/congestion Assessment: 73y F w/pmhx of HLD, HTN, SVT, COPD on chronic prednisone, GERD; patient comes from home for increasing shortness of breath x2 weeks. SOB has been getting worse for months now, no associated CP. For 2 weeks, she had rhinorrhea, cough+, mild sputum+. Dec PO intake, mild diarrhea on/off, muscle aches+. In ER, SVT to 220s, improved with amiodarone, started on NIV for resp distress. Missed doses of Cardizem at home. 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 Delirium prec. CVS- no further SVT noted since being admitted. Amio 0.5mg/min infusing, to be complted this morning. started on cardizem 240mg XT yesterday. BP stable. Need to obtain TTE results she had outpatient 2 weeks prior at [facility] (her outpatient followup). Trend troponin q6h. cont asa/statin. Resp- currently on oximask; mild tachypnea, not requiring NIV. not wheezing or absent air movment. Cont solumedrol 40mg IV q8h and start taper in 24 hours if improved; plan to place back on baseline prednisone 10mg daily at end of taper. Duoneb q4h. CXR without new infiltrate/congestion. Sputum gram stain with neutrophils, pending culture. ID- afebrile, wbc normal. CXR without infiltrate. ?viral process 2 weeks back. Nontoxic appearing. Hold abx for now. Influenza negative. Pending sputum culture. GI- start full liquid diet. Cont H2b for GERD. Renal- Cr stable. K okay, no acidosis. cont LR 50cc/hr. Heme- hg stable. Plt stable. Cont asa. DVT proph with enoxaparin/SCDs. Endo- hba1c 6.0; borderline DM, taper steroids when possible, keep carb consistent diet for now. Musculsk- pressure ulcer prophylaxis. oob to chair as tolerated Wounds- none Nutrition- full liquid, carb consistent diet DVT prophylaxis: enoxaparin/SCD GI prophylaxis: h2b Central Line: no Arterial Line: no Mora Cathetor: no Disposition: ICU Code Status: DNR; with trial of intubation; patient will decide intubation status at the time of possibly needing it. Total Critical Care time is 30 minutes, excluding procedures/teaching Braden Cross MD Manager Cardiac (Electronically Signed)
[2018-08-10] MEDS ORDERED: Albuterol/Ipratropium NEB.SOL* Albuterol 2.5 MG/Ipratropium 0.5 MG 3 ML INH SCH ×2 (11:00→17:00)
[2018-08-10] MEDS ORDERED: Calcium Carbonate CHEW TAB* 500 MG (TUMS) ONE (17:02)
[2018-08-10] MEDS ORDERED: Calcium Carbonate CHEW TAB* 500 MG (TUMS) PO PRN (17:13)
[2018-08-10] MEDS ORDERED: Albuterol/Ipratropium NEB.SOL* Albuterol 2.5 MG/Ipratropium 0.5 MG 3 ML INH PRN (19:27)
[2018-08-10] MEDS: Albuterol/Ipratropium NEB.SOL* Albuterol 2.5 MG/Ipratropium 0.5 MG 3 ML INH SCH (22:58)
[2018-08-11] MEDS: Albuterol/Ipratropium NEB.SOL* Albuterol 2.5 MG/Ipratropium 0.5 MG 3 ML INH SCH ×2 (03:14→07:11)
[2018-08-11] MEDS: methylPREDNISolone SOD 40 MG* 1 ML VIAL IV SCH ×2 (05:50→17:14)
[2018-08-11 06:32] LABS: Hematocrit 39 % (35-47); Mean Corpuscular HGB Conc 34 g/dl (31-36); Mean Corpuscular Hemoglobin 31 pg (27-31); Mean Corpuscular Volume 91 fL (80-97); Mean Platelet Volume 6.8 fL (7.4-10.4); Platelet Count 282 10^3/ul (150-450); Red Blood Count 4.28 10^6/ul (4.00-5.40); Red Cell Distribution Width 16 % (10.5-15); White Blood Count 14.9 10^3/ul (3.5-10.8)
[2018-08-11 06:51] LABS: EGFR Non-African American 83.6 (>60)
--- NOTE | 2018-08-11 08:33 | RAD ---
INDICATION: Exacerbation of chronic obstructive pulmonary disease COMPARISON: Most recent comparison chest x-rays dated August 09, 2018 TECHNIQUE: Single AP portable view of the chest was obtained. FINDINGS: Image quality is compromised due to the relative inferiority of a portable chest x-ray. The heart and mediastinum exhibit normal size and contour. Again seen is coarse atherosclerotic calcification overlying the arch of the aorta. Similar to prior chest x-rays, the lungs appear hyperaerated on the AP view. Otherwise the lungs are grossly clear. There is no evidence of a large pleural effusion. Visualized bones are normal for the patient's age. IMPRESSION: AP only view chest x-ray is consistent with the patient's history of COPD not changed significantly from prior chest x-rays.
--- NOTE | 2018-08-11 09:27 | PN ---
Progress Note - Progress Note Date of Service: 08/11/18 Note: Progress Note -- Critical Care 24 hour events: -no events overngiht; in chair this morning; on RA, sats 90-92% -cough+, no sputum; no further increased SOB -noted some wheeze overnight only -clear lungs this morning -feels better, eating okay. Tele: NSR, no further SVT episodes noted Vitals: Vital Signs Temp 98.8 F 08/11/18 07:23 Pulse 70 08/11/18 07:11 Resp 16 08/11/18 07:11 BP 122/62 08/11/18 06:00 Pulse Ox 97 08/11/18 07:11 Intake & Output 08/10/18 08/11/18 08/11/18 19:59 06:59 18:59 Intake Total Output Total Balance Weight Intake: IVPB LR Medicated IV CC - Amiodarone Oral Output: Urine Other: Estimated Void # Bowel Movements # Voids O2/Vent: RA Infusions: LR 50cc/hr Current Medications: Albuterol/Ipratropium (Duoneb (Albuterol 2.5 Mg/Ipratropium 0.5 Mg)) 1 neb INH Q4H PRN PRN Reason: SOB/WHEEZING Albuterol/Ipratropium (Duoneb (Albuterol 2.5 Mg/Ipratropium 0.5 Mg)) 1 neb INH [id number] AWAKE [facility] Last Admin: 08/11/18 07:11 Dose: 1 neb Aspirin (Aspirin Ec Tab*) 81 mg PO DAILY [facility] Last Admin: 08/11/18 09:41 Dose: 81 mg Atorvastatin Calcium (Lipitor*) 40 mg PO DAILY [facility] Last Admin: 08/11/18 09:40 Dose: 40 mg Calcium Carbonate (Tums*) 1,000 mg PO Q6H PRN PRN Reason: HEARTBURN Diltiazem HCl (Cardizem Cd Cap*) 240 mg PO DAILY [facility] Last Admin: 08/11/18 09:40 Dose: 240 mg Enoxaparin Sodium (Lovenox(*)) 30 mg SUBCUT Q24H [facility] Last Admin: 08/11/18 09:41 Dose: 30 mg Famotidine (Pepcid Tab*) 20 mg PO DAILY [facility] Last Admin: 08/11/18 09:41 Dose: 20 mg Methylprednisolone Sodium Succinate (Solu-Medrol 40 Mg) 40 mg IV Q12H [facility] Metoprolol Tartrate (Lopressor Iv*) 5 mg IV Q6H PRN PRN Reason: for HR >150 Throat Lozenges (Chloraseptic July*) 1 july MT Q6H PRN PRN Reason: SORE THROAT Last Admin: 08/10/18 02:54 Dose: 1 july Physical Exam: General: awake, alert, no resp distress, no diaphoresis Head: normocephalic, atraumatic HEENT: no pallor, no icterus, moist mucous membranes Neck: soft, supple, no jvd, no stridor CVS: normal rate, regular, no murmur Resp: distant breath sounds, expiratory air movement heard, no rhales, no wheeze , no rhonchi, no acc muscle use Abdomen: soft, nontender, nondistended, bowel sounds present Ext: pulses+, warm, no edema Skin: intact Neuro: awake, alert, orientedx3, moving all extremities, no gross focal deficit Labs: Laboratory Results - last 24 hr 08/11/18 08/11/18 06:10 06:10 WBC 14.9 H RBC 4.28 Hgb 13.0 Hct 39 MCV 91 MCH 31 MCHC 34 RDW 16 H Plt Count 282 MPV 6.8 L Sodium 137 Potassium 4.6 Chloride 104 Carbon Dioxide 29 Anion Gap 4 BUN 14 Creatinine 0.69 Est GFR ( Amer) 101.2 Est GFR (Non-Af Amer) 83.6 BUN/Creatinine Ratio 20.3 H Glucose 152 H Calcium 9.6 Magnesium 2.2 Imaging: cxr 08/09 - hyperinflated lungs, no ptx/infiltrate/congestion cxr 08/11 - no new infiltrates/congestion Assessment: 73y F w/pmhx of HLD, HTN, SVT, COPD on chronic prednisone, GERD; patient comes from home for increasing shortness of breath x2 weeks. SOB has been getting worse for months now, no associated CP. For 2 weeks, she had rhinorrhea, cough+, mild sputum+. Dec PO intake, mild diarrhea on/off, muscle aches+. In ER, SVT to 220s, improved with amiodarone, started on NIV for resp distress. Missed doses of Cardizem at home. 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 Delirium prec. CVS- remains in NSR; no further SVT noted; off amio; cont Cardizem XT 240mg daily; metoprolol IV PRN. Troponin downtrended, no chest pain. Resp- off NC now; on RA, sats 90-92%. no SOB/cp, mild cough+. no fevers. dec solumedrol to 40mg bid, cont duoneb q4h. taper steroids over 1-2 weeks to baseline prednisone 10mg daily. no abx indicated, pending gram stain culture. No NIV needed overnight. Plan to ambulate prior to discharge to see if any desaturation and if requiring home O2. ID- afebrile, wbc 14. Sputum culture pending. nontoxic appearing. CXR 08/11 without infiltrate. ?viral process 2 weeks back. Holding abx. Influenza negative. GI- carb consistent/heart healthy diet. Cont H2b for GERD. Renal- Cr stable. K okay, no acidosis. cont LR 50cc/hr. Heme- hg stable. Plt stable. Cont asa. DVT proph with enoxaparin/SCDs. Endo- hba1c 6.0; borderline DM, taper steroids when possible, keep carb consistent diet Musculsk- pressure ulcer prophylaxis. oob to chair as tolerated Wounds- none Nutrition- heart healthy/carb consistent diet DVT prophylaxis: enoxaparin/SCD GI prophylaxis: h2b Central Line: no Arterial Line: no Mora Cathetor: no Disposition: stable for transfer to medical floor with tele Code Status: DNR; with trial of intubation; patient will decide intubation status at the time of possibly needing it. Braden Cross MD Tool Repairer Bench (Electronically Signed)
[2018-08-11] MEDS: Atorvastatin* 40 MG TAB PO SCH (09:40)
[2018-08-11] MEDS: Diltiazem CD CAP* 240 MG PO SCH (09:40)
[2018-08-11] MEDS: Famotidine TAB* 20 MG PO SCH (09:41)
[2018-08-11] MEDS: Enoxaparin(*) 30 MG/0.3 ML SYR SUBCUT SCH (09:41)
[2018-08-11] MEDS: Aspirin EC TAB* 81 MG TAB.EC PO SCH (09:41)
[2018-08-12] MEDS: Albuterol/Ipratropium NEB.SOL* Albuterol 2.5 MG/Ipratropium 0.5 MG 3 ML INH PRN ×2 (01:07→14:45)
[2018-08-12] MEDS: methylPREDNISolone SOD 40 MG* 1 ML VIAL IV SCH ×2 (05:18→16:20)
[2018-08-12 07:04] LABS: Hematocrit 36 % (35-47); Hemoglobin 11.9 g/dl (12.0-16.0); Mean Corpuscular HGB Conc 33 g/dl (31-36); Mean Corpuscular Hemoglobin 30 pg (27-31); Mean Corpuscular Volume 91 fL (80-97); Mean Platelet Volume 6.9 fL (7.4-10.4); Platelet Count 296 10^3/ul (150-450); Red Blood Count 3.96 10^6/ul (4.00-5.40); Red Cell Distribution Width 16 % (10.5-15); White Blood Count 11.5 10^3/ul (3.5-10.8)
[2018-08-12 07:47] LABS: EGFR Non-African American 77.1 (>60)
[2018-08-12] MEDS: Atorvastatin* 40 MG TAB PO SCH (08:10)
[2018-08-12] MEDS: Aspirin EC TAB* 81 MG TAB.EC PO SCH (08:10)
[2018-08-12] MEDS: Docusate CAP* 100 MG PO SCH (08:10)
[2018-08-12] MEDS: Enoxaparin(*) 30 MG/0.3 ML SYR SUBCUT SCH (08:10)
[2018-08-12] MEDS: Famotidine TAB* 20 MG PO SCH (08:10)
[2018-08-12] MEDS: Diltiazem CD CAP* 240 MG PO SCH (08:10)
[2018-08-12] MEDS ORDERED: Albuterol 2.5 MG/3 ML NEB.SOL* (0.083%) INH PRN (16:12)
--- NOTE | 2018-08-12 16:19 | PN ---
Subjective Date of Service: 08/12/18 Interval History: Pt seen and examined. Meds and labs reviewed. CC: SOB has improved ROS: Denied JEAN/dizziness, F/C, N/V, CP, increased cough, sputum production, abd pain, diarrhea, constipation, dysuria, myalgias, arthralgias, throat pain, and new skin lesions. The rest of the 14 point ROS are unremarkable. PHYSICAL EXAM: GEN APPEARANCE: Awake, not in acute distress HEENT: NC/AT, PERRLA, moist oral mucosa, (-) throat erythema NECK: Soft, supple, (-) cervical LAD, (-)JVD HEART: S1S2 WNL, RRR, No MRG CHEST: CTA, BL, poor air entry at bases to the midline, No W/R/R ABD: Soft, ND/NT, NABS 4x Q EXT: No C/C/BLLE +1 edema, on SCDs SKIN: Warm to touch PSYCH: No active psychosis, hallucinations, depression, SI/HI Objective Active Medications: Albuterol (Ventolin 2.5 Mg/3 Ml Neb.Tiesha*) 2.5 mg INH Q2H PRN PRN Reason: SOB/WHEEZING Albuterol/Ipratropium (Duoneb (Albuterol 2.5 Mg/Ipratropium 0.5 Mg)) 1 neb INH [id number] AWAKE PRN PRN Reason: SOB/WHEEZING Last Admin: 08/12/18 14:45 Dose: 1 neb Aspirin (Aspirin Ec Tab*) 81 mg PO DAILY [facility] Last Admin: 08/12/18 08:10 Dose: 81 mg Atorvastatin Calcium (Lipitor*) 40 mg PO DAILY [facility] Last Admin: 08/12/18 08:10 Dose: 40 mg Calcium Carbonate (Tums*) 1,000 mg PO Q6H PRN PRN Reason: HEARTBURN Diltiazem HCl (Cardizem Cd Cap*) 240 mg PO DAILY [facility] Last Admin: 08/12/18 08:10 Dose: 240 mg Docusate Sodium (Colace Cap*) 100 mg PO DAILY [facility] Last Admin: 08/12/18 08:10 Dose: 100 mg Enoxaparin Sodium (Lovenox(*)) 30 mg SUBCUT Q24H [facility] Last Admin: 08/12/18 08:10 Dose: 30 mg Famotidine (Pepcid Tab*) 20 mg PO DAILY [facility] Last Admin: 08/12/18 08:10 Dose: 20 mg Methylprednisolone Sodium Succinate (Solu-Medrol 40 Mg) 40 mg IV Q8H [facility] Metoprolol Tartrate (Lopressor Iv*) 5 mg IV Q6H PRN PRN Reason: for HR >150 Mometasone Furoate/Formoterol Fumar (Dulera 200/5 Mdi*) 2 puff INH BID [facility] Throat Lozenges (Chloraseptic July*) 1 july MT Q6H PRN PRN Reason: SORE THROAT Last Admin: 08/10/18 02:54 Dose: 1 july Vital Signs - 8 hr 08/12/18 08/12/18 12:25 14:46 Temperature 97.8 F Pulse Rate 71 71 Respiratory 16 18 Rate Blood Pressure 116/53 (mmHg) O2 Sat by Pulse 98 94 Oximetry Oxygen Devices in Use Now: OxyMask Result Diagrams: 08/12/18 06:11 08/12/18 06:10 Additional Lab and Data: Lab Results 08/09/18 08/09/18 08/09/18 Range/Units 15:25 15:25 15:25 WBC 8.5 (3.5-10.8) 10^3/ul RBC 4.98 (4.00-5.40) 10^6/ul Hgb 15.2 (12.0-16.0) g/dl Hct 46 (35-47) % MCV 91 (80-97) fL MCH 31 (27-31) pg MCHC 34 (31-36) g/dl RDW 16 H (10.5-15) % Plt Count 281 (150-450) 10^3/ul MPV 6.8 L (7.4-10.4) fL Neut % (Auto) 64.8 (38-83) % Lymph % (Auto) 18.5 L (25-47) % [place] % (Auto) 12.8 H (0-7) % Eos % (Auto) 2.9 (0-6) % Baso % (Auto) 1.0 (0-2) % Absolute Neuts (auto) 5.5 (1.5-7.7) 10^3/ul Absolute Lymphs (auto) 1.6 (1.0-4.8) 10^3/ul Absolute Monos (auto) 1.1 H (0-0.8) 10^3/ul Absolute Eos (auto) 0.3 (0-0.6) 10^3/ul Absolute Basos (auto) 0.1 (0-0.2) 10^3/ul Absolute Nucleated RBC 0 10^3/ul Nucleated RBC % 0 Patient Temperature ABG pH (7.35-7.45) ABG pCO2 (35-45) mmHg ABG pO2 (80-100) mmHg ABG HCO3 (19-31) mmol/L ABG O2 Saturation (95-98) % ABG Base Excess (-2.0-2.0) Respiration Rate O2 Delivery Device Ventilator Type Vent Mode FiO2 Inspiratory Time PEEP Pressure Support Pressure Control EPAP IPAP BiPAP Sodium 137 (135-145) mmol/L Potassium 4.2 (3.5-5.0) mmol/L Chloride 102 (101-111) mmol/L Carbon Dioxide 27 (22-32) mmol/L Anion Gap 8 (2-11) mmol/L BUN 8 (6-24) mg/dL Creatinine 0.90 (0.51-0.95) mg/dL Est GFR ( Amer) 74.5 (>60) Est GFR (Non-Af Amer) 61.5 (>60) BUN/Creatinine Ratio 8.9 (8-20) Glucose 176 H (70-100) mg/dL Lactic Acid (0.5-2.0) mmol/L Calcium 10.0 (8.6-10.3) mg/dL Magnesium 1.7 L (1.9-2.7) mg/dL Total Bilirubin 0.60 (0.2-1.0) mg/dL AST 17 (13-39) U/L ALT 9 (7-52) U/L Alkaline Phosphatase 83 (34-104) U/L Troponin I 0.04 H* (<0.04) ng/mL B-Natriuretic Peptide 43 (<=100) pg/mL Total Protein 5.8 L (6.4-8.9) g/dL Albumin 3.4 (3.2-5.2) g/dL Globulin 2.4 (2-4) g/dL Albumin/Globulin Ratio 1.4 (1-3) TSH 2.55 (0.34-5.60) mcIU/mL 11/02/18 11/02/18 Range/Units 15:48 16:46 WBC (3.5-10.8) 10^3/ul RBC (4.00-5.40) 10^6/ul Hgb (12.0-16.0) g/dl Hct (35-47) % MCV (80-97) fL MCH (27-31) pg MCHC (31-36) g/dl RDW (10.5-15) % Plt Count (150-450) 10^3/ul MPV (7.4-10.4) fL Neut % (Auto) (38-83) % Lymph % (Auto) (25-47) % [place] % (Auto) (0-7) % Eos % (Auto) (0-6) % Baso % (Auto) (0-2) % Absolute Neuts (auto) (1.5-7.7) 10^3/ul Absolute Lymphs (auto) (1.0-4.8) 10^3/ul Absolute Monos (auto) (0-0.8) 10^3/ul Absolute Eos (auto) (0-0.6) 10^3/ul Absolute Basos (auto) (0-0.2) 10^3/ul Absolute Nucleated RBC 10^3/ul Nucleated RBC % Patient Temperature Not Reportable ABG pH 7.36 (7.35-7.45) ABG pCO2 42 (35-45) mmHg ABG pO2 420 H (80-100) mmHg ABG HCO3 23.5 (19-31) mmol/L ABG O2 Saturation 100.0 H (95-98) % ABG Base Excess -1.8 (-2.0-2.0) Respiration Rate Not Reportable O2 Delivery Device bipap Ventilator Type Not Reportable Vent Mode Not Reportable FiO2 100 Inspiratory Time Not Reportable PEEP Not Reportable Pressure Support Not Reportable Pressure Control Not Reportable EPAP 6 IPAP 12 BiPAP Not Reportable Sodium (135-145) mmol/L Potassium (3.5-5.0) mmol/L Chloride (101-111) mmol/L Carbon Dioxide (22-32) mmol/L Anion Gap (2-11) mmol/L BUN (6-24) mg/dL Creatinine (0.51-0.95) mg/dL Est GFR ( Amer) (>60) Est GFR (Non-Af Amer) (>60) BUN/Creatinine Ratio (8-20) Glucose (70-100) mg/dL Lactic Acid 1.6 (0.5-2.0) mmol/L Calcium (8.6-10.3) mg/dL Magnesium (1.9-2.7) mg/dL Total Bilirubin (0.2-1.0) mg/dL AST (13-39) U/L ALT (7-52) U/L Alkaline Phosphatase (34-104) U/L Troponin I (<0.04) ng/mL B-Natriuretic Peptide (<=100) pg/mL Total Protein (6.4-8.9) g/dL Albumin (3.2-5.2) g/dL Globulin (2-4) g/dL Albumin/Globulin Ratio (1-3) TSH (0.34-5.60) mcIU/mL Microbiology and Other Data: Microbiology 08/09/18 16:03 Aerobic Blood Culture - Preliminary Blood Line No Growth Day 3 Anaerobic Blood Culture - Preliminary No Growth Day 3 08/09/18 16:39 Aerobic Blood Culture - Preliminary Blood Line No Growth Day 2 Anaerobic Blood Culture - Preliminary No Growth Day 2 08/09/18 23:51 Gram Stain - Final Sputum Sputum Culture - Final Normal Kendra 08/09/18 19:00 Nasal Screen MRSA (PCR) - Final Nasal Mrsa Not Detected 08/09/18 17:47 Influenza Types A,B Antigen - Final Nasal Specimen received for Influenza A/B Molecular testing Assess/Plan/Problems-Billing Assessment: ICU Course: 08/09: COPD exacerbation due to viral cause; pt w/paroxysmal SVT ?AVNRT, thus pt was placed on amiodarone infusion x24 hrs; CXR showed no infiltrate; pt placed on NIV 08/10: [place] better; SVT and question of AVNRT resolved 08/11: Feels better; no SVT nor any arrhythmia identified in ICU; pt transferred to the floors - Patient Problems (1) COPD exacerbation Current Visit: No Status: Acute Code(s): J44.1 - CHRONIC OBSTRUCTIVE PULMONARY DISEASE W (ACUTE) EXACERBATION SNOMED Code(s): 216482714375650 Comment: -Given poor air entry observed on todays exam, will decrease frequency of Solumedrol to q8H from q12H -Will place pt on Advair -Continue Duonebs as ordered -Will add Aluberol PRN for breakthroughs -Continue watchful waiting (2) SVT (supraventricular tachycardia) Current Visit: No Status: Acute Priority: Medium Code(s): I47.1 - SUPRAVENTRICULAR TACHYCARDIA SNOMED Code(s): 7707423 Comment: -Continue Diltiazem (3) GERD (gastroesophageal reflux disease) Current Visit: Yes Status: Acute Code(s): K21.9 - GASTRO-ESOPHAGEAL REFLUX DISEASE WITHOUT ESOPHAGITIS SNOMED Code(s): 139552436 Comment: -Continue Famotidine (4) DVT prophylaxis Current Visit: No Status: Acute Code(s): HND3801 - SNOMED Code(s): 908184046 Comment: -Continue Lovenox SQ Status and Disposition: -For PT eval -Possible D/C in 1-2 days
[2018-08-12] MEDS: Mometasone/Formoter 200/5 MDI INH SCH (19:26)
[2018-08-13] MEDS: methylPREDNISolone SOD 40 MG* 1 ML VIAL IV SCH ×3 (01:46→17:03)
[2018-08-13] MEDS: Mometasone/Formoter 200/5 MDI INH SCH ×2 (08:30→20:05)
[2018-08-13] MEDS: Albuterol/Ipratropium NEB.SOL* Albuterol 2.5 MG/Ipratropium 0.5 MG 3 ML INH PRN ×3 (08:30→21:34)
[2018-08-13 08:54] LABS: Hematocrit 38 % (35-47); Hemoglobin 12.7 g/dl (12.0-16.0); Mean Corpuscular HGB Conc 33 g/dl (31-36); Mean Corpuscular Hemoglobin 30 pg (27-31); Mean Corpuscular Volume 91 fL (80-97); Mean Platelet Volume 6.6 fL (7.4-10.4); Platelet Count 350 10^3/ul (150-450); Red Blood Count 4.19 10^6/ul (4.00-5.40); Red Cell Distribution Width 16 % (10.5-15); White Blood Count 9.1 10^3/ul (3.5-10.8)
[2018-08-13 09:05] LABS: EGFR Non-African American 85.1 (>60)
[2018-08-13] MEDS: Enoxaparin(*) 30 MG/0.3 ML SYR SUBCUT SCH (09:13)
[2018-08-13] MEDS: Famotidine TAB* 20 MG PO SCH (09:14)
[2018-08-13] MEDS: Diltiazem CD CAP* 240 MG PO SCH (09:14)
[2018-08-13] MEDS: Aspirin EC TAB* 81 MG TAB.EC PO SCH (09:14)
[2018-08-13] MEDS: Docusate CAP* 100 MG PO SCH (09:14)
[2018-08-13] MEDS: Atorvastatin* 40 MG TAB PO SCH (09:14)
--- NOTE | 2018-08-13 15:46 | PN ---
Subjective Date of Service: 08/13/18 Interval History: At home was coughing up a lot of phlegm. Was taking Nyquil and Dayquil of ~3 days prior to admission (and focused so much on it that she had forgotten to take her home meds including her cardizem. Attests to 2 pillow orthopnea Patient was interested in getting on home oxygen but was sat'ing 89% walking on room air. Attests to pain with swallowing (occasional) improved with PPI since May 08 when had EGD. Missed her appointment with Dr. Terrazas (transitioning all care from the [place] system). Smokes about 9 cigarettes a year still. TTE with Joseph. Dx with hiatal hernia in 2001 but ?not really seen on it. Lost 35lbs in 2 years - attests to IBS and difficulty gaining back weight when strikes. has been on 20mg prednisone since May 08. prior 10mg for 3 years. Objective Active Medications: Albuterol (Ventolin 2.5 Mg/3 Ml Neb.Tiesha*) 2.5 mg INH Q2H PRN PRN Reason: SOB/WHEEZING Albuterol/Ipratropium (Duoneb (Albuterol 2.5 Mg/Ipratropium 0.5 Mg)) 1 neb INH [id number] AWAKE PRN PRN Reason: SOB/WHEEZING Last Admin: 08/13/18 15:08 Dose: 1 neb Aspirin (Aspirin Ec Tab*) 81 mg PO DAILY ON LICENSE OF [facility] Last Admin: 08/13/18 09:14 Dose: 81 mg Atorvastatin Calcium (Lipitor*) 40 mg PO DAILY ON LICENSE OF [facility] Last Admin: 08/13/18 09:14 Dose: 40 mg Calcium Carbonate (Tums*) 1,000 mg PO Q6H PRN PRN Reason: HEARTBURN Diltiazem HCl (Cardizem Cd Cap*) 240 mg PO DAILY ON LICENSE OF [facility] Last Admin: 08/13/18 09:14 Dose: 240 mg Docusate Sodium (Colace Cap*) 100 mg PO DAILY ON LICENSE OF [facility] Last Admin: 08/13/18 09:14 Dose: 100 mg Enoxaparin Sodium (Lovenox(*)) 30 mg SUBCUT Q24H ON LICENSE OF [facility] Last Admin: 08/13/18 09:13 Dose: 30 mg Famotidine (Pepcid Tab*) 20 mg PO DAILY ON LICENSE OF [facility] Last Admin: 08/13/18 09:14 Dose: 20 mg Methylprednisolone Sodium Succinate (Solu-Medrol 40 Mg) 40 mg IV Q8H RHEA Last Admin: 08/13/18 09:13 Dose: 40 mg Metoprolol Tartrate (Lopressor Iv*) 5 mg IV Q6H PRN PRN Reason: for HR >150 Mometasone Furoate/Formoterol Fumar (Dulera 200/5 Mdi*) 2 puff INH BID RHEA Last Admin: 08/13/18 08:30 Dose: 2 puff Throat Lozenges (Chloraseptic July*) 1 july MT Q6H PRN PRN Reason: SORE THROAT Last Admin: 08/10/18 02:54 Dose: 1 july Vital Signs - 8 hr 08/13/18 08/13/18 08/13/18 08:00 08:08 08:31 Temperature 98.1 F Pulse Rate 66 79 Respiratory 20 20 20 Rate Blood Pressure 138/69 (mmHg) O2 Sat by Pulse 93 97 Oximetry 08/13/18 08/13/18 11:14 15:06 Temperature 98.3 F Pulse Rate 77 77 Respiratory 20 Rate Blood Pressure 125/54 (mmHg) O2 Sat by Pulse 95 95 Oximetry Oxygen Devices in Use Now: OxyMask Appearance: NAD, sitting on side of bed. Eyes: No Scleral Icterus, PERRLA Ears/Nose/Mouth/Throat: NL Teeth, Lips, Gums Neck: NL Appearance and Movements; NL JVP, Trachea Midline Respiratory: - - no wheezing, rales or rhonchi but poor air exchange diffusely. Cardiovascular: NL Sounds; No Murmurs; No JVD, RRR Abdominal: NL Sounds; No Tenderness; No Distention, No Hepatosplenomegaly Extremities: - - 1-2+ edema Neurological: Alert and Oriented x 3, NL Sensation, NL Muscle Strength and Tone Nutrition: Taking PO's Result Diagrams: 08/13/18 08:12 08/13/18 08:12 Additional Lab and Data: Laboratory Results - last 24 hr 08/13/18 08/13/18 08:12 08:12 WBC 9.1 RBC 4.19 Hgb 12.7 Hct 38 MCV 91 MCH 30 MCHC 33 RDW 16 H Plt Count 350 MPV 6.6 L Sodium 138 Potassium 3.9 Chloride 100 L Carbon Dioxide 32 Anion Gap 6 BUN 23 Creatinine 0.68 Est GFR ( Amer) 102.9 Est GFR (Non-Af Amer) 85.1 BUN/Creatinine Ratio 33.8 H Glucose 132 H Calcium 9.4 Phosphorus 3.2 Magnesium 2.2 Total Bilirubin 0.40 AST 24 ALT 19 Alkaline Phosphatase 56 Total Protein 5.7 L Albumin 3.6 Globulin 2.1 Albumin/Globulin Ratio 1.7 Microbiology and Other Data: Microbiology 08/09/18 16:39 Blood Line Aerobic Blood Culture - Preliminary No Growth Day 4 08/09/18 16:39 Blood Line Anaerobic Blood Culture - Preliminary No Growth Day 4 08/09/18 16:03 Blood Line Aerobic Blood Culture - Preliminary No Growth Day 4 08/09/18 16:03 Blood Line Anaerobic Blood Culture - Preliminary No Growth Day 4 08/09/18 23:51 Sputum Gram Stain - Final 08/09/18 23:51 Sputum Sputum Culture - Final Normal Kendra 08/09/18 19:00 Nasal Nasal Screen MRSA (PCR) - Final Mrsa Not Detected 08/09/18 17:47 Nasal Influenza Types A,B Antigen - Final Specimen received for Influenza A/B Molecular testing Assess/Plan/Problems-Billing Assessment: 73 yo female PMH COPD, SVT, HTN, GERD, HLD p/w SVT/AVNRT in setting of stopping her cardizem for few days. Acute COPD exaccerbation. s/p amio load. on solumedrol 40mg q8. ICU Course: 08/09: COPD exacerbation due to viral cause; pt w/paroxysmal SVT ?AVNRT, thus pt was placed on amiodarone infusion x24 hrs; CXR showed no infiltrate; pt placed on NIV 08/10: [place] better; SVT and question of AVNRT resolved 08/11: Feels better; no SVT nor any arrhythmia identified in ICU; pt transferred to the floors - Patient Problems (1) COPD exacerbation Current Visit: No Status: Acute Code(s): J44.1 - CHRONIC OBSTRUCTIVE PULMONARY DISEASE W (ACUTE) EXACERBATION SNOMED Code(s): 937408017977889 Comment: -continue poor air entry, continue Solumedrol q8H -continue Dulera, albuerol prn - start azithromycin and spiriva. Dr. Terrazas consulted. does have orthopnea and edema. BNP was 43 on admission. f/u on TTE outpatient results. (2) SVT (supraventricular tachycardia) Current Visit: No Status: Acute Priority: Medium Code(s): I47.1 - SUPRAVENTRICULAR TACHYCARDIA SNOMED Code(s): 4152064 Comment: -Continue Diltiazem (3) GERD (gastroesophageal reflux disease) Current Visit: Yes Status: Acute Code(s): K21.9 - GASTRO-ESOPHAGEAL REFLUX DISEASE WITHOUT ESOPHAGITIS SNOMED Code(s): 691278190 Comment: -Continue Famotidine (4) Acute and chronic respiratory failure Current Visit: No Status: Acute Code(s): J96.20 - ACUTE AND CHR RESP FAILURE , UNSP W HYPOXIA OR HYPERCAPNIA SNOMED Code(s): 58776795 Comment: - resolved (5) DVT prophylaxis Current Visit: No Status: Acute Code(s): ZEQ0217 - SNOMED Code(s): 945481432 Comment: -Continue Lovenox SQ (6) IBS (irritable bowel syndrome) Current Visit: Yes Status: Acute Status and Disposition: -Possible D/C in 1-2 days
[2018-08-13] MEDS: Azithromycin TAB* 250 MG PO SCH (17:03)
[2018-08-13] MEDS: Tiotropium Respimt 2.5 mcg(NF) 1 PUFF MDI INH SCH (20:05)
[2018-08-13] MEDS: Benzocaine/Menthol LOZ* 1 LOZENGE MT PRN (22:13)
[2018-08-14] MEDS: methylPREDNISolone SOD 40 MG* 1 ML VIAL IV SCH ×3 (01:16→17:45)
[2018-08-14] MEDS: Albuterol/Ipratropium NEB.SOL* Albuterol 2.5 MG/Ipratropium 0.5 MG 3 ML INH PRN (03:58)
[2018-08-14 06:09] LABS: Hematocrit 35 % (35-47); Hemoglobin 11.7 g/dl (12.0-16.0); Mean Corpuscular HGB Conc 34 g/dl (31-36); Mean Corpuscular Hemoglobin 30 pg (27-31); Mean Corpuscular Volume 90 fL (80-97); Mean Platelet Volume 6.2 fL (7.4-10.4); Platelet Count 308 10^3/ul (150-450); Red Blood Count 3.87 10^6/ul (4.00-5.40); Red Cell Distribution Width 16 % (10.5-15); White Blood Count 5.9 10^3/ul (3.5-10.8)
[2018-08-14 06:51] LABS: EGFR Non-African American 89.6 (>60)
[2018-08-14] MEDS: Mometasone/Formoter 200/5 MDI INH SCH ×2 (07:36→19:59)
[2018-08-14] MEDS: Tiotropium Respimt 2.5 mcg(NF) 1 PUFF MDI INH SCH (07:38)
[2018-08-14] MEDS ORDERED: Spiriva Inhaler DEVICE* 1 EACH DEVICE INH ONE (09:00)
[2018-08-14] MEDS: Enoxaparin(*) 30 MG/0.3 ML SYR SUBCUT SCH (09:52)
[2018-08-14] MEDS: Docusate CAP* 100 MG PO SCH (09:53)
[2018-08-14] MEDS: Aspirin EC TAB* 81 MG TAB.EC PO SCH (09:53)
[2018-08-14] MEDS: Atorvastatin* 40 MG TAB PO SCH (09:53)
[2018-08-14] MEDS: Diltiazem CD CAP* 240 MG PO SCH (09:54)
[2018-08-14] MEDS: Famotidine TAB* 20 MG PO SCH (09:54)
[2018-08-14] MEDS ORDERED: Tiotropium CAP.INH* CAP.INH/18 MCG (USE ORDER SET !) INH SCH (10:26)
[2018-08-14] MEDS: Azithromycin TAB* 250 MG PO SCH (17:08)
--- NOTE | 2018-08-14 17:34 | PN ---
Subjective Date of Service: 08/14/18 Interval History: feels better, has not asked for any breathing treatments today. seen by Dr. Terrazas states has intolerance to any powder based breathing formulation (including spiriva) noticable edema in legs, has been sitting most of day. brought ECHO study: grade 1 diastolic disfunction. preserved EF. Objective Active Medications: Albuterol (Ventolin 2.5 Mg/3 Ml Neb.Tiesha*) 2.5 mg INH Q2H PRN PRN Reason: SOB/WHEEZING Albuterol/Ipratropium (Duoneb (Albuterol 2.5 Mg/Ipratropium 0.5 Mg)) 1 neb INH [id number] AWAKE PRN PRN Reason: SOB/WHEEZING Last Admin: 08/14/18 03:58 Dose: 1 neb Aspirin (Aspirin Ec Tab*) 81 mg PO DAILY [facility] Last Admin: 08/14/18 09:53 Dose: 81 mg Atorvastatin Calcium (Lipitor*) 40 mg PO DAILY [facility] Last Admin: 08/14/18 09:53 Dose: 40 mg Azithromycin (Zithromax Tab*) 500 mg PO 1700 [facility] Stop: 08/15/18 17:01 Last Admin: 08/14/18 17:08 Dose: 500 mg Calcium Carbonate (Tums*) 1,000 mg PO Q6H PRN PRN Reason: HEARTBURN Diltiazem HCl (Cardizem Cd Cap*) 240 mg PO DAILY [facility] Last Admin: 08/14/18 09:54 Dose: 240 mg Docusate Sodium (Colace Cap*) 100 mg PO DAILY [facility] Last Admin: 08/14/18 09:53 Dose: 100 mg Enoxaparin Sodium (Lovenox(*)) 30 mg SUBCUT Q24H [facility] Last Admin: 08/14/18 09:52 Dose: 30 mg Famotidine (Pepcid Tab*) 20 mg PO DAILY [facility] Last Admin: 08/14/18 09:54 Dose: 20 mg Methylprednisolone Sodium Succinate (Solu-Medrol 40 Mg) 40 mg IV Q8H [facility] Last Admin: 08/14/18 09:53 Dose: 40 mg Metoprolol Tartrate (Lopressor Iv*) 5 mg IV Q6H PRN PRN Reason: for HR >150 Mometasone Furoate/Formoterol Fumar (Dulera 200/5 Mdi*) 2 puff INH BID RHEA Last Admin: 08/14/18 07:36 Dose: 2 puff Throat Lozenges (Chloraseptic July*) 1 july MT Q6H PRN PRN Reason: SORE THROAT Last Admin: 08/13/18 22:13 Dose: 1 july Vital Signs - 8 hr 08/14/18 08/14/18 08/14/18 10:20 11:03 15:43 Temperature 98.0 F 97.7 F Pulse Rate 84 76 Respiratory 20 26 Rate Blood Pressure 146/74 152/70 (mmHg) O2 Sat by Pulse 91 96 96 Oximetry Oxygen Devices in Use Now: None Appearance: NAD Eyes: No Scleral Icterus, PERRLA Ears/Nose/Mouth/Throat: NL Teeth, Lips, Gums, Mucous Membranes Moist Neck: NL Appearance and Movements; NL JVP, Trachea Midline Respiratory: Symmetrical Chest Expansion and Respiratory Effort, - - no wheezing - moderate air exchange. Cardiovascular: NL Sounds; No Murmurs; No JVD Abdominal: NL Sounds; No Tenderness; No Distention Extremities: - - 2+ edema Skin: No Rash or Ulcers, No Nodules or Sclerosis Neurological: Alert and Oriented x 3 Nutrition: Taking PO's Result Diagrams: 08/14/18 05:49 08/14/18 05:49 Additional Lab and Data: Laboratory Results - last 24 hr 08/14/18 08/14/18 05:49 05:49 WBC 5.9 RBC 3.87 L Hgb 11.7 L Hct 35 MCV 90 MCH 30 MCHC 34 RDW 16 H Plt Count 308 MPV 6.2 L Sodium 138 Potassium 3.7 Chloride 101 Carbon Dioxide 31 Anion Gap 6 BUN 25 H Creatinine 0.65 Est GFR ( Amer) 108.4 Est GFR (Non-Af Amer) 89.6 BUN/Creatinine Ratio 38.5 H Glucose 165 H Calcium 8.9 Microbiology and Other Data: Microbiology 08/09/18 16:39 Blood Line Aerobic Blood Culture - Final No Growth Day 5 08/09/18 16:39 Blood Line Anaerobic Blood Culture - Final No Growth Day 5 08/09/18 16:03 Blood Line Aerobic Blood Culture - Final No Growth Day 5 08/09/18 16:03 Blood Line Anaerobic Blood Culture - Final No Growth Day 5 08/09/18 23:51 Sputum Gram Stain - Final 08/09/18 23:51 Sputum Sputum Culture - Final Normal Kendra 08/09/18 19:00 Nasal Nasal Screen MRSA (PCR) - Final Mrsa Not Detected 08/09/18 17:47 Nasal Influenza Types A,B Antigen - Final Specimen received for Influenza A/B Molecular testing Assess/Plan/Problems-Billing Assessment: 73 yo female PMH COPD, SVT, HTN, GERD, HLD p/w SVT/AVNRT in setting of stopping her cardizem for few days. Acute COPD exaccerbation. s/p amio load. on solumedrol 40mg q8. ICU Course: 08/09: COPD exacerbation due to viral cause; pt w/paroxysmal SVT ?AVNRT, thus pt was placed on amiodarone infusion x24 hrs; CXR showed no infiltrate; pt placed on NIV 08/10: [place] better; SVT and question of AVNRT resolved 08/11: Feels better; no SVT nor any arrhythmia identified in ICU; pt transferred to the floors - Patient Problems (1) COPD exacerbation Current Visit: No Status: Acute Code(s): J44.1 - CHRONIC OBSTRUCTIVE PULMONARY DISEASE W (ACUTE) EXACERBATION SNOMED Code(s): 953805368396530 Comment: -better air entry, Solumedrol 40mg q8H -> 60mg po prednisone daily -continue Dulera, albuerol prn -continue azithromycin -intolerant of spiriva or any other powder based formulations. - Dr. Terrazas consulted. does have orthopnea and edema. BNP was 43 on admission. TTE outpatient results showed diastolic dysfunction. (2) SVT (supraventricular tachycardia) Current Visit: No Status: Acute Priority: Medium Code(s): I47.1 - SUPRAVENTRICULAR TACHYCARDIA SNOMED Code(s): 5595689 Comment: -Continue Diltiazem (3) GERD (gastroesophageal reflux disease) Current Visit: Yes Status: Acute Code(s): K21.9 - GASTRO-ESOPHAGEAL REFLUX DISEASE WITHOUT ESOPHAGITIS SNOMED Code(s): 631710235 Comment: -Continue Famotidine (4) Acute and chronic respiratory failure Current Visit: No Status: Acute Code(s): J96.20 - ACUTE AND CHR RESP FAILURE , UNSP W HYPOXIA OR HYPERCAPNIA SNOMED Code(s): 28203191 Comment: - resolved (5) DVT prophylaxis Current Visit: No Status: Acute Code(s): OPC0589 - SNOMED Code(s): 776561281 Comment: -Continue Lovenox SQ (6) IBS (irritable bowel syndrome) Current Visit: Yes Status: Acute Status and Disposition: -Possible D/C in 1-2 days
--- NOTE | 2018-08-14 21:14 | CONS ---
PULMONARY CONSULTATION REPORT: DATE OF CONSULT: 08/14/18. CONSULTATION REQUESTED: Dr. Shayne Ferguson. REASON FOR CONSULT: Evaluation of COPD. HISTORY OF PRESENT ILLNESS: The patient is a 73-year-old female former with history of COPD, on chronic prednisone therapy, hypertension, SVT, GERD, who presented to the emergency room for evaluation of worsening shortness of breath over the past 2 weeks. She has contacted her primary care physician regarding her symptoms. She was not initiated on antibiotics or steroids. She has been having trouble with thick phlegm and has been having difficulty expectorating the phlegm. The patient reports having difficulty breathing secondary to the thick phlegm. She denies a history of recurrent bronchitis. The patient denies fever, chills, sick contacts. Has been having decreased p.o. intake and decreased appetite; however, denies significant change in weight. She also reported mild diarrhea on presentation. Denied abdominal pain, chest pain. She had complaint of muscle aches prior to this illness. Also, has been having intermittent leg swelling for months. She is on Cardizem for SVT, ran out of the medications and has not been taking for two to three days. She was fond to be significantly tachycardiac in the emergency room with heart rate of 208 beats per minute. She was given adenosine x3 with no improvement, received Cardizem IV push with drop in blood pressure, responded to fluid resuscitation. She was started on IV amiodarone with improvement in heart rate and reverted back to normal sinus rhythm. She was also given non-invasive ventilation for significant respiratory distress that was noted on admission. She received IV steroids nebulizers and reports improvement in symptoms. The patient was seen and examined at bed site. The patient reports improvement in shortness of breath. She still has thick phlegm that is difficult to be expectorated. She has seen Pulmonology with [facility] in the past for management of her COPD. She has tried multiple inhalers in the past, had side effects. The patient reports significant side effects to powder based inhalers which make her gag and vomit. She is currently on albuterol and ipratropium rescue inhalers which are beneficial. PAST MEDICAL HISTORY: COPD, hypertension, dyslipidemia, GERD. PAST SURGICAL HISTORY: Left knee reconstruction, bilateral carpal tunnel, tubal ligation. MEDICATIONS AT HOME: 1. Albuterol. 2. Aspirin. 3. Ipratropium. 4. Cholecalciferol. 5. Docusate. 6. Diltiazem. 7. Prednisone 10 mg daily. 8. Atorvastatin. 9. Atrovent nebulizer. 10. Ranitidine. ALLERGIES: ADHESIVE TAPE, FLUCONAZOLE, DOXYCYCLINE, MEPERIDINE, YELLOW DYE, VILANTEROL, METALS. FAMILY HISTORY: Cardiac disease. SOCIAL HISTORY: The patient smoked 2 to 5 cigarettes per day for 50 years. No alcohol or drug abuse. REVIEW OF SYSTEMS: All 14 systems reviewed and as per HPI. PHYSICAL EXAM: The patient is in bed, in no apparent distress. Temperature 98.1, pulse 77 beats per minute, respiratory rate 18 per minute, O2 sat 94% on room air. Blood pressure 130/68. HEENT: Pupils equal, reactive to light. Mucous membranes moist. Lungs: Diminished air entry bilaterally. Expiratory wheeze present. Cardiovascular: S1, S2 present, regular. No murmurs, gallops. Abdomen: Obese, bowel sounds present, nontender and nondistended. Extremities: Normal range of motion. Right lower extremity slightly edematous. Skin: No rash or bruise. Neuro: No focal deficits. DIAGNOSTIC STUDIES/LAB DATA: EKG on admission showed sinus tachycardia. WBC count 5.9, hemoglobin 11.7, hematocrit 35, platelet count 308. Sodium 138, potassium 3.7, chloride 101, bicarb 31. BUN 25, creatinine 0.65. Troponin elevated on admission 0.09. Blood gas analysis did not reveal significant hypercapnia. Repeat CO2 of 42, pH of 7.36, pO2 of 420 and bicarb of 23 on 100% FiO2 and on BiPAP. Chest x-ray on admission was personally reviewed by me - evidence of hyperinflation with no acute airspace opacities. IMPRESSION AND RECOMMENDATION: 73-year-old female with significant smoking history with a history of chronic obstructive pulmonary disease on prednisone, admitted with SVT, probably secondary to acute COPD exacerbation. The patient required non-invasive ventilation briefly. The patient improved with bronchodilators, IV steroids. Her heart rate is better controlled and reverted back to normal sinus at this time. She is on Cardizem and metoprolol. She is on rescue inhalers and reports benefits. She has tried powder based inhalers in the past with side effects. Will continue with current inhalers and nebulizers. Will try to get her on long- acting inhalers as outpatient. Thank you for allowing me to participate in the care of the patient. Will follow her in the outpatient clinic in 2 weeks. [id number]/[facility] #: [id number] LM
[2018-08-15] MEDS: Mometasone/Formoter 200/5 MDI INH SCH (07:31)
[2018-08-15] MEDS ORDERED: predniSONE TAB* 20 MG PO SCH (09:00)
[2018-08-15] MEDS: Atorvastatin* 40 MG TAB PO SCH (09:11)
[2018-08-15] MEDS: Enoxaparin(*) 30 MG/0.3 ML SYR SUBCUT SCH (09:11)
[2018-08-15] MEDS: Diltiazem CD CAP* 240 MG PO SCH (09:11)
[2018-08-15] MEDS: Docusate CAP* 100 MG PO SCH (09:12)
[2018-08-15] MEDS: Famotidine TAB* 20 MG PO SCH (09:12)
[2018-08-15] MEDS: Aspirin EC TAB* 81 MG TAB.EC PO SCH (09:13)
[2018-08-15] MEDS: Albuterol/Ipratropium NEB.SOL* Albuterol 2.5 MG/Ipratropium 0.5 MG 3 ML INH PRN (11:11)
[2018-08-15] MEDS ORDERED: Potassium Chlor TAB* 20 MEQ TAB.ER PO ONE (11:12)
[2018-08-15 11:41] VITALS: BP 139/73
[2018-08-15] MEDS: Azithromycin TAB* 250 MG PO SCH (12:09)
--- NOTE | 2018-08-16 11:50 | DS ---
DISCHARGE SUMMARY: DATE OF ADMISSION: 08/09/18 DATE OF DISCHARGE: 08/15/18 ADMITTING PROVIDER: Lace Pinner, Dr. Braden Cross. ATTENDING PHYSICIAN ON DAY OF DISCHARGE: Dr. Shayne Ferguson. CONSULTING PILING CUTTER: Dr. Dania Terrazas. CHIEF COMPLAINT: Progressive shortness of breath x2 weeks with near syncope. PRINCIPAL DIAGNOSES: 1. Supraventricular tachycardia. 2. Chronic obstructive pulmonary disease exacerbation. HISTORY OF PRESENT ILLNESS AND HOSPITAL COURSE: Sabi Willard is a 73-year-old female with past medical history of COPD, on chronic prednisone; SVT, on calcium channel jane, hypertension; hyperlipidemia; GERD who complained of increased shortness of breath x2 weeks with productive cough with phlegm, for which she was taking both NyQuil and DayQuil for approximately three days and in fact was so focussed on these medications that she states that she forgot to take her other medications including her diltiazem. Please see H and P of Dr. Braden Cross for full details. She states that she almost was syncopized and was brought to the [facility] and was found to be tachycardiac at 208, what appeared to be SVT. She was given adenosine 12 mg x2 and then with reportedly further no response, then Cardizem IV 5 mg caused blood pressure to drop being on fluid bolus. She was started on amiodarone drip and the heart rates improved and transported to the intensive care unit where she was then in normal sinus rhythm. She required 4 L of oxygen support for hypoxic respiratory failure. Her calcium channel was restarted. The amiodarone infusion was continued for 24 hours and then noted she got amiodarone 150 mg load prior to the 24-hour drip. The rest of her stay was focussed on treating her acute COPD exacerbation. She required IV Solu-Medrol as frequently as 40 mg every 8 hours, azithromycin 500 mg p.o. was started on 08/13/18. She completed 3-day course of that. She was not actually hypoxic throughout the rest of the stay and in fact did not qualify for home going oxygen. She was evaluated by Dr. Terrazas given the flutter valve by her. Spiriva was added, but she then attested to intolerance to all powder-based aerosol sprays including Spiriva and possibly Anoro in the past, but did tolerate Dulera, which is a new medication for her. Some outpatient records were obtained including report that she had some grade 1 diastolic dysfunction on transthoracic echocardiogram , but preserved ejection fraction. She did complain of some lower extremity edema and orthopnea and she is being discharged on a few days of Lasix. Her BNP on admission was notably 43 on 08/09/18. She tested to some GERD that has been in general improved since starting on her H2 jane after an EGD on . She was feeling much better and eager for discharge and she was discharged with followup plan with Dr. Walsh and in [address] Terrazas. Additional tests included negative blood cultures x5 days, negative MRSA, nares swab, sputum culture showing normal suzanne, influenza swabs that were negative. She had some transient leukocytosis throughout the stay. She was afebrile. DISCHARGE MEDICATIONS: Include: 1. Ventolin inhaler 2.5 mg inhaled q.4 hours p.r.n. 2. Aspirin 81 mg daily. 3. Albuterol 2 puffs inhaled q.4 hours p.r.n. 4. Atorvastatin 40 mg p.o. daily. 5. Chloraseptic q.6 hours p.r.n. (new). 6. Calcium carbonate 1000 mg p.o. q.6 hours p.r.n. (new). 7. Cholecalciferol 1000 units p.o. daily. 8. Diltiazem 240 mg p.o. daily. 9. Docusate 100 mg p.o. daily. 10. Furosemide 20 mg p.o. daily for 4 days (new). 11. Ibuprofen 600 mg p.o. q.6 hours p.r.n. (though would recommend lower doses of this). 12. Ipratropium 0.5 mg inhaled q.4 hours p.r.n., thus both for nebulized and Atrovent formulations. 13. Dulera 2 puffs inhale b.i.d. (new). 14. Prednisone 20 mg tablets to be taken 3 tabs for 2 days, then 2 tabs for 3 days, then 1 tab for 3 days, then resume her chronic 10 mg daily of a former prescription. 15. Zantac 150 mg p.o. b.i.d. DISCHARGE DIET: Heart-healthy unchanged. FOLLOWUP: Please follow up with Dr. Dania Terrazas in 2 weeks and Farhan Walsh within 1 week. [id number]/[facility] #: [id number] [facility]
== END 2018-08-15 15:00 | disposition home or self-care (01) | DRG 190 ==
LOC: ED 15:05 → ICU 17:39 → MEDTELE 08-11 10:49
PROVIDERS: ADMIT Internal Medicine Critical Care Medicine; ATTEND Internal Medicine
PROC: 5A09357 Assistance with Respiratory Ventilation, Less than 24 Consecutive Hours, Continuous Positive Airway Pressure (ICD-10-PCS; principal; 2018-08-09)
DX: J44.1 Chronic obstructive pulmonary disease with (acute) exacerbation (principal); J96.21 Acute and chronic respiratory failure with hypoxia; I47.1 Supraventricular tachycardia; Z66 Do not resuscitate; I10 Essential (primary) hypertension; K21.9 Gastro-esophageal reflux disease without esophagitis; K57.90 Diverticulosis of intestine, part unspecified, without perforation or abscess without bleeding; K44.9 Diaphragmatic hernia without obstruction or gangrene; I95.9 Hypotension, unspecified; K40.90 Unilateral inguinal hernia, without obstruction or gangrene, not specified as recurrent; F17.210 Nicotine dependence, cigarettes, uncomplicated; D72.829 Elevated white blood cell count, unspecified; E78.5 Hyperlipidemia, unspecified; K58.0 Irritable bowel syndrome with diarrhea; Z96.652 Presence of left artificial knee joint; F41.9 Anxiety disorder, unspecified; Z88.8 Allergy status to other drugs, medicaments and biological substances; Z87.01 Personal history of pneumonia (recurrent); Z88.1 Allergy status to other antibiotic agents; Z91.041 Radiographic dye allergy status; Z98.51 Tubal ligation status; Z82.49 Family history of ischemic heart disease and other diseases of the circulatory system; Z91.14 Patient's other noncompliance with medication regimen; Z79.82 Long term (current) use of aspirin; Z79.52 Long term (current) use of systemic steroids
CPT/HCPCS: 36415; 71045; 80048; 80053; 82550; 82553; 82803; 83036; 83605; 83735; 83880; 84100; 84443; 84484; 85025; 85027; 87040; 87070; 87205; 87641; 93005; 94640; 94660; 99285; A9270-GY; G8978-GP-CI; G8979-GP-CI; G8980-GP-CI; J0153; J0282; J1650; J2543; J2920; J2930; J3475; J7512

== ENCOUNTER 2019-02-01 07:34 | Inpatient (IN) | payer MEDICARE ==
[2019-02-01] MEDS ORDERED: NS 0.9% 1000 ML** 1,000 ML IV ONE (07:48)
[2019-02-01] MEDS ORDERED: Morphine 4 MG/ML VIAL (1 ml) 4 MG/ML VIAL IV ONE (07:49)
[2019-02-01] MEDS ORDERED: Albuterol/Ipratropium NEB.SOL* Albuterol 2.5 MG/Ipratropium 0.5 MG 3 ML INH ONE ×2 (07:49→09:43)
--- NOTE | 2019-02-01 07:59 | ED ---
Abdominal Pain/Female - HPI Summary HPI Summary: This patient is a 73 year old female presenting to [facility] with a chief complaint of abd pain since yesterday morning. Patient states that pain is located on the right side and has been gradually worsening since. The pain is rated 8/10 in severity. Symptoms aggravated by eating food. Symptoms alleviated by nothing. Patient additionally reports bilateral flank pain. - History of Current Complaint Chief Complaint: EDAbdPain Stated Complaint: ABD PAIN PER PT Time Seen by Provider: 02/01/19 07:43 Hx Obtained From: Patient Hx Last Menstrual Period: Years ago. Onset/Duration: Lasting Days, Still Present Timing: Constant Severity Initially: Mild Severity Currently: Moderate Pain Intensity: 8 Pain Scale Used: 0-10 Numeric Location: Discrete At: RLQ Radiates: Yes Radiates to: Flank - bilateral Aggravating Factor(s): Food Alleviating Factor(s): Nothing Associated Signs and Symptoms: Positive: Other: - bilateral flank pain Allergies/Adverse Reactions: Allergies Allergy/AdvReac Type Severity Reaction Status Date / Time Adhesive Tape Allergy Severe RASH, Verified 02/01/19 07:37 ITCHING fluconazole Allergy Severe GI Upset Verified 02/01/19 07:37 doxycycline Allergy Itching Verified 02/01/19 07:37 meperidine Allergy Palpitation Verified 02/01/19 07:37 s yellow dye Allergy Hives Verified 02/01/19 07:37 vilanterol AdvReac Vomiting Verified 02/01/19 07:37 metals Allergy Mild Itching Uncoded 02/01/19 07:37 Home Medications: Home Medications Morphine ORAL CONCENTRATE* 1 ml PO Q4H PRN 02/01/19 [History Confirmed 02/01/19] PMH/Surg Hx/FS Hx/Imm Hx Previously Healthy: No Endocrine/Hematology History: Denies: Hx Diabetes, Hx Thyroid Disease, Hx Anemia, Hx Unexplained Bleeding Cardiovascular History: Reports: Hx Hypercholesterolemia, Hx Hypotension, Hx Hypertension, Other Cardiovascular Problems/Disorders - SVT in ED 05/08/18 Denies: Hx Aneurysm, Hx Angina, Hx Angioplasty, Hx Auto Implanted Cardiovert Defib, Hx Cardiac Arrest, Hx Cardiomegaly, Hx Congenital Heart Disease, Hx Congestive Heart Failure, Hx Coronary Artery Disease, Hx Deep Vein Thrombosis, Hx Embolism, Hx Myocardial Infarction, Hx Pacemaker/ICD, Hx Peripheral Vascular Disease, Hx Rheumatic Fever, Hx Syncope, Hx Valvular Heart Disease Respiratory History: Reports: Hx Asthma, Hx Chronic Obstructive Pulmonary Disease (COPD), Hx Pneumonia - 05/08/18 Denies: Hx Chronic Bronchitis, Hx Cystic Fibrosis, Hx Lung Cancer, Hx Pleural Effusion, Hx Pulmonary Edema, Hx Pulmonary Embolism, Hx Seasonal Allergies, Hx Sleep Apnea, Other Respiratory Problems/Disorders GI History: Reports: Hx Diverticulosis - 05/08/18, Hx Gastroesophageal Reflux Disease, Hx Hiatal Hernia, Hx Irritable Bowel, Other GI Disorders - Inguinal Hernia Denies: Hx Cirrhosis, Hx Crohn's Disease, Hx Gall Bladder Disease, Hx Gastrointestinal Bleed, Hx Jaundice, Hx Obstructive Bowel, Hx Ileostomy, Hx Pyloric Stenosis, Hx Ulcer, Hx Urosepsis History: Denies: Hx Kidney Stones, Hx Renal Disease Musculoskeletal History: Reports: Hx Arthritis - Left knee replacement, Other Musculoskeletal History - Carpal tunnel, Vitamin D deficiency Denies: Hx Osteoporosis Sensory History: Reports: Hx Contacts or Glasses Denies: Hx Deafness, Hx Hearing Aid, Other Sensory Impairments Opthamlomology History: Reports: Hx Contacts or Glasses Denies: Other Sensory Impairments Neurological History: Reports: Other Neuro Impairments/Disorders - intermittent numbness BLE Denies: Hx Dementia, Hx Migraine, Hx Seizures, Hx Transient Ischemic Attacks (TIA) Psychiatric History: Reports: Hx Anxiety Denies: Hx Depression, Hx Schizophrenia, Hx Bipolar Disorder - Surgical History Surgery Procedure, Year, and Place: left knee reconstruction 1977; bilat carpal tunnel; TUBAL LIGATION 1981; right hand bone surgery Hx Anesthesia Reactions: No Infectious Disease History: No Infectious Disease History: Denies: Hx Hepatitis, Hx Human Immunodeficiency Virus (HIV), Hx of Known/ Suspected MRSA - Negative nasal swab 01/17/17, Hx Tuberculosis, History Other Infectious Disease, Traveled Outside the [place] in Last 30 Days - Family History Known Family History: Positive: Cardiac Disease - mother Negative: Hypertension, Diabetes - Social History Alcohol Use: None Hx Substance Use: No Substance Use Type: Reports: None Hx Tobacco Use: Yes Smoking Status (MU): Former Smoker Type: Cigarettes Amount Used/How Often: 3 cigarettes a month Length of Time of Smoking/Using Tobacco: 50 years Have You Smoked in the Last Year: Yes Review of Systems Negative: Fever Positive: Abdominal Pain Positive: flank pain All Other Systems Reviewed And Are Negative: Yes Physical Exam - Summary Physical Exam Summary: Appearance: well appearing, no pain distress Skin: warm, dry, reflects adequate perfusion Head/face: normal Eyes: EOMI, ROD ENT: mucous membranes moist Neck: supple, non-tender Respiratory: Pursed lip breathing, diminished breath sounds, tachypnic. Cardiovascular: RRR, pulses symmetrical Abdomen: No hall's sign, no RUQ tenderness. Left sided inguinal hernia. RLQ point tenderness. Nodule that is tender at Macburney's point. No rebound or guarding Bowel Sounds: present Musculoskeletal: normal, strength/ROM intact Neuro: normal, sensory motor intact, A&Ox3 Triage Information Reviewed: Yes Vital Signs On Initial Exam: Initial Vitals Temp Pulse Resp BP Pulse Ox 96.9 F 86 20 145/90 94 02/01/19 07:38 02/01/19 07:38 02/01/19 07:38 02/01/19 07:38 02/01/19 07:38 Vital Signs Reviewed: Yes Diagnostics - Vital Signs Vital Signs Temp Pulse Resp BP Pulse Ox 02/01/19 07:38 96.9 F 86 20 145/90 94 - Laboratory Result Diagrams: 02/01/19 07:55 02/01/19 07:55 Lab Statement: Any lab studies that have been ordered have been reviewed, and results considered in the medical decision making process. - Additional Comments Diagnostic Additional Comments: US Appendix reveals, per radiologist, IMPRESSION: THE APPENDIX IS NOT VISUALIZED. THERE IS NO FREE OR LOCULATED FLUID WITHIN THE RIGHT LOWER QUADRANT. ED physician has reviewed this radiology report. Re-Evaluation - Re-Evaluation First Eval Re-Evaluation Time: 09:43 Change: Improved Comment: Patient states pain has resolved subjectively. On repeat exam, nodule still exists, but exhibits no real tenderness. Patient states her breathing is better, but she still gets winded when she gets up to go to the bathroom. Will administer steroidal medication and magnesium Abdominal Pain Fem Course/Dx - Course Course Of Treatment: Nurse's notes reviewed. Patient with right lower quadrant abdominal tenderness without fever or nausea/vomiting/diarrhea. She has history of significant COPD and was to Neck with pursed lip breathing as well. She was given breathing treatments which did help subjectively. She was then treated with steroids and magnesium. She felt back to baseline in terms of her breathing and her right lower quadrant pain totally went away. There was a nodule felt very superficial in that area, possibly representing a lymphnode. Ultrasound of the appendix failed to demonstrate the appendix but showed no inflammatory findings in that area. CRP, WBC nonelevated. Treated with antibiotics as well for her COPD. - Diagnoses Differential Diagnosis: Positive: Appendicitis, Bowel Obstruction, Irritable Bowel Syndrome - COPD exacerbation, lymphadenopathy, Ovarian Cyst, Other - Lymphadenopathy Provider Diagnoses: COPD with acute exacerbation, RLQ abdominal pain - Critical Care Time Critical Care Time: 30-74 min - Critical care time is exclusive of separately billed procedures Discharge - Sign-Out/Discharge Documenting (check all that apply): Patient Departure Patient Received Moderate/Deep Sedation with Procedure: No - Discharge Plan Condition: Improved Disposition: HOME Prescriptions: Azithromycin TAB* [Zithromax TAB (Z-KATHY) 250 mg #6 tabs] 2 tab PO .TODAY, THEN 1 DAILY #1 kathy Dexamethasone TAB* [Decadron TAB*] 8 mg PO DAILY #8 tab Patient Education Materials: COPD (Chronic Obstructive Pulmonary Disease) (ED) , Acute Abdominal Pain (ED) Referrals: Farhan Walsh MD [Primary Care Provider] - Additional Instructions: Call first thing Sunday to schedule prompt follow-up with your primary care physician. Do breathing treatments every 4 hours until your breathing is back to baseline. Return with fever, increased pain in the right lower abdomen, vomiting, worse, new symptoms or other concerns. - Billing Disposition and Condition Condition: IMPROVED Disposition: Home - Attestation Statements Document Initiated by Gustabo: Yes Documenting Cristianaibe: Nguyễn Elizabeth Provider For Whom Gustabo is Documenting (Include Credential): Santana Herron MD Scribe Attestation: Nguyễn Whitt scribed for Santana Herron MD on 02/01/19 at 1027. Scribe Documentation Reviewed: Yes Provider Attestation: The documentation as recorded by the Nguyễn hernández accurately reflects the service I personally performed and the decisions made by me, Santana Herron MD Status of Gustabo Document: Viewed
[2019-02-01 08:05] LABS: ABS Basophils 0.1 10^3/ul (0-0.2); ABS Eosinophils 0.2 10^3/ul (0-0.6); ABS Lymphocytes 1.5 10^3/ul (1.0-4.8); ABS Monocytes 0.9 10^3/ul (0-0.8); ABS Neutrophils 4.3 10^3/ul (1.5-7.7); ABS Nucleated RBC 0 10^3/ul; Eosinophil % 2.2 %; Hematocrit 38 % (33-41); Hemoglobin 12.5 g/dL (12.0-16.0); Lymphocyte % 21.3 %; Mean Corpuscular HGB Conc 33 g/dL (31-36); Mean Corpuscular Hemoglobin 28 pg (27-31); Mean Corpuscular Volume 85 fL (80-97); Nucleated Red Blood Cells % 0.1; Platelet Count 386 10^3/uL (150-450); Red Blood Count 4.49 10^6 /uL (3.70-4.87); Red Cell Distribution Width 17 % (10.5-15); White Blood Count 6.9 10^3/uL (3.5-10.8)
[2019-02-01 08:11] LABS: INR 0.96 (0.82-1.09)
[2019-02-01 08:29] LABS: ALT 9 U/L (7-52); AST 16 U/L (13-39); Albumin 3.7 g/dL (3.2-5.2); Alkaline Phosphatase 78 U/L (34-104); Anion Gap 9 mmol/L (2-11); BUN/Creatinine Ratio 15.6 (8-20); Blood Urea Nitrogen 12 mg/dL (6-24); C Reactive Protein < 1.00 mg/L (<8.01); CO2 Carbon Dioxide 28 mmol/L (22-32); Calcium 9.4 mg/dL (8.6-10.3); Chloride 103 mmol/L (101-111); EGFR African American 89.2 (>60); EGFR Non-African American 73.7 (>60); Glucose 90 mg/dL (70-100); Potassium 3.5 mmol/L (3.5-5.0); Sodium 140 mmol/L (135-145)
[2019-02-01 09:00] LABS: Urine Appearance Clear; Urine Bilirubin Negative (Negative); Urine Blood Negative (Negative); Urine Color Colorless; Urine Glucose Negative (Negative); Urine Ketones Negative (Negative); Urine Nitrite Negative (Negative); Urine Protein Negative (Negative); Urine Specific Gravity 1.002 (1.010-1.030); Urine Urobilinogen Negative (Negative)
[2019-02-01 09:27] LABS: Albumin/Globulin Ratio 1.8 (1-3); Globulin 2.1 g/dL (2-4); Total Protein 5.8 g/dL (6.4-8.9)
[2019-02-01] MEDS ORDERED: Dexamethasone IV* 4 MG/ML 1 ML (4 MG) IV SLOW PU ONE (09:42)
[2019-02-01] MEDS ORDERED: Magnesium Sulfate 1 GM IV* 1 GM/100 ML BAG IV ONE (09:42)
[2019-02-01] MEDS ORDERED: Azithromycin 500 mg/250 ml NS 500 MG/250 ML BAG IVPB ONE (10:50)
[2019-02-01] MEDS ORDERED: Albuterol HFA INHALER* 8 gm MDI INH PRN (12:20)
[2019-02-01] MEDS ORDERED: Albuterol 2.5 MG/3 ML NEB.SOL* (0.083%) INH PRN (12:20)
--- NOTE | 2019-02-01 14:44 | HP ---
CC: Dr. Walsh; Dr. Terrazas* HISTORY AND PHYSICAL: DATE OF ADMISSION: 02/01/19 PROVIDER: Melanie Jameson NP. PRIMARY CARE PROVIDER: Dr. Walsh. ATTENDING PHYSICIAN WHILE IN THE HOSPITAL: Dr. Shayne Ferguson* (dictated by Melanie Jameson NP). CHIEF COMPLAINT: Abdominal pain, shortness of breath. HISTORY OF PRESENT ILLNESS: Ms. Willard is a 73-year-old female with a past medical history significant for COPD and SVT, who presented to the emergency room with the complaint of progressively worsening shortness of breath x2 weeks with increased cough and congestion x2 weeks, increased shortness of breath with exertion x2 weeks, and chills x2 to 3 days. She also reports increased sputum production as well as a dry cough. She reports increased work of breathing. The patient initially reported to the emergency room today with right lower quadrant abdominal pain. She reports that this has completely resolved since presentation to the emergency room and she no longer has any pain. She did have an ultrasound of her right lower quadrant that did not show any acute process. While in the emergency room, the patient ambulated to the bathroom, became extremely short of breath and hypoxic on room air. O2 saturations dropped to 84 %. Due to extreme shortness of breath and hypoxia we were asked to see and evaluate her for admission. PAST MEDICAL HISTORY: Significant for: 1. SVT. 2. GERD. 3. Hypertension. 4. COPD. PAST SURGICAL HISTORY: 1. Left knee reconstruction. 2. Bilateral carpal tunnel. 3. Tubal ligation. MEDICATIONS: Home Medications: 1. Aspirin 81 mg p.o. daily. 2. Prednisone 20 mg p.o. daily. She increased her dose approximately 30 days ago, prior to that she was on 10 mg p.o. daily. 3. Lipitor 40 mg p.o. daily. 4. Albuterol HFA inhaler 2 puffs q.4 hours as needed for wheezing. 5. Albuterol nebulizer q.4 hours p.r.n. wheezing. 6. Vitamin D 1000 units p.o. daily. 7. Cardizem 240 mg p.o. daily. 8. Colace 100 mg p.o. daily. 9. Lasix 20 mg p.o. daily. 10. Ibuprofen q.6 hours as needed for pain. 11. Atrovent q.4 hours as needed for wheezing. 12. Dulera 200/5 at 2 puffs inhaled b.i.d. 13. Zantac 150 mg b.i.d., the patient reports she has not been taking this. 14. Lorazepam 1 tablet every 4 to 6 hours as needed for anxiety, shortness of breath. SOCIAL HISTORY: The patient currently lives with her Arturo. She is a former smoker, she quit smoking approximately 3 months ago. Prior to that she smoked 1 to 2 packs a day since the age of 16, but recently in the last year was only smoking approximately 2 cigarettes a day and quit in October 2018. She denies any alcohol use or illicit drug use. Surrogate decision maker in the event she is unable to make her own decision is her Arturo. She is a DNR/DNI. REVIEW OF SYSTEMS: The patient does report chills. Denies any fevers. Denies unintended weight loss or weight gain. Denies chest pain or edema. She does report cough, increased sputum production, and progressively worsening shortness of breath x2 weeks. Denies any nausea, vomiting, or diarrhea. She did have right lower quadrant abdominal pain that has completely resolved. Denies any gross hematuria, dysuria, focal weakness, or sensory loss. She denies any visual complaints. She was having difficulty swallowing solid foods as she felt like it gets caught in her upper epigastric area. She does have a bruise to the top of her right foot that is healing. No rashes. Denies any psychosis or anxiety. PHYSICAL EXAMINATION GENERAL: Ms. Willard is alert and oriented, sitting on the stretcher in the emergency room. She is a thin female, appears her stated age. She does appear to have some mild respiratory distress with exertion. She is able to speak full sentences. VITAL SIGNS: Blood pressure 108/66, heart rate is 86, respirations are 33, O2 saturation 98% on 2 L face mask, temperature was 96.9 HEENT: Head is atraumatic and normocephalic. Eyes: EOMs are intact. Sclerae anicteric and not pale. Oral mucosa appear to be moist. NECK: Supple. There is no JVD. LUNGS: Clear to auscultation. Lungs are very diminished throughout bilaterally with diffuse scattered expiratory wheezes. CARDIAC: S1 and S2. Regular rate and rhythm. No murmurs, rubs, or gallops. ABDOMEN: Flat, soft. No tenderness with palpation. She does have a hernia to her left lower quadrant that is soft. She has no CVA tenderness. She is able to move all 4 extremities. There is no edema, rashes, or cyanosis. NEUROLOGIC: She is awake, alert, and oriented x3. Speech is clear. Thought process is intact. There is no gross focal deficits. LABORATORY DATA AND DIAGNOSTIC STUDIES: WBC are 6.9, RBC is 4.49, hemoglobin 12.5, hematocrit was 38, platelet count was 386. INR of 0.96. Sodium 140, potassium 3.5, chloride 103, carbon-dioxide is 28, anion gap was 9, BUN was 12, creatinine 0.77, glucose was 90, lactic acid 1.1, calcium 9.48. ASTs were 16, ALTs were 9, alkaline phosphatase was 78, C-reactive protein was less than 1. Lipase was 24. Urine was within normal limits; pH was 7.0 and specific gravity was 1.002 which was mildly low. She had a chest x-ray that showed no acute cardiopulmonary disease, COPD. She had an appendix ultrasound. The appendix was not visualized. There is no free or loculated fluid within the right lower quadrant. ASSESSMENT AND PLAN: Ms. Willard is a 73-year-old female with a history of chronic obstructive pulmonary disease, hypertension, supraventricular tachycardia; who presented to the emergency room initially with a complaint of abdominal pain. Her abdominal pain completely resolved. She ambulated to the bathroom, became profoundly short of breath and was found to be hypoxic with O2 saturation of 84%. Due to her hypoxia, we were asked to see and evaluate her for admission. 1. Chronic obstructive pulmonary disease with hypoxic respiratory failure. The patient was given dexamethasone 8 mg in the emergency room and nebulizers. She does continue to be mildly short of breath. She is able to maintain O2 saturations on 2 L face mask at 94% to 96%. I will increase her prednisone to 40 mg p.o. daily. She will have azithromycin antibiotic. We will continue with Karolina or Mary as the patient reports that she has had progressively worsening shortness of breath for 2 weeks with increased sputum production and cough. 2. Abdominal pain. Her abdominal pain is completely resolved at this time. Should the abdominal pain return or become worse, we can reevaluate the patient and make further recommendations on treatment of her abdominal pain. 3. History of supraventricular tachycardia. The patient currently takes Cardizem at home. We will continue Cardizem as previously prescribed. 4. DVT prophylaxis. I will place her on Lovenox subcu. 5. Code status. She is a DNR/DNI. 6. FEN. She can have a regular diet. TIME SPENT: Time spent on this admission was 60 minutes, greater than half that time was spent at the bedside reviewing the events leading thus far to her hospitalization, performing my physical exam, and reviewing my plan of care. I have discussed with my attending Dr. Shayne Ferguson, he is in agreement with my plan. MELANIE JAMESON, ALAYNA [id number]/[facility] #: [id number] LM
[2019-02-01] MEDS: Enoxaparin(*) 30 MG/0.3 ML SYR SUBCUT SCH (15:03)
[2019-02-01] MEDS: Mometasone/Formoter 200/5 MDI INH SCH (19:22)
[2019-02-01] MEDS: Acetaminophen TAB* 325 MG PO PRN (21:48)
[2019-02-01] MEDS: Atorvastatin* 40 MG TAB PO SCH (21:48)
[2019-02-02] MEDS: predniSONE TAB* 20 MG PO SCH (08:12)
[2019-02-02] MEDS: Cholecalciferol TAB* 1000 UNITS PO SCH (08:13)
[2019-02-02] MEDS: Aspirin EC TAB* 81 MG TAB.EC PO SCH (08:13)
[2019-02-02] MEDS: Docusate CAP* 100 MG PO SCH (08:13)
[2019-02-02] MEDS: Diltiazem CD CAP* 240 MG PO SCH (08:13)
[2019-02-02] MEDS: Acetaminophen TAB* 325 MG PO PRN (08:18)
[2019-02-02] MEDS: Mometasone/Formoter 200/5 MDI INH SCH ×2 (09:30→19:36)
[2019-02-02] MEDS: Albuterol/Ipratropium NEB.SOL* Albuterol 2.5 MG/Ipratropium 0.5 MG 3 ML INH PRN ×2 (09:30→19:35)
[2019-02-02] MEDS: Pantoprazole TAB * 40 MG TAB PO SCH (10:13)
[2019-02-02] MEDS: Azithromycin 500 mg/250 ml NS 500 MG/250 ML BAG IVPB SCH (12:23)
[2019-02-02] MEDS: Enoxaparin(*) 30 MG/0.3 ML SYR SUBCUT SCH (12:23)
--- NOTE | 2019-02-02 15:58 | PN ---
Subjective Date of Service: 02/02/19 Interval History: Patient had significant dyspnea walking to the bathroom yesterday. Has known COPD. Admitted w/ abdo pain yesterday, RUQ pain has resolved. Family History: Unchanged from Admission Social History: Unchanged from Admission Past Medical History: Unchanged from Admission Objective Active Medications: Acetaminophen (Tylenol Tab*) 650 mg PO Q4H PRN PRN Reason: FEVER/PAIN Last Admin: 02/02/19 08:18 Dose: 650 mg Albuterol (Ventolin 2.5 Mg/3 Ml Neb.Tiesha*) 2.5 mg INH Q4H PRN PRN Reason: SHORTNESS OF BREATH Last Admin: 02/01/19 17:43 Dose: 2.5 mg Albuterol (Ventolin Hfa Inhaler*) 2 puff INH Q4H PRN PRN Reason: SHORTNESS OF BREATH Albuterol/Ipratropium (Duoneb (Albuterol 2.5 Mg/Ipratropium 0.5 Mg)) 1 neb INH [id number] AWAKE PRN PRN Reason: sob/wheexing Last Admin: 02/02/19 09:30 Dose: 1 neb Aspirin (Aspirin Ec Tab*) 81 mg PO DAILY [facility] Last Admin: 02/02/19 08:13 Dose: 81 mg Atorvastatin Calcium (Lipitor*) 40 mg PO 2100 [facility] Last Admin: 02/01/19 21:48 Dose: 40 mg Cholecalciferol (Vitamin D Tab*) 1,000 units PO DAILY [facility] Last Admin: 02/02/19 08:13 Dose: 1,000 units Diltiazem HCl (Cardizem Cd Cap*) 240 mg PO DAILY [facility] Last Admin: 02/02/19 08:13 Dose: 240 mg Docusate Sodium (Colace Cap*) 100 mg PO DAILY [facility] Last Admin: 02/02/19 08:13 Dose: 100 mg Enoxaparin Sodium (Lovenox(*)) 30 mg SUBCUT Q24H [facility] Last Admin: 02/02/19 12:23 Dose: 30 mg Azithromycin (Zithromax 500 Mg/250 Ml) 500 mg in 250 mls @ 250 mls/hr IVPB Q24H [facility] Last Admin: 02/02/19 12:23 Dose: 250 mls/hr Mometasone Furoate/Formoterol Fumar (Dulera 200/5 Mdi*) 2 puff INH BID [facility] Last Admin: 02/02/19 09:30 Dose: 2 puff Pantoprazole Sodium (Protonix Tab*) 40 mg PO DAILY [facility] Last Admin: 02/02/19 10:13 Dose: 40 mg Prednisone (Deltasone Tab*) 40 mg PO DAILY [facility] Last Admin: 02/02/19 08:12 Dose: 40 mg Vital Signs - 8 hr 02/02/19 02/02/19 02/02/19 08:00 09:31 10:50 Temperature 36.9 C Pulse Rate 85 104 Respiratory 20 20 24 Rate Blood Pressure 115/87 (mmHg) O2 Sat by Pulse 99 98 Oximetry Oxygen Devices in Use Now: Simple Face Mask, OxyMask Appearance: alert, no distress Eyes: No Scleral Icterus Ears/Nose/Mouth/Throat: Clear Oropharnyx Neck: No Thyroid Enlargement, Masses Respiratory: Symmetrical Chest Expansion and Respiratory Effort, - - diminished Cardiovascular: NL Sounds; No Murmurs; No JVD, RRR Abdominal: NL Sounds; No Tenderness; No Distention, No Hepatosplenomegaly Lymphatic: No Cervical Adenopathy Neurological: Alert and Oriented x 3 Lines/Tubes/Other Access: Clean, Dry and Intact Peripheral IV Nutrition: Taking PO's Result Diagrams: 02/01/19 07:55 02/01/19 07:55 Microbiology and Other Data: Microbiology 02/01/19 23:15 Gram Stain - Final Sputum Expectorated Assess/Plan/Problems-Billing Assessment: 73 year old woman with COPD, admitted with abdominal pain, hypoxia, COPD exacerbation - Patient Problems (1) COPD exacerbation Current Visit: No Status: Acute Priority: Medium Code(s): J44.1 - CHRONIC OBSTRUCTIVE PULMONARY DISEASE W (ACUTE) EXACERBATION SNOMED Code(s): 785294594 Comment: -reasonable air entry, on 40 po prednisone daily -continue Dulera, Duoneb, and albuterol prn -continue azithromycin (2) Abdominal pain Current Visit: No Status: Acute Priority: Medium Code(s): R10.9 - UNSPECIFIED ABDOMINAL PAIN SNOMED Code(s): 00805952 Comment: - Resolved. Has had BM and is tolerating oral intake well. - Suspect reflective of patient's chronic constipation and IBS. (3) DVT prophylaxis Current Visit: No Status: Acute Priority: Low Code(s): KTK9512 - SNOMED Code(s): 694590781 Comment: -Continue Lovenox SQ Status and Disposition: inpatient, will consider discharge tomorrow on O2
[2019-02-02] MEDS ORDERED: Morphine ORAL CONCENTRATE* 5 MG/0.25 ML ORAL.SYRIN PO PRN (20:21)
[2019-02-02] MEDS: Atorvastatin* 40 MG TAB PO SCH (20:37)
[2019-02-03] MEDS: Mometasone/Formoter 200/5 MDI INH SCH (07:55)
[2019-02-03] MEDS: Diltiazem CD CAP* 240 MG PO SCH (08:22)
[2019-02-03] MEDS: Pantoprazole TAB * 40 MG TAB PO SCH (08:22)
[2019-02-03] MEDS: Docusate CAP* 100 MG PO SCH (08:22)
[2019-02-03] MEDS: Aspirin EC TAB* 81 MG TAB.EC PO SCH (08:22)
[2019-02-03] MEDS: Cholecalciferol TAB* 1000 UNITS PO SCH (08:22)
[2019-02-03] MEDS: predniSONE TAB* 20 MG PO SCH (08:23)
[2019-02-03] MEDS: Azithromycin 500 mg/250 ml NS 500 MG/250 ML BAG IVPB SCH (10:25)
[2019-02-03 11:32] VITALS: BP 128/69
[2019-02-03] MEDS: Albuterol/Ipratropium NEB.SOL* Albuterol 2.5 MG/Ipratropium 0.5 MG 3 ML INH PRN (12:53)
--- NOTE | 2019-02-04 16:08 | DS ---
CC: Dr. Walsh; Dr. Sabine Sandoval, [facility], [facility] DISCHARGE SUMMARY: DATE OF ADMISSION: 02/01/19 DATE OF DISCHARGE: 02/03/19 PRIMARY DIAGNOSIS: Chronic obstructive pulmonary disease exacerbation. SECONDARY DIAGNOSES: 1. Abdominal pain, right lower quadrant. 2. History of supraventricular tachycardia. 3. Gastroesophageal reflux disease. 4. Hypertension. 5. Chronic obstructive pulmonary disease without home oxygen dependence. 6. Hyperlipidemia. MEDICATIONS ON DISCHARGE: 1. Albuterol inhaler 2 puffs q.4 hours p.r.n. wheezing. 2. Albuterol nebulizer as an alternative q.4 hours p.r.n. wheezing. 3. Aspirin 81 mg p.o. q. day. 4. Atorvastatin 40 mg p.o. q.h.s. 5. Vitamin D 1000 units p.o. q. day. 6. Diltiazem ER 240 mg p.o. q. day. 7. Colace 100 mg p.o. q. day. 8. Ibuprofen 600 mg p.o. q.6 hours p.r.n. pain. 9. Ipratropium HFA 2 puffs inhaled t.i.d. 10. Lorazepam 0.5 mg four times a day p.r.n. 11. Morphine sulfate oral concentrate 5 mg/0.25 mL, take 1 mL p.o. sublingual q.4 hours p.r.n. for s hortness of breath. 12. Ranitidine 150 mg p.o. b.i.d. 13. Acetaminophen 650 mg p.o. q.4 hours p.r.n. fever. 14. Azithromycin 250 mg p.o. q. day for 4 days. 15. Furosemide 20 mg p.o. q. day. 16. Mometasone/formoterol 200/5 two puffs inhaled b.i.d. 17. Prednisone 40 mg p.o. q. day for 4 days, then 30 mg p.o. q. day for 2 days, then 20 mg p.o. q. d ay for 2 days, then 10 mg q. day ongoing. PROCEDURES: None. CONSULTATIONS: None. HOSPITAL COURSE: A 73-year-old woman with a history of COPD, who presents to the emergency [facility] with abdominal pain. The patient's abdominal pain was worked up with the ultrasound of her appendi x, which was negative. The patient's abdominal pain resolved spontaneously overnight and did not rec ur soon after the workup was planned. She had normal white count, no anemia. Normal liver function tests. Normal lipase. Normal CRP. The patient was admitted because of COPD exacerbation with hypoxia down to 84% and severe exercise in tolerance. The patient was treated with IV and then oral glucocorticoids, antibiotics empirically fo r pneumonia, and her nebulizers. We also continued her inhaled steroids. Chest x-ray on 02/01/19 sh owed only COPD, no infiltrates. The patient improved over the next 2 days, was able to walk to the b athroom with some dyspnea, was able to maintain her sats above 90% on room air and with ambulation. At home, she has had overnight oxygen testing and stayed in the upper 90s overnight as well, so she d id not qualify for oxygen. Tests pending upon discharge: She did provide a sputum sample on 02/02/19 that showed neutrophils, e pithelial cells, and 3+ gram positive cocci. The sputum culture is pending at the hour of discharge. ACTIVITY: Should be as tolerated. She is expected to have exercise limitations due to her chronic C OPD. FOLLOWUP: Followup should be with her primary care office within a week and with the [facility] on a monthly basis. DIET: Should be regular diet. CONDITION: Stable at discharge. STATUS: Inpatient. TIME SPENT: I spent greater than 35 minutes coordinating care with the patient's discharge and compl eting necessary paper work and arranging followup for the patient. [id number]/[place] #: [id number]
== END 2019-02-03 15:00 | disposition home or self-care (01) | DRG 191 ==
LOC: ED 07:34 → MED 12:14 → OBSVTOIN 02-02 12:53
PROVIDERS: ADMIT Internal Medicine; ATTEND Internal Medicine
DX: J44.1 Chronic obstructive pulmonary disease with (acute) exacerbation (principal); I47.1 Supraventricular tachycardia; Z99.81 Dependence on supplemental oxygen; R10.31 Right lower quadrant pain; K21.9 Gastro-esophageal reflux disease without esophagitis; I10 Essential (primary) hypertension; E78.5 Hyperlipidemia, unspecified; Z79.1 Long term (current) use of non-steroidal anti-inflammatories (NSAID); Z79.82 Long term (current) use of aspirin; Z79.51 Long term (current) use of inhaled steroids; Z79.52 Long term (current) use of systemic steroids; Z79.899 Other long term (current) drug therapy; Z87.891 Personal history of nicotine dependence
CPT/HCPCS: 36415; 71045; 76705; 80053; 81003; 83605; 83690; 83880; 85025; 85610; 86140; 87070; 87077; 87186; 87205; 94640; 99284; A9270-GY; G0378; J0456; J1100; J1650; J2270; J3475; J7512

== ENCOUNTER 2019-02-06 19:38 | Observation (INO) | payer MEDICARE ==
[2019-02-06] MEDS ORDERED: Diltiazem DRIP* 100 MG/100 ML ADDV.BAG IVPB ONE (20:06)
[2019-02-06] MEDS ORDERED: Diltiazem IV push/loading dose 5 MG/ML 5 ML vial (25 mg) IV SLOW PU ONE (20:06)
[2019-02-06] MEDS ORDERED: Diltiazem IV push/loading dose 5 MG/ML 5 ML vial (25 mg) ONE (20:06)
--- NOTE | 2019-02-06 20:16 | ED ---
Palpitations / Dysrhythmia - HPI Summary HPI Summary: Pt is a 73 y/o F presenting to the ED with a chief complaint of tachycardia. She was d/leeanne from here on 02/03/19 for abdominal pain. On 02/04/19, she experienced a bout of tachycardia, which she also experienced all day today. She reports chest pain and shortness of breath when she has these episodes, as well as dizziness and anxiety. Nothing makes it worse or alleviates it; it simply comes on out of the blue, regardless of activity, and it spontaneously resolves. She notes she has not taken any of her daily medications today. - History of Current Complaint Chief Complaint: EDShortnessOfBreath Time Seen by Provider: 02/06/19 19:58 Hx Obtained From: Patient Onset/Duration: Sudden Onset, Lasting Minutes, Still Present Timing: Intermittent Episodes Lasting: - minutes at a time Severity Initially: Moderate Severity Currently: Severe Character: Fast, Irregular Aggravating: Nothing Alleviating: Nothing Associated Signs & Symptoms: Dizzy, Chest Pain, Shortness of Breath - Allergy/Home Medications Allergies/Adverse Reactions: Allergies Allergy/AdvReac Type Severity Reaction Status Date / Time Adhesive Tape Allergy Severe RASH, Verified 02/01/19 07:37 ITCHING fluconazole Allergy Severe GI Upset Verified 02/01/19 07:37 doxycycline Allergy Itching Verified 02/01/19 07:37 meperidine Allergy Palpitation Verified 02/01/19 07:37 s yellow dye Allergy Hives Verified 02/01/19 07:37 vilanterol AdvReac Vomiting Verified 02/01/19 07:37 metals Allergy Mild Itching Uncoded 02/01/19 07:37 PMH/Surg Hx/FS Hx/Imm Hx Previously Healthy: No Endocrine/Hematology History: Denies: Hx Diabetes, Hx Thyroid Disease, Hx Anemia, Hx Unexplained Bleeding Cardiovascular History: Reports: Hx Hypercholesterolemia, Hx Hypotension, Hx Hypertension, Other Cardiovascular Problems/Disorders - SVT in ED 05/08/18 Denies: Hx Aneurysm, Hx Angina, Hx Angioplasty, Hx Auto Implanted Cardiovert Defib, Hx Cardiac Arrest, Hx Cardiomegaly, Hx Congenital Heart Disease, Hx Congestive Heart Failure, Hx Coronary Artery Disease, Hx Deep Vein Thrombosis, Hx Embolism, Hx Myocardial Infarction, Hx Pacemaker/ICD, Hx Peripheral Vascular Disease, Hx Rheumatic Fever, Hx Syncope, Hx Valvular Heart Disease Respiratory History: Reports: Hx Asthma, Hx Chronic Obstructive Pulmonary Disease (COPD), Hx Pneumonia - 05/08/18 Denies: Hx Chronic Bronchitis, Hx Cystic Fibrosis, Hx Lung Cancer, Hx Pleural Effusion, Hx Pulmonary Edema, Hx Pulmonary Embolism, Hx Seasonal Allergies, Hx Sleep Apnea, Other Respiratory Problems/Disorders GI History: Reports: Hx Diverticulosis - 05/08/18, Hx Gastroesophageal Reflux Disease, Hx Hiatal Hernia, Hx Irritable Bowel, Other GI Disorders - Inguinal Hernia Denies: Hx Cirrhosis, Hx Crohn's Disease, Hx Gall Bladder Disease, Hx Gastrointestinal Bleed, Hx Jaundice, Hx Obstructive Bowel, Hx Ileostomy, Hx Pyloric Stenosis, Hx Ulcer, Hx Urosepsis History: Denies: Hx Kidney Stones, Hx Renal Disease Musculoskeletal History: Reports: Hx Arthritis - Left knee replacement, Other Musculoskeletal History - Carpal tunnel, Vitamin D deficiency Denies: Hx Osteoporosis Sensory History: Reports: Hx Contacts or Glasses Denies: Hx Deafness, Hx Hearing Aid, Other Sensory Impairments Opthamlomology History: Reports: Hx Contacts or Glasses Denies: Other Sensory Impairments Neurological History: Reports: Other Neuro Impairments/Disorders - intermittent numbness BLE Denies: Hx Dementia, Hx Migraine, Hx Seizures, Hx Transient Ischemic Attacks (TIA) Psychiatric History: Reports: Hx Anxiety Denies: Hx Depression, Hx Schizophrenia, Hx Bipolar Disorder - Surgical History Surgery Procedure, Year, and Place: left knee reconstruction 1977; bilat carpal tunnel; TUBAL LIGATION 1981; right hand bone surgery Hx Anesthesia Reactions: No Infectious Disease History: No Infectious Disease History: Denies: Hx Hepatitis, Hx Human Immunodeficiency Virus (HIV), Hx of Known/ Suspected MRSA - Negative nasal swab 01/17/17, Hx Tuberculosis, History Other Infectious Disease, Traveled Outside the [place] in Last 30 Days - Family History Known Family History: Positive: Cardiac Disease - mother Negative: Hypertension, Diabetes - Social History Alcohol Use: None Hx Substance Use: No Substance Use Type: Reports: None Hx Tobacco Use: Yes Smoking Status (MU): Former Smoker Type: Cigarettes Amount Used/How Often: 3 cigarettes a month Length of Time of Smoking/Using Tobacco: 50 years Have You Smoked in the Last Year: Yes Review of Systems Positive: Palpitations, Chest Pain Positive: Shortness Of Breath Neurological: Other - dizziness Positive: Anxious All Other Systems Reviewed And Are Negative: Yes Physical Exam - Summary Physical Exam Summary: Appearance: The patient is a slight woman who is in no acute distress and in no acute pain. Skin: The skin is warm and dry and skin color reflects adequate perfusion. HEENT: The head is normocephalic and atraumatic. The pupils are equal and reactive. The conjunctivae are clear and without drainage. Nares are patent and without drainage. Mouth reveals moist mucous membranes and the throat is without erythema and exudate. The external ears are intact. The ear canals are patent and without drainage. The tympanic membranes are intact. Neck: The neck is supple with full range of motion and non-tender. There are no carotid bruits. There is no neck vein distension. Respiratory: Chest is non-tender. Lungs are clear to auscultation and breath sounds are somewhat decreased, but symmetrical and equal. Cardiovascular: Heart is irregular. There is no murmur or rub auscultated. There is no peripheral edema and pulses are symmetrical and equal. There is an increased AP diameter in chest. Abdomen: The abdomen is soft and non-tender. There are normal bowel sounds heard in all four quadrants and there is no organomegaly palpated. Musculoskeletal: There is no back tenderness noted. Extremities are non-tender with full range of motion. There is good capillary refill. There is no peripheral edema or calf tenderness elicited. Neurological: Patient is alert and oriented to person, place and time. The patient has symmetrical motor strength in all four extremities. Cranial nerves are grossly intact. Deep tendon reflexes are symmetrical and equal in all four extremities. Psychiatric: The patient has an appropriate affect and does not exhibit any anxiety or depression. Triage Information Reviewed: Yes Vital Signs On Initial Exam: Initial Vitals Temp Pulse Resp BP Pulse Ox 98.2 F 120 24 123/90 96 02/06/19 19:39 02/06/19 19:39 02/06/19 19:39 02/06/19 19:39 02/06/19 19:39 Vital Signs Reviewed: Yes Diagnostics - Vital Signs Vital Signs Temp Pulse Resp BP Pulse Ox 02/06/19 19:39 98.2 F 120 24 123/90 96 - Laboratory Result Diagrams: 02/06/19 20:10 02/06/19 20:10 Lab Statement: Any lab studies that have been ordered have been reviewed, and results considered in the medical decision making process. - EKG 1950 Cardiac Rate: Tachycardia - 108bpm EKG Rhythm: Sinus Tachycardia ST Segment: Normal Ectopy: None Summary of EKG Findings: EKG at 1950 shows sinus tachycardia at 108bpm. Course/Dx - Course Course Of Treatment: Ms. Willard presented to the emergency department complaining she has been having episodes of rapid heart rate accompanied by shortness of breath and dizziness on and off all day. She is very symptomatic with them but they have not lasted very long. She was put on the monitor and had time to see that her heart rate was regular prior to her going into a narrow complex tachycardia of about 200. She was feeling very faint and short of breath with it but did not have chest pain and remained conscious. An IV had been established and she was given a Cardizem bolus which slowed her down and revealed the underlying rhythm was likely SVT. She converted to a sinus rhythm with frequent PACs and her workup revealed an indeterminant troponin of 0.09 as well as a lactic acidosis. She was given fluids and the hospitalist service was contacted for admission. - Diagnoses Provider Diagnoses: SVT (supraventricular tachycardia) - Critical Care Time Critical Care Time: 30-74 min Discharge - Sign-Out/Discharge Documenting (check all that apply): Patient Departure - Discharge Plan Condition: Stable Disposition: ADMITTED TO [facility] Referrals: Farhan Walsh MD [Primary Care Provider] - - Billing Disposition and Condition Condition: STABLE Disposition: Admitted to [facility] - Attestation Statements Document Initiated by Gustabo: Yes Documenting Scribe: Ammy Brown Provider For Whom Gustabo is Documenting (Include Credential): Cisco Hinojosa MD. Scribe Attestation: IAmmy, scribed for Cisco Hinojosa MD. on 02/06/19 at 2136. Scribe Documentation Reviewed: Yes Provider Attestation: The documentation as recorded by the Ammy hernández accurately reflects the service I personally performed and the decisions made by me, Cisco Hinojosa MD. Status of Scribe Document: Viewed Consult Consult: 2115 - I spoke with Dr. Tovar who will be accepting the pt to [facility] [place] with a dx of SVT.
[2019-02-06 20:21] LABS: ABS Lymphocytes 2.6 10^3/ul (1.0-4.8); ABS Monocytes 1.4 10^3/ul (0-0.8); ABS Neutrophils 6.4 10^3/ul (1.5-7.7); Eosinophil % 0.5 %; Hematocrit 43 % (35-47); Hemoglobin 13.9 g/dL (12.0-16.0); Mean Corpuscular HGB Conc 33 g/dL (31-36); Mean Corpuscular Hemoglobin 28 pg (27-31); Mean Corpuscular Volume 85 fL (80-97); Mean Platelet Volume 6.3 fL (7.4-10.4); Nucleated Red Blood Cells % 0.1; Platelet Count 481 10^3/uL (150-450); Red Blood Count 5.02 10^6 /uL (3.70-4.87); Red Cell Distribution Width 17 % (10.5-15); White Blood Count 10.5 10^3/uL (3.5-10.8)
[2019-02-06 20:28] LABS: INR 0.94 (0.82-1.09)
[2019-02-06 20:40] LABS: ALT 89 U/L (7-52); AST 50 U/L (13-39); Albumin 4.2 g/dL (3.2-5.2); Albumin/Globulin Ratio 1.8 (1-3); Alkaline Phosphatase 105 U/L (34-104); Anion Gap 12 mmol/L (2-11); BUN/Creatinine Ratio 19.6 (8-20); Blood Urea Nitrogen 20 mg/dL (6-24); CO2 Carbon Dioxide 28 mmol/L (22-32); Calcium 9.8 mg/dL (8.6-10.3); Chloride 101 mmol/L (101-111); EGFR African American 64.5 (>60); EGFR Non-African American 53.3 (>60); Globulin 2.3 g/dL (2-4); Glucose 150 mg/dL (70-100); Potassium 3.2 mmol/L (3.5-5.0); Sodium 141 mmol/L (135-145); Total Protein 6.5 g/dL (6.4-8.9)
[2019-02-06 20:44] LABS: Troponin I 0.09 ng/mL (<0.04)
[2019-02-06 21:06] LABS: TSH (Thyroid Stimulating Horm) 20.51 mcIU/mL (0.34-5.60)
--- NOTE | 2019-02-06 21:36 | ADMNOTE ---
Subjective Date of Service: 02/06/19 Interval History: HISTORY AND PHYSICAL PCP: Jillian CC: palpitations HPI: Patient is a 73 year old woman with history of COPD and SVT who had an episode of chest tightness the day prior to admission. This was associated with palpitations and shortness of breath, and resolved with as-needed morphine that she has at home. The same tightness returned this morning and lasted all day. She has moderate chest pain, waxing and waning all day, with palpitations, dyspnea. Denies nausea/vomiting or diaphoresis. She also has severe COPD at baseline, with intractable dyspnea on exertion. She was just in the hospital, discharged 02/03, with a COPD exacerbation. She was discharged on azithromycin and prednisone. In ER today had episode of SVT on monitor. This resolved after diltiazem bolus, never required a diltiazem drip. 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, quit smoking 3 months ago, no alcohol or drug use Past Medical History: Findings - SVT, paroxysmal atrial fibrillation, GERD, hiatal hernia, hypertension, VitD deficiency, LT inguinal hernia; PSH: LT knee replacement, bilateral carpal tunnel repair, tubal ligation Review of Systems - Measurements Intake and Output: Intake and Output Last 24 Hours 02/04/19 02/05/19 02/06/19 02/07/19 06:59 06:59 06:59 06:59 Weight 46.72 kg - Review of Systems Constitutional Symptoms: Negative: Weight Gain, Weight Loss Dermatology: Positive: Normal HEENT: Positive: Normal Eyes: Positive: Normal Thyroid: Positive: Normal Pulmonary: Positive: Shortness of Breath, COPD, Exercise Intolerance Negative: Sputum, Home Oxygen Cardiology: Positive: Chest Pain, Shortness of Breath, Palpitations Negative: Swelling of Ankles, Syncope, Orthopnoea Gastroenterology: Positive: Normal Genital - Urinary: Positive: Normal Genitourinay - Female: Positive: Menopause Musculoskeletal: Negative: Joint Pain Endocrinology: Positive: Normal Hematologic/Lymphatic: Negative: Anemia Neurology: Positive: Normal Psychiatry: Positive: Normal Objective Active Medications: Home Medications: Albuterol 2.5MG/3ML (0.083%)* [Ventolin 2.5 MG/3 ML NEB.KJ*] 2.5 mg INH Q4H PRN 04/23/18 Aspirin EC TAB* [Ecotrin EC Low Dose 81 MG*] 81 mg PO DAILY 04/23/18 Ipratropium HFA INHALER(NF) [Atrovent Hfa Inhaler(NF)] 2 puff INH TID Cholecalciferol TAB* [Vitamin D TAB*] 1,000 unit PO DAILY #0 05/08/18 Docusate CAP* [Colace Cap*] 100 mg PO DAILY 06/20/18 Ibuprofen TAB* [Motrin TAB* 600 MG] 600 mg PO Q6H PRN 06/20/18 dilTIAZem HCl [Cartia Xt] 240 mg PO DAILY 06/20/18 Albuterol HFA INHALER* [Ventolin HFA Inhaler*] 2 puff INH Q4H PRN 08/09/18 Atorvastatin* [Lipitor 40 MG*] 40 mg PO DAILY 08/09/18 Ranitidine TAB (NF) [Zantac TAB (NF)] 150 mg PO BID 08/09/18 Furosemide TAB* [Lasix TAB*] 20 mg PO DAILY #4 tab 08/15/18 Mometasone/Formoter 200/5 MDI* [Dulera 200/5 MDI*] 2 puff INH BID #1 mdi 08/15 LORazepam [Lorazepam] 1 tab PO SEE INSTRUCTIONS 02/01/19 Morphine ORAL CONCENTRATE* 5 mg PO Q4H PRN oral.syrin 02/03/19 Azithromycin 250 mg po qd Prednisone 40 mg po qd (taper) Vital Signs - 8 hr 02/06/19 19:39 Temperature 36.8 C Pulse Rate 120 Respiratory 24 Rate Blood Pressure 123/90 (mmHg) O2 Sat by Pulse 96 Oximetry Oxygen Devices in Use Now: Nasal Cannula Appearance: alert, no distress Eyes: No Scleral Icterus Ears/Nose/Mouth/Throat: Clear Oropharnyx Neck: NL Appearance and Movements; NL JVP, Trachea Midline Respiratory: Clear to Auscultation, - - very diminished throughout Cardiovascular: NL Sounds; No Murmurs; No JVD, RRR, No Edema Abdominal: NL Sounds; No Tenderness; No Distention, No Hepatosplenomegaly Lymphatic: No Cervical Adenopathy Extremities: No Edema Skin: No Rash or Ulcers Neurological: Alert and Oriented x 3 Lines/Tubes/Other Access: Clean, Dry and Intact Peripheral IV Result Diagrams: 02/06/19 20:10 02/06/19 20:10 Additional Lab and Data: Laboratory Tests 02/06/19 02/06/19 02/06/19 20:10 20:10 20:10 INR (Anticoag Therapy) 0.94 Glucose 150 H Lactic Acid 2.9 H* AST 50 H ALT 89 H Alkaline Phosphatase 105 H Troponin I 0.09 H* TSH 20.51 H Diagnostic Imaging: CXR: hyperinflation EKG Data: Telemetry strips; narrow complex SVT at 150 EKG: sinus tachycardia 110 bpm Assess/Plan/Problems-Billing Assessment: 73 year old woman with severe COPD, here with episodes of SVT, chest pain - Patient Problems (1) Chest pain Current Visit: Yes Status: Acute Priority: High Code(s): R07.9 - CHEST PAIN, UNSPECIFIED SNOMED Code(s): 51615495 Comment: -Patient has chest discomfort and elevated troponin -Will observe on telemetry, plan stress test later in day if troponin not significantly elevated (2) COPD (chronic obstructive pulmonary disease) Current Visit: Yes Status: Acute Priority: Medium Code(s): J44.9 - CHRONIC OBSTRUCTIVE PULMONARY DISEASE, UNSPECIFIED SNOMED Code(s): 39204052 Comment: -Continue prednisone taper and azithromycin -Continue outpatient nebulizers, inhalers -patient feels better with 02 supplementation (3) DNR (do not resuscitate) Current Visit: Yes Status: Acute Priority: Medium Comment: -Discussed code status with patient, she elects to have DNR -MOLST updated (4) DVT prophylaxis Current Visit: Yes Status: Acute Priority: Low Code(s): KSP2976 - SNOMED Code(s): 253754254 Comment: -heparin SQ (5) SVT (supraventricular tachycardia) Current Visit: Yes Status: Acute Priority: Medium Code(s): I47.1 - SUPRAVENTRICULAR TACHYCARDIA SNOMED Code(s): 3320986 Comment: -Brief strips captued on telemetry show narrow complex, quite regular -Continue Diltiazem PO -Monitor on telemetry -Adding low-dose beta-jane, will need to observe for wheezing Status and Disposition: observation
[2019-02-06] MEDS ORDERED: Albuterol 2.5 MG/3 ML NEB.SOL* (0.083%) INH PRN (21:53)
[2019-02-06] MEDS ORDERED: Morphine ORAL CONCENTRATE* 5 MG/0.25 ML ORAL.SYRIN PO PRN (21:53)
[2019-02-06] MEDS ORDERED: Ibuprofen TAB* 600 MG PO PRN (21:53)
[2019-02-06] MEDS ORDERED: Albuterol HFA INHALER* 8 gm MDI INH PRN (21:53)
[2019-02-06] MEDS ORDERED: Acetaminophen TAB* 325 MG PO PRN (21:53)
[2019-02-06] MEDS ORDERED: LORazepam TAB(*) 0.5 MG PO PRN (22:00)
[2019-02-06] MEDS ORDERED: Potassium Chlor TAB* 20 MEQ TAB.ER PO ONE (22:35)
[2019-02-06 23:28] LABS: Troponin I 0.08 ng/mL (<0.04)
[2019-02-06] MEDS: Metoprolol Tartrate TAB* 25 MG PO SCH (23:44)
[2019-02-06] MEDS: Heparin VIAL(*) 5000 UNITS/ML VIAL (FIVE THOUSAND) SUBCUT SCH (23:44)
[2019-02-07 02:42] LABS: Troponin I 0.08 ng/mL (<0.04)
[2019-02-07] MEDS: Heparin VIAL(*) 5000 UNITS/ML VIAL (FIVE THOUSAND) SUBCUT SCH ×2 (05:22→12:34)
[2019-02-07] MEDS ORDERED: Levothyroxine TAB* 50 MCG TAB PO SCH (06:00)
[2019-02-07 06:33] LABS: BUN/Creatinine Ratio 23.9 (8-20); EGFR African American 72.6 (>60); Potassium 3.5 mmol/L (3.5-5.0)
[2019-02-07] MEDS ORDERED: Spiriva Inhaler DEVICE* 1 EACH DEVICE INH ONE (09:00)
[2019-02-07] MEDS ORDERED: Furosemide TAB* 20 MG PO SCH (09:00)
[2019-02-07] MEDS ORDERED: Diltiazem CD CAP* 240 MG PO SCH (09:00)
[2019-02-07] MEDS ORDERED: Aspirin EC TAB* 81 MG TAB.EC PO SCH (09:00)
[2019-02-07] MEDS ORDERED: Cholecalciferol TAB* 1000 UNITS PO SCH (09:00)
[2019-02-07] MEDS ORDERED: Mometasone/Formoter 200/5 MDI INH SCH (09:00)
[2019-02-07] MEDS ORDERED: Famotidine TAB* 20 MG PO SCH (09:00)
[2019-02-07] MEDS ORDERED: Docusate CAP* 100 MG PO SCH (09:00)
[2019-02-07] MEDS ORDERED: Tiotropium CAP.INH* CAP.INH/18 MCG (USE ORDER SET !) INH SCH (09:00)
[2019-02-07] MEDS ORDERED: Azithromycin TAB* 250 MG PO SCH (09:00)
[2019-02-07] MEDS ORDERED: Ipratropium HFA INHALER(NF) (ALTERNATIVE = NEBS) INH SCH (09:00)
[2019-02-07] MEDS ORDERED: predniSONE TAB* 20 MG PO SCH (09:00)
[2019-02-07] MEDS ORDERED: Potassium Chlor TAB* 10 MEQ TAB.ER PO SCH (09:00)
[2019-02-07] MEDS ORDERED: Regadenoson* 0.4 MG/5 ML SYRINGE ONE (11:07)
[2019-02-07] MEDS: Metoprolol Tartrate TAB* 25 MG PO SCH (12:35)
[2019-02-07 15:42] VITALS: BP 126/71
[2019-02-07] MEDS ORDERED: Atorvastatin* 40 MG TAB PO SCH (21:00)
--- NOTE | 2019-02-07 23:20 | DS ---
CC: Dr. Walsh.* DISCHARGE SUMMARY: DATE OF ADMISSION: 02/06/19 DATE OF DISCHARGE: 02/07/19 PRIMARY CARE PROVIDER: Dr. Walsh. PRINCIPAL DIAGNOSES: 1. Supraventricular tachycardia. 2. Noncardiac chest pain. SECONDARY DIAGNOSES: 1. Chronic obstructive pulmonary disease. 2. Hyperlipidemia. DISCHARGE MEDICATIONS: 1. Cartia XT 240 mg p.o. daily. 2. Ranitidine 150 mg p.o. b.i.d. 3. Morphine oral concentrate 5 mg p.o. q.4 hours p.r.n., shortness of breath. 4. Dulera 200/5 two puffs inhaled twice daily. 5. Ativan 0.5 mg p.o. q.4 hours p.r.n., anxiety or shortness of breath. 6. Atrovent 2 puff inhaled t.i.d. 7. Ibuprofen 600 mg p.o. q.6 hours p.r.n. pain. 8. Lasix 20 mg p.o. daily. 9. Colace 100 mg p.o. daily. 10. Vitamin D 1000 units p.o. daily. 11. Lipitor 40 mg p.o. daily. 12. Aspirin 81 mg p.o. daily. 13. Albuterol 2 puffs inhaled q.4 hours p.r.n., shortness of breath. 14. Albuterol 1 neb inhaled q.4 hours p.r.n., shortness of breath. 15. Tylenol 650 mg p.o. q.4 hours p.r.n. pain. 16. Azithromycin 250 mg p.o. daily x3 more doses. 17. Prednisone taper to be completed as prescribed during the last hospitalization. 18. Metoprolol tartrate 12.5 mg p.o. q.12 hours (new). 19. Levothyroxine 50 mcg p.o. daily (new). HOSPITAL COURSE: Ms. Willard is a 73-year-old female, who was recently hospitalized from 02/02/19 to 02/03/19 with COPD exacerbation. The patient had been home for a couple of days when she developed an episode of chest tightness the day prior to admission. It was associated with palpitations and shortness of breath. It resolved with p.r.n. morphine that she had at home. The same tightness returned on the morning of admission and lasted all day. The chest pain waxed and waned all day. She also had associated palpitations. In the ER , she was found to have SVT on the monitor. She received a diltiazem bolus, which controlled the heart rate. She was subsequently started on low dose metoprolol in addition to her usual Cartia XT. In terms of the chest pain, the patient did have a first troponin elevated at 0.09; this trended down to 0.08. I suspect the troponin elevation is on the basis of her SVT and severe underlying COPD. Because of the chest pain, the patient was admitted to the hospital for rule out SD. She underwent nuclear stress test on the day of discharge which revealed photopenia of the inferior wall that resolves with attenuation correction. There are otherwise no definite fixed or reversible perfusion defects. The patient had no issues on telemetry. Currently, the patient is feeling quite well. She had no chest pain on the day of discharge. The patient had been initially using supplemental oxygen when she arrived to the hospital; however, has been off oxygen essentially all day today and has been feeling that her breathing is stable. PHYSICAL EXAMINATION: On the day of discharge, the patient is awake, alert, and oriented, sitting up in bed, in no acute distress. Blood pressure is 130/55 , pulse 70, respirations 18, temp 97.6, O2 sat 94% on room air. General: The patient is a well-developed elderly female, seen sitting on the edge of the bed in no acute distress. Cardiac: Normal S1, S2. Regular rate and rhythm. I do not appreciate any murmurs. There is trace ankle edema. Pulmonary: Breath sounds are decreased in all lung crane, but clear. Abdomen: Bowel sounds are present. FOLLOWUP CONCERNS: The patient is being discharged home today, 02/07/19. Activity level is as tolerated. Diet is heart healthy. CONDITION ON DISCHARGE: Stable. TIME SPENT: Thirty five minutes was spent discharging this patient. [id number]/[facility] #: [id number] MTDD
== END 2019-02-07 16:21 | disposition home or self-care (01) ==
LOC: ED 19:38 → MEDTELE 21:51
PROVIDERS: ADMIT Internal Medicine; ATTEND Internal Medicine
DX: I47.1 Supraventricular tachycardia (principal); R07.9 Chest pain, unspecified; J44.9 Chronic obstructive pulmonary disease, unspecified; E78.5 Hyperlipidemia, unspecified; Z79.82 Long term (current) use of aspirin; Z66 Do not resuscitate; R42 Dizziness and giddiness; I10 Essential (primary) hypertension; E78.00 Pure hypercholesterolemia, unspecified; Z96.652 Presence of left artificial knee joint; Z87.891 Personal history of nicotine dependence
CPT/HCPCS: 36415; 71045; 78452; 80048; 80053; 83605; 83735; 84443; 84484; 85025; 85610; 93005; 93017; 94640; 96372; 96374; 96375; 99284; A9270-GY; A9502; G0378; J1644; J2785; J7512

== ENCOUNTER 2019-07-07 09:37 | Day surgery (SDC) | payer MEDICARE, OTHER ==
[~2019-07-07 09:37] MED LIST: Buffered Lidocaine 1% SYRIN* 1 ML/SYRINGE INTRADERM ONE
[2019-07-07] MEDS ORDERED: Ketorolac 0.5% OPHTH (NF) 0.5 % 5 ML BTL ONE (10:34)
[2019-07-07] MEDS ORDERED: Neomycin/Polymy/Dex OPHTH.OIN* 3.5 GM ONE (10:34)
[2019-07-07] MEDS ORDERED: Lidocaine 1% MPF ** 5 ML VIAL ONE (10:34)
[2019-07-07] MEDS ORDERED: Cyclopentolate 1% OPTH.SOL* 2 ML BTL ONE (10:34)
[2019-07-07] MEDS ORDERED: Tropicamide 1% OPTH.SOL* BTL ONE (10:34)
[2019-07-07] MEDS ORDERED: Tetracaine 0.5% OPTH.SOL 4 ML* 1 DROP BTL ONE (10:34)
[2019-07-07] MEDS ORDERED: Povidone Iodine 5% OPTH* 30 ML BTL ONE (10:34)
[2019-07-07] MEDS ORDERED: acetaZOLAMIDE TAB* 250 MG ONE (10:34)
[2019-07-07] MEDS ORDERED: Phenylephrine OPHTH SOL 2.5%* 2 ML ONE (10:34)
[2019-07-07] MEDS ORDERED: Midazolam* 1 MG/ML 2 ML VIAL (2 MG) ONE (10:43)
[2019-07-07 12:12] VITALS: BP 126/50
--- NOTE | 2019-07-07 22:09 | OP ---
DATE OF OPERATION: 07/07/19 - [facility] DATE OF : 47 SURGEON: Ace Gruber MD. ANESTHESIA: Monitored anesthesia care. PREOPERATIVE DIAGNOSIS: Cataract, right eye. POSTOPERATIVE DIAGNOSIS: Cataract, right eye. OPERATIVE PROCEDURE: Extracapsular cataract extraction of the right eye with intraocular lens implant. IMPLANT: SN60WF 21.5 diopter lens to the right eye. COMPLICATIONS: None. DESCRIPTION OF PROCEDURE: The patient was given phenylephrine 2.5 % and cyclopentolate 1% eye drops to the operative eye in the preoperative area. The patient was taken to the operating room where a time-out was taken to identify the correct patient, site, and side of surgery. The patient's right eye was prepped and draped in the usual sterile fashion with 5% Betadine. A second time- out was taken to verify the correct patient, side, and site of surgery, as well as the correct lens implant. A lid speculum was placed to the right eye. A 1mm paracentesis blade was used to make a clear corneal incision. Preservative-free 1% lidocaine was injected into the anterior chamber. DisCoVisc was then injected into the anterior chamber. A 2.75 mm keratome blade was used to make a triplanar incision. A cystotome initiated a capsulorrhexis, which was completed with Utrata forceps in a continuous and curvilinear manner. Hydrodissection of the lens was performed with BSS on a cannula. The lens could be spun in a capsular bag. The phacoemulsification handpiece was used with a divide-and- conquer technique to remove the nucleus. The I/A handpiece then removed the residual cortical lens material. DisCoVisc was injected to inflate the capsular bag. The planned SN60WF 21.5 diopter lens was injected into the capsular bag. The residual DisCoVisc was removed from the eye with the I/A handpiece. The corneal incisions were hydrated and no leaks occurred at physiologic pressure around 20 mmHg per palpation. The lid speculum was removed and drapes were removed. Maxitrol ointment was placed to the surface of the operative eye. An adhesive patch and shield was then placed on the operative eye. The patient was taken to the postoperative area in stable condition. [id number]/[facility] #: [id number] [facility]
== END 2019-07-07 12:13 | disposition home or self-care (01) ==
LOC: OREAST 09:37
PROVIDERS: ATTEND Student in an Organized Health Care Education/Training Program
DX: H25.813 Combined forms of age-related cataract, bilateral (principal); H47 Other disorders of optic [2nd] nerve and visual pathways; J44.9 Chronic obstructive pulmonary disease, unspecified; R00.0 Tachycardia, unspecified; I10 Essential (primary) hypertension; E78.00 Pure hypercholesterolemia, unspecified; Z79.82 Long term (current) use of aspirin; Z87.891 Personal history of nicotine dependence
CPT/HCPCS: A9270-GY; J2250; V2632

== ENCOUNTER 2019-07-14 12:44 | Day surgery (SDC) | payer MEDICARE, OTHER ==
[~2019-07-14 12:44] MED LIST changes: -Buffered Lidocaine 1% SYRIN* 1 ML/SYRINGE INTRADERM ONE; +Cyclopentolate 1% OPTH.SOL* 2 ML BTL ONE; +Ketorolac 0.5% OPHTH (NF) 0.5 % 5 ML BTL ONE; +Lidocaine 1% MPF ** 5 ML VIAL ONE; +Neomycin/Polymy/Dex OPHTH.OIN* 3.5 GM ONE; +Phenylephrine OPHTH SOL 2.5%* 2 ML ONE; +Povidone Iodine 5% OPTH* 30 ML BTL ONE; +Tetracaine 0.5% OPTH.SOL 4 ML* 1 DROP BTL ONE; +Tropicamide 1% OPTH.SOL* BTL ONE; +acetaZOLAMIDE TAB* 250 MG ONE
[2019-07-14] MEDS ORDERED: Midazolam* 1 MG/ML 2 ML VIAL (2 MG) ONE (14:02)
[2019-07-14 15:28] VITALS: BP 139/57
--- NOTE | 2019-07-15 01:24 | OP ---
DATE OF OPERATION: 07/14/19 - [facility] DATE OF : 47 SURGEON: Ace Gruber MD ANESTHESIA: Monitored anesthesia care. PREOPERATIVE DIAGNOSIS: Cataract, left eye. POSTOPERATIVE DIAGNOSIS: Cataract, left eye. OPERATIVE PROCEDURE: Extracapsular cataract extraction of the left eye with intraocular lens implant. IMPLANT: SN60WF 21.0 diopter lens to the left eye. COMPLICATIONS: None. DESCRIPTION OF PROCEDURE: The patient was given phenylephrine 2.5 % and cyclopentolate 1% eye drops to the operative eye in the preoperative area. The patient was taken to the operating room where a time-out was taken to identify the correct patient, site, and side of surgery. The patient's left eye was prepped and draped in the usual sterile fashion with 5% Betadine. A second time- out was taken to verify the correct patient, side, and site of surgery, as well as the correct lens implant. A lid speculum was placed to the left eye. A 1mm paracentesis blade was used to make a clear corneal incision. Preservative-free 1% lidocaine was injected into the anterior chamber. DisCoVisc was then injected into the anterior chamber. A 2.75 mm keratome blade was used to make a triplanar incision. A cystotome initiated a capsulorrhexis, which was completed with Utrata forceps in a continuous and curvilinear manner. Hydrodissection of the lens was performed with BSS on a cannula. The lens could be spun in a capsular bag. The phacoemulsification handpiece was used with a divide-and- conquer technique to remove the nucleus. The I/A handpiece then removed the residual cortical lens material. DisCoVisc was injected to inflate the capsular bag. The planned SN60WF 21.0 diopter lens was injected into the capsular bag. The residual DisCoVisc was removed from the eye with the I/A handpiece. The corneal incisions were hydrated and no leaks occurred at physiologic pressure around 20 mmHg per palpation. The lid speculum was removed and drapes were removed. Maxitrol ointment was placed to the surface of the operative eye. An adhesive patch and shield was then placed on the operative eye. The patient was taken to the postoperative area in stable condition. [id number]/[facility] #: [id number] [facility]
== END 2019-07-14 15:22 | disposition home or self-care (01) ==
LOC: OREAST 12:44
PROVIDERS: ATTEND Student in an Organized Health Care Education/Training Program
DX: H25.812 Combined forms of age-related cataract, left eye (principal); H47 Other disorders of optic [2nd] nerve and visual pathways; Z87.891 Personal history of nicotine dependence; J44.9 Chronic obstructive pulmonary disease, unspecified; E78.00 Pure hypercholesterolemia, unspecified; R00.0 Tachycardia, unspecified; I11.0 Hypertensive heart disease with heart failure; M19.90 Unspecified osteoarthritis, unspecified site; I27.81 Cor pulmonale (chronic); I50.32 Chronic diastolic (congestive) heart failure; R60.0 Localized edema; K21.9 Gastro-esophageal reflux disease without esophagitis
CPT/HCPCS: A9270-GY; J2250; V2632

== ENCOUNTER 2019-10-22 13:50 | Emergency (ER) | payer MEDICARE, OTHER ==
[2019-10-22] MEDS ORDERED: NS 0.9% 1000 ML** 1,000 ML IV ONE (14:07)
[2019-10-22] MEDS ORDERED: Metoprolol Tartrate IV* 1 MG/ML 5 ML VIAL IV ONE (14:11)
--- NOTE | 2019-10-22 14:11 | ED ---
Respiratory - HPI Summary HPI Summary: 74 y/o female presented to [facility] for SOB that began today, 10/22/19 at 1000. Pt notes a cough with sputum and denies a fever or cold symptoms. She was tachycardic initially as well as in the room. Pt has Hx of COPD but no UT or heart failure. - History of Current Complaint Chief Complaint: EDDysrhythmPalp Stated Complaint: HIGH HR, SOB PER PT Time Seen by Provider: 10/22/19 13:57 Hx Obtained From: Patient Onset/Duration: Lasting Hours, Still Present Current Severity: None Pain Intensity: 0 Character: Cough (Productive) Aggravating Factor(s): Nothing Alleviating Factor(s): Oxygen Associated Signs and Symptoms: SOB - Allergy/Home Medications Allergies/Adverse Reactions: Allergies Allergy/AdvReac Type Severity Reaction Status Date / Time Adhesive Tape Allergy Severe RASH, Verified 10/22/19 15:54 ITCHING, tears off skin doxycycline Allergy Severe Itching Verified 10/22/19 15:54 fluconazole Allergy Severe GI Upset Verified 10/22/19 15:54 meperidine Allergy Severe Palpitation Verified 10/22/19 15:54 s yellow dye Allergy Intermediate Hives Verified 10/22/19 15:54 vilanterol AdvReac Severe Vomiting Verified 10/22/19 15:54 metals Allergy Mild Itching Uncoded 07/14/19 13:18 Home Medications: Home Medications Ibuprofen TAB* [Advil TAB*] 200 mg PO Q6H PRN 10/22/19 [History Confirmed ] Ipratropium 0.5MG/2.5ML NEB* [Atrovent 0.5 MG NEB.KJ*] 0.5 mg INH Q6H PRN 10/22 [History Confirmed 10/22/19] Mometasone/Formoter 100/5 MDI* [Dulera 100/5 MDI*] 1 puff INH BID 10/22/19 [ History Confirmed 10/22/19] Morphine Sulfate 20 mg PO DAILY PRN 10/22/19 [History Confirmed 10/22/19] PMH/Surg Hx/FS Hx/Imm Hx Endocrine/Hematology History: Denies: Hx Diabetes, Hx Thyroid Disease, Hx Anemia, Hx Unexplained Bleeding Cardiovascular History: Reports: Hx Hypercholesterolemia, Hx Hypotension, Hx Hypertension, Other Cardiovascular Problems/Disorders - SVT in ED 05/08/18 Denies: Hx Aneurysm, Hx Angina, Hx Angioplasty, Hx Auto Implanted Cardiovert Defib, Hx Cardiac Arrest, Hx Cardiomegaly, Hx Congenital Heart Disease, Hx Congestive Heart Failure, Hx Coronary Artery Disease, Hx Deep Vein Thrombosis, Hx Embolism, Hx Myocardial Infarction, Hx Pacemaker/ICD, Hx Peripheral Vascular Disease, Hx Rheumatic Fever, Hx Syncope, Hx Valvular Heart Disease Respiratory History: Reports: Hx Asthma, Hx Chronic Obstructive Pulmonary Disease (COPD), Hx Pneumonia - 05/08/18 Denies: Hx Chronic Bronchitis, Hx Cystic Fibrosis, Hx Lung Cancer, Hx Pleural Effusion, Hx Pulmonary Edema, Hx Pulmonary Embolism, Hx Seasonal Allergies, Hx Sleep Apnea, Other Respiratory Problems/Disorders GI History: Reports: Hx Diverticulosis - 05/08/18, Hx Gastroesophageal Reflux Disease, Hx Hiatal Hernia, Hx Irritable Bowel, Other GI Disorders - Inguinal Hernia Denies: Hx Cirrhosis, Hx Crohn's Disease, Hx Gall Bladder Disease, Hx Gastrointestinal Bleed, Hx Jaundice, Hx Obstructive Bowel, Hx Ileostomy, Hx Pyloric Stenosis, Hx Ulcer, Hx Urosepsis History: Denies: Hx Kidney Stones, Hx Renal Disease Musculoskeletal History: Reports: Hx Arthritis - Left knee replacement, Other Musculoskeletal History - Carpal tunnel, Vitamin D deficiency Denies: Hx Osteoporosis Sensory History: Reports: Hx Cataracts, Hx Contacts or Glasses Denies: Hx Deafness, Hx Hearing Aid, Other Sensory Impairments Opthamlomology History: Reports: Hx Cataracts, Hx Contacts or Glasses Denies: Other Sensory Impairments Neurological History: Reports: Hx Headaches, Other Neuro Impairments/Disorders - intermittent numbness BLE Denies: Hx Dementia, Hx Migraine, Hx Seizures, Hx Transient Ischemic Attacks (TIA) Psychiatric History: Reports: Hx Anxiety Denies: Hx Depression, Hx Schizophrenia, Hx Bipolar Disorder - Cancer History Hx Chemotherapy: No - Surgical History Surgery Procedure, Year, and Place: left knee reconstruction 1977; bilat carpal tunnel; TUBAL LIGATION 1981; right hand bone surgery Hx Anesthesia Reactions: No Infectious Disease History: No Infectious Disease History: Denies: Hx Hepatitis, Hx Human Immunodeficiency Virus (HIV), Hx of Known/ Suspected MRSA - Negative nasal swab 01/17/17, Hx Tuberculosis, History Other Infectious Disease, Traveled Outside the [place] in Last 30 Days - Family History Known Family History: Positive: Cardiac Disease - mother Negative: Hypertension, Diabetes - Social History Alcohol Use: None Hx Substance Use: No Substance Use Type: Reports: None Hx Tobacco Use: Yes Smoking Status (MU): Former Smoker Type: Cigarettes Amount Used/How Often: 3 cigarettes a month Length of Time of Smoking/Using Tobacco: 50 years Have You Smoked in the Last Year: Yes Review of Systems Positive: Other - negative cold symptoms. Negative: Fever Positive: Other - tachycardia Positive: Cough - w sputum All Other Systems Reviewed And Are Negative: Yes Physical Exam - Summary Physical Exam Summary: Constitutional: Well-developed, Well-nourished, Alert. (+) mild respiratory distress Skin: Warm, Dry HENT: Normocephalic; Atraumatic Eyes: Conjunctiva normal Neck: Musculoskeletal ROM normal neck. (-) JVD, (-) Stridor, (-) Tracheal deviation Cardio: Rhythm regular, tachycardic, Heart sounds normal; Intact distal pulses; The pedal pulses are 2+ and symmetric. Radial pulses are 2+ and symmetric. (-) Murmur Pulmonary/Chest wall: Effort normal. (+) mild respiratory distress, (-) Wheezes , (-) Rales, decreased air movement Abd: Soft, (-) tenderness, (-) Distension, (-) Guarding, (-) Rebound Musculoskeletal: (-) Edema Lymph: (-) Cervical adenopathy Neuro: Alert, Oriented x3 Psych: Mood and affect Normal Triage Information Reviewed: Yes Vital Signs On Initial Exam: Initial Vitals Temp Pulse Resp BP Pulse Ox 98.2 F 163 18 152/101 98 10/22/19 13:52 10/22/19 13:52 10/22/19 13:52 10/22/19 13:52 10/22/19 13:52 Vital Signs Reviewed: Yes Procedures - Sedation Patient Received Moderate/Deep Sedation with Procedure: No Diagnostics - Vital Signs Vital Signs Temp Pulse Resp BP Pulse Ox 10/22/19 13:52 98.2 F 163 18 152/101 98 - Laboratory Result Diagrams: 10/22/19 14:13 10/22/19 14:13 Lab Statement: Any lab studies that have been ordered have been reviewed, and results considered in the medical decision making process. - Radiology cxr Radiology Interpretation Completed By: Radiologist Summary of Radiographic Findings: IMPRESSION: NO EVIDENCE FOR ACTIVE CARDIOPULMONARY DISEASE. This report was reviewed by the ED physician. - EKG 1406 Cardiac Rate: Tachycardia EKG Rhythm: Atrial Fibrillation Summary of EKG Findings: Afib with RVR at 148bpm. Dr. Hart has reviewed and interpreted this EKG 1514 Cardiac Rate: NL EKG Rhythm: Sinus Rhythm Summary of EKG Findings: NSR at 82bpm. No ischemic changes. Dr. Hart has reviewed and interpreted this EKG Disposition - Course Course Of Treatment: 74 y/o female presented to [facility] for SOB that began today, 10/22/19 at 1000. Pt notes a cough with sputum and denies a fever or cold symptoms. She was tachycardic initially as well as in the room. Exam found tachycardia and mild respiratory distress. Bloodwork showed WBC H, MPV L, abs neuts H, abs lymphs L, abs monos H, Glc H, and total protein L. EKG at 1406 showed Afib with RVR at 148bpm. EKG at 1514 showed NSR at 82bpm. No ischemic changes. X-ray chest showed NO EVIDENCE FOR ACTIVE CARDIOPULMONARY DISEASE. Pt was given 1 neb INH Duoneb, 5mg IV Lopressor, and 1L IV NaCl. Pt was diagnosed with Afib with RVR as well as COPD, and discharged to home. ED workup negative for ACS. Tachycardia resolved, repeat EKG revealed normal sinus rhythm. Patient ambulate around ED, mild/moderate respiratory distress however O2 sat remained above 90% on room air. Patient apparently assessed multiple times in the past for supplemental home O2 therapy, however does not qualify. Patient comfortable with being discharged home. His PCP for follow- up. - Diagnoses Provider Diagnoses: Atrial fibrillation with RVR, COPD (chronic obstructive pulmonary disease) Discharge ED - Sign-Out/Discharge Documenting (check all that apply): Patient Departure - dc - Discharge Plan Condition: Stable Disposition: HOME Patient Education Materials: A-fib (Atrial Fibrillation) (ED), COPD (Chronic Obstructive Pulmonary Disease) (ED) Referrals: Farhan Walsh MD [Primary Care Provider] - Additional Instructions: Follow up with your primary care physician in 1-2 days. If you experience new or worsening symptoms please return to the ER. - Billing Disposition and Condition Condition: STABLE Disposition: Home - Attestation Statements Document Initiated by Scribe: Yes Documenting Scribe: Ariel Loving Provider For Whom Scribe is Documenting (Include Credential): Pedro Hart DO Scribe Attestation: IAriel, scribed for Pedro Hart DO on 10/22/19 at 2055. Scribe Documentation Reviewed: Yes Provider Attestation: The documentation as recorded by the scribeAriel accurately reflects the service I personally performed and the decisions made by me, Pedro Hart DO Status of Scribe Document: Viewed
[2019-10-22 14:22] LABS: ABS Eosinophils 0.1 10^3/ul (0-0.6); ABS Lymphocytes 0.8 10^3/ul (1.0-4.8); ABS Neutrophils 10.5 10^3/ul (1.5-7.7); Eosinophil % 0.8 %; Hematocrit 40 % (35-47); Hemoglobin 13.6 g/dL (12.0-16.0); Lymphocyte % 6.8 %; Mean Corpuscular HGB Conc 34 g/dL (31-36); Mean Corpuscular Hemoglobin 29 pg (27-31); Mean Corpuscular Volume 87 fL (80-97); Mean Platelet Volume 5.9 fL (7.4-10.4); Platelet Count 329 10^3/uL (150-450); Red Blood Count 4.63 10^6 /uL (3.70-4.87); Red Cell Distribution Width 15 % (10-15); White Blood Count 12.5 10^3/uL (3.5-10.8)
[2019-10-22 14:37] LABS: Albumin 4.2 g/dL (3.2-5.2); BUN/Creatinine Ratio 14.1 (8-20); EGFR African American 72.4 (>60); EGFR Non-African American 59.8 (>60); Globulin 2.1 g/dL (2-4); Total Bilirubin 0.6 mg/dL (0.2-1.0); Total Protein 6.3 g/dL (6.4-8.9)
[2019-10-22 14:39] LABS: Troponin I 0.02 ng/mL (<0.03)
--- OUTSIDE RECORDS SUMMARY | 2019-10-22 14:49 | XMS REPORT | Continuity of Care Document ---
:1945 External Reference #:[id number] Author Name Donovan Lucas MD, FACS (transmitted by agent of provider Jose Lucas) Address [address] [place] [address] Care Team Providers Name Role Phone Laura Lagos N.P. - Nurse Care Team Information Forest Pathology Associate Professor [phone] Practitioner Farhan Walsh MD - Internal Care Team Information Forest Pathology Associate Professor [phone] Medicine Problems Active Problems Provider Date Chronic obstructive lung disease Juani Leos M.D., FACP Onset: 03/30/2011 Hyperlipidemia Juani Leos M.D., FACP Onset: 03/30/2011 Chronic obstructive pulmonary disease Beth Sharp NP Onset: 10/2017 with (acute) exacerbation Irritable bowel syndrome characterized Beth Sharp NP Onset: by constipation Essential hypertension Beth Sharp NP Onset: 05/08/2018 Paroxysmal atrial fibrillation Beth Sharp NP Onset: 05/08/2018 Left upper quadrant pain Lore Mascorro N.Ashley. 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 Recreational Drug Use Denies Drug Use Tobacco Use Start: Unknown Patient is a former Quit 02/2019 End: Unknown smoker Smoking Status Reviewed: 10/10/19 Patient is a former Quit 02/2019 smoker Exercise Type/Frequency Does not exercise Limited by difficulty breathing Exercise Type/Frequency Exercises rarely Allergies, Adverse Reactions, Alerts Active Allergies Reaction Severity Comments Date Demerol heart palpitations Moderate 03/30/2011 Yellow Dye (non-tartrazine) Mild Only in clothing 03/30/2011 Tape 03/30/2016 Doxycycline 03/30/2016 Breo Ellipta 03/30/2016 Powder Inhalers 05/14/2019 Inactive Allergies Ipratropium Only in combination with albuterol 03/30/2016 Medications Active Medications SIG Qnty Indications Ordering Date Provider Flutter use as instructed 1units J44.9 Dania Mk, 05/14/2019 Device twice a day Morphine Sulfate ER take one tablet by Unknown mouth every 12 100mg Tablets ER hours as directed maximum daily dose 2 Tramadol HCL Unknown 50mg Tablets Tizanidine HCL Daisy, 4mg Sabi, STOCKKEEPER Tablets Lorazepam Farhan Walsh, 0.5mg Tablets Stool Softener 3 by mouth per day Unknown 100mg Capsules Tums 2 by mouth per day Unknown 750mg Chewtabs Ipratropium [place] Inhale 1 Vial Via Unknown Nebulizer Every 4 0.02% Solution Hours as Needed For Wheeze Short Breath Atrovent HFA 2 by mouth three Farhan Walsh, 17mcg/Act times per day Aerosol Dulera 2 puff twice a day Unknown 200-5mcg/Act Aerosol Prednisone 1 by mouth one Farhan Walsh, 10mg Tablets time per day Vitamin D3 1 by mouth every Unknown 1000Unit day Tablets Ventolin HFA 2 puffs by mouth Unknown four times a day 108(90Base) mcg/Act as needed Aerosol Albuterol Sulfate 1 vial via Unknown nebulizer 4 times (2.5mg/3ML) 0.083% daily as needed Nebulizer Atorvastatin Calcium 1 by mouth every Unknown day 40mg Tablets Cardizem CD 1 by mouth every Unknown 240mg Caps day ER 24HR Ibuprofen one tab [id number] 90tabs Unknown 600mg Tablets prn Immunizations CPT Code Status Date Vaccine Lot # [id number] Given 01/07/2014 Pneumonia Vaccine [id number] Given 01/22/2009 Tetanus And Diptheria (Td) For Adult Use Preservative Free Vital Signs Date Vital Result Comment 10/10/2019 10:51am Height 63 inches 5'3" Weight 97.00 lb Heart Rate 72 /min BP Systolic 90 mmHg BP Diastolic 54 mmHg Respiratory Rate 16 /min Body Temperature 97.4 F BMI (Body Mass Index) 17.2 kg/m2 05/14/2019 8:39am Height 63 inches 5'3" Weight 103.00 lb Heart Rate 66 /min BP Systolic Sitting 116 mmHg Lue regular cuff BP Diastolic Sitting 74 mmHg Lue regular cuff Respiratory Rate 12 /min O2 % BldC Oximetry 97 % BMI (Body Mass Index) 18.2 kg/m2 Results Description No Information Available Procedures Date Code Description Status 09/11/2017 138650840 Bone Mineral Density Test Completed 03/12/2014 [id number] Colonoscopy Completed 02/03/2009 [id number] Bone Mineral Density Test Completed 02/03/2009 [id number] Mammogram Completed 01/02/2003 [id number] Colonoscopy Completed Medical Devices Description No Information Available Encounters Type Date Location Provider Dx Diagnosis Office Visit 05/14/2019 Pulmonology And Dania Terrazas, R06.02 Shortness of 9:00a [facility] J44.9 Chronic obstructive pulmonary disease, unspecified Assessments Date Code Description Provider 10/10/2019 K40.90 Unilateral inguinal hernia, without Donovan Lucas MD, FACS obstruction or gangrene, not specified as recurrent 05/14/2019 R06.02 Shortness of breath Dania Terrazas MD 05/14/2019 J44.9 Chronic obstructive pulmonary disease, Dania Terrazas MD unspecified Plan of Treatment Future Appointment(s):11/27/2019 3:00 pm - Donovan Lucas MD, FACS at [facility]10/22/2019 1:30 pm - Lala Becker NP at [facility]11/18/2019 3:15 pm - Donovan Lucas MD, FACS at [facility]10/10/2019 - Donovan Lucas MD, [id number] Unilateral inguinal hernia, without obstruction or gangrene, not specified as recurrentRecommendations:open surgical repair of left inguinal hernia with mesh. Functional Status Description No Information Available Mental Status Description No Information Available Referrals Description No Information Available
[2019-10-22 15:02] LABS: TSH (Thyroid Stimulating Horm) 1.96 mcIU/mL (0.34-5.60)
[2019-10-22] MEDS ORDERED: Albuterol/Ipratropium NEB.SOL* Albuterol 2.5 MG/Ipratropium 0.5 MG 3 ML INH ONE (16:13)
[2019-10-22 16:53] VITALS: BP 142/76
== END 2019-10-22 16:52 | disposition home or self-care (01) ==
LOC: ED 13:50
DX: I48.91 Unspecified atrial fibrillation (principal); J44.9 Chronic obstructive pulmonary disease, unspecified; I10 Essential (primary) hypertension; E78.00 Pure hypercholesterolemia, unspecified; Z88.1 Allergy status to other antibiotic agents; Z88.8 Allergy status to other drugs, medicaments and biological substances; Z91.048 Other nonmedicinal substance allergy status; Z96.652 Presence of left artificial knee joint; Z87.891 Personal history of nicotine dependence
CPT/HCPCS: 36415; 71045; 80053; 83735; 84443; 84484; 85025; 93005; 96360; 96361; 99283; A9270-GY

== ENCOUNTER 2019-11-18 07:35 | Day surgery (SDC) | payer MEDICARE, OTHER ==
[~2019-11-18 07:35] MED LIST changes: +Buffered Lidocaine 1% SYRIN* 1 ML/SYRINGE INTRADERM ONE; -Cyclopentolate 1% OPTH.SOL* 2 ML BTL ONE; -Ketorolac 0.5% OPHTH (NF) 0.5 % 5 ML BTL ONE; +Lactated Ringers 1000 ML Bag* 1,000 ML IV SCH; -Lidocaine 1% MPF ** 5 ML VIAL ONE; -Neomycin/Polymy/Dex OPHTH.OIN* 3.5 GM ONE; -Phenylephrine OPHTH SOL 2.5%* 2 ML ONE; -Povidone Iodine 5% OPTH* 30 ML BTL ONE; -Tetracaine 0.5% OPTH.SOL 4 ML* 1 DROP BTL ONE; -Tropicamide 1% OPTH.SOL* BTL ONE; -acetaZOLAMIDE TAB* 250 MG ONE
[2019-11-18] MEDS ORDERED: ceFAZolin 2 GM in NS PREMIX(*) 2 GM/100 ML BAG IVPB ONE (08:01)
[2019-11-18] MEDS ORDERED: Heparin VIAL(*) 5000 UNITS/ML VIAL (FIVE THOUSAND) ONE (08:04)
[2019-11-18] MEDS ORDERED: oxyCODONE TAB* 5 MG TAB PO PRN (08:45)
[2019-11-18] MEDS ORDERED: Naloxone* 0.4 MG/ML 1 ML VIAL IV PRN (08:45)
[2019-11-18] MEDS ORDERED: fentaNYL* 50 MCG/ML 2 ML VIAL (100 MCG VIAL) IV PRN (08:45)
[2019-11-18] MEDS ORDERED: Metoclopramide IV* 5 MG/ML 2 ML VIAL IV PRN (08:45)
[2019-11-18] MEDS ORDERED: Lidocaine 1% INJ* 10 MG/ML 30 ML SDV ONE (09:28)
[2019-11-18] MEDS ORDERED: Bupivacaine 0.5%* 50 ML MDV VIAL ONE (09:28)
[2019-11-18] MEDS ORDERED: Midazolam* 1 MG/ML 2 ML VIAL (2 MG) ONE (09:35)
[2019-11-18] MEDS ORDERED: Levalbuterol HFA INHALER* 1 PUFF MDI ONE (09:45)
[2019-11-18] MEDS ORDERED: Lidocaine 2% PF * 5 ML VIAL ONE (09:50)
[2019-11-18] MEDS ORDERED: Propofol* 10 MG/ML 20 ML BTL ONE ×2 (09:50→09:53)
--- NOTE | 2019-11-18 10:40 | BRIEFOPN ---
Brief Operative/Procedure Note - Operation Details Pre-Op Diagnosis: Left inguinal hernia Post-Op Diagnosis: Left inguinal hernia Procedures: Open left inguinal hernia repair with mesh Surgeon(s)/Proceduralists: Dr. Del Toro. Assist: ANALI Middleton Anesthesia: MAC Estimated Blood Loss: <20cc Findings: As above Specimen(s)/Culture(s) Description: None Complications: None
[2019-11-18 11:04] VITALS: BP 144/71
[2019-11-18] MEDS ORDERED: Polyethylene Glycol 3350* 17 GM PACKET PO SCH (12:00)
--- NOTE | 2019-11-19 00:44 | OP ---
DATE OF OPERATION: 11/18/19 - [facility] DATE OF : 47 ATTENDING SURGEON: Ace Del Toro MD DIRECTOR OF DESIGN: ANALI Logan PRE-OP DIAGNOSIS: Left inguinal hernia. POST-OP DIAGNOSIS: Left inguinal hernia. OPERATIVE PROCEDURE: Open left inguinal hernia repair with mesh. INDICATIONS FOR PROCEDURE: Large left inguinal hernia. Risks of surgery included but not limited to bleeding, infection, recurrence of the hernia, injury to local nerves and vessels explained to the patient who seemed to understand and agreed to the procedure and all questions were answered. DESCRIPTION OF PROCEDURE: The patient was taken to the operating room, placed supine. Preoperative antibiotics were given. Sedation was given by the anesthesiologist. The skin of the left groin was prepped and draped in a sterile fashion. The skin was anesthetized with Marcaine and lidocaine. Incision was made, carried down through the subcutaneous tissue/carpus fascia exposing the external oblique. An incision was made along the external oblique and this was opened revealing a large hernia sac which was dissected free from the surrounding tissue and reduced back through into the abdomen. The defect itself was about 3 cm. The defect was closed with a running 2-0 Vicryl suture being careful to avoid any nerves. The mesh was then placed over the internal oblique. This was a ProGrip hernia mesh cut to fashion and fit of this space covering the repaired defect as well as the surrounding tissue from the pubis up and laterally as well as medially. The external oblique was closed with a running 3-0 Vicryl stitch. Tremayne's fascia was closed with a running 3-0 Vicryl stitch. The skin was closed with 3-0 Monocryl. Glue was applied. Anesthesia locally was performed in a fan block around the area. She tolerated the procedure well. EBL minimal. She was taken to Recovery in stable condition. [id number]/[facility] #: [id number] [place]ITALEliza
== END 2019-11-18 11:30 | disposition home or self-care (01) ==
LOC: OR 07:35
PROVIDERS: ATTEND Surgery
DX: K40.90 Unilateral inguinal hernia, without obstruction or gangrene, not specified as recurrent (principal); I48.91 Unspecified atrial fibrillation; J44.9 Chronic obstructive pulmonary disease, unspecified; K21.9 Gastro-esophageal reflux disease without esophagitis; G89.29 Other chronic pain; Z96.652 Presence of left artificial knee joint; F41.9 Anxiety disorder, unspecified; Z87.891 Personal history of nicotine dependence; I47.1 Supraventricular tachycardia
CPT/HCPCS: A9270-GY; J0690; J1644; J2250; J2704; J3490

== ENCOUNTER 2019-11-28 10:25 | Emergency (ER) | payer MEDICARE, OTHER ==
--- OUTSIDE RECORDS SUMMARY | 2019-11-28 10:38 | XMS REPORT | Continuity of Care Document ---
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 Recreational Drug Use Denies Drug Use Tobacco Use Start: Unknown Patient is a former Quit 02/2019 End: Unknown smoker Smoking Status Reviewed: 10/27/19 Patient is a former Quit 02/2019 smoker [...] 05/14/2019 Device twice a day Morphine Sulfate Take 1ML By Mouth Unknown (Concentrate) Every 4 6 Hours as 100mg/5ML Needed For Pain Solution And For Shortness Of Breath Maximum Daily Dose 6ML Tramadol HCL Unknown 50mg Tablets Tizanidine HCL Daisy, 4mg Sabi, CONTENT PRODUCTION SPECIALIST Tablets Lorazepam Farhan Walsh, 0.5mg Tablets Stool Softener 3 by mouth per day Unknown 100mg Capsules Tums 2 by mouth per day Unknown 750mg Chewtabs Ipratropium [place] Inhale 1 Vial Via Unknown Nebulizer Every [...] Caps day ER 24HR Ibuprofen one tab [id number] 90tabs Unknown 600mg Tablets prn Immunizations CPT Code Status Date Vaccine Lot # [id number] Given 01/07/2014 Pneumonia Vaccine [id number] Given 01/22/2009 Tetanus And Diptheria (Td) For Adult Use Preservative Free Vital Signs Date Vital Result Comment 10/27/2019 10:41am Height 65 inches 5'5" Weight 97.00 lb Heart Rate 100 /min BP Systolic Sitting 140 mmHg BP Diastolic Sitting 90 mmHg O2 % BldC Oximetry 94 % BMI (Body Mass Index) 16.1 kg/m2 10/22/2019 1:27pm Heart Rate 180 /min Respiratory Rate 32 /min Body Temperature 99.0 F O2 % BldC Oximetry 96 % 2L Results Description No Information Available Procedures Date Code Description Status 09/11/2017 [id number] Bone Mineral Density Test Completed 03/12/2014 [id number] Colonoscopy Completed 02/03/2009 754652978 Bone Mineral Density Test Completed 02/03/2009 97186846 Mammogram Completed 01/02/2003 [id number] Colonoscopy Completed Medical Devices Description No Information Available Encounters Type Date Location Provider Dx Diagnosis Office Visit 10/27/2019 Pulmonology And Dania Terrazas, J44.9 Chronic obstructive 10:45a [facility] unspecified Z12.2 Encntr screen for malignant neoplasm of respiratory organs Office Visit 10/10/2019 10:45a Surgical Donovan Lucas, K40.90 [facility], FACS hernia, w/o obst or gangr, not spcf as recur Office Visit 05/14/2019 9:00a Pulmonology And Dania Terrazas, R06.02 Shortness of [facility] MD denis Layton J44.9 Chronic obstructive pulmonary disease, unspecified Assessments Date Code Description Provider 10/27/2019 [email or web address].Nena Chronic obstructive pulmonary disease, Dania Terrazas MD unspecified 10/27/2019 Z12.2 Encounter for screening for malignant Dania Terrazas MD neoplasm of respiratory organs 10/22/2019 K40.90 Unilateral inguinal hernia, without Lala Becker , CONTENT PRODUCTION SPECIALIST obstruction or gangrene, not specified as recurrent 10/22/2019 R06.02 Shortness of breath Lala Becker, ALAYNA 10/10/2019 K40.90 Unilateral inguinal hernia, without Donovan Lucas MD, FACS obstruction or gangrene, not specified as recurrent 05/14/2019 R06.02 Shortness of breath Dania Terrazas MD 05/14/2019 J44.9 Chronic obstructive pulmonary disease, Dania Terarzas MD unspecified Plan of Treatment Future Appointment(s):05/03/2020 11:00 am - Antonieta Coyle NP at [facility]11/27/2019 3:00 pm - ANALI Frazier at [facility]11/18/2019 3:15 pm - Luis Holloway PA-C at [facility]11/18/2019 3:15 pm - Donovan Lucas MD, FACS at [facility]10/27/2019 - Dania Terrazas MDJ44.9 Chronic obstructive pulmonary disease, unspecifiedNew Orders:PFTW/Spirometry Vol Pre/ Post Bronchdilat Dlco Complete, Ordered: Minute Walk, Ordered: Follow up:6 zousxyO67.2 Encounter for screening for malignant neoplasm of respiratory organsNew Xrays:CT Lung Screening-Low Dose, Ordered: 10/27/19 Functional Status Description No Information Available Mental Status Description No Information Available Referrals Description No Information Available
--- OUTSIDE RECORDS SUMMARY | 2019-11-28 10:38 | XMS REPORT | Continuity of Care Document ---
:1945 External Reference #:[id number] Author Name Luis Holloway PA-C (transmitted by agent of provider Jose Lucas) Address [address] [place] [address] Care Team Providers Name Role Phone Farhan Walsh MD - Internal Care Team Information Construction Site Manager Medicine Dania Terrazas MD - Pulmonary Care Team Information Construction Site Manager Disease Problems Active Problems Provider Date Chronic obstructive [...] Onset: 05/08/2018 Left upper quadrant pain Lore Mascorro, N.P. 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 Recreational Drug Use Denies Drug Use Tobacco Use Start: Unknown Patient is a former Quit 02/2019 End: Unknown smoker Smoking Status Reviewed: 11/03/19 Patient is a former Quit 02/2019 smoker [...] Medications SIG Qnty Indications Ordering Date Provider Symbicort 1 puff twice a day 2unpreeti Terrazas, 10/27/2019 160-4.5mcg/Act Aerosol Spiriva Respimat 1 puffs every day 1unpreeti Terrazas, 10/27/2019 2.5mcg/Act Aerosol [facility] Dania Terrazas, 05/14/2019 Device twice a day MD Arriaga Pt has not started Unknown 5mg Tablets taking this medication as of 11/03/2019 Diltiazem HCL ER Unknown Coated Beads 360mg Caps ER 24HR Morphine Sulfate Take 1ML By Mouth Unknown (Concentrate) Every 4 6 Hours as Needed For Pain 100mg/5ML Solution And For Shortness Of Breath Maximum Daily Dose 6ML Tramadol HCL Unknown 50mg Tablets Tizanidine HCL Daisy, 4mg ALAYNA Celestin Tablets Lorazepam Rusk, 0.5mg MD Farhan Tablets Stool Softener 3 by mouth per day Unknown 100mg Capsules Tums 2 by mouth per day Unknown 750mg Chewtabs Ipratropium [place] Inhale 1 Vial Via Unknown Nebulizer Every 4 0.02% Solution Hours as Needed For Wheeze Short Breath Atrovent HFA 2 by mouth three 12.900gm Dania Terrazas, times per day 17mcg/Act Aerosol Dulera 2 puff twice a day 8.800gm Dania Mk, 200-5mcg/Act Aerosol Prednisone 1 by mouth one Rusk, 10mg time per day MD Farhan Tablets Vitamin D3 1 by mouth every Unknown 1000Unit day Tablets Ventolin HFA 2 puffs by mouth Unknown four times a day 108(90Base) mcg/Act as needed Aerosol Albuterol Sulfate 1 vial via 75ml Dania Terrazas, nebulizer 4 times (2.5mg/3ML) 0.083% daily as needed Nebulizer Atorvastatin Calcium 1 by mouth every Unknown day 40mg Tablets Cardizem CD 1 by mouth every Unknown 240mg day Caps ER 24HR Ibuprofen one tab [id number] 90tabs Unknown 600mg prn Tablets Immunizations CPT Code Status Date Vaccine Lot # [id number] Given 01/07/2014 Pneumonia Vaccine [id number] Given 01/22/2009 Tetanus And Diptheria (Td) For Adult Use Preservative Free Vital Signs Date Vital Result Comment 11/03/2019 10:37am Height 65 inches 5'5" Weight 97.00 lb Heart Rate 74 /min BP Systolic Sitting 134 mmHg BP Diastolic Sitting 88 mmHg Respiratory Rate 18 /min Body Temperature 98.5 F BMI (Body Mass Index) 16.1 kg/m2 10/27/2019 10:41am Height 65 inches 5'5" Weight 97.00 lb Heart Rate 100 /min BP Systolic Sitting 140 mmHg BP Diastolic Sitting 90 mmHg O2 % BldC Oximetry 94 % BMI (Body Mass Index) 16.1 kg/m2 Results Description No Information Available Procedures Date Code Description Status 09/11/2017 856851579 Bone Mineral Density Test Completed 03/12/2014 [id number] Colonoscopy Completed 02/03/2009 386080393 Bone Mineral Density Test Completed 02/03/2009 [id number] Mammogram Completed 01/02/2003 [id number] Colonoscopy Completed Medical Devices Description No Information Available Encounters Type Date Location Provider Dx Diagnosis Office Visit 10/27/2019 Pulmonology And Dania Terrazas J44.9 Chronic obstructive 10:45a [facility] pulmonary disease, [place] unspecified Z12.2 Encntr screen for malignant neoplasm of respiratory organs Office Visit 10/10/2019 10:45a [facility] Donovan Lucas, K40.90 [facility] [place] [facility], FACS hernia, w/o obst or gangr, not spcf as recur Office Visit 05/14/2019 9:00a Pulmonology And Dania Terrazas, R06.02 Shortness of [facility] MD barrios [facility] J44.9 Chronic obstructive pulmonary disease, unspecified Assessments Date Code Description Provider 11/03/2019 K40.90 Unilateral inguinal hernia, without Luis Holloway PA-C obstruction or gangrene, not specified as recurrent 10/27/2019 J44.9 Chronic obstructive pulmonary disease, Dania Terrazas MD unspecified 10/27/2019 Z12.2 Encounter for screening for malignant Dania Terrazas MD neoplasm of respiratory organs 10/22/2019 K40.90 Unilateral inguinal hernia, without Lala Becker NP obstruction or gangrene, not specified as recurrent 10/22/2019 R06.02 Shortness of breath Lala Becker NP 10/10/2019 K40.90 Unilateral inguinal hernia, without Donovan Lucas MD, FACS obstruction or gangrene, not specified as recurrent 05/14/2019 R06.02 Shortness of breath Dania Terrazas MD 05/14/2019 J44.9 Chronic obstructive pulmonary disease, Dania Terrazas MD unspecified Plan of Treatment Future Appointment(s):05/03/2020 11:00 am - Antonieta Coyle NP at [facility]11/27/2019 3:00 pm - ANALI Frazier at [facility]11/18/2019 3:15 pm - Luis Holloway PA-C at [facility]11/18/2019 3:15 pm - Donovan Lucas MD, FACS at [facility]11/03/2019 - ANALI Johnson-CK40.90 Unilateral inguinal hernia, without obstruction or gangrene, not specified as recurrent Functional Status Description No Information Available Mental Status Description No Information Available Referrals Description No Information Available
--- OUTSIDE RECORDS SUMMARY | 2019-11-28 10:38 | XMS REPORT | Summary of Care ---
:1945 Author Organization [facility] Address [address] [place] [address] Care Team Providers Name Role Phone Farhan Walsh Primary Care Provider Garth Ruiz Unavailable Reason for Referral MRI/CAT/PET Scan (Routine) Status Reason Specialty Diagnoses / Referred By Referred To Procedures Contact Contact Pending Review Diagnoses Personal history of nicotine dependence Farhan Walsh Procedures CT CHEST LUNG SCREENING MD [place] [address] [place] [address] Reason for Visit Reason Comments Follow Up [facility] ER F/U 10/22/19, Dx: Afib Encounter Details Date Type Department Care Team Description 10/28/2019 Office Visit [facility] Farhan Walsh Paroxysmal atrial fibrillation (HCC) (Primary Dx); Medicine MD [place] Cor pulmonale (chronic) (HCC); [address] [place] [address] Mixed hyperlipidemia; [place] [address] Essential hypertension; [phone] Centrilobular emphysema (HCC); [phone] Compression fracture of L4 vertebra with routine healing; (Fax) Personal history of nicotine dependence; Polypharmacy Allergies Active Allergy Reactions Severity Noted Date Comments Tape: Silk Or Adhesive Rash 05/04/2016 Demerol Cardiac Reaction 05/04/2016 Doxycycline Rash 05/04/2016 Diflucan GI Reaction 05/04/2016 Fluticasone GI Reaction 05/04/2016 Ipratropium Respiratory Reaction 05/04/2016 Only the one in the nebulizer, but not with the inhaler Metals Other 05/04/2016 itching Mucinex Other 07/11/2016 Very weak documented as of this encounter (statuses as of 10/28/2019) Medications Medication Sig Dispensed Refills Start End Status Date Date cholecalciferol Take 1,000 0 Active (VITAMIN D) 1000 Units by mouth UNITS Oral Tab DAILY. Docusate Sodium Take by mouth 0 Active (STOOL SOFTENER PO) DAILY. ibuprofen (MOTRIN) Take 600 mg by 0 Active 600 MG Oral Tab mouth EVERY SIX HOURS NEEDED for Pain. albuterol 3 mL by 300 mg 11 Active (PROVENTIL, Inhalation-SVN 8 VENTOLIN) (2.5 route EVERY MG/3ML) 0.083% FOUR HOURS Inhalation Nebu NEEDED Soln (wheezing). Calcium Carbonate Take by 0 Active Antacid 1000 MG mouth. Oral Chew Tab Respiratory Therapy 1 Each by Does 1 Each 0 Active Supplies (FULL KIT not apply 9 NEBULIZER SET) Does route EVERY not apply Misc FOUR HOURS NEEDED (cough wheezing). atorvastatin TAKE ONE 90 Tab 3 Active (LIPITOR) 40 MG TABLET BY 9 Oral Tab MOUTH EVERY DAY predniSONE Take 1 Tab by 90 Tab 5 Active (DELTASONE) 10 MG mouth 9 Oral Tab DIRECTED. ipratropium 2.5 mL by 225 mL 3 Active (ATROVENT) 0.02 % Inhalation-SVN 9 Inhalation Solution route EVERY FOUR HOURS NEEDED (wheezing /cough). morphine (ROXANOL) Take 1 mg by 0 Active 100 MG/5ML Oral mouth 9 Solution NEEDED. budesonide-formoter Take 2 INHL by 0 Active ol fumarate inhalation (SYMBICORT) 160-4.5 TWICE DAILY. MCG/ACT Inhalation Aerosol Tiotropium [place] Take by 0 Active Monohydrate inhalation. (SPIRIVA RESPIMAT) 2.5 MCG/ACT Inhalation Aero Soln LORazepam (ATIVAN) Take 1 Tab by 60 Tab 0 Active 0.5 MG Oral Tab mouth TWO 0 TIMES DAILY NEEDED (anxiety and sob). Max Daily Amount: 1 mg. tramadol (ULTRAM) Take 1 Tab by 90 Tab 2 Active 50 MG Oral Tab mouth EVERY 0 EIGHT HOURS NEEDED (pain). Max Daily Amount: 150 mg. Tizanidine HCl Take 1 Cap by 90 Cap 4 Active (ZANAFLEX) 4 MG mouth THREE 0 Oral Cap TIMES DAILY NEEDED (pain). furosemide (LASIX) Take 1 Tab by 30 Tab 1 Discontinued 20 MG Oral Tab mouth EVERY 9 020 (Therapy OTHER DAY. Completed) albuterol HFA INHALE TWO 54 Inhaler 0 Discontinued (VENTOLIN) 108 (90 PUFFS BY MOUTH 9 020 (Duplicate Base) MCG/ACT EVERY 4 HOURS Order) Inhalation Aero NEEDED FOR SolnIndications: SHORTNESS OF COPD with acute BREATH exacerbation (HCC) DULERA 100-5 INHALE TWO 13 g 4 Discontinued MCG/ACT Inhalation PUFFS BY MOUTH 9 020 (Duplicate Aerosol TWICE A DAY Order) Ranitidine 150 MG TAKE ONE 180 Cap 5 Discontinued Oral Cap CAPSULE BY 9 020 (Patient MOUTH TWICE A stopped the DAY medication) ipratropium Take 2 Puffs 12.9 Inhaler 3 Discontinued (ATROVENT HFA) 17 by inhalation 9 020 (Duplicate MCG/ACT Inhalation THREE TIMES Order) Aero Soln DAILY inhalationIndicatio NEEDED (short ns: COPD with acute of breath). exacerbation (HCC) LORazepam (ATIVAN) Take 1 Tab by 60 Tab 0 Discontinued 0.5 MG Oral Tab mouth TWO 9 020 (Reorder) TIMES DAILY NEEDED (anxiety and sob). Max Daily Amount: 1 mg. ATROVENT HFA 17 INHALE TWO 12.9 g 3 Discontinued MCG/ACT Inhalation PUFFS BY MOUTH 9 020 (Provider Aero Soln THREE TIMES A Discontinued) inhalationIndicatio DAY ns: COPD with acute exacerbation (HCC) DULERA 100-5 INHALE TWO 13 g 3 Discontinued MCG/ACT Inhalation PUFFS BY MOUTH 9 020 (Provider Aerosol TWICE A DAY Discontinued) diltiazem (CARTIA Take 1 Cap by 90 Cap 5 Discontinued XT) 240 MG Oral mouth DAILY. 9 020 (Reorder) CAPSULE SR 24 HR Tizanidine HCl Take 1 Cap by 90 Cap 4 Discontinued (ZANAFLEX) 4 MG mouth THREE 9 020 (Reorder) Oral Cap TIMES DAILY NEEDED (pain). tramadol (ULTRAM) Take 50 mg by 0 Discontinued 50 MG Oral Tab mouth EVERY 020 (Reorder) SIX HOURS NEEDED for Pain. documented as of this encounter (statuses as of 10/28/2019) Active Problems Problem Noted Date Chronic left-sided low back pain without sciatica 10/28/2019 Compression fracture of L4 vertebra with routine healing 10/28/2019 Overview: L2, L3, L4 Moderate protein-calorie malnutrition 11/11/2018 Other forms of angina pectoris 11/11/2018 Cor pulmonale (chronic) 08/22/2018 Chronic diastolic heart failure 08/22/2018 History of tobacco use 08/24/2017 SVT (supraventricular tachycardia) 08/07/2016 Pulmonary emphysema 06/20/2016 Essential hypertension 06/20/2016 Mixed hyperlipidemia 06/20/2016 documented as of this encounter (statuses as of 10/28/2019) Resolved Problems Problem Noted Date Resolved Date Acute respiratory failure with hypoxia 07/05/2018 06/24/2019 Hiatal hernia 06/18/2018 10/28/2019 Tobacco use 06/20/2016 08/24/2017 Overview: 3-4 cigarette per month Start smoking age 12 documented as of this encounter (statuses as of 10/28/2019) Immunizations Name Administration Dates Next Due DTAP Vaccine 02/04/2015 Influenza Vaccine 65 Yrs + 06/24/2019 Influenza Vaccine High Dose 07/18/2018, 08/24/2017 Pneumococcal Conjugate Vaccine 04/30/2015, 01/07/2014 Pneumococcal Conjugate(13 Valent) 04/30/2015 TETANUS & DIPHTHERIA TOXOID (OVER 7 YRS) 01/22/2009 ZOSTER (ZOSTAVAX) VACCINE 02/07/2016 documented as of this encounter Social History Tobacco Use Types Packs/Day Years Used Date Former Smoker Cigarettes 2.5 52 Quit: 04/2016 Smokeless Tobacco: Never Used Comments: takes 2 puffs rarely Alcohol Use Drinks/Week oz/Week Comments No Quit in 2004 Social Isolation Answer Date Recorded In a typical week, how many times do you More than three times a week 2018 talk on the phone with family, friends, or neighbors? How often do you get together with friends More than three times a week 05/12 or relatives? How often do you attend samaritan or Not asked druze services? Do you belong to any clubs or Not asked organizations such as samaritan groups, unions, fraternal or athletic groups, or school groups? How often do you attend meetings of the Not asked clubs or organizations you belong to? Are you now , , , 05/12/2019 , never or living with a partner? Physical Activity Answer Date Recorded On average, how many days per week do you engage in moderate to 0 days 2018 strenuous exercise (like walking fast, running, jogging, dancing, swimming, biking, or other activities that cause a light or heavy sweat)? On average, how many minutes do you engage in exercise at this 0 min 2018 level? Stress Answer Date Recorded Do you feel stress - tense, restless, nervous, or anxious, Not at all 2018 or unable to sleep at night because your mind is troubled all the time - these days? Financial Resource Strain Answer Date Recorded How hard is it for you to pay for the very basics like Not hard at all 2018 food, housing, medical care, and heating? Intimate Partner Violence Answer Date Recorded Within the last year, have you been afraid of your partner or No 05/12/2019 ex-partner? Within the last year, have you been humiliated or emotionally No 05/12/2019 abused in other ways by your partner or ex-partner? Within the last year, have you been kicked, hit, slapped, or No 05/12/2019 otherwise physically hurt by your partner or ex-partner? Within the last year, have you been raped or forced to have any No 05/12/2019 kind of sexual activity by your partner or ex-partner? Food Insecurity Answer Date Recorded Within the past 12 months, you worried that your food would Never true 2018 run out before you got money to buy more. Within the past 12 months, the food you bought just didn't Never true 2018 last and you didn't have money to get more. Transportation Needs Answer Date Recorded In the past 12 months, has lack of transportation kept you from No 05/12/2019 medical appointments or from getting medications? In the past 12 months, has lack of transportation kept you from No 05/12/2019 meetings, work, or getting things needed for daily living? Sex Assigned at Date Recorded Not on file Job Start Date Occupation Industry Not on file Not on file Not on file Travel History Travel Start Travel End No recent travel history available. documented as of this encounter Last Filed Vital Signs Vital Sign Reading Time Taken Comments Blood Pressure 142/64 10/28/2019 1:14 PM EST Pulse 80 10/28/2019 1:14 PM EST Temperature 37.2 10/28/2019 1:14 PM EST C (99 F) Respiratory Rate 24 10/28/2019 1:14 PM EST Oxygen Saturation 97% 10/28/2019 1:14 PM EST Inhaled Oxygen Concentration - - Weight 43.8 kg (96 lb 9.6 oz) 10/28/2019 1:14 PM EST Height 165.1 cm (5' 5") 10/28/2019 1:14 PM EST Body Mass Index 16.08 10/28/2019 1:14 PM EST documented in this encounter Patient Instructions Patient InstructionsFarhan Walsh MD - 10/28/2019 1:00 PM ESTcontinue current medications Do not use morphine this is not safe for you Ok to use tramadol but no more than three times daily Do not use tramadol at the same time as lorazepam it will make you very drowsy Refill muscle relaxer tizanindine Blood work today Bone density scan for osteoporosis Ct lung cancer screen we will call you when this is approved by insurance Follow up me or Gabrielle BRIONES or Sabi Villa NP one month documented in this encounter Progress Notes Farhan Walsh MD - 10/28/2019 1:00 PM EST PATIENT: Sabi Willard : 1945 DATE OF SERVICE: 10/28/2019 CHIEF COMPLAINT: Chief Complaint Patient presents with Follow Up [facility] ER F/U 10/22/19, Dx: Afib Subjective HISTORY OF PRESENT ILLNESS: Sabi Willard is a 74-y.o. female. HPI Here for follow up to [facility] emergency room for shortness of breath found to have atrial fibrillation With VR 140s given iv fluid and iv lopressor and no new outpatient medications She denies new cough or new shortness of breath She denies chest pain No heart palpitations She remains on diltiazem for hypertension and history svt she denies caffeine or sudafed abuse denies excess albuterol use She saw pulmonary MD Dr Terrazas and the atrovent and dulera metered dose inhalers were stopped and symbicort and spriva started she has not begun these yet She has moderate to severe copd and has baseline dyspnea on exertion She asks for medication refills for pain she has L2-4 lumbar compression fracture and left sided lumbar back pain most days it is 6/10 she uses tizanidine as needed and tramadol as needed 50 mg three times daily She does not drive she was also given morphine and lorazepam in the past she uses lorazepam only as needed when copd and shortness of breath get severe she uses this about 5 times per months Patient Active Problem List Diagnosis Pulmonary emphysema (HCC) Essential hypertension Mixed hyperlipidemia SVT (supraventricular tachycardia) (HCC) History of tobacco use Cor pulmonale (chronic) (HCC) Chronic diastolic heart failure (HCC) Moderate protein-calorie malnutrition (HCC) Other forms of angina pectoris (HCC) Chronic left-sided low back pain without sciatica Compression fracture of L4 vertebra with routine healing Family History Problem Relation Age of Onset Heart Mother 88 [place] Cancer Mother uterine cancer Lung Cancer Father Arthritis Sister No Known Problems Daughter No Known Problems Son Cancer Brother leukemia Cancer Brother 60 kidney No Known Problems Son Current Outpatient Medications Medication Sig albuterol (PROVENTIL, VENTOLIN) (2.5 MG/3ML) 0.083% Inhalation Nebu Soln 3 mL by Inhalation-SVN route EVERY FOUR HOURS NEEDED (wheezing). atorvastatin (LIPITOR) 40 MG Oral Tab TAKE ONE TABLET BY MOUTH EVERY DAY budesonide-formoterol fumarate (SYMBICORT) 160-4.5 MCG/ACT Inhalation Aerosol Take 2 INHL by inhalation TWICE DAILY. Calcium Carbonate Antacid 1000 MG Oral Chew Tab Take by mouth. cholecalciferol (VITAMIN D) 1000 UNITS Oral Tab Take 1,000 Units by mouth DAILY. diltiazem (CARTIA XT) 240 MG Oral CAPSULE SR 24 HR Take 1 Cap by mouth DAILY. Docusate Sodium (STOOL SOFTENER PO) Take by mouth DAILY. ibuprofen (MOTRIN) 600 MG Oral Tab Take 600 mg by mouth EVERY SIX HOURS NEEDED for Pain. ipratropium (ATROVENT) 0.02 % Inhalation Solution 2.5 mL by Inhalation- SVN route EVERY FOUR HOURS NEEDED (wheezing /cough). LORazepam (ATIVAN) 0.5 MG Oral Tab Take 1 Tab by mouth TWO TIMES DAILY NEEDED (anxiety andsob). Max Daily Amount: 1 mg. morphine (ROXANOL) 100 MG/5ML Oral Solution Take 1 mg by mouth NEEDED. predniSONE (DELTASONE) 10 MG Oral Tab Take 1 Tab by mouth DIRECTED. Respiratory Therapy Supplies (FULL KIT NEBULIZER SET) Does not apply Misc 1 Each by Does not apply route EVERY FOUR HOURS NEEDED (cough wheezing) . Tiotropium [place] Monohydrate (SPIRIVA RESPIMAT) 2.5 MCG/ACT Inhalation Aero Soln Take by inhalation. Tizanidine HCl (ZANAFLEX) 4 MG Oral Cap Take 1 Cap by mouth THREE TIMES DAILY NEEDED (pain). tramadol (ULTRAM) 50 MG Oral Tab Take 1 Tab by mouth EVERY EIGHT HOURS NEEDED (pain). Max Daily Amount: 150 mg. No current facility-administered medications for this visit. Allergies Allergen Reactions Adhesive [Tape: Silk Or Adhesive] Rash Demerol Cardiac Reaction Doxycycline Rash Fluconazole [Diflucan] GI Reaction Fluticasone GI Reaction Ipratropium Respiratory Reaction Only the one in the nebulizer, but not with the inhaler Metals Other itching Mucinex Other Very weak Social History Socioeconomic History Marital status: Spouse name: Not on file Number of children: 3 Years of education: Not on file Highest education level: Not on file Occupational History Not on file Social Needs Financial resource strain: Not hard at all Food insecurity Worry: Never true Inability: Never true Transportation needs Medical: No Non-medical: No Tobacco Use Smoking status: Former Smoker Packs/day: 2.50 Years: 52.00 Pack years: 130.00 Types: Cigarettes Last attempt to quit: 04/2016 Years since quittin.5 Smokeless tobacco: Never Used Tobacco comment: takes 2 puffs rarely Substance and Sexual Activity Alcohol use: No Comment: Quit in 2004 Drug use: No Sexual activity: Yes Partners: Male Comment: Lifestyle Physical activity Days per week: 0 days Minutes per session: 0 min Stress: Not at all Relationships Social connections Talks on phone: More than three times a week Gets together: More than three times a week Attends druze service: Not on file Active member of club or organization: Not on file Attends meetings of clubs or organizations: Not on file Relationship status: Intimate partner violence Fear of current or ex partner: No Emotionally abused: No Physically abused: No Forced sexual activity: No Other Topics Concern Back Care Not Asked Bike Helmet Not Asked Blood Transfusions Not Asked Caffeine Concern Not Asked Exercise Yes Hobby Hazards Not Asked International Travel Not Asked Service Not Asked Occupational Exposure Not Asked Seat Belt Yes Self-Exams Not Asked Sleep Concern Yes Special Diet No Stress Concern Not Asked Weight Concern Not Asked Social History Narrative Lives with her . 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 Objective PHYSICAL EXAM: VITALS: BP (!) 142/64 (BP Location: Right arm, Patient Position: Sitting) | Pulse 80 | Temp 99 F (37.2 C) (Tympanic) | Resp 24 | Ht 5' 5" (1.651 m) | Wt 96 lb 9.6 oz (43.8 kg) | SpO2 97% | BMI 16.08 kg/m Body mass index is 16.08 kg/m. Physical Exam The patient's pain level on a 0-10 visual analog pain scale is 4 /10. Lumbar spinous process tenderness L4-5 level S1 and S2 normal, no murmurs, clicks, gallops or rubs. Regular rate and rhythm. No edema or JVD. Chest: clear to auscultation, no wheezes, rales or rhonchi, symmetric air entry, decreased breath sounds throughout. Mental status exam; she is alert, orient to time, person and place. Normal thought content, speech, affect, mood and dress are noted. I spent 40 minutes with the patient, greater than half of this time in direct face to face counseling regarding the condition and the plan of care. ASSESSMENT / IMPRESSION: ICD-9-CM ICD-10-CM 1. Paroxysmal atrial fibrillation (HCC)resolved likely due to pulmonary disease she sees cardiology next, continue diltiazem and defer issue of anticoagulation to cardiology 427.31 I48.0 AMBULATORY 12LEAD EKG (GLOBAL) THYROID STIMULATING HORMONE 2. Cor pulmonale (chronic) (HCC) due to copd 416.9 I27.81 3. Mixed hyperlipidemia continue statin 272.2 E78.2 4. Essential hypertension at goal continue current medications 401.9 I10 5. Centrilobular emphysema (HCC) continue current medications and follow up Dr Terrazas 492.8 J43.2 6. Compression fracture of L4 vertebra with routine healing she needs bone density scan and will getvitamin D level V54.17 S32.040D XR DEXA SCAN 1 OR MORE SITES COMPREHENSIVE METABOLIC PANEL VITAMIN D 25 HYDROXY (RICKY) 7. Personal history of nicotine dependence screen ct lung Z87.[address] CHEST LUNG SCREENING 8. Polypharmacy no morphine not safe with lorazepam and tramadol use less tramadol try to get to twice daily Or once daily V58.69 Z79.899 Patient Instructions continue current medications Do not use morphine this is not safe for you Ok to use tramadol but no more than three times daily Do not use tramadol at the same time as lorazepam it will make you very drowsy Refill muscle relaxer tizanindine Blood work today Bone density scan for osteoporosis Ct lung cancer screen we will call you when this is approved by insurance Follow up hi or Gabrielle BRIONES or Sabi Villa NP one month Farhan Walsh MD 10/28/2019 13:44 documented in this encounter Plan of Treatment Date Type Specialty Care Team Description 11/11/2019 Ancillary Procedure Radiology 11/11/2019 Office Visit Cardiology Farzaneh Quick PA [address] [place] [address] [phone] 11/27/2019 Orders Only Cardiology Name Type Priority Associated Diagnoses Date/Time COMPREHENSIVE METABOLIC Lab Routine Compression fracture of 10/28/2019 2: 30 PM PANEL L4 vertebra with routine EST healing VITAMIN D 25 HYDROXY Lab Routine Compression fracture of 10/28/2019 2:30 PM (GARCÍA) L4 vertebra with routine EST healing THYROID STIMULATING Lab Routine Paroxysmal atrial 10/28/2019 2:30 PM HORMONE fibrillation (HCC) EST Name Type Priority Associated Diagnoses Order Schedule XR DEXA SCAN 1 OR MORE Imaging Routine Compression fracture of 1 Occurrences starting SITES L4 vertebra with routine 10/28/2019 until healing 10/27/2020 AMBULATORY 12 LEAD EKG EKG Routine Paroxysmal atrial Ordered: 10/28/2019 (GLOBAL) fibrillation (HCC) CT CHEST LUNG Imaging Routine Personal history of Expected: 10/28/2019, SCREENING nicotine dependence Expires: 10/27/2020 Health Maintenance Due Date Last Done Comments ZOSTER IMMUNIZATION SERIES (2 04/03/2016 02/07/2016 of 3) PNEUMOCOCCAL 65+YRS (2 of 2 - 04/30/2016 04/30/2015, PPSV23) 04/30/2015, 01/07/2014 LUNG CANCER SCREENING 06/20/2019 06/20/2018 DEPRESSION SCREENING 05/12/2020 05/12/2019 FALL RISK ASSESSMENT 05/12/2020 05/12/2019, 05/12/2019 MEDICARE ANNUAL WELLNESS VISIT 05/12/2020 05/12/2019 LIPID DISORDER SCREENING 07/10/2020 07/10/2019, 04/08/2019, 05/04/2016 DTaP/Tdap/Td Vaccines (3 - 02/04/2025 02/04/2015, Tdap) 01/22/2009 OSTEOPOROSIS SCREENING 09/11/2027 09/11/2017, 07/08/2015, 02/03/2009 INFLUENZA VACCINE Completed 06/24/2019, 07/18/2018, 08/24/2017 HEPATITIS A IMMUNIZATION Aged Out No longer eligible based SERIES on patient's age to complete this topic HPV IMMUNIZATION SERIES Aged Out No longer eligible based on patient's age to complete this topic MENINGOCOCCAL VACCINE IMM Aged Out No longer eligible based on patient's age to complete this topic documented as of this encounter Goals Goal Patient Goal Associated Recent Patient-Stated? Author Type Problems Progress Blood Pressure Blood Pressure 142/64 No [place], < 150/90 (10/28/2019 Carmen, 2:04 PM EST) CARLOS Note: This is an individualized treatment (blood pressure) goal for Sabi Willard: Displayed above (on the left) is your goal for blood pressure control. Your most recent blood pressure is also shown above, on the right. You should try to achieve blood pressures that are lower than your goal listed above (on the left). Weight increase vs. 18 mo CHF 0.4 (10/28/2019 2:05 PM Farhan Mora MD min (lbs) < 5 EST) Note: This is an individualized treatment (congestive heart failure, CHF) goal for Sabi Willard: Displayed above (on the right) is how many pounds you are in excess of your lowest weight over the past 18 months. Note that lower numbers are better. Excessive weight gain often indicates fluid reten tion and worsening heart failure. You should contact your doctor immediately if the above number is too high (above your goal, the number on the left). Keep immunizations current Lifestyle No Carmen Bacon PA-C Note: This is an individualized lifestyle goal for Sabi Willard: Please be sure to keep up-to-date on recommended immunizations. For example, this would include a yearly influenza vaccine. Immunization status can be seen by looking at the Health Maintenance sections of your [facility], Plan of Care, and any After Visit Summaries. Consume a [id number] diet Lifestyle No Farhan Walsh MD Note: This is an individualized lifestyle goal for Sabi Willard: Please do not add additional salt to your food. Additional salt may lead to fluid retention and worsen your congestive heart failure. Take all prescribed medications as Self-management No Carmen Bacon PA-C directed Note: This is an individualized self-management goal for Sabi Willard: Please take all prescribed medications as directed. 1. Do not skip doses. If you cannot afford your medications, talk with your doctor. 2. Use a pill reminder system such as a pill box if needed. Your pharmacist can help you with this. 3. Contact your Pharmacy 5 days before your medication runs out. If you cannot take your medications for any reasons, talk with your doctor. 4. Please bring all of your medication bottles and inhalers (or a list of all your medications/inhalers) with you to every visit. Potential barriers to meeting all of your care plan goals will continue to be addressed on an ongoing basis. Check your weight daily Self-management Farhan Mora MD Note: This is an individualized self-management goal for Sabi Willard: Please check your weight daily. Refer to the accompanying CHF treatment goal and call your doctor immediately for further instructions on how to respond to unexpected weight gain. documented as of this encounter Results Not on filedocumented in this encounter Visit Diagnoses Diagnosis Paroxysmal atrial fibrillation (HCC) Atrial fibrillation Cor pulmonale (chronic) (HCC) Mixed hyperlipidemia Essential hypertension Unspecified essential hypertension Centrilobular emphysema (HCC) Other emphysema Compression fracture of L4 vertebra with routine healing Personal history of nicotine dependence Polypharmacy Issue of repeat prescriptions documented in this encounter Insurance Payer Benefit Plan / Subscriber ID Effective Dates Phone Address Type Group EX[employer] MEDICARE EXCELLUS xxxxxxxxxxxx 2017-Presen [employer] ADV[employer] MEDICARE BLUE t PPO ([phone]) Guarantor Name Account Type Relation to Date of Phone Billing Patient Address Sabi Willard Personal/Family 1945 [address] (Home) [address] [facility] [phone] [place], [place] (Work) [address] documented as of this encounter Advance Directives Type Date Recorded 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
--- OUTSIDE RECORDS SUMMARY | 2019-11-28 10:38 | XMS REPORT | Summary of Care ---
:1945 Author Organization [facility] Address [address] [place] [address] Care Team Providers Name Role Phone [place] Farhan Ríos Primary Care Provider Garth Ruiz Unavailable Reason for Referral Diagnostic Testing (Routine) Status Reason Specialty Diagnoses / Referred By Referred To Procedures Contact Contact Pending Review Diagnoses Permanent atrial fibrillation Chronic diastolic heart failure (HCC) Farzaneh Quick PA Procedures ECHOCARDIOGRAM TTE [address] [place] [address] Reason for Visit Reason Comments Atrial Fibrillation Encounter Details Date Type Department Care Team Description 10/28/2019 Office Visit Farzaneh Hernandez PA Permanent atrial fibrillation (Primary Dx); Cardiology 1 [facility] Chronic diastolic heart failure (HCC); [address] [facility] [place] [address] Paroxysmal atrial fibrillation (HCC); [place] [address] Cor pulmonale (chronic) ([facility]); [phone] Mixed hyperlipidemia; Essential hypertension Allergies Active Allergy Reactions Severity Noted Date [...] 10/28/2019) Medications Medication Sig Dispensed Refills Start Date End Date Status cholecalciferol Take 1,000 0 Active (VITAMIN D) 1000 Units by UNITS Oral Tab mouth DAILY. Docusate Sodium Take by 0 Active (STOOL SOFTENER PO) mouth DAILY. ibuprofen (MOTRIN) Take 600 mg 0 Active 600 MG Oral Tab by mouth EVERY SIX HOURS NEEDED for Pain. albuterol 3 mL by 300 mg 11 04/18/2018 Active (PROVENTIL, Inhalation- VENTOLIN) (2.5 SVN route MG/3ML) 0.083% EVERY FOUR Inhalation Nebu Soln HOURS NEEDED (wheezing). Calcium Carbonate Take by 0 Active Antacid 1000 MG Oral mouth. Chew Tab Respiratory Therapy 1 Each by 1 Each 0 10/29/2018 Active Supplies (FULL KIT Does not NEBULIZER SET) Does apply route not apply Misc EVERY FOUR HOURS NEEDED (cough wheezing). atorvastatin TAKE ONE 90 Tab 3 07/10/2019 Active (LIPITOR) 40 MG Oral TABLET BY Tab MOUTH EVERY DAY predniSONE Take 1 Tab 90 Tab 5 09/09/2019 Active (DELTASONE) 10 MG by mouth Oral Tab DIRECTED. ipratropium 2.5 mL by 225 mL 3 09/09/2019 Active (ATROVENT) 0.02 % Inhalation- Inhalation Solution SVN route EVERY FOUR HOURS NEEDED (wheezing /cough). morphine (ROXANOL) Take 1 mg 0 02/01/2019 Active 100 MG/5ML Oral by mouth Solution NEEDED. Diltiazem HCl Coated Take 1 Cap 90 Cap 3 10/28/2019 Active Beads 360 MG Oral by mouth CAPSULE SR 24 HR DAILY. diltiazem (CARTIA Take 1 Cap 90 Cap 5 09/09/2019 Discontinued XT) 240 MG Oral by mouth 0 (Reorder) CAPSULE SR 24 HR DAILY. documented as of this encounter (statuses as [...] or relatives? How often do you attend pentecostalism or Not asked moravian services? Do you belong to any clubs or Not asked organizations such as pentecostalism groups, unions, fraternal or athletic groups, or [...] Time Taken Comments Blood Pressure 142/64 10/28/2019 2:04 PM EST Pulse 80 10/28/2019 2:04 PM EST Temperature - - Respiratory Rate - - Oxygen Saturation - - Inhaled Oxygen Concentration - - Weight 44 kg (97 lb) 10/28/2019 2:05 PM EST Height - - Body Mass Index 16.14 10/28/2019 1:14 PM EST documented in this encounter Patient Instructions Patient InstructionsFarzaneh Quick PA - 10/28/2019 1:40 PM EST Get your blood work checked today I will talk to Dr. Ruiz about going on blood thinners. Schedule and Echocardiogram I am increasing your Diltiazem from 240mg to 360mg daily. If you have any dizziness or low blood pressure/ heart rates on this medication, please let me know. Follow up in 2 weeks.Electronically signed by Farzaneh Quick PA at 2019 2:17 PM EST documented in this encounter Progress Notes Farzaneh Quick PA - 10/28/2019 1:40 PM EST [facility] Note Patient: Sabi Willard Date of : 1945 Date of Service: 10/28/2019 REFERRING PRACTITIONER: Other PRIMARY CARE PROVIDER: Farhan Walsh Chief Complaint: Chief Complaint Patient presents with Atrial Fibrillation HPI obtained from pt and from [facility] ppw. History of Present Illness: We had the pleasure of seeing Sabi Willard today. She is a 74-y.o. female with a PMH of severe COPD, paroxysmal SVT, atrial fibrillation, Hypertension, hyperlipidemia, and new atrial fibrillation with RVR who presents today for follow up. She was recently seen in the [facility] ED 10/22/2019 for shortness of breath and tachycardia in the settingof new atrial fibrillation with RVR. She was given a nebulizer, fluids and Lopressor 5mg IVP and converted to NSR. Since her discharge, she reports feeling well. 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 She is only sleeping a few hours per night. They are working on getting into assisted living. She checks her BP at home and it usually runs 150-160 systolic. She says at one point, she was told that she has a blood thinning condition and was taking Vitamin Ksupplements at some point. Constitutional: Patient denies fever, febrile illness. Denies fatigue. Neurologic: Denies transient ischemic attack or cerebrovascular accident signs or symptoms. Denies syncope or presyncopal episodes. Cardiovascular: denies chest pain, denies palpations, chronic lower extremity edema. Respiratory: chronic shortness of breath, Denies PND, denies orthopnea. Gastrointestinal: Denies melena. Genitourinary: Denies hematuria Musculoskeletal: denies claudication. All other remaining systems are negative. Except that stated above in history of present illness Cardiac Studies: EKG Today (I personally reviewed): SR @ 76bpm with a PVC, LAD, TWI In V2, V2, RSR in V1 (unchanged from prior EKGs done here) Nuclear Stress Test 02/07/2019 at [facility]: TTE at [facility] February 2016: Patient Active Problem List Diagnosis Pulmonary emphysema (HCC) Essential hypertension Mixed hyperlipidemia SVT (supraventricular tachycardia) ([facility]) History of tobacco use Cor pulmonale (chronic) (HCC) Chronic diastolic heart failure (HCC) Moderate protein-calorie malnutrition (HCC) Other forms of angina pectoris (HCC) Chronic left-sided low back pain without sciatica Compression fracture of L4 vertebra with routine healing Past Medical History: Diagnosis Date COPD (chronic obstructive pulmonary disease) ([facility]) 2010 severe, worsened last year after mold and detergent exposure, pneumonia GERD (gastroesophageal reflux disease) H/O CT scan of chest 02/18/2016 No PE, no masses, severe emphysema. H/O CT scan of chest 08/19/2015 COPD, no masses H/O echocardiogram 02/18/2016 mild MR, AR, EF 65%, normal HTN (hypertension) Hypercholesteremia Microscopic hematuria evaluated by Dr. Grace2009, renal cysts, normal cystoscopy Reflux esophagitis Irritable bowel 2001 SVT (supraventricular tachycardia) ([facility]) 08/07/2016 Tachycardia Vitamin D deficiency Past Surgical History: Procedure Laterality Date INJ. CARPAL TUNNEL 2 right, 1 left KNEE STRUCTURE DIVISION dislocated knee LAPAROSCOPIC TUBAL LIGATION UNLISTED PROCEDURE,MUSCULOSKELE right thumb joint reconstruction Allergies Allergen Reactions Adhesive [Tape: Silk Or Adhesive] Rash Demerol Cardiac Reaction Doxycycline Rash Fluconazole [Diflucan] GI Reaction Fluticasone GI Reaction Ipratropium Respiratory Reaction Only the one in the nebulizer, but not with the inhaler Metals Other itching Mucinex Other Very weak Current Outpatient Medications Medication Sig albuterol (PROVENTIL, [...] Tab Take 1,000 Units by mouth DAILY. Diltiazem HCl Coated Beads 360 MG Oral CAPSULE SR 24 HR Take [...] FOUR HOURS NEEDED (cough wheezing) . Tiotropium [place] Monohydrate (SPIRIVA RESPIMAT) 2.5 MCG/ACT Inhalation Aero Soln Take by inhalation. Tizanidine HCl (ZANAFLEX) 4 MG Oral Cap Take 1 Cap by mouth THREE TIMES DAILY NEEDED (pain). tramadol (ULTRAM) 50 MG Oral Tab Take 1 Tab by mouth EVERY EIGHT HOURS NEEDED (pain). Max Daily Amount: 150 mg. No current facility-administered medications for this visit. Family History Problem Relation Age of Onset Heart Mother 88 [place] Cancer Mother uterine cancer Lung Cancer Father Arthritis Sister No Known Problems Daughter No Known Problems Son Cancer Brother leukemia Cancer Brother 60 kidney No Known Problems Son Social History Socioeconomic History Marital status: Spouse [...] More than three times a week Attends moravian service: Not on file Active member of [...] 3 adult children from a previous marriage Physical Exam: Vitals: 10/28/19 1404 10/28/19 1405 BP: (!) 142/64 Pulse: 80 Weight: 97 lb (44 kg) Body mass index is 16.14 kg/m. General: Thin, alert 74-y.o. female in NAD HEENT: anicteric, MMM, no E/E OP, conj pink Neck: No carotid bruits CV: RRR, normal s1/s2, no appreciable murmurs, rubs, or gallops Pulm: CTA bilaterally without wheezes, rhonchi, or rales. No increased work of breathing. Abd: soft, NT, ND, +BS. No appreciable pulsatile masses or bruits. Ext: Trace lower extremity edema, no cyanosis, no cords, redness, or warmth, 2+ distal pulses Neuro: no gross focal deficits Skin: no visible lesions Labs: Lab Results Component Value Date NA 137 06/13/2019 K 4.2 06/13/2019 CL 102 06/13/2019 CO2 28 06/13/2019 GLUCOSE 102 (H) 06/13/2019 BUN 10 06/13/2019 CREATININE 0.8 06/13/2019 CALCIUM 9.3 06/13/2019 TP 6.2 (L) 06/13/2019 ALBUMIN 3.8 06/13/2019 AST 25 06/13/2019 ALT 23 06/13/2019 ALK 65 06/13/2019 TBILI 0.4 06/13/2019 EGFR >60 06/13/2019 No results found for: BNP Lab Results Component Value Date CHOL 153 04/08/2019 TRIG 66 04/08/2019 HDL 63 04/08/2019 LDL 77 04/08/2019 LDLHDLRATIO 1.2 04/08/2019 CHOLHDLRATIO 2.4 04/08/2019 Assessment & Plan: Sabi Willard is a 74-y.o. female with ICD-9-CM ICD-10-CM 1. Permanent atrial fibrillation 427.31 I48.21 ECHOCARDIOGRAM TTE 2. Chronic diastolic heart failure (HCC) 428.32 I50.32 PROTHROMBIN TIME PARTIAL THROMBOPLASTIN TIME ECHOCARDIOGRAM TTE PROTHROMBIN TIME PARTIAL THROMBOPLASTIN TIME 3. Paroxysmal atrial fibrillation (HCC) 427.31 I48.0 4. Cor pulmonale (chronic) (HCC) 416.9 I27.81 5. Mixed hyperlipidemia 272.2 E78.2 6. Essential hypertension 401.9 I10 [id number] score - Age: ? <65 0 ? 65-74 1 ? >75 2 - Gender: ? Male 0 ? Female 1 - CHF History 1 - Hypertension 1 - CVA history 2 - Peripheral vascular disease 1 - Diabetes mellitus 1 Total: 3 1. Atrial Fibrillation: The etiology of atrial fibrillation in this patient is most likely related hypertension and COPD. This patient's [id number] score is 3, I recommend the following treatment strategy and medical regimen for this patient: ? Stroke prevention: Based on the patient's [id number] risk profile, I would recommend Eliquis 5mgBID (assuming her Cr is normal today as it has been in the past). She mentioned that "years ago," she had a blood thinning disorder. Will discuss with Dr. Ruiz prior to initiating. ? Rate control: Will increase Cartia 240mg for better blood pressure control. ? Rhythm control: N/A in normal sinus rhythm. ? Will repeat a TTE. 2. Hypertension: Blood pressure today is not controlled ? Currently taking Cartia 240mg. Will increase to 360mg ? I encouraged patient to check her blood pressure at home, and let us know if it is persistently >130/80. ? Again, counseled patient on a low sodium diet. Thank you for allowing me to participate in the care of Sabi Willard. We will plan on f/u in our office in 2 weeks to discuss blood thinners and re- check blood pressure, or sooner prn. If you have any questions or concerns please feel free to call our office. [place] Grant, 10/28/2019, 14:32 documented in this encounter Plan of Treatment Date Type Specialty Care Team Description 11/11/2019 Ancillary Procedure Radiology 11/11/2019 Office Visit Cardiology Farzaneh Quick PA [address] [place] [address] 11/27/2019 Orders Only Cardiology Name Type Priority Associated Diagnoses Date/Time PROTHROMBIN TIME Lab Routine Chronic diastolic heart 10/28/2019 2:30 PM failure (HCC) EST PARTIAL THROMBOPLASTIN TIME Lab Routine Chronic diastolic heart 10/28/2019 2:30 PM failure (HCC) EST Name Type Priority Associated Diagnoses Order Schedule PROTHROMBIN TIME Lab Routine Chronic diastolic heart Expected: failure (HCC) 10/28/2019 (Approximate), Expires: 10/28/2020 PARTIAL THROMBOPLASTIN Lab Routine Chronic diastolic heart Expected: TIME failure (HCC) 10/28/2019 (Approximate), Expires: 10/28/2020 ECHOCARDIOGRAM TTE CV Lab Routine Permanent atrial Expected: fibrillation 10/28/2019, Chronic diastolic heart Expires: 12/01/2020 failure (HCC) Health Maintenance Due Date Last Done Comments [...] Progress Blood Pressure Blood Pressure 142/64 No Jordi, < 150/90 (10/28/2019 Carmen, 2:04 PM EST) [...] 18 mo CHF 0.4 (10/28/2019 2:05 PM No Farhan Walsh MD min (lbs) < 5 EST) Note: [...] and any After Visit Summaries. Consume a [id number] diet Lifestyle No Farhan Walsh MD Note: This is an individualized lifestyle goal for Sabi Willard: Please do not add additional salt to your food. Additional salt may lead to fluid retention and worsen your congestive heart failure. Take all prescribed medications as Self-management Carmen Cardozo PA-C directed Note: This is an individualized [...] filedocumented in this encounter Visit Diagnoses Diagnosis Chronic diastolic heart failure (HCC) Chronic diastolic heart failure Permanent atrial fibrillation Atrial fibrillation Paroxysmal atrial fibrillation (HCC) Atrial fibrillation Cor pulmonale (chronic) (HCC) Mixed hyperlipidemia Essential hypertension Unspecified essential hypertension documented in this encounter Insurance Payer Benefit Plan / Subscriber ID Effective Dates Phone Address Type Group [employer] MEDICARE EXCELLUS xxxxxxxxxxxx 2017-Presen [employer] ADV[employer]AGE MEDICARE BLUE t PPO ([phone]) Guarantor Name Account Type Relation to Date of Phone Billing Patient Address Sabi Willard Personal/Family 1945 [address] (Home) [address] [facility] [phone] [place], [place] (Work) [address] documented as of this encounter Advance Directives Type Date 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 Dept of Health
[2019-11-28] MEDS ORDERED: Albuterol/Ipratropium NEB.SOL* Albuterol 2.5 MG/Ipratropium 0.5 MG 3 ML INH ONE ×2 (10:40→11:52)
[2019-11-28] MEDS ORDERED: Albuterol/Ipratropium NEB.SOL* Albuterol 2.5 MG/Ipratropium 0.5 MG 3 ML ONE (10:41)
[2019-11-28] MEDS ORDERED: NS 0.9% 1000 ML** 1,000 ML IV ONE (10:41)
[2019-11-28 10:57] LABS: ABS Basophils 0.1 10^3/ul (0-0.2); ABS Eosinophils 0.2 10^3/ul (0-0.6); ABS Monocytes 0.8 10^3/ul (0-0.8); ABS Neutrophils 5.3 10^3/ul (1.5-7.7); Eosinophil % 2.9 %; Hematocrit 40 % (35-47); Hemoglobin 13.4 g/dL (12.0-16.0); Lymphocyte % 13.3 %; Mean Corpuscular HGB Conc 33 g/dL (31-36); Mean Corpuscular Hemoglobin 29 pg (27-31); Mean Corpuscular Volume 87 fL (80-97); Platelet Count 335 10^3/uL (150-450); Red Blood Count 4.61 10^6 /uL (3.70-4.87); Red Cell Distribution Width 16 % (10-15); White Blood Count 7.3 10^3/uL (3.5-10.8)
[2019-11-28] MEDS ORDERED: Dexamethasone IV* 4 MG/ML 1 ML (4 MG) IV SLOW PU ONE (11:03)
[2019-11-28] MEDS ORDERED: Magnesium Sulfate 1 GM IV* 1 GM/100 ML BAG IV ONE (11:04)
[2019-11-28 11:16] LABS: Troponin I 0.01 ng/mL (<0.03)
[2019-11-28 11:19] LABS: Albumin/Globulin Ratio 1.9 (1-3); BUN/Creatinine Ratio 21.8 (8-20); Calcium 9.2 mg/dL (8.6-10.3); EGFR African American 87.6 (>60); EGFR Non-African American 72.4 (>60); Globulin 2.1 g/dL (2-4); Potassium 3.7 mmol/L (3.5-5.0); Total Bilirubin 0.5 mg/dL (0.2-1.0); Total Protein 6.1 g/dL (6.4-8.9)
--- NOTE | 2019-11-28 11:56 | ED ---
Shortness of Breath - HPI Summary HPI Summary: This patient is a 74-year-old female with a history of COPD and frequent episodes of SVT presenting to the ED with chest tightness and shortness of breath 3 days. She states she's been using her Atrovent at home without relief. She denies any chest pain. Denies any palpitations. Denies any nausea , vomiting. She does have severe COPD at baseline which is worse with exertion. Denies any sweats, chills, N/V. Hernia repair 3 weeks ago. No pain to the abd. States her SOB was not acute onset. Endorses cough with production. - this is typical of her COPD. - History of Current Complaint Chief Complaint: EDRespiratoryDistress Time Seen by Provider: 11/28/19 10:34 Hx Obtained From: Patient Onset/Duration: Sudden Onset Timing: Constant Dyspnea At: Exertion Associated Signs & Symptoms: Cough (Productive) - Allergy/Home Medications Allergies/Adverse Reactions: Allergies Allergy/AdvReac Type Severity Reaction Status Date / Time Adhesive Tape Allergy Severe RASH, Verified 11/18/19 08:04 ITCHING, tears off skin doxycycline Allergy Severe Itching Verified 11/18/19 08:04 fluconazole Allergy Severe GI Upset Verified 11/18/19 08:04 meperidine Allergy Severe Palpitation Verified 11/18/19 08:04 s yellow dye Allergy Intermediate Hives Verified 11/18/19 08:04 fluticasone furoate Allergy Unknown Verified 11/18/19 08:04 [From Mimi Hinkle] Reaction Details vilanterol AdvReac Severe Vomiting Verified 11/18/19 08:04 metals Allergy Mild Itching Uncoded 11/18/19 08:04 POWDER INHALER Allergy Unknown Uncoded 11/18/19 08:04 Reaction Details Home Medications: Home Medications Albuterol 2.5MG/3ML (0.083%)* [Ventolin 2.5 MG/3 ML NEB.KJ*] 2.5 mg INH Q4H PRN 04/23/18 [History Confirmed 11/28/19] Ipratropium HFA INHALER(NF) [Atrovent Hfa Inhaler(NF)] 2 puff INH BID PRN [History Confirmed 11/28/19] Cholecalciferol TAB* [Vitamin D TAB*] 1,000 unit PO DAILY #0 05/08/18 [History Confirmed 11/28/19] Docusate CAP* [Colace Cap*] 100 mg PO TID PRN 06/20/18 [History Confirmed ] dilTIAZem HCl [Cartia Xt] 240 mg PO DAILY 06/20/18 [History Confirmed 11/28/19] Albuterol HFA INHALER* [Ventolin HFA Inhaler*] 2 puff INH Q4H PRN 08/09/18 [ History Confirmed 11/28/19] Atorvastatin* [Lipitor 40 MG*] 40 mg PO DAILY 08/09/18 [History Confirmed ] LORazepam [Lorazepam] 0.5 mg PO Q6H PRN 02/01/19 [History Confirmed 11/28/19] Tizanidine HCl 4 mg PO Q6H PRN 07/01/19 [History Confirmed 11/28/19] predniSONE 10 mg TAB [Deltasone 10 MG TAB*] 10 mg PO DAILY 07/01/19 [History Confirmed 11/28/19] Ipratropium 0.5MG/2.5ML NEB* [Atrovent 0.5 MG NEB.KJ*] 0.5 mg INH Q6H PRN 10/22 [History Confirmed 11/28/19] Mometasone/Formoter 100/5 MDI* [Dulera 100/5 MDI*] 1 puff INH BID 10/22/19 [ History Confirmed 11/28/19] Morphine Sulfate 20 mg PO DAILY PRN 10/22/19 [History Confirmed 11/28/19] Simethicone [Gas-X] 125 mg PO DAILY 11/11/19 [History Confirmed 11/28/19] dilTIAZem ER 360 MG 24HR (NF) 360 mg PO DAILY 11/11/19 [History Confirmed ] traMADol TAB* [Ultram*] 50 mg PO Q8H PRN 11/11/19 [History Confirmed 11/28/19] Acetaminophen [Tylenol Extra Strength] 1,000 mg PO DAILY PRN 11/28/19 [History Confirmed 11/28/19] Albuterol/Ipratropium NEB.KJ* [Duoneb (Albuterol 2.5 MG/Ipratropium 0.5 MG)] 1 neb INH Q4H PRN #20 neb.kj MDD 6 11/28/19 [Rx] PMH/Surg Hx/FS Hx/Imm Hx Previously Healthy: Yes Endocrine/Hematology History: Denies: Hx Diabetes, Hx Thyroid Disease, Hx Anemia, Hx Unexplained Bleeding Cardiovascular History: Reports: Hx Hypercholesterolemia, Hx Hypotension, Hx Hypertension, Other Cardiovascular Problems/Disorders - SVT in ED 05/08/18 Denies: Hx Aneurysm, Hx Angina, Hx Angioplasty, Hx Auto Implanted Cardiovert Defib, Hx Cardiac Arrest, Hx Cardiomegaly, Hx Congenital Heart Disease, Hx Congestive Heart Failure, Hx Coronary Artery Disease, Hx Deep Vein Thrombosis, Hx Embolism, Hx Myocardial Infarction, Hx Pacemaker/ICD, Hx Peripheral Vascular Disease, Hx Rheumatic Fever, Hx Syncope, Hx Valvular Heart Disease Respiratory History: Reports: Hx Asthma, Hx Chronic Obstructive Pulmonary Disease (COPD), Hx Pneumonia - 05/08/18 Denies: Hx Chronic Bronchitis, Hx Cystic Fibrosis, Hx Lung Cancer, Hx Pleural Effusion, Hx Pulmonary Edema, Hx Pulmonary Embolism, Hx Seasonal Allergies, Hx Sleep Apnea, Other Respiratory Problems/Disorders GI History: Reports: Hx Diverticulosis - 05/08/18, Hx Gastroesophageal Reflux Disease, Hx Hiatal Hernia, Hx Irritable Bowel, Other GI Disorders - Inguinal Hernia Denies: Hx Cirrhosis, Hx Crohn's Disease, Hx Gall Bladder Disease, Hx Gastrointestinal Bleed, Hx Jaundice, Hx Obstructive Bowel, Hx Ileostomy, Hx Pyloric Stenosis, Hx Ulcer, Hx Urosepsis History: Denies: Hx Kidney Stones, Hx Renal Disease Musculoskeletal History: Reports: Hx Arthritis - Left knee replacement, Other Musculoskeletal History - Carpal tunnel, Vitamin D deficiency Denies: Hx Osteoporosis Sensory History: Reports: Hx Cataracts, Hx Contacts or Glasses Denies: Hx Deafness, Hx Hearing Aid, Other Sensory Impairments Opthamlomology History: Reports: Hx Cataracts, Hx Contacts or Glasses Denies: Other Sensory Impairments Neurological History: Reports: Hx Headaches, Other Neuro Impairments/Disorders - intermittent numbness BLE Denies: Hx Dementia, Hx Migraine, Hx Seizures, Hx Transient Ischemic Attacks (TIA) Psychiatric History: Reports: Hx Anxiety Denies: Hx Depression, Hx Schizophrenia, Hx Bipolar Disorder - Cancer History Hx Chemotherapy: No - Surgical History Surgery Procedure, Year, and Place: left knee reconstruction 1977; bilat carpal tunnel; TUBAL LIGATION 1981; right hand bone surgery Hx Anesthesia Reactions: No - Immunization History Hx Pertussis Vaccination: No Immunizations Up to Date: Yes Infectious Disease History: No Infectious Disease History: Denies: Hx Hepatitis, Hx Human Immunodeficiency Virus (HIV), Hx of Known/ Suspected MRSA - Negative nasal swab 01/17/17, Hx Tuberculosis, History Other Infectious Disease, Traveled Outside the [place] in Last 30 Days - Family History Known Family History: Positive: Cardiac Disease - mother Negative: Hypertension, Diabetes - Social History Occupation: Unemployed Lives: With Family Alcohol Use: None Hx Substance Use: No Substance Use Type: Reports: None Hx Tobacco Use: Yes Smoking Status (MU): Former Smoker Type: Cigarettes Amount Used/How Often: 3 cigarettes a month Length of Time of Smoking/Using Tobacco: 50 years Have You Smoked in the Last Year: Yes Review of Systems Negative: Fever, Chills, Fatigue, Skin Diaphoresis Positive: Other - chest tightness. Negative: Palpitations, Chest Pain Positive: Shortness Of Breath, Cough Genitourinary: Negative Positive: no symptoms reported, see HPI Negative: Arthralgia, Myalgia All Other Systems Reviewed And Are Negative: Yes Physical Exam Triage Information Reviewed: Yes Vital Signs On Initial Exam: Initial Vitals Temp Pulse Resp BP Pulse Ox 99.6 F 111 22 131/92 97 11/28/19 10:27 11/28/19 10:27 11/28/19 10:27 11/28/19 10:27 11/28/19 10:27 Vital Signs Reviewed: Yes Appearance: Positive: Well-Appearing, Well-Nourished Skin: Positive: Warm, Skin Color Reflects Adequate Perfusion Head/Face: Positive: Normal Head/Face Inspection Eyes: Positive: EOMI, ROD, Conjunctiva Clear Neck: Positive: Supple, No Lymphadenopathy Respiratory/Lung Sounds: Positive: Decreased Breath Sounds, Wheezes, Fatigue Cardiovascular: Positive: Tachycardia Musculoskeletal: Positive: Normal, Strength/ROM Intact Neurological: Positive: Speech Normal Psychiatric: Positive: Normal, Affect/Mood Appropriate Procedures - Sedation Patient Received Moderate/Deep Sedation with Procedure: No Diagnostics - Vital Signs Vital Signs Temp Pulse Resp BP Pulse Ox 11/28/19 10:45 101 21 98 11/28/19 10:27 99.6 F 111 22 131/92 97 - Laboratory Lab Results: Lab Results 11/28/19 11/28/19 11/28/19 Range/Units 10:47 10:47 10:47 WBC 7.3 (3.5-10.8) 10^3/uL RBC 4.61 (3.70-4.87) 10^6 /uL Hgb 13.4 (12.0-16.0) g/dL Hct 40 (35-47) % MCV 87 (80-97) fL MCH 29 (27-31) pg MCHC 33 (31-36) g/dL RDW 16 H (10-15) % Plt Count 335 (150-450) 10^3/uL MPV 6.0 L (7.4-10.4) fL Neut % (Auto) 71.7 % Lymph % (Auto) 13.3 % [place] % (Auto) 11.3 % Eos % (Auto) 2.9 % Baso % (Auto) 0.8 % Absolute Neuts (auto) 5.3 (1.5-7.7) 10^3/ul Absolute Lymphs (auto) 1.0 (1.0-4.8) 10^3/ul Absolute Monos (auto) 0.8 (0-0.8) 10^3/ul Absolute Eos (auto) 0.2 (0-0.6) 10^3/ul Absolute Basos (auto) 0.1 (0-0.2) 10^3/ul Absolute Nucleated RBC 0.0 10^3/ul Nucleated RBC % 0.0 Sodium 138 (135-145) mmol/L Potassium 3.7 (3.5-5.0) mmol/L Chloride 102 (101-111) mmol/L Carbon Dioxide 29 (22-32) mmol/L Anion Gap 7 (2-11) mmol/L BUN 17 (6-24) mg/dL Creatinine 0.78 (0.51-0.95) mg/dL Est GFR ( Amer) 87.6 (>60) Est GFR (Non-Af Amer) 72.4 (>60) BUN/Creatinine Ratio 21.8 H (8-20) Glucose 86 (70-100) mg/dL Lactic Acid 1.0 (0.5-2.0) mmol/L Calcium 9.2 (8.6-10.3) mg/dL Magnesium 2.0 (1.9-2.7) mg/dL Total Bilirubin 0.50 (0.2-1.0) mg/dL AST 24 (13-39) U/L ALT 18 (7-52) U/L Alkaline Phosphatase 62 (34-104) U/L Troponin I 0.01 (<0.03) ng/mL Total Protein 6.1 L (6.4-8.9) g/dL Albumin 4.0 (3.2-5.2) g/dL Globulin 2.1 (2-4) g/dL Albumin/Globulin Ratio 1.9 (1-3) Result Diagrams: 11/28/19 10:47 11/28/19 10:47 Lab Statement: Any lab studies that have been ordered have been reviewed, and results considered in the medical decision making process. - Radiology xray Radiology Interpretation Completed By: Radiologist Summary of Radiographic Findings: no cardiopulmonary disease - EKG ekg Cardiac Rate: NL EKG Rhythm: Sinus Rhythm ST Segment: Non-Specific - T abnormalities EKG Comparison: No Significant Change - This was read by Dr. Hart and reviewed by myself. Course/Dx - Course Course Of Treatment: Patient's evaluated for COPD exacerbation. She states symptoms have been worsening over the past 3 days. She does feel a chest tightness throughout, but denies any palpitations or chest pressure. No radiation of symptoms. She states she is having a difficult time catching her breath. Patient was given a DuoNeb on arrival, magnesium 1 mg, Decadron 8 mg IV and labs are obtained. Patient states she felt immediately improved after DuoNeb was administered. She states she is back to her baseline. She denies any shortness of breath. Denies any chest tightness at this time. Labs are WNL including a troponin of 0.01. Chest x-ray shows no acute cardiopulmonary disease. Discussed with the patient at length. Patient states she is comfortable with going home at this time. She states she has Atrovent at home, however never has had DuoNeb which seems to help her more than the Atrovent. She will be prescribed DuoNeb's for at home and will follow up with PCP. She understands to return if she develops any worsening or changing symptoms. She will stay on her current dose of 10mg prednisone. - Diagnoses Differential Diagnosis/HQI/PQRI: Positive: Asthma, Bronchitis, COPD Exacerbation , Pneumonia Provider Diagnoses: COPD exacerbation Discharge ED - Sign-Out/Discharge Documenting (check all that apply): Patient Departure - Discharge Plan Condition: Good Disposition: HOME Prescriptions: Albuterol/Ipratropium NEB.KJ* [Duoneb (Albuterol 2.5 MG/Ipratropium 0.5 MG)] 1 neb INH Q4H PRN #20 neb.kj MDD 6 PRN Reason: Shortness Of Breath Referrals: Farhan Walsh MD [Primary Care Provider] - - Billing Disposition and Condition Condition: GOOD Disposition: Home
[2019-11-28 13:57] VITALS: BP 132/73
== END 2019-11-28 13:56 | disposition home or self-care (01) ==
LOC: ED 10:25
DX: J44.1 Chronic obstructive pulmonary disease with (acute) exacerbation (principal); E78.00 Pure hypercholesterolemia, unspecified; I10 Essential (primary) hypertension; K21.9 Gastro-esophageal reflux disease without esophagitis; F41.9 Anxiety disorder, unspecified; Z98.51 Tubal ligation status; Z96.652 Presence of left artificial knee joint; Z87.891 Personal history of nicotine dependence; Z79.899 Other long term (current) drug therapy; Z88.1 Allergy status to other antibiotic agents; Z88.5 Allergy status to narcotic agent; Z88.8 Allergy status to other drugs, medicaments and biological substances
CPT/HCPCS: 36415; 71045; 80053; 83605; 83735; 84484; 85025; 93005; 96365; 96375; 99283; A9270-GY; J1100; J3475

== ENCOUNTER 2019-12-18 14:03 | Emergency (ER) | payer MEDICARE, OTHER ==
[2019-12-18] MEDS ORDERED: fentaNYL* 50 MCG/ML 2 ML VIAL (100 MCG VIAL) IV SLOW PU ONE (14:07)
--- OUTSIDE RECORDS SUMMARY | 2019-12-18 14:12 | XMS REPORT | Summary of Care ---
:1945 Author Organization [facility] Address [address] [place] [address] Care Team Providers Name Role Phone Farhan Walsh Primary Care Provider Garth Ruiz Unavailable Reason for Visit Reason Comments Back Pain Extreme back and abdominal pain that started an hour a go. Encounter Details Date Type Department Care Team Description 12/18/2019 Office Visit Farhan Pearson, Abdominal pain, unspecified abdominal location (Primary Dx); Medicine Epigastric abdominal pain; [address] [facility] Essential hypertension; [place] [address] [place] [address] Other emphysema ([facility]) [phone] Allergies Active Allergy Reactions Severity Noted Date Comments Tape: Silk Or Adhesive Rash 05/04/2016 Demerol Cardiac Reaction 05/04/2016 Doxycycline Rash 05/04/2016 Diflucan GI Reaction 05/04/2016 Fluticasone GI Reaction 05/04/2016 Ipratropium Respiratory Reaction 05/04/2016 Only the one in the nebulizer, but not with the inhaler Metals Other 05/04/2016 itching Mucinex Other 07/11/2016 Very weak documented as of this encounter (statuses as of 12/18/2019) Medications Medication Sig Dispensed Refills Start Date End Date Status cholecalciferol Take 1,000 Units 0 Active (VITAMIN D) 1000 UNITS by mouth DAILY. Oral Tab Docusate Sodium (STOOL Take by mouth 0 Active SOFTENER PO) DAILY. albuterol (PROVENTIL, 3 mL by 300 mg 11 04/18/2018 Active VENTOLIN) (2.5 MG/3ML) Inhalation-SVN 0.083% Inhalation Nebu route EVERY FOUR Soln HOURS NEEDED (wheezing). Calcium Carbonate Take by mouth. 0 Active Antacid 1000 MG Oral Chew Tab Respiratory Therapy 1 Each by Does 1 Each 0 10/29/2018 Active Supplies (FULL KIT not apply route NEBULIZER SET) Does not EVERY FOUR HOURS apply Misc NEEDED (cough wheezing). atorvastatin (LIPITOR) TAKE ONE TABLET 90 Tab 3 07/10/2019 Active 40 MG Oral Tab BY MOUTH EVERY DAY predniSONE (DELTASONE) Take 1 Tab by 90 Tab 5 09/09/2019 Active 10 MG Oral Tab mouth DIRECTED. ipratropium (ATROVENT) 2.5 mL by 225 mL 3 09/09/2019 Active 0.02 % Inhalation Inhalation-SVN Solution route EVERY FOUR HOURS NEEDED (wheezing /cough). morphine (ROXANOL) 100 Take 1 mg by 0 02/01/2019 Active MG/5ML Oral Solution mouth NEEDED. budesonide-formoterol Take 2 INHL by 0 Active fumarate (SYMBICORT) inhalation TWICE 160-4.5 MCG/ACT DAILY. Inhalation Aerosol Tiotropium [place] Take by 0 Active Monohydrate (SPIRIVA inhalation. RESPIMAT) 2.5 MCG/ACT Inhalation Aero Soln LORazepam (ATIVAN) 0.5 Take 1 Tab by 60 Tab 0 10/28/2019 Active MG Oral Tab mouth TWO TIMES DAILY NEEDED (anxiety and sob). Max Daily Amount: 1 mg. tramadol (ULTRAM) 50 MG Take 1 Tab by 90 Tab 2 10/28/2019 Active Oral Tab mouth EVERY EIGHT HOURS NEEDED (pain). Max Daily Amount: 150 mg. Tizanidine HCl Take 1 Cap by 90 Cap 4 10/28/2019 Active (ZANAFLEX) 4 MG Oral mouth THREE TIMES Cap DAILY NEEDED (pain). Diltiazem HCl Coated Take 1 Cap by 90 Cap 3 10/28/2019 Active Beads 360 MG Oral mouth DAILY. CAPSULE SR 24 HR apixaban (ELIQUIS) 5 MG Take 1 Tab by 180 Tab 3 10/30/2019 Active Oral Tab mouth TWICE DAILY. albuterol HFA INHALE TWO PUFFS 54 g 3 11/06/2019 Active (VENTOLIN) 108 (90 BY MOUTH EVERY 4 Base) MCG/ACT HOURS NEEDED Inhalation Aero FOR SHORTNESS OF SolnIndications: COPD BREATH with acute exacerbation (HCC) CARTIA XT 240 MG Oral TAKE ONE CAPSULE 90 Cap 0 12/15/2019 Active CAPSULE SR 24 BY MOUTH EVERY HRIndications: DAY Essential hypertension Hospital, Clinic, or Other Ordered Dose Route Frequency Start Date End Date Status Facility Administered Medication ketorolac (TORADOL) 60 mg IM X1 12/18/2019 12/25/2019 Active injection 60 mgIndications: Abdominal pain, unspecified abdominal location documented as of this encounter (statuses as of 12/18/2019) Active Problems Problem Noted Date Chronic left-sided [...] as of this encounter (statuses as of 12/18/2019) Resolved Problems Problem Noted Date Resolved Date Acute respiratory failure with hypoxia 07/05/2018 06/24/2019 Hiatal hernia 06/18/2018 10/28/2019 Tobacco use 06/20/2016 08/24/2017 Overview: 3-4 cigarette per month Start smoking age 12 documented as of this encounter (statuses as of 12/18/2019) Immunizations Name Administration Dates Next Due DTAP [...] or relatives? How often do you attend restorationist or Not asked catholic services? Do you belong to any clubs or Not asked organizations such as restorationist groups, unions, fraternal or athletic groups, or [...] Assigned at Date Recorded Not on file documented as of this encounter Last Filed Vital Signs Vital Sign Reading Time Taken Comments Blood Pressure 130/90 12/18/2019 1:15 PM EDT Pulse 79 12/18/2019 1:15 PM EDT Temperature 37.2 12/18/2019 1:15 PM EDT C (98.9 F) Respiratory Rate - - Oxygen Saturation 97% 12/18/2019 1:15 PM EDT Inhaled Oxygen Concentration - - Weight - - Height - - Body Mass Index - - documented in this encounter Progress Notes Farhan Walsh MD - 12/18/2019 1:20 PM EDT PATIENT: Sabi Willard : 1945 DATE OF SERVICE: 12/18/2019 CHIEF COMPLAINT: Chief Complaint Patient presents with ? Back Pain Extreme back and abdominal pain that started an hour a go. Subjective HISTORY OF PRESENT ILLNESS: Sabi Willard is a 74-y.o. female. HPI Patient here for routine follow up while in waiting room she developed onset of 10/10 upper abdomen and epigastric abdomen pain radiating in band like fashion into thoracic back it is severe sharp pain no associated nausea and vomitting no chest pain or new pulmonary symptoms No lower abdomen no other radiation of pain She could not get comfortable in her chair and she was given 60 mg im toradol once and ambulance wascalled Past Medical History: Diagnosis Date ? COPD (chronic obstructive pulmonary disease) (HCC) 2010 severe, worsened last year after mold and detergent exposure, pneumonia ? GERD (gastroesophageal reflux disease) ? H/O CT scan of chest 02/18/2016 No PE, no masses, severe emphysema. ? H/O CT scan of chest 08/19/2015 COPD, no masses ? H/O echocardiogram 02/18/2016 mild MR, AR, EF 65%, normal ? HTN (hypertension) ? Hypercholesteremia ? Microscopic hematuria evaluated by Dr. Grace2009, renal cysts, normal cystoscopy ? Reflux esophagitis Irritable bowel 2001 ? SVT (supraventricular tachycardia) (HCC) 08/07/2016 ? Tachycardia ? Vitamin D deficiency Family History Problem Relation Age of Onset ? Heart Mother 88 [place] ? Cancer Mother uterine cancer ? Lung Cancer Father ? Arthritis Sister ? No Known Problems Daughter ? No Known Problems Son ? Cancer Brother leukemia ? Cancer Brother 60 kidney ? No Known Problems Son Current Outpatient Medications Medication Sig ? albuterol (PROVENTIL, VENTOLIN) (2.5 MG/3ML) 0.083% Inhalation Nebu Soln 3 mL by Inhalation-SVN route EVERY FOUR HOURS NEEDED (wheezing). ? albuterol HFA (VENTOLIN) 108 (90 Base) MCG/ACT Inhalation Aero Soln INHALE TWO PUFFS BY MOUTH EVERY 4 HOURS NEEDED FOR SHORTNESS OF BREATH ? apixaban (ELIQUIS) 5 MG Oral Tab Take 1 Tab by mouth TWICE DAILY. ? atorvastatin (LIPITOR) 40 MG Oral Tab TAKE ONE TABLET BY MOUTH EVERY DAY ? budesonide-formoterol fumarate (SYMBICORT) 160-4.5 MCG/ACT Inhalation Aerosol Take 2 INHL byinhalation TWICE DAILY. ? Calcium Carbonate Antacid 1000 MG Oral Chew Tab Take by mouth. ? CARTIA XT 240 MG Oral CAPSULE SR 24 HR TAKE ONE CAPSULE BY MOUTH EVERY DAY ? cholecalciferol (VITAMIN D) 1000 UNITS Oral Tab Take 1,000 Units by mouth DAILY. ? Diltiazem HCl Coated Beads 360 MG Oral CAPSULE SR 24 HR Take 1 Cap by mouth DAILY. ? Docusate Sodium (STOOL SOFTENER PO) Take by mouth DAILY. ? ipratropium (ATROVENT) 0.02 % Inhalation Solution 2.5 mL by Inhalation- SVN route EVERY FOURHOURS NEEDED (wheezing /cough). ? LORazepam (ATIVAN) 0.5 MG Oral Tab Take 1 Tab by mouth TWO TIMES DAILY NEEDED (anxiety and sob). Max Daily Amount: 1 mg. ? morphine (ROXANOL) 100 MG/5ML Oral Solution Take 1 mg by mouth NEEDED. ? predniSONE (DELTASONE) 10 MG Oral Tab Take 1 Tab by mouth DIRECTED. ? Respiratory Therapy Supplies (FULL KIT NEBULIZER SET) Does not apply Misc 1 Each by Does notapply route EVERY FOUR HOURS NEEDED (cough wheezing). ? Tiotropium [place] Monohydrate (SPIRIVA RESPIMAT) 2.5 MCG/ACT Inhalation Aero Soln Take by inhalation. ? Tizanidine HCl (ZANAFLEX) 4 MG Oral Cap Take 1 Cap by mouth THREE TIMES DAILY NEEDED (pain). ? tramadol (ULTRAM) 50 MG Oral Tab Take 1 Tab by mouth EVERY EIGHT HOURS NEEDED (pain). MaxDaily Amount: 150 mg. Current Facility-Administered Medications Medication ? ketorolac (TORADOL) injection 60 mg Allergies Allergen Reactions ? Adhesive [Tape: Silk Or Adhesive] Rash ? Demerol Cardiac Reaction ? Doxycycline Rash ? Fluconazole [Diflucan] GI Reaction ? Fluticasone GI Reaction ? Ipratropium Respiratory Reaction Only the one in the nebulizer, but not with the inhaler ? Metals Other itching ? Mucinex Other Very weak Social History Socioeconomic History ? Marital status: Spouse name: Not on file ? Number of children: 3 ? Years of education: Not on file ? Highest education level: Not on file Occupational History ? Not on file Social Needs ? Financial resource strain: Not hard at all ? Food insecurity Worry: Never true Inability: Never true ? Transportation needs Medical: No Non-medical: No Tobacco Use ? Smoking status: Former Smoker Packs/day: 2.50 Years: 52.00 Pack years: 130.00 Types: Cigarettes Last attempt to quit: 04/2016 Years since quittin.6 ? Smokeless tobacco: Never Used ? Tobacco comment: takes 2 puffs rarely Substance and Sexual Activity ? Alcohol use: No Comment: Quit in 2004 ? Drug use: No ? Sexual activity: Yes Partners: Male Comment: Lifestyle ? Physical activity Days per week: 0 days Minutes per session: 0 min ? Stress: Not at all Relationships ? Social connections Talks on phone: More than three times a week Gets together: More than three times a week Attends catholic service: Not on file Active member of club or organization: Not on file Attends meetings of clubs or organizations: Not on file Relationship status: ? Intimate partner violence Fear of current or ex partner: No Emotionally abused: No Physically abused: No Forced sexual activity: No Other Topics Concern ? Back Care Not Asked ? Bike Helmet Not Asked ? Blood Transfusions Not Asked ? Caffeine Concern Not Asked ? Exercise Yes ? Hobby Hazards Not Asked ? International Travel Not Asked ? Service Not Asked ? Occupational Exposure Not Asked ? Seat Belt Yes ? Self-Exams Not Asked ? Sleep Concern Yes ? Special Diet No ? Stress Concern Not Asked ? Weight Concern Not Asked Social History Narrative Lives with her . 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 Physical Exam Abdominal exam: tenderness noted epigastric region hypoactive bowel sounds Pain is 10/10 and she cannot sit still due to this No palpable masses No HSM . ASSESSMENT / IMPRESSION: ICD-9-CM ICD-10-CM 1. Abdominal pain, unspecified abdominal location severe acute onset differential diagnosis includesabdominal aortic aneurysm Or other abdomen viscus perforation she is taken by ambulance to [facility] emergency room and ER is notified by phone [phone] R10.9 ketorolac (TORADOL) injection 60 mg 2. Epigastric abdominal pain 789.06 R10.13 3. Essential hypertension 401.9 I10 4. Other emphysema (HCC) 492.8 J43.8 Farhan Walsh MD 12/18/2019 13:47 documented in this encounter Plan of Treatment Health Maintenance Due Date Last Done Comments CT Colonography 1945 Colonoscopy 1945 Colorectal Cancer Screening 1945 FIT-DNA 1945 FIT/FOBT 1945 Sigmoidoscopy 1945 ZOSTER IMMUNIZATION SERIES (2 04/03/2016 02/07/2016 of [...] Type Problems Progress Blood Pressure Blood Pressure 130/90 No Jordi, < 150/90 (12/18/2019 Carmen, 1:15 PM EDT) CARLOS Note: This is an individualized treatment [...] on the left). Keep immunizations current Lifestyle Carmen Cardozo PA-C Note: This is an individualized lifestyle goal for Sabi Willard: Please be sure to keep up-to-date on recommended immunizations. For example, this would include a yearly influenza vaccine. Immunization status can be seen by looking at the Health Maintenance sections of your e[employer], Plan of Care, and any After Visit Summaries. Consume a up-bwzin-vejy diet Lifestyle No Farhan Walsh MD Note: [...] ongoing basis. Check your weight daily Self-management No Farhan Walsh MD Note: This is an individualized self-management goal for Sabi Willard: Please check your weight daily. Refer to the accompanying CHF treatment goal and call your doctor immediately for further instructions on how to respond to unexpected weight gain. documented as of this encounter Results Not on filedocumented in this encounter Visit Diagnoses Diagnosis Abdominal pain, unspecified abdominal location Epigastric abdominal pain Abdominal pain, epigastric Essential hypertension Unspecified essential hypertension Other emphysema (HCC) Other emphysema documented in this encounter Insurance Payer Benefit Plan / Subscriber ID Effective Dates Phone Address Type Group [employer] EX[employer] [id number] 2017-Pres[place] [employer] ADV[employer] MEDICARE BLUE t PPO ([phone]) Guarantor Name Account Type Relation to Date of Phone Billing Patient Address Sabi Willard Personal/Family 1945 [address] (Home) [address] [facility] [phone] [place], [place] (Work) [id number] documented as of this encounter Advance Directives Type Date Recorded 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
--- OUTSIDE RECORDS SUMMARY | 2019-12-18 14:12 | XMS REPORT | Continuity of Care Document ---
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 Recreational Drug Use Denies Drug Use Tobacco Use Start: Unknown Patient is a former Quit 02/2019 End: Unknown smoker Smoking Status Reviewed: 12/03/19 Patient is a former Quit 02/2019 smoker [...] 10/27/2019 2.5mcg/Act Aerosol Flutter [facility] J[facility]9 Dania Terrazas, 05/14/2019 Device twice a [...] HCL Daisy, 4mg ALAYNA Celestin Tablets Lorazepam Ruston, 0.5mg MD Farhan Tablets Stool Softener 3 by mouth per day Unknown 100mg Capsules Tums 2 by mouth per day Unknown 750mg Chewtabs Ipratropium [place] Inhale 1 [address]ial [address] Unknown Nebulizer Every 4 0.02% Solution Hours as Needed For Wheeze Short Breath Atrovent HFA 2 by mouth three 12.900gm Dania Terrazas, times per day 17mcg/Act Aerosol Dulera 2 puff twice a day 8.800gm Dania Mk, 200-5mcg/Act Aerosol Prednisone 1 by mouth one Ruston, 10mg time per day MD Farhan Tablets [...] day Caps ER 24HR Ibuprofen one tab [id number] 90tabs Unknown 600mg prn Tablets Immunizations CPT Code Status Date Vaccine Lot # [id number] Given 01/07/2014 Pneumonia Vaccine [id number] Given 01/22/2009 Tetanus And Diptheria (Td) For Adult Use Preservative Free Vital Signs Date Vital Result Comment 12/03/2019 9:22am Height 65 inches 5'5" Weight 86.00 lb Heart Rate 84 /min BP Systolic Sitting 118 mmHg BP Diastolic Sitting 68 mmHg Respiratory Rate 18 /min Body Temperature 99.3 F BMI (Body Mass Index) 14.3 kg/m2 11/03/2019 10:37am Height 65 inches 5'5" Weight 97.00 lb Heart Rate 74 /min BP Systolic Sitting 134 mmHg BP Diastolic Sitting 88 mmHg Respiratory Rate 18 /min Body Temperature 98.5 F BMI (Body Mass Index) 16.1 kg/m2 Results Description No Information Available Procedures Date Code Description Status 11/18/2019 [id number] Repair Hernia Inguinal > 5Yrs, Reducible Completed 11/18/2019 [id number] Repair Hernia Inguinal > 5Yrs, Reducible Completed 09/11/2017 [id number] Bone Mineral Density Test Completed 03/12/2014 [id number] Colonoscopy Completed 02/03/2009 [id number] Bone Mineral Density Test Completed 02/03/2009 [id number] Mammogram Completed 01/02/2003 [id number] Colonoscopy Completed Medical Devices Description No Information Available Encounters Type Date Location Provider Dx Diagnosis Office Visit 10/27/2019 Pulmonology And Dania Terrazas J44.9 Chronic obstructive 10:45a Sleep Services Of pulmonary disease, Circular Tank Cooper unspecified Z12.2 Encntr screen for malignant neoplasm of respiratory organs Office Visit 10/10/2019 10:45a Surgical Donovan Lucas, K40.90 [facility] , FACS hernia, w/o obst or gangr, not spcf as recur Assessments Date Code Description Provider 12/03/2019 K40.90 Unilateral inguinal hernia, without Lala Becker NP obstruction or gangrene, not specified as recurrent 12/03/2019 Z48.01 Encounter for change or removal of Lala Becker NP surgical wound dressing 11/18/2019 K40.90 Unilateral inguinal hernia, without Luis Holloway, PA-C obstruction or gangrene, not specified as recurrent 11/18/2019 K40.90 Unilateral inguinal hernia, without Ace Del Toro MD obstruction or gangrene, not specified as recurrent 11/03/2019 K40.90 Unilateral inguinal hernia, without Luis Holloway, PA-C obstruction or gangrene, not specified as recurrent 11/03/2019 Z01.818 Encounter for other preprocedural Luis Holloway, PA -C examination 10/27/2019 J44.9 Chronic obstructive pulmonary disease, Dania Terrazas MD unspecified 10/27/2019 Z12.2 Encounter for screening for malignant Dania Terrazas MD neoplasm of respiratory organs 10/22/2019 K40.90 Unilateral inguinal hernia, without Lala Becker NP obstruction or gangrene, not specified as recurrent 10/22/2019 R06.02 Shortness of breath Lala Becker NP 10/10/2019 K40.90 Unilateral inguinal hernia, without Donovan Lucas MD, АННА obstruction or gangrene, not specified as recurrent Plan of Treatment Future Appointment(s):05/03/2020 11:00 am - Antonieta Coyle NP at [facility]12/03/2019 - Lala Becker NPK40.90 Unilateral inguinal hernia, without obstruction or gangrene, not specified as recurrentFollow up:As [id number] Encounter for change or removal of surgical wound dressing Functional Status Description No Information Available Mental Status Description No Information Available Referrals Description No Information Available
[2019-12-18] MEDS ORDERED: Iodixanol* (CONTRAST) 320 MG/ML 100 ML SDV IV ONE (14:14)
--- NOTE | 2019-12-18 14:25 | ED ---
Abdominal Pain/Female - HPI Summary HPI Summary: 74 year old F presenting to [facility] via EMS with a chief complaint of severe abdominal pain that she describes as a sharp tearing pain since 11:30 today. The patient rates the pain 10/10 in severity. Symptoms aggravated by nothing. Symptoms slightly alleviated by Toradol. Patient reports that her pain radiates to her back and up to her shoulders. She also reports constipation and that her stomach felt hard. Per EMS the patient's blood pressure differed by approximately 20 mmHg in her right and left arms. The patient was seen at her PCP prior to arrival and was given 60 mg of Toradol. The patient states that her pain is now moderate. She denies any nausea, vomiting, diarrhea, or pain or swelling in her legs. Her last bowel movement was this morning. She has a history of GERD, SVT, AFib, hernia surgery, and COPD. She admits to a history of smoking 1 cigarette per day. She denies any recreational drug use. She also denies any recent sick contacts or travel outside of the country. She is a DNR/ DNI. Medication list reviewed. Allergy list reviewed. Home Medications Medication Instructions Recorded Confirmed Type Albuterol 2.5MG/3ML (0.083%)* 2.5 mg INH Q4H PRN 04/23/18 11/28/19 History [Ventolin 2.5 MG/3 ML NEB.KJ*] Ipratropium HFA INHALER(NF) 2 puff INH BID PRN 04/23/18 11/28/19 History [Atrovent Hfa Inhaler(NF)] Cholecalciferol TAB* [Vitamin D 1,000 unit PO DAILY #0 05/08/18 11/28/19 History TAB*] Docusate CAP* [Colace Cap*] 100 mg PO TID PRN 06/20/18 11/28/19 History dilTIAZem HCl [Cartia Xt] 240 mg PO DAILY 06/20/18 11/28/19 History Albuterol HFA INHALER* [Ventolin 2 puff INH Q4H PRN 08/09/18 11/28/19 History HFA Inhaler*] Atorvastatin* [Lipitor 40 MG*] 40 mg PO DAILY 08/09/18 11/28/19 History LORazepam [Lorazepam] 0.5 mg PO Q6H PRN 02/01/19 11/28/19 History Tizanidine HCl 4 mg PO Q6H PRN 07/01/19 11/28/19 History predniSONE 10 mg TAB [Deltasone 10 10 mg PO DAILY 07/01/19 11/28/19 History MG TAB*] Ipratropium 0.5MG/2.5ML NEB* 0.5 mg INH Q6H PRN 10/22/19 11/28/19 History [Atrovent 0.5 MG NEB.KJ*] Mometasone/Formoter 100/5 MDI* 1 puff INH BID 10/22/19 11/28/19 History [Dulera 100/5 MDI*] Morphine Sulfate 20 mg PO DAILY PRN 10/22/19 11/28/19 History Simethicone [Gas-X] 125 mg PO DAILY 11/11/19 11/28/19 History dilTIAZem ER 360 MG 24HR (NF) 360 mg PO DAILY 11/11/19 11/28/19 History traMADol TAB* [Ultram*] 50 mg PO Q8H PRN 11/11/19 11/28/19 History Acetaminophen [Tylenol Extra 1,000 mg PO DAILY PRN 11/28/19 11/28/19 History Strength] Albuterol/Ipratropium NEB.KJ* 1 neb INH Q4H PRN #20 neb.kj MDD 6 11/28/19 Rx [Duoneb (Albuterol 2.5 MG/Ipratropium 0.5 MG)] - History of Current Complaint Chief Complaint: EDAbdPain Stated Complaint: ABD PAIN PER EMS Hx Obtained From: Patient, EMS Onset/Duration: Lasting Hours, Still Present Timing: Constant Severity Initially: Severe Severity Currently: Moderate Pain Intensity: 10 Pain Scale Used: 0-10 Numeric Radiates: Yes Radiates to: Back, Other - Shoulders Character: Sharp, Tearing Aggravating Factor(s): Nothing Alleviating Factor(s): Medications - Toradol Associated Signs and Symptoms: Positive: Back Pain, Constipation, Other: - Hard abdomen Allergies/Adverse Reactions: Allergies Allergy/AdvReac Type Severity Reaction Status Date / Time Adhesive Tape Allergy Severe RASH, Verified 11/18/19 08:04 ITCHING, tears off skin doxycycline Allergy Severe Itching Verified 11/18/19 08:04 fluconazole Allergy Severe GI Upset Verified 11/18/19 08:04 meperidine Allergy Severe Palpitation Verified 11/18/19 08:04 s yellow dye Allergy Intermediate Hives Verified 11/18/19 08:04 fluticasone furoate Allergy Unknown Verified 11/18/19 08:04 [From Mimi Hinkle] Reaction Details vilanterol AdvReac Severe Vomiting Verified 11/18/19 08:04 metals Allergy Mild Itching Uncoded 11/18/19 08:04 POWDER INHALER Allergy Unknown Uncoded 11/18/19 08:04 Reaction Details Home Medications: Home Medications Albuterol 2.5MG/3ML (0.083%)* [Ventolin 2.5 MG/3 ML NEB.KJ*] 3 ml INH Q4H PRN 04/23/18 [History Confirmed 12/18/19] Cholecalciferol TAB* [Vitamin D TAB*] 1,000 unit PO DAILY #0 05/08/18 [History Confirmed 12/18/19] Docusate CAP* [Colace Cap*] 100 mg PO DAILY PRN 06/20/18 [History Confirmed 09/26] dilTIAZem HCl [Cartia Xt] 240 mg PO DAILY 06/20/18 [History Confirmed 12/18/19] Albuterol HFA INHALER* [Ventolin HFA Inhaler*] 2 puff INH Q4H PRN 08/09/18 [ History Confirmed 12/18/19] Atorvastatin* [Lipitor 40 MG*] 40 mg PO DAILY 08/09/18 [History Confirmed ] LORazepam [Lorazepam] 0.5 mg PO BID PRN 02/01/19 [History Confirmed 12/18/19] Tizanidine HCl 4 mg PO TID PRN 07/01/19 [History Confirmed 12/18/19] predniSONE 10 mg TAB [Deltasone 10 MG TAB*] 10 mg PO DAILY 07/01/19 [History Confirmed 12/18/19] Ipratropium 0.5MG/2.5ML NEB* [Atrovent 0.5 MG NEB.KJ*] 2.5 ml INH Q4H PRN 10/22 [History Confirmed 12/18/19] dilTIAZem ER 360 MG 24HR (NF) 360 mg PO DAILY 11/11/19 [History Confirmed ] traMADol TAB* [Ultram*] 50 mg PO Q8H PRN 11/11/19 [History Confirmed 12/18/19] Apixaban* [Eliquis*] 5 mg PO BID 12/18/19 [History Confirmed 12/18/19] Budesonide/Formote 160/4.5(NF) [Symbicort 160/4.5 (NF)] 2 puff INH BID 12/18/19 [History Confirmed 12/18/19] Calcium Citrate TAB* [Citracal TAB*] 1,000 mg PO DAILY 12/18/19 [History Confirmed 12/18/19] HYDROcodone/ACETAMIN 5-325 MG* [[place] 5-325 TAB*] 1 tab PO Q6H PRN #10 tab MDD 4 tablets 12/18/19 [Rx] Ketorolac *IM* INJ* [Toradol INJ*] 60 mg IM ONCE 12/18/19 [History Confirmed 09/26] Morphine ORAL.CONC BULK BOT* [Roxanol ORAL.CONC Bottle*] 1 mg PO DAILY 12/18/19 [History Confirmed 12/18/19] Tiotropium [place] [Spiriva Respimat] 1.25 mcg INH DAILY 12/18/19 [History Confirmed 12/18/19] PMH/Surg Hx/FS Hx/Imm Hx Endocrine/Hematology History: Denies: Hx Diabetes, Hx Thyroid Disease, Hx Anemia, Hx Unexplained Bleeding Cardiovascular History: Reports: Hx Atrial Fibrillation, Hx Hypercholesterolemia , Hx Hypotension, Hx Hypertension, Other Cardiovascular Problems/Disorders - SVT in ED 05/08/18 Denies: Hx Aneurysm, Hx Angina, Hx Angioplasty, Hx Auto Implanted Cardiovert Defib, Hx Cardiac Arrest, Hx Cardiomegaly, Hx Congenital Heart Disease, Hx Congestive Heart Failure, Hx Coronary Artery Disease, Hx Deep Vein Thrombosis, Hx Embolism, Hx Myocardial Infarction, Hx Pacemaker/ICD, Hx Peripheral Vascular Disease, Hx Rheumatic Fever, Hx Syncope, Hx Valvular Heart Disease Respiratory History: Reports: Hx Asthma, Hx Chronic Obstructive Pulmonary Disease (COPD), Hx Pneumonia - 05/08/18 Denies: Hx Chronic Bronchitis, Hx Cystic Fibrosis, Hx Lung Cancer, Hx Pleural Effusion, Hx Pulmonary Edema, Hx Pulmonary Embolism, Hx Seasonal Allergies, Hx Sleep Apnea, Other Respiratory Problems/Disorders GI History: Reports: Hx Diverticulosis - 05/08/18, Hx Gastroesophageal Reflux Disease, Hx Hiatal Hernia, Hx Irritable Bowel, Other GI Disorders - Inguinal Hernia Denies: Hx Cirrhosis, Hx Crohn's Disease, Hx Gall Bladder Disease, Hx Gastrointestinal Bleed, Hx Jaundice, Hx Obstructive Bowel, Hx Ileostomy, Hx Pyloric Stenosis, Hx Ulcer, Hx Urosepsis History: Denies: Hx Kidney Stones, Hx Renal Disease Musculoskeletal History: Reports: Hx Arthritis - Left knee replacement, Other Musculoskeletal History - Carpal tunnel, Vitamin D deficiency Denies: Hx Osteoporosis Sensory History: Reports: Hx Cataracts, Hx Contacts or Glasses Denies: Hx Deafness, Hx Hearing Aid, Other Sensory Impairments Opthamlomology History: Reports: Hx Cataracts, Hx Contacts or Glasses Denies: Other Sensory Impairments Neurological History: Reports: Hx Headaches, Other Neuro Impairments/Disorders - intermittent numbness BLE Denies: Hx Dementia, Hx Migraine, Hx Seizures, Hx Transient Ischemic Attacks (TIA) Psychiatric History: Reports: Hx Anxiety Denies: Hx Depression, Hx Schizophrenia, Hx Bipolar Disorder - Cancer History Hx Chemotherapy: No - Surgical History Surgery Procedure, Year, and Place: left knee reconstruction 1977; bilat carpal tunnel; TUBAL LIGATION 1981; right hand bone surgery; hernia Hx Anesthesia Reactions: No Infectious Disease History: No Infectious Disease History: Denies: Hx Hepatitis, Hx Human Immunodeficiency Virus (HIV), Hx of Known/ Suspected MRSA - Negative nasal swab 01/17/17, Hx Tuberculosis, History Other Infectious Disease, Traveled Outside the [place] in Last 30 Days - Family History Known Family History: Positive: Cardiac Disease - mother Negative: Hypertension, Diabetes - Social History Alcohol Use: None Hx Substance Use: No Substance Use Type: Reports: None Hx Tobacco Use: Yes Smoking Status (MU): Former Smoker Type: Cigarettes Amount Used/How Often: 1 per day Length of Time of Smoking/Using Tobacco: 50 years Have You Smoked in the Last Year: Yes Review of Systems Positive: Abdominal Pain, Other - Constipation; hard abdomen. Negative: Vomiting, Diarrhea, Nausea Musculoskeletal: Negative - Pain or swelling in her legs Positive: Other - Back pain All Other Systems Reviewed And Are Negative: Yes Physical Exam - Summary Physical Exam Summary: Constitutional: Well-developed, Well-nourished, Alert. (-) Distressed; overall well appearing. Skin: Warm, Dry HENT: Normocephalic; Atraumatic Eyes: Conjunctiva normal Neck: Musculoskeletal ROM normal neck. (-) JVD, (-) Stridor, (-) Tracheal deviation Cardio: Rhythm regular, rate normal, Heart sounds normal; Intact distal pulses; Radial pulses are 2+ and symmetric. (-) Murmur; 2+ radial and femoral pulses. Pulmonary/Chest wall: Effort normal. (-) Respiratory distress, (-) Wheezes, (-) Rales Abd: Soft, (-) tenderness, (-) Distension, (-) Guarding, (-) Rebound; no palpable abdominal mass; bedside ultrasound shows no obvious AAA. Musculoskeletal: (-) Edema; no spinal tenderness to palpation. Lymph: (-) Cervical adenopathy Neuro: Alert, Oriented x3 Psych: Mood and affect Normal Triage Information Reviewed: Yes Vital Signs On Initial Exam: Initial Vitals Temp Pulse Resp BP Pulse Ox 97.0 F 72 22 163/88 0 12/18/19 14:05 12/18/19 14:05 12/18/19 14:05 12/18/19 14:05 12/18/19 14:05 Vital Signs Reviewed: Yes Procedures - Sedation Patient Received Moderate/Deep Sedation with Procedure: No Diagnostics - Vital Signs Vital Signs Temp Pulse Resp BP Pulse Ox 12/18/19 14:05 97.0 F 72 22 163/88 0 - Laboratory Result Diagrams: 12/18/19 14:09 12/18/19 14:06 Lab Statement: Any lab studies that have been ordered have been reviewed, and results considered in the medical decision making process. - CT Chest/Abdomen/Pelvis CTA CT Interpretation Completed By: Radiologist Summary of CT Findings: Chest impression: #. Severe panlobular emphysema. #. Coronary artery calcifications. #. Negative for aneurysm or dissection of the thoracic aorta. #. . Mild anterior column compression fractures at the T12 and T10 vertebral bodies new compared with the 2018 exam. Given trabecular impaction at the inferior endplate of the T12 vertebral body the fracture may be acute or subacute. Negative for significant involvement of the middle column at either level. Negative for central canal stenosis within limits of CT. Negative for paraspinal hematoma. Abdomen/Pelvis impression: #. Negative for aneurysm or dissection of the abdominal aorta. #. Approximate 50% short segment stenosis of the RIGHT common iliac artery and 70% short segment stenosis of the tortuous LEFT common iliac artery. Approximate 50% stenosis at the ostium of the RIGHT renal artery. Approximate 50% stenosis at the ostium of the celiac axis. #. The constellation of findings at the bowel favors a partial small bowel obstruction or ileus. No transition point visualized. #. Small volume of nonloculated ascites. Negative for free air. #. Multiple osteoporotic compression fractures of the lumbar spine with potential acute or subacute fractures as noted. Negative for resulting spinal stenosis or visualized paraspinal hematoma. ED physician has reviewed this report. - EKG 14:22 Cardiac Rate: NL - 77 BPM EKG Rhythm: Sinus Rhythm Summary of EKG Findings: No change from prior EKG. ED physician has reviewed and interpreted this EKG. Re-Evaluation - Re-Evaluation First Eval Re-Evaluation Time: 15:44 Change: Improved Comment: Patient is feeling better. Abdominal Pain Fem Course/Dx - Course Course Of Treatment: Patient was brought in via EMS with pain in her abdomen that radiated into her back. Patient did have differential blood pressure in her [facility] so there is concern about dissection. Upon arrival, patient was overall well-appearing but did have obvious pain in her back. Patient was hypertensive and normal cardiac upon arrival. Patient had a bedside ultrasound which showed no evidence of AAA. Patient had a stat CTA scan of her chest/arms/pelvis which showed no evidence of dissection. Patient had blood performed was grossly unremarkable. Patient did have multiple compression fractures on CT scan but had no actual tenderness on her spine. Patient also has a likely ileus on CT scan as she has constipation but did have a bowel movement today. Given patient's findings on exam, patient was discharged - Diagnoses Provider Diagnoses: Ileus, Abdominal pain, Back pain, Compression fracture - Critical Care Time Critical Care Time: 30-74 min - 35 minutes Discharge ED - Sign-Out/Discharge Documenting (check all that apply): Patient Departure - Discharge Plan Condition: Stable Disposition: HOME Prescriptions: HYDROcodone/ACETAMIN 5-325 MG* [[place] 5-325 TAB*] 1 tab PO Q6H PRN #10 tab MDD 4 tablets PRN Reason: Pain - Severe Patient Education Materials: Vertebral Compression Fracture (ED), Abdominal Pain (ED), Ileus (ED), Back Pain (ED) Referrals: Farhan Walsh MD [Primary Care Provider] - 3 Days Additional Instructions: Follow-up with your PCP in 1-3 days. Take your pain medication as prescribed, do not take it with your unknown pain medication you have at home. Return to the emergency department for any severe abdominal pain uncontrolled with your medication, if you stop having bowel movements especially if you are vomiting, and any other concerning symptoms. - Billing Disposition and Condition Condition: STABLE Disposition: Home - Attestation Statements Document Initiated by Gustabo: Yes Documenting Scribe: Jolynn Avelar Provider For Whom Gustabo is Documenting (Include Credential): Rey Rivera MD Scribe Attestation: Jolynn Whitt, scribed for Rey Rivera MD on 12/18/19 at 1710. Scribe Documentation Reviewed: Yes Provider Attestation: The documentation as recorded by the Jolynn hernández accurately reflects the service I personally performed and the decisions made by , Rey Rivera MD Status of Scribe Document: Viewed
[2019-12-18 14:28] LABS: ABS Lymphocytes 2.5 10^3/ul (1.0-4.8); ABS Monocytes 1.5 10^3/ul (0-0.8); ABS Neutrophils 8.1 10^3/ul (1.5-7.7); Eosinophil % 0.1 %; Hematocrit 41 % (35-47); Hemoglobin 13.2 g/dL (12.0-16.0); Lymphocyte % 20.7 %; Mean Corpuscular HGB Conc 33 g/dL (31-36); Mean Corpuscular Hemoglobin 29 pg (27-31); Mean Corpuscular Volume 88 fL (80-97); Mean Platelet Volume 6.1 fL (7.4-10.4); Platelet Count 284 10^3/uL (150-450); Red Blood Count 4.63 10^6 /uL (3.70-4.87); Red Cell Distribution Width 17 % (10-15); White Blood Count 12.1 10^3/uL (3.5-10.8)
[2019-12-18 14:33] LABS: INR 0.87 (0.82-1.09)
[2019-12-18] MEDS ORDERED: NS 0.9% 1000 ML** 1,000 ML IV ONE (14:35)
[2019-12-18 14:46] LABS: Albumin 4.1 g/dL (3.2-5.2); Albumin/Globulin Ratio 2.2 (1-3); BUN/Creatinine Ratio 19.2 (8-20); Calcium 10.4 mg/dL (8.6-10.3); EGFR African American 66.5 (>60); Globulin 1.9 g/dL (2-4); Potassium 3.8 mmol/L (3.5-5.0); Total Bilirubin 0.5 mg/dL (0.2-1.0)
[2019-12-18 14:47] LABS: Troponin I 0.01 ng/mL (<0.03)
[2019-12-18] MEDS ORDERED: Morphine 4 MG/ML VIAL (1 ml) 4 MG/ML VIAL IV ONE (15:20)
[2019-12-18 16:35] VITALS: BP 125/74
== END 2019-12-18 16:35 | disposition home or self-care (01) ==
LOC: ED 14:03
DX: M48.50XA Collapsed vertebra, not elsewhere classified, site unspecified, initial encounter for fracture (principal); K56.7 Ileus, unspecified; R10.9 Unspecified abdominal pain; M54.9 Dorsalgia, unspecified; K59.00 Constipation, unspecified; I48.91 Unspecified atrial fibrillation; E78.00 Pure hypercholesterolemia, unspecified; F41.9 Anxiety disorder, unspecified; K21.9 Gastro-esophageal reflux disease without esophagitis; I10 Essential (primary) hypertension; Z79.52 Long term (current) use of systemic steroids; Z79.899 Other long term (current) drug therapy; Z86.79 Personal history of other diseases of the circulatory system; Z87.891 Personal history of nicotine dependence
CPT/HCPCS: 36415; 71275; 74174; 80053; 84484; 85025; 85610; 93005; 96374; 96375; 99284; J2270; J3010; Q9967

== ENCOUNTER 2021-02-15 15:37 | Inpatient (IN) ==
[2021-02-15] MEDS ORDERED: Albuterol/Ipratropium NEB.SOL (2.5/0.5 MG) 3 ML NEB.SOLN INH ONE ×2 (16:25→19:20)
[2021-02-15 17:11] LABS: ABS Basophils 0.1 10^3/ul (0-0.2); ABS Lymphocytes 1.4 10^3/ul (1.0-4.8); ABS Monocytes 0.9 10^3/ul (0-0.8); ABS Neutrophils 7.5 10^3/ul (1.5-7.7); Eosinophil % 0.2 %; Hematocrit 45 % (35-47); Hemoglobin 14.9 g/dL (12.0-16.0); Lymphocyte % 14.1 %; Mean Corpuscular HGB Conc 33 g/dL (31-36); Mean Corpuscular Hemoglobin 30 pg (27-31); Mean Corpuscular Volume 91 fL (80-97); Nucleated Red Blood Cells % 0.1; Platelet Count 282 10^3/uL (150-450); Red Cell Distribution Width 16 % (10-15); White Blood Count 9.9 10^3/uL (3.5-10.8)
[2021-02-15 17:33] LABS: Troponin I 0.03 ng/mL (<0.03)
[2021-02-15 17:40] LABS: ALT 19 U/L (7-52); AST 20 U/L (13-39); Albumin 4.1 g/dL (3.2-5.2); Albumin/Globulin Ratio 1.8 (1-3); Alkaline Phosphatase 57 U/L (34-104); Anion Gap 7 mmol/L (2-11); Blood Urea Nitrogen 17 mg/dL (6-24); C Reactive Protein 6.11 mg/L (<8.01); CO2 Carbon Dioxide 30 mmol/L (22-32); Calcium 9.1 mg/dL (8.6-10.3); Chloride 103 mmol/L (101-111); EGFR African American 64.8 (>60); EGFR Non-African American 53.6 (>60); Globulin 2.3 g/dL (2-4); Glucose 87 mg/dL (70-100); Magnesium 2.2 mg/dL (1.9-2.7); Potassium 4.2 mmol/L (3.5-5.0); Sodium 140 mmol/L (135-145); Total Protein 6.4 g/dL (6.4-8.9)
[2021-02-15 19:32] LABS: Urine Appearance Clear; Urine Bilirubin Negative (Negative); Urine Blood 1+ (Negative); Urine Color Yellow; Urine Glucose Negative (Negative); Urine Ketones Negative (Negative); Urine Nitrite Negative (Negative); Urine Protein Negative (Negative); Urine Specific Gravity 1.012 (1.002-1.030); Urine Urobilinogen Negative (Negative)
[2021-02-15 19:41] LABS: Urine Bacteria Absent (Absent); Urine Red Blood Cell Trace(0-2/hpf) (Absent); Urine Squamous Epithelial Cell Present (Absent); Urine White Blood Cell Trace(0-5/hpf) (Absent)
[2021-02-15] MEDS ORDERED: Albuterol 2.5mg/3 ml (0.083%) NEB.SOLN INH PRN (21:31)
[2021-02-16] MEDS: Albuterol/Ipratropium NEB.SOL (2.5/0.5 MG) 3 ML NEB.SOLN INH SCH ×7 (00:02→23:27)
[2021-02-16] MEDS: Enoxaparin 40 MG/0.4 ML SYR SUBCUT SCH ×2 (01:11→21:04)
[2021-02-16] MEDS: methylPREDNISolone SOD 40 mg/ml 1 ml VIAL IV SCH ×3 (01:11→21:04)
[2021-02-16 06:00] LABS: ABS Lymphocytes 0.5 10^3/ul (1.0-4.8); ABS Monocytes 0.2 10^3/ul (0-0.8); ABS Neutrophils 7.5 10^3/ul (1.5-7.7); Eosinophil % 0.1 %; Hematocrit 41 % (35-47); Hemoglobin 13.8 g/dL (12.0-16.0); Lymphocyte % 6.5 %; Mean Corpuscular HGB Conc 33 g/dL (31-36); Mean Corpuscular Hemoglobin 30 pg (27-31); Mean Corpuscular Volume 91 fL (80-97); Mean Platelet Volume 6.1 fL (7.4-10.4); Nucleated Red Blood Cells % 0.1; Platelet Count 261 10^3/uL (150-450); Red Blood Count 4.56 10^6 /uL (3.70-4.87); Red Cell Distribution Width 16 % (10-15); White Blood Count 8.2 10^3/uL (3.5-10.8)
[2021-02-16 06:11] LABS: Calcium 8.8 mg/dL (8.6-10.3)
[2021-02-16 06:17] LABS: EGFR African American 64.8 (>60); EGFR Non-African American 53.6 (>60)
[2021-02-16] MEDS: SPIRIVA Respimat (tiotropium) 2.5 mcg/inh Inhaler INH SCH (08:07)
[2021-02-16] MEDS: Cholecalciferol (VIT D3) 1,000 unit TAB PO SCH (09:44)
[2021-02-16] MEDS: Calcium Carb (TUMS) 500 mg CHEW TAB PO SCH (09:44)
[2021-02-17] MEDS: Albuterol/Ipratropium NEB.SOL (2.5/0.5 MG) 3 ML NEB.SOLN INH SCH ×6 (02:54→22:42)
[2021-02-17 06:42] LABS: ABS Lymphocytes 0.6 10^3/ul (1.0-4.8); ABS Monocytes 0.3 10^3/ul (0-0.8); ABS Neutrophils 10.1 10^3/ul (1.5-7.7); Hematocrit 41 % (35-47); Hemoglobin 13.4 g/dL (12.0-16.0); Lymphocyte % 5.1 %; Mean Corpuscular HGB Conc 33 g/dL (31-36); Mean Corpuscular Hemoglobin 30 pg (27-31); Mean Corpuscular Volume 92 fL (80-97); Mean Platelet Volume 6.2 fL (7.4-10.4); Platelet Count 273 10^3/uL (150-450); Red Blood Count 4.42 10^6 /uL (3.70-4.87); Red Cell Distribution Width 16 % (10-15)
[2021-02-17 07:04] LABS: Calcium 9.4 mg/dL (8.6-10.3); EGFR African American 56.4 (>60); EGFR Non-African American 46.6 (>60); Potassium 4.8 mmol/L (3.5-5.0)
[2021-02-17] MEDS: SPIRIVA Respimat (tiotropium) 2.5 mcg/inh Inhaler INH SCH (07:25)
[2021-02-17] MEDS: Calcium Carb (TUMS) 500 mg CHEW TAB PO SCH (09:41)
[2021-02-17] MEDS: Cholecalciferol (VIT D3) 1,000 unit TAB PO SCH (09:41)
[2021-02-17] MEDS: methylPREDNISolone SOD 40 mg/ml 1 ml VIAL IV SCH ×2 (09:43→21:29)
[2021-02-17] MEDS ORDERED: Furosemide 40 mg/4 ml IV VIAL IV ONE (14:30)
[2021-02-17] MEDS: Enoxaparin 40 MG/0.4 ML SYR SUBCUT SCH (21:31)
[2021-02-18] MEDS: Albuterol/Ipratropium NEB.SOL (2.5/0.5 MG) 3 ML NEB.SOLN INH SCH ×4 (03:50→19:37)
[2021-02-18] MEDS: SPIRIVA Respimat (tiotropium) 2.5 mcg/inh Inhaler INH SCH (07:27)
[2021-02-18] MEDS: Cholecalciferol (VIT D3) 1,000 unit TAB PO SCH (09:36)
[2021-02-18] MEDS: Calcium Carb (TUMS) 500 mg CHEW TAB PO SCH (09:37)
[2021-02-18] MEDS: methylPREDNISolone SOD 40 mg/ml 1 ml VIAL IV SCH (09:40)
[2021-02-18] MEDS: Enoxaparin 40 MG/0.4 ML SYR SUBCUT SCH (19:40)
[2021-02-19] MEDS: Albuterol/Ipratropium NEB.SOL (2.5/0.5 MG) 3 ML NEB.SOLN INH SCH ×3 (01:36→13:16)
[2021-02-19] MEDS: SPIRIVA Respimat (tiotropium) 2.5 mcg/inh Inhaler INH SCH (07:48)
[2021-02-19] MEDS: Calcium Carb (TUMS) 500 mg CHEW TAB PO SCH (08:55)
[2021-02-19] MEDS: Cholecalciferol (VIT D3) 1,000 unit TAB PO SCH (08:55)
[2021-02-19 12:40] VITALS: BP 141/86
== END 2021-02-19 14:35 | disposition home health service (06) | DRG 190 ==
LOC: ED 15:37 → MED 21:26
PROVIDERS: ADMIT Internal Medicine; ATTEND Internal Medicine

== ENCOUNTER 2021-05-06 11:07 | Inpatient (IN) ==
[2021-05-06] MEDS ORDERED: methylPREDNISolone 125 mg 2 ML VIAL IV ONE (11:18)
[2021-05-06] MEDS ORDERED: Albuterol 0.5% CONC CONTINUOUS NEB.SOL 5 mg/ml 20 ml BOT INH ONE (11:19)
[2021-05-06] MEDS ORDERED: Albuterol/Ipratropium NEB.SOL (2.5/0.5 MG) 3 ML NEB.SOLN INH ONE (11:19)
[2021-05-06] MEDS ORDERED: cefTRIAXone 1 gm/50 mL NS BAG 1 GM/50 ML BAG IV ONE (11:41)
[2021-05-06] MEDS ORDERED: Azithromycin 500 mg/250 ml NS 500 MG/250 ML BAG IVPB ONE (11:41)
[2021-05-06 12:01] LABS: ABS Basophils 0.1 10^3/ul (0-0.2); ABS Lymphocytes 1.3 10^3/ul (1.0-4.8); ABS Neutrophils 12.3 10^3/ul (1.5-7.7); Eosinophil % 0.2 %; Hematocrit 43 % (35-47); Hemoglobin 14.1 g/dL (12.0-16.0); Lymphocyte % 8.6 %; Mean Corpuscular HGB Conc 33 g/dL (31-36); Mean Corpuscular Hemoglobin 31 pg (27-31); Mean Corpuscular Volume 95 fL (80-97); Mean Platelet Volume 6.1 fL (7.4-10.4); Platelet Count 277 10^3/uL (150-450); Red Blood Count 4.48 10^6 /uL (3.70-4.87); Red Cell Distribution Width 16 % (10-15); White Blood Count 14.7 10^3/uL (3.5-10.8)
[2021-05-06 12:12] LABS: ALT 18 U/L (7-52); Albumin 3.2 g/dL (3.2-5.2); Albumin/Globulin Ratio 1.5 (1-3); Alkaline Phosphatase 45 U/L (35-149); Blood Urea Nitrogen 22 mg/dL (6-24); CO2 Carbon Dioxide 28 mmol/L (22-32); Calcium 7.6 mg/dL (8.6-10.3); Chloride 98 mmol/L (101-111); EGFR Non-African American 63.6 (>60); Globulin 2.1 g/dL (2-4); Glucose 109 mg/dL (70-100); Sodium 134 mmol/L (135-145); Total Protein 5.3 g/dL (6.4-8.9)
[2021-05-06 12:25] LABS: Anion Gap 8 mmol/L (2-11)
[2021-05-06 12:47] LABS: Potassium Redraw 3.3 mmol/L (3.5-5.0)
[2021-05-06 14:04] LABS: PCO2 Arterial 40 mmHg (35-45); PO2 Arterial 91 mmHg (80-100)
[2021-05-06 14:15] LABS: Magnesium 1.5 mg/dL (1.9-2.7); Phosphorus 1.5 mg/dL (2.5-5.0)
[2021-05-06] MEDS ORDERED: Magnesium Sulf 4 GM/100 ML IV 4,000 MG/100 ML BAG IVPB ONE (14:43)
[2021-05-06] MEDS ORDERED: Potassium Phosphate IV 15 MMOLE in NS 0.9% 250 ml 250 ML IVPB ONE (14:43)
[2021-05-06] MEDS: Enoxaparin 40 MG/0.4 ML SYR SUBCUT SCH (16:12)
[2021-05-06] MEDS: Albuterol/Ipratropium NEB.SOL (2.5/0.5 MG) 3 ML NEB.SOLN INH SCH ×3 (18:03→23:36)
[2021-05-06] MEDS: methylPREDNISolone SOD 40 mg/ml 1 ml VIAL IV SCH (19:41)
[2021-05-07] MEDS ORDERED: Cefepime 2 GM in Dextrose 2 GM/50 ML BAG IV SCH (03:00)
[2021-05-07] MEDS: methylPREDNISolone SOD 40 mg/ml 1 ml VIAL IV SCH ×2 (03:46→13:25)
[2021-05-07] MEDS: Albuterol/Ipratropium NEB.SOL (2.5/0.5 MG) 3 ML NEB.SOLN INH SCH ×4 (03:58→19:55)
[2021-05-07 05:35] LABS: Hematocrit 40 % (35-47); Hemoglobin 13.1 g/dL (12.0-16.0); Mean Corpuscular HGB Conc 33 g/dL (31-36); Mean Corpuscular Hemoglobin 32 pg (27-31); Mean Corpuscular Volume 96 fL (80-97); Mean Platelet Volume 6.1 fL (7.4-10.4); Platelet Count 228 10^3/uL (150-450); Red Blood Count 4.17 10^6 /uL (3.70-4.87); Red Cell Distribution Width 16 % (10-15); White Blood Count 14.5 10^3/uL (3.5-10.8)
[2021-05-07 05:54] LABS: Calcium 8.1 mg/dL (8.6-10.3); EGFR African American 53.7 (>60); EGFR Non-African American 44.3 (>60); Magnesium 3.1 mg/dL (1.9-2.7); Phosphorus 4.1 mg/dL (2.5-5.0); Potassium 3.6 mmol/L (3.5-5.0)
[2021-05-07 08:48] LABS: RBC Morphology Normal (Normal)
[2021-05-07 08:49] LABS: ABS Lymphocytes 0.4 10^3/ul (1.0-4.8); ABS Monocytes 0.4 10^3/ul (0-0.8); ABS Neutrophils 13.7 10^3/ul (1.5-7.7); Lymphocyte % 2.6 %
[2021-05-07] MEDS ORDERED: SPIRIVA Respimat (tiotropium) 2.5 mcg/inh Inhaler INH SCH (09:00)
[2021-05-07] MEDS ORDERED: Azithromycin 500 mg/250 ml NS 500 MG/250 ML BAG IVPB SCH (09:00)
[2021-05-07] MEDS: Calcium Carb (TUMS) 500 mg CHEW TAB PO SCH (09:08)
[2021-05-07] MEDS ORDERED: Piperacillin/Tazobac ADVAN 3.375 GM in NS 0.9% 100 ml BAG 100 ML IV ONE (09:31)
[2021-05-07] MEDS ORDERED: Zosyn per Pharmacy NOTE FOLLOW UP SCH (10:00)
[2021-05-07] MEDS ORDERED: cefTRIAXone 1 gm/50 mL NS BAG 1 GM/50 ML BAG IVPB SCH (10:00)
[2021-05-07] MEDS: Enoxaparin 40 MG/0.4 ML SYR SUBCUT SCH (13:35)
[2021-05-07] MEDS: ZOSYN 3.375 GM Q8H per EXTENDED INFUSION IV SCH ×2 (15:19→21:07)
[2021-05-08] MEDS: Albuterol/Ipratropium NEB.SOL (2.5/0.5 MG) 3 ML NEB.SOLN INH SCH ×4 (01:10→19:22)
[2021-05-08] MEDS: Calcium Carb (TUMS) 500 mg CHEW TAB PO SCH (09:41)
[2021-05-08] MEDS: ZOSYN 3.375 GM Q8H per EXTENDED INFUSION IV SCH ×2 (09:41→15:59)
[2021-05-08] MEDS: methylPREDNISolone SOD 40 mg/ml 1 ml VIAL IV SCH (09:42)
[2021-05-08 11:26] LABS: ABS Lymphocytes 0.2 10^3/ul (1.0-4.8); ABS Monocytes 0.5 10^3/ul (0-0.8); ABS Neutrophils 11.4 10^3/ul (1.5-7.7); Hematocrit 35 % (35-47); Hemoglobin 11.6 g/dL (12.0-16.0); Lymphocyte % 1.6 %; Mean Corpuscular HGB Conc 34 g/dL (31-36); Mean Corpuscular Hemoglobin 32 pg (27-31); Mean Corpuscular Volume 94 fL (80-97); Mean Platelet Volume 6.6 fL (7.4-10.4); Nucleated Red Blood Cells % 0.1; Platelet Count 210 10^3/uL (150-450); Red Blood Count 3.67 10^6 /uL (3.70-4.87); Red Cell Distribution Width 16 % (10-15); White Blood Count 12.2 10^3/uL (3.5-10.8)
[2021-05-08 11:41] LABS: Calcium 8.6 mg/dL (8.6-10.3); EGFR African American 67.1 (>60); EGFR Non-African American 55.5 (>60); Magnesium 2.8 mg/dL (1.9-2.7); Potassium 3.3 mmol/L (3.5-5.0)
[2021-05-08] MEDS: Enoxaparin 40 MG/0.4 ML SYR SUBCUT SCH (15:59)
[2021-05-08] MEDS: KCL 20 MEQ/100 ML IVPREMIX 20 MEQ/100 ML BAG IV SCH (23:10)
[2021-05-09] MEDS: ZOSYN 3.375 GM Q8H per EXTENDED INFUSION IV SCH ×4 (00:48→21:55)
[2021-05-09] MEDS ORDERED: Potassium Chlor 20 meq TAB.ER PO ONE (01:37)
[2021-05-09] MEDS: Albuterol/Ipratropium NEB.SOL (2.5/0.5 MG) 3 ML NEB.SOLN INH SCH ×2 (01:38→07:40)
[2021-05-09] MEDS: KCL 20 MEQ/100 ML IVPREMIX 20 MEQ/100 ML BAG IV SCH ×2 (01:43→01:44)
[2021-05-09] MEDS ORDERED: Albuterol/Ipratropium NEB.SOL (2.5/0.5 MG) 3 ML NEB.SOLN INH PRN (07:55)
[2021-05-09] MEDS: Calcium Carb (TUMS) 500 mg CHEW TAB PO SCH (08:10)
[2021-05-09] MEDS: methylPREDNISolone SOD 40 mg/ml 1 ml VIAL IV SCH (08:10)
[2021-05-09] MEDS: Enoxaparin 40 MG/0.4 ML SYR SUBCUT SCH (13:06)
[2021-05-09] MEDS ORDERED: Albuterol HFA INHALER 8 gm MDI INH PRN (15:49)
[2021-05-09] MEDS: Albuterol HFA INHALER 8 gm MDI INH SCH (21:37)
[2021-05-10 05:17] LABS: Hematocrit 38 % (35-47); Hemoglobin 12.3 g/dL (12.0-16.0); Mean Corpuscular HGB Conc 33 g/dL (31-36); Mean Corpuscular Hemoglobin 31 pg (27-31); Mean Corpuscular Volume 95 fL (80-97); Mean Platelet Volume 6.3 fL (7.4-10.4); Platelet Count 260 10^3/uL (150-450); Red Blood Count 3.96 10^6 /uL (3.70-4.87); Red Cell Distribution Width 16 % (10-15); White Blood Count 8.6 10^3/uL (3.5-10.8)
[2021-05-10] MEDS: ZOSYN 3.375 GM Q8H per EXTENDED INFUSION IV SCH ×3 (05:23→22:16)
[2021-05-10 05:35] LABS: Calcium 9.3 mg/dL (8.6-10.3); EGFR Non-African American 62.8 (>60); Magnesium 2.3 mg/dL (1.9-2.7); Potassium 4.2 mmol/L (3.5-5.0)
[2021-05-10] MEDS: Calcium Carb (TUMS) 500 mg CHEW TAB PO SCH (08:07)
[2021-05-10] MEDS: Albuterol HFA INHALER 8 gm MDI INH SCH ×2 (09:24→21:16)
[2021-05-10] MEDS: Enoxaparin 40 MG/0.4 ML SYR SUBCUT SCH (15:34)
[2021-05-11] MEDS: ZOSYN 3.375 GM Q8H per EXTENDED INFUSION IV SCH ×3 (06:15→22:26)
[2021-05-11] MEDS: Albuterol HFA INHALER 8 gm MDI INH SCH ×2 (07:48→19:13)
[2021-05-11] MEDS: Calcium Carb (TUMS) 500 mg CHEW TAB PO SCH (08:37)
[2021-05-11] MEDS: Enoxaparin 40 MG/0.4 ML SYR SUBCUT SCH (13:45)
[2021-05-11] MEDS: Morphine ORAL CONCENTRATE 5 MG/0.25 ML ORAL.SYRIN PO PRN (15:14)
[2021-05-11] MEDS ORDERED: Furosemide 20 mg/2 ml IV VIAL IV SLOW PU ONE (17:22)
[2021-05-11] MEDS ORDERED: Albuterol/Ipratropium NEB.SOL (2.5/0.5 MG) 3 ML NEB.SOLN INH SCH (18:00)
[2021-05-11] MEDS: Mometasone/Formoter 100/5 MDI INH SCH (19:13)
[2021-05-11] MEDS: Fluticasone NASAL SPRAY 50MCG 16 gm SPRAY BTL BOTH NARES SCH (20:21)
[2021-05-11] MEDS: Albuterol/Ipratropium NEB.SOL (2.5/0.5 MG) 3 ML NEB.SOLN INH SCH (22:52)
[2021-05-12] MEDS: Albuterol/Ipratropium NEB.SOL (2.5/0.5 MG) 3 ML NEB.SOLN INH SCH ×6 (03:02→23:28)
[2021-05-12 05:03] LABS: Hematocrit 42 % (35-47); Hemoglobin 13.7 g/dL (12.0-16.0); Mean Corpuscular HGB Conc 33 g/dL (31-36); Mean Corpuscular Hemoglobin 31 pg (27-31); Mean Corpuscular Volume 95 fL (80-97); Mean Platelet Volume 6.3 fL (7.4-10.4); Platelet Count 293 10^3/uL (150-450); Red Blood Count 4.38 10^6 /uL (3.70-4.87); Red Cell Distribution Width 16 % (10-15); White Blood Count 7.8 10^3/uL (3.5-10.8)
[2021-05-12 05:17] LABS: Calcium 8.6 mg/dL (8.6-10.3); EGFR African American 59.4 (>60); EGFR Non-African American 49.1 (>60); Potassium 3.3 mmol/L (3.5-5.0)
[2021-05-12 05:39] LABS: ABS Lymphocytes 0.7 10^3/ul (1.0-4.8); ABS Monocytes 0.9 10^3/ul (0-0.8); ABS Neutrophils 6.1 10^3/ul (1.5-7.7); Eosinophil % 0.3 %; Lymphocyte % 8.9 %; Nucleated Red Blood Cells % 0.2
[2021-05-12] MEDS: ZOSYN 3.375 GM Q8H per EXTENDED INFUSION IV SCH ×3 (05:48→22:49)
[2021-05-12] MEDS: Mometasone/Formoter 100/5 MDI INH SCH ×2 (07:01→20:04)
[2021-05-12] MEDS ORDERED: Potassium Chlor 20 meq TAB.ER PO ONE (08:29)
[2021-05-12] MEDS: Calcium Carb (TUMS) 500 mg CHEW TAB PO SCH (08:49)
[2021-05-12] MEDS: Fluticasone NASAL SPRAY 50MCG 16 gm SPRAY BTL BOTH NARES SCH (08:50)
[2021-05-12] MEDS ORDERED: SPIRIVA Respimat (tiotropium) 2.5 mcg/inh Inhaler INH SCH (09:00)
[2021-05-12] MEDS: Morphine ORAL CONCENTRATE 5 MG/0.25 ML ORAL.SYRIN PO PRN (14:19)
[2021-05-12] MEDS: Enoxaparin 40 MG/0.4 ML SYR SUBCUT SCH (14:19)
[2021-05-13] MEDS: Albuterol/Ipratropium NEB.SOL (2.5/0.5 MG) 3 ML NEB.SOLN INH SCH ×4 (02:29→22:09)
[2021-05-13] MEDS: Mometasone/Formoter 100/5 MDI INH SCH ×3 (05:58→22:07)
[2021-05-13] MEDS: ZOSYN 3.375 GM Q8H per EXTENDED INFUSION IV SCH ×3 (06:02→21:18)
[2021-05-13] MEDS: Calcium Carb (TUMS) 500 mg CHEW TAB PO SCH (08:05)
[2021-05-13] MEDS: Fluticasone NASAL SPRAY 50MCG 16 gm SPRAY BTL BOTH NARES SCH (08:16)
[2021-05-13] MEDS ORDERED: Potassium Chlor 20 meq TAB.ER PO SCH (09:00)
[2021-05-13] MEDS ORDERED: Diltiazem IV push/loading dose 5 MG/ML 5 ML vial (25 mg) IV SLOW PU ONE ×2 (09:20→09:58)
[2021-05-13] MEDS ORDERED: Potassium Chlor 20 meq TAB.ER PO ONE (10:00)
[2021-05-13] MEDS: Enoxaparin 40 MG/0.4 ML SYR SUBCUT SCH (14:06)
[2021-05-14] MEDS: Albuterol/Ipratropium NEB.SOL (2.5/0.5 MG) 3 ML NEB.SOLN INH SCH ×4 (05:31→19:18)
[2021-05-14] MEDS: ZOSYN 3.375 GM Q8H per EXTENDED INFUSION IV SCH ×3 (05:36→22:34)
[2021-05-14 06:44] LABS: EGFR African American 62.7 (>60); EGFR Non-African American 51.8 (>60); Magnesium 1.9 mg/dL (1.9-2.7); Potassium 3.5 mmol/L (3.5-5.0)
[2021-05-14] MEDS: Mometasone/Formoter 100/5 MDI INH SCH ×2 (07:10→19:18)
[2021-05-14] MEDS: Calcium Carb (TUMS) 500 mg CHEW TAB PO SCH (09:02)
[2021-05-14] MEDS: Fluticasone NASAL SPRAY 50MCG 16 gm SPRAY BTL BOTH NARES SCH (09:02)
[2021-05-14] MEDS: Potassium Chlor 20 meq TAB.ER PO SCH (10:16)
[2021-05-14] MEDS: Enoxaparin 40 MG/0.4 ML SYR SUBCUT SCH (14:31)
[2021-05-15] MEDS: Albuterol/Ipratropium NEB.SOL (2.5/0.5 MG) 3 ML NEB.SOLN INH SCH ×4 (01:24→19:52)
[2021-05-15] MEDS: ZOSYN 3.375 GM Q8H per EXTENDED INFUSION IV SCH ×3 (06:12→22:22)
[2021-05-15] MEDS: Mometasone/Formoter 100/5 MDI INH SCH ×2 (07:11→19:53)
[2021-05-15 07:19] LABS: Calcium 8.8 mg/dL (8.6-10.3); EGFR Non-African American 49.6 (>60); Magnesium 2.3 mg/dL (1.9-2.7); Potassium 3.6 mmol/L (3.5-5.0)
[2021-05-15] MEDS: Calcium Carb (TUMS) 500 mg CHEW TAB PO SCH (09:15)
[2021-05-15] MEDS: Potassium Chlor 20 meq TAB.ER PO SCH (09:16)
[2021-05-15] MEDS: Fluticasone NASAL SPRAY 50MCG 16 gm SPRAY BTL BOTH NARES SCH (09:18)
[2021-05-15] MEDS: Enoxaparin 40 MG/0.4 ML SYR SUBCUT SCH (13:31)
[2021-05-15] MEDS ORDERED: Potassium Chlor 20 meq TAB.ER PO ONE (16:30)
[2021-05-15] MEDS ORDERED: Miconazole VAG 200 mg SUPP VAGINAL SCH (22:00)
[2021-05-16] MEDS: Albuterol/Ipratropium NEB.SOL (2.5/0.5 MG) 3 ML NEB.SOLN INH SCH ×2 (00:35→07:18)
[2021-05-16 05:54] LABS: EGFR African American 53.7 (>60); EGFR Non-African American 44.3 (>60); Magnesium 2.9 mg/dL (1.9-2.7); Potassium 4.1 mmol/L (3.5-5.0)
[2021-05-16] MEDS: ZOSYN 3.375 GM Q8H per EXTENDED INFUSION IV SCH (06:07)
[2021-05-16] MEDS: Mometasone/Formoter 100/5 MDI INH SCH (07:19)
[2021-05-16 07:56] VITALS: BP 131/68
[2021-05-16] MEDS: Potassium Chlor 20 meq TAB.ER PO SCH (09:15)
[2021-05-16] MEDS: Calcium Carb (TUMS) 500 mg CHEW TAB PO SCH (09:16)
[2021-05-16] MEDS: Fluticasone NASAL SPRAY 50MCG 16 gm SPRAY BTL BOTH NARES SCH (09:19)
== END 2021-05-16 14:24 | disposition home or self-care (01) | DRG 177 ==
LOC: ED 11:07 → ICU 17:39 → MEDTELE 05-07 14:54
PROVIDERS: ADMIT Internal Medicine; ATTEND Student in an Organized Health Care Education/Training Program

== ENCOUNTER 2022-01-25 09:29 | Observation (INO) ==
[2022-01-25] MEDS ORDERED: Lactated Ringers 1000 ml BAG 1,000 ML IV ONE (09:42)
[2022-01-25 10:14] LABS: ABS Eosinophils 0.1 10^3/ul (0-0.6); ABS Neutrophils 6.7 10^3/ul (1.5-7.7); Eosinophil % 0.9 %; Hematocrit 42 % (35-47); Hemoglobin 13.9 g/dL (12.0-16.0); Lymphocyte % 11.7 %; Mean Corpuscular HGB Conc 33 g/dL (31-36); Mean Corpuscular Hemoglobin 30 pg (27-31); Mean Corpuscular Volume 89 fL (80-97); Mean Platelet Volume 6.4 fL (7.4-10.4); Platelet Count 310 10^3/uL (150-450); Red Blood Count 4.68 10^6 /uL (3.70-4.87); Red Cell Distribution Width 15 % (10-15); White Blood Count 8.9 10^3/uL (3.5-10.8)
[2022-01-25 12:00] LABS: Albumin 3.7 g/dL (3.2-5.2); Calcium 9.2 mg/dL (8.6-10.3); Magnesium 1.9 mg/dL (1.9-2.7); Potassium 3.8 mmol/L (3.5-5.0)
[2022-01-25 12:06] LABS: Albumin/Globulin Ratio 1.9 (1-3); C Reactive Protein 40.75 mg/L (<8.01); Total Protein 5.7 g/dL (6.4-8.9); eGFR CKD-EPI 91.8 (>60)
[2022-01-25] MEDS ORDERED: Dextrose 50% Syringe 50 ml 25 GM/50 ML SYRINGE IV PUSH ONE (12:17)
[2022-01-25] MEDS ORDERED: Iohexol 300 (CONTRAST) 10 ML SDV IV ONE (12:41)
[2022-01-25] MEDS ORDERED: Albuterol/Ipratropium NEB.SOL (2.5/0.5 MG) 3 ML NEB.SOLN INH PRN (17:56)
[2022-01-25] MEDS ORDERED: Morphine ORAL CONCENTRATE 5 MG/0.25 ML ORAL.SYRIN PO PRN (17:56)
[2022-01-25] MEDS ORDERED: Ondansetron 4 mg VIAL 2 MG/ML 2 ml VIAL IV PRN (18:00)
[2022-01-25] MEDS ORDERED: Lactated Ringers 1000 ml BAG 1,000 ML IV SCH (19:00)
[2022-01-25 20:19] LABS: TSH Ultra Thyroid Stim Horm 1.62 mcIU/mL (0.34-5.60)
[2022-01-25] MEDS: Enoxaparin 40 MG/0.4 ML SYR SUBCUT SCH (21:32)
[2022-01-25] MEDS: Albuterol HFA INHALER 8 gm MDI INH PRN (21:34)
[2022-01-25] MEDS: Mometasone/Formoter 200/5 MDI INH SCH (21:36)
[2022-01-25] MEDS ORDERED: Morphine 2 MG/ML SYRINGE IV PRN (23:29)
[2022-01-25] MEDS ORDERED: Dextrose 50% Syringe 50 ml 25 GM/50 ML SYRINGE IV PUSH PRN (23:38)
[2022-01-26] MEDS ORDERED: D5LR 1000 ml BAG 1,000 ML IV SCH
[2022-01-26 01:12] LABS: Urine Appearance Clear; Urine Bilirubin Negative (Negative); Urine Blood 1+ (Negative); Urine Color Yellow; Urine Glucose 3+(>=500 mg/dL) (Negative); Urine Ketones 2+ (Negative); Urine Nitrite Negative (Negative); Urine Protein Negative (Negative); Urine Specific Gravity 1.031 (1.002-1.030); Urine Urobilinogen Negative (Negative)
[2022-01-26 01:18] LABS: Urine Bacteria Absent (Absent); Urine Red Blood Cell Trace(0-2/hpf) (Absent); Urine White Blood Cell Trace(0-5/hpf) (Absent)
[2022-01-26 06:53] LABS: ABS Eosinophils 0.1 10^3/ul (0-0.6); ABS Lymphocytes 1.3 10^3/ul (1.0-4.8); ABS Neutrophils 4.3 10^3/ul (1.5-7.7); Eosinophil % 1.6 %; Hematocrit 38 % (35-47); Hemoglobin 12.9 g/dL (12.0-16.0); Lymphocyte % 19.6 %; Mean Corpuscular HGB Conc 34 g/dL (31-36); Mean Corpuscular Hemoglobin 30 pg (27-31); Mean Corpuscular Volume 88 fL (80-97); Mean Platelet Volume 6.3 fL (7.4-10.4); Nucleated Red Blood Cells % 0.1; Platelet Count 263 10^3/uL (150-450); Red Blood Count 4.35 10^6 /uL (3.70-4.87); Red Cell Distribution Width 15 % (10-15); White Blood Count 6.7 10^3/uL (3.5-10.8)
[2022-01-26 07:07] LABS: Calcium 8.8 mg/dL (8.6-10.3); Potassium 3.6 mmol/L (3.5-5.0); eGFR CKD-EPI 87.1 (>60)
[2022-01-26] MEDS: Mometasone/Formoter 200/5 MDI INH SCH ×2 (07:46→19:52)
[2022-01-26] MEDS: Lactated Ringers 1000 ml BAG 1,000 ML IV SCH ×2 (09:52→20:22)
[2022-01-26] MEDS ORDERED: Morphine 2 MG/ML SYRINGE IV PRN (17:19)
[2022-01-26] MEDS: Enoxaparin 40 MG/0.4 ML SYR SUBCUT SCH (20:22)
[2022-01-26] MEDS: Albuterol HFA INHALER 8 gm MDI INH PRN (21:16)
[2022-01-27] MEDS: Albuterol HFA INHALER 8 gm MDI INH PRN ×2 (02:10→07:34)
[2022-01-27 07:00] LABS: ABS Eosinophils 0.1 10^3/ul (0-0.6); Hematocrit 33 % (35-47); Hemoglobin 11.3 g/dL (12.0-16.0); Mean Corpuscular HGB Conc 35 g/dL (31-36); Mean Corpuscular Hemoglobin 30 pg (27-31); Mean Corpuscular Volume 87 fL (80-97); Mean Platelet Volume 6.5 fL (7.4-10.4); Platelet Count 240 10^3/uL (150-450); Red Blood Count 3.79 10^6 /uL (3.70-4.87); Red Cell Distribution Width 15 % (10-15); White Blood Count 6.1 10^3/uL (3.5-10.8)
[2022-01-27 07:20] LABS: Calcium 8.8 mg/dL (8.6-10.3); Potassium 3.5 mmol/L (3.5-5.0); eGFR CKD-EPI 95.1 (>60)
[2022-01-27] MEDS: Mometasone/Formoter 200/5 MDI INH SCH (07:33)
[2022-01-27 12:09] VITALS: BP 144/57
== END 2022-01-27 16:50 | disposition home or self-care (01) ==
LOC: ED 09:29 → EDHOLD 09:29 → SUATTDRO 17:51 → MED 20:44
PROVIDERS: ADMIT Internal Medicine; ATTEND Internal Medicine

== ENCOUNTER 2022-05-16 13:13 | Inpatient (IN) ==
[2022-05-16] MEDS ORDERED: Lactated Ringers 1000 ml BAG 1,000 ML IV ONE (13:41)
[2022-05-16] MEDS ORDERED: ACETAMINOPHEN IV ONE (13:52)
[2022-05-16 14:36] LABS: ABS Basophils 0.1 10^3/ul (0-0.2); ABS Eosinophils 0.6 10^3/ul (0-0.6); ABS Monocytes 0.7 10^3/ul (0-0.8); ABS Neutrophils 3.8 10^3/ul (1.5-7.7); Eosinophil % 9.1 %; Hematocrit 36 % (35-47); Hemoglobin 12.4 g/dL (12.0-16.0); Lymphocyte % 16.1 %; Mean Corpuscular HGB Conc 34 g/dL (31-36); Mean Corpuscular Hemoglobin 31 pg (27-31); Mean Corpuscular Volume 90 fL (80-97); Mean Platelet Volume 6.7 fL (7.4-10.4); Nucleated Red Blood Cells % 0.1; Platelet Count 224 10^3/uL (150-450); Red Blood Count 4.03 10^6 /uL (3.70-4.87); Red Cell Distribution Width 18 % (10-15); White Blood Count 6.1 10^3/uL (3.5-10.8)
[2022-05-16 14:40] LABS: INR 1.12 (0.89-1.11)
[2022-05-16 15:46] LABS: Albumin 3.3 g/dL (3.2-5.2); Albumin/Globulin Ratio 1.8 (1-3); C Reactive Protein 79.71 mg/L (<8.01); Calcium 8.9 mg/dL (8.6-10.3); Globulin 1.8 g/dL (2-4); Magnesium 1.9 mg/dL (1.9-2.7); Potassium 3.9 mmol/L (3.5-5.0); Total Bilirubin 1.2 mg/dL (0.2-1.0); Total Protein 5.1 g/dL (6.4-8.9); eGFR CKD-EPI 91.8 (>60)
[2022-05-16] MEDS ORDERED: Dextrose 50% Syringe 50 ml 25 GM/50 ML SYRINGE IV PUSH ONE ×2 (15:53→20:23)
[2022-05-16 16:04] LABS: Hepatitis C Antibody Negative (Negative)
[2022-05-16] MEDS ORDERED: Iohexol 350 (CONTRAST) 500 ML MDV IV ONE (16:06)
[2022-05-16 19:02] LABS: Urine Appearance Slightly Cloudy; Urine Bilirubin 1+ (Small) (Negative); Urine Blood Negative (Negative); Urine Color Yellow; Urine Glucose Trace (100mg/dL) (Negative); Urine Ketones Trace (Negative); Urine Nitrite Negative (Negative); Urine Protein Negative (Negative); Urine Urobilinogen 1.0 (Negative) (Negative)
[2022-05-16] MEDS ORDERED: Magnesium Sulfate IV 1GM/100ML 1 GM/100 ML BAG IV ONE (20:26)
[2022-05-16] MEDS ORDERED: Potassium Chlor 20 meq TAB.ER PO ONE (20:26)
[2022-05-16] MEDS ORDERED: Ondansetron 4 mg VIAL 2 MG/ML 2 ml VIAL IV PRN (20:57)
[2022-05-16] MEDS ORDERED: Digoxin IV 0.5 MG/2 ML AMP (0.25 MG/ML) IV SLOW PU ONE (20:57)
[2022-05-16] MEDS ORDERED: Methylnaltrexone SQ (NF) 12 MG/0.6 ML VIAL SUBCUT ONE (20:59)
[2022-05-16] MEDS ORDERED: Calcium Carb (TUMS) 500 mg CHEW TAB PO PRN (21:00)
[2022-05-16] MEDS ORDERED: D5LR 1000 ml BAG 1,000 ML IV SCH (21:00)
[2022-05-16] MEDS ORDERED: Polyethylene Glycol 3350 17 GM PACKET PO PRN (21:21)
[2022-05-16] MEDS ORDERED: Senna TAB 8.6 mg TAB PO PRN (21:21)
[2022-05-16] MEDS ORDERED: Magnesium Hydroxide LIQ 30 ML UDC PO PRN (21:21)
[2022-05-16] MEDS: Enoxaparin 40 MG/0.4 ML SYR SUBCUT SCH (21:44)
[2022-05-16] MEDS: Mometasone/Formoter 200/5 MDI INH SCH (23:17)
[2022-05-17] MEDS: Albuterol HFA INHALER 8 gm MDI INH PRN ×4 (03:05→20:26)
[2022-05-17 05:18] LABS: ABS Basophils 0.1 10^3/ul (0-0.2); ABS Eosinophils 0.2 10^3/ul (0-0.6); ABS Lymphocytes 1.2 10^3/ul (1.0-4.8); ABS Monocytes 0.8 10^3/ul (0-0.8); ABS Neutrophils 3.8 10^3/ul (1.5-7.7); Eosinophil % 3.9 %; Hematocrit 36 % (35-47); Hemoglobin 11.9 g/dL (12.0-16.0); Lymphocyte % 20.5 %; Mean Corpuscular HGB Conc 33 g/dL (31-36); Mean Corpuscular Hemoglobin 29 pg (27-31); Mean Corpuscular Volume 89 fL (80-97); Mean Platelet Volume 6.8 fL (7.4-10.4); Nucleated Red Blood Cells % 0.1; Platelet Count 237 10^3/uL (150-450); Red Blood Count 4.09 10^6 /uL (3.70-4.87); Red Cell Distribution Width 17 % (10-15); White Blood Count 6.1 10^3/uL (3.5-10.8)
[2022-05-17 05:51] LABS: Calcium 8.1 mg/dL (8.6-10.3); Potassium 4.5 mmol/L (3.5-5.0)
[2022-05-17 05:57] LABS: Phosphorus 3.3 mg/dL (2.5-5.0); eGFR CKD-EPI 92.8 (>60)
[2022-05-17 06:38] LABS: TSH Ultra Thyroid Stim Horm 1.65 mcIU/mL (0.34-5.60)
[2022-05-17] MEDS: SPIRIVA Respimat (tiotropium) 2.5 mcg/inh Inhaler INH SCH (08:58)
[2022-05-17] MEDS: Mometasone/Formoter 200/5 MDI INH SCH ×3 (08:58→20:21)
[2022-05-17] MEDS: Cholecalciferol (VIT D3) 1,000 unit TAB PO SCH (09:35)
[2022-05-17] MEDS: Enoxaparin 40 MG/0.4 ML SYR SUBCUT SCH ×2 (09:35→21:02)
[2022-05-18] MEDS: Albuterol HFA INHALER 8 gm MDI INH PRN ×2 (00:37→11:19)
[2022-05-18] MEDS: Mometasone/Formoter 200/5 MDI INH SCH ×3 (00:40→19:06)
[2022-05-18] MEDS: SPIRIVA Respimat (tiotropium) 2.5 mcg/inh Inhaler INH SCH (07:51)
[2022-05-18 09:11] LABS: Calcium 8.5 mg/dL (8.6-10.3); Magnesium 2.1 mg/dL (1.9-2.7); Potassium 4.4 mmol/L (3.5-5.0); eGFR CKD-EPI 93.5 (>60)
[2022-05-18] MEDS: Enoxaparin 40 MG/0.4 ML SYR SUBCUT SCH ×2 (10:01→20:56)
[2022-05-18] MEDS: Cholecalciferol (VIT D3) 1,000 unit TAB PO SCH (10:02)
[2022-05-18 10:07] LABS: Insulin 8.6 mcIU/mL (2.0-16.0)
[2022-05-18] MEDS: Morphine ORAL CONCENTRATE 5 MG/0.25 ML ORAL.SYRIN PO PRN (13:58)
[2022-05-19] MEDS: Morphine ORAL CONCENTRATE 5 MG/0.25 ML ORAL.SYRIN PO PRN (03:40)
[2022-05-19] MEDS: Albuterol HFA INHALER 8 gm MDI INH PRN (03:56)
[2022-05-19 06:43] LABS: ABS Lymphocytes 0.6 10^3/ul (1.0-4.8); ABS Monocytes 0.5 10^3/ul (0-0.8); ABS Neutrophils 2.8 10^3/ul (1.5-7.7); Hematocrit 28 % (35-47); Hemoglobin 10.2 g/dL (12.0-16.0); Lymphocyte % 15.8 %; Mean Corpuscular HGB Conc 36 g/dL (31-36); Mean Corpuscular Hemoglobin 32 pg (27-31); Mean Corpuscular Volume 88 fL (80-97); Mean Platelet Volume 6.4 fL (7.4-10.4); Platelet Count 242 10^3/uL (150-450); Red Blood Count 3.21 10^6 /uL (3.70-4.87); Red Cell Distribution Width 17 % (10-15); White Blood Count 3.9 10^3/uL (3.5-10.8)
[2022-05-19] MEDS: Mometasone/Formoter 200/5 MDI INH SCH (07:31)
[2022-05-19] MEDS: SPIRIVA Respimat (tiotropium) 2.5 mcg/inh Inhaler INH SCH (07:31)
[2022-05-19 07:33] LABS: Calcium 8.4 mg/dL (8.6-10.3); Magnesium 2.3 mg/dL (1.9-2.7); Potassium 4.4 mmol/L (3.5-5.0); eGFR CKD-EPI 93.2 (>60)
[2022-05-19] MEDS: Enoxaparin 40 MG/0.4 ML SYR SUBCUT SCH (08:35)
[2022-05-19] MEDS: Cholecalciferol (VIT D3) 1,000 unit TAB PO SCH (08:35)
[2022-05-19 12:16] VITALS: BP 107/44
== END 2022-05-19 15:25 | disposition home or self-care (01) | DRG 308 ==
LOC: ED 13:13 → EDHOLD 20:57 → SUATTDRO 20:57 → ICU 05-17 00:04 → MEDTELE 05-17 15:59
PROVIDERS: ADMIT Internal Medicine; ATTEND Internal Medicine